=== PATIENT | female | born 1955 | race Two or more races ===

== ENCOUNTER 2017-08-03 23:23 | Inpatient (IN) | payer MEDICAID ==
[~2017-08-03] VITALS: Ht 160 cm; Wt 69.9 kg
[2017-08-04] VITALS (7 sets, daily range): BP systolic 114–167; BP diastolic 72–88
[2017-08-04] MEDS ORDERED: Morphine Sulfate 4mg/ml Inj IVP ONE ×2 (00:15→03:30)
[2017-08-04 00:33] LABS: APPEARANCE,URINE CLEAR; KETONES,URINE 1+ (NEGATIVE); LEUKOCYTE ESTERASE ,URINE 1+ (NEGATIVE); NITRITE,URINE NEGATIVE (NEGATIVE); PH,URINE 7 (4.5-8.0); PROTEIN,URINE 2+ (NEGATIVE); UROBILINOGEN,URINE NORMAL MG/DL (0.0-1.0)
[2017-08-04 00:36] LABS: BASOPHILS % (AUTO) 0.7 % (0.0-2.0); EOSINOPHILS % (AUTO) 0.6 % (0.0-3.0); LYMPHOCYTES % (AUTO) 13.1 % (20.0-45.0); MEAN CORPUSCULAR HEMOGLOBIN 31.8 PG (27.0-31.0); MEAN CORPUSCULAR HGB CONC 33.8 G/DL (32.0-36.0); MEAN CORPUSCULAR VOLUME 94 FL (80-99); MEAN PLATELET VOLUME 8.2 FL (6.5-10.1); MONOCYTES % (AUTO) 3.4 % (1.0-10.0); NEUTROPHILS % (AUTO) 82.3 % (45.0-75.0); PLATELET COUNT 272 K/UL (150-450); RED BLOOD COUNT 4.28 M/UL (4.20-5.40); RED CELL DISTRIBUTION WIDTH 12.6 % (11.6-14.8); WHITE BLOOD COUNT 13.7 K/UL (4.8-10.8)
[2017-08-04 00:49] LABS: ANION GAP 10 mmol/L (5-15); CALCIUM 9.2 MG/DL (8.5-10.1); CARBON DIOXIDE 29 MMOL/L (21-32); CHLORIDE 99 MMOL/L (98-107); CREATININE 1.1 MG/DL (0.55-1.30); GLOMERULAR FILTRATION RATE 50.5 mL/min (>60); POTASSIUM 3.7 MMOL/L (3.5-5.1); SODIUM 138 MMOL/L (136-145)
--- NOTE | 2017-08-04 00:52 | Emergency Room Report ---
History of Present Illness General Chief Complaint: Abdominal Pain Source: Patient, Family Member Present Illness HPI 62-year-old female, history of hypertension and diabetes p/w abdominal pain 2-3 days. Patient states pain started gradually, localized to make lower and left lower quadrant, non radiating, crampy in nature, intermittent. No relieving or exacerbating factors. Severity is 5/10. Pt reports n/v, more than 7 episodes of nbnb vomiting, denies diarrhea, but states that she has had constipation, however did pass Hardened small stool today. Denies fever, chills. No hx of abdominal surgeries. No hx of endoscopies/colonoscopies. Patient was diagnosed with UTI, and has completed 4 days of antibiotics, continues to have dysuria and frequency Allergies: Coded Allergies: No Known Allergies (Unverified , 08/03/17) Patient History Past Medical History: see triage record Past Surgical History: none Pertinent Family History: none Reviewed Nursing Documentation: PMH: Agreed, PSxH: Agreed Nursing Documentation-PMH Hx Hypertension: Yes Hx Diabetes: Yes Review of Systems All Other Systems: negative except mentioned in HPI Physical Exam Vital Signs Date Time Temp Pulse Resp B/P (MAP) Pulse Ox O2 Delivery O2 Flow Rate FiO2 08/03/17 23:27 97.7 85 18 127/76 98 Room Air Sp02 EP Interpretation: reviewed, normal General Appearance: alert, GCS 15, non-toxic, moderate distress Head: normocephalic, atraumatic Eyes: bilateral eye normal inspection, bilateral eye PERRL, bilateral eye EOMI ENT: normal ENT inspection, normal pharynx, normal voice, moist mucus membranes Neck: normal inspection, full range of motion, supple Respiratory: normal inspection, lungs clear, normal breath sounds, no respiratory distress, no retraction, no wheezing, speaking full sentences, chest symmetrical Cardiovascular #1: normal inspection, regular rate, rhythm, normal capillary refill Cardiovascular #2: 2+ radial (R), 2+ radial (L) Gastrointestinal: other - Normal bowel sounds, abdomen is soft, has left lower quadrant and mid abdominal tenderness, mild voluntary guarding, no rebound, no CVA tenderness bilaterally Musculoskeletal: normal inspection, back normal, normal range of motion, non- tender Neurologic: normal inspection, alert, oriented x3, responsive, motor strength/ tone normal, sensory intact, normal gait, speech normal Psychiatric: normal inspection, judgement/insight normal, memory normal Skin: normal inspection, normal color, no rash, warm/dry, well hydrated, normal turgor Medical Decision Making Diagnostic Impression: Primary Impression: Intractable nausea and vomiting Additional Impressions: Hyperglycemia Left nephrolithiasis ER Course 62-year-old female with abdominal pain Differential Diagnosis: Gastritis, gastroenteritis, cholecystitis, appendicitis, diverticulitis, SBO, cardiac, UTI/pyelo Plan: Basic labs, ua, ekg pain control, IVF CTA abdo pelvis ER course: Patient had two more episodes of vomiting in ED required pain meds for abd pain x 2, continues to feel nauseous urine neg, however also has been taking abx, possible failed outpatient tx as patient is still experiencing symptoms. ceftriaxone given CT abdo pelvis shows possible L sided kidney stone which passed will admit for intractable abd pain Disposition: Patient is to be admitted to med-surg D.W hospitalist Dr Guo Please note that this Emergency Department Report was dictated using [employer] teacher technology software, occasionally this can lead to erroneous entry secondary to interpretation by the dictation equipment EKG Diagnostic Results EP Interpretation: Yes Rate: normal Rhythm: NSR ST Segments: Q waves noted in leads 3 and aVF, T wave inversion noted only in lead 3 ASA given to patient: No Rhythm Strip EP Interpretation: Yes Rate: 90 Rhythm: NSR, no PVCs, no ectopy Laboratory Tests Test 08/03/17 23:59 White Blood Count 13.7 K/UL (4.8-10.8) H Red Blood Count 4.28 M/UL (4.20-5.40) Hemoglobin 13.6 G/DL (12.0-16.0) Hematocrit 40.4 % (37.0-47.0) Mean Corpuscular Volume 94 FL (80-99) Mean Corpuscular Hemoglobin 31.8 PG (27.0-31.0) H Mean Corpuscular Hemoglobin Concent 33.8 G/DL (32.0-36.0) Red Cell Distribution Width 12.6 % (11.6-14.8) Platelet Count 272 K/UL (150-450) Mean Platelet Volume 8.2 FL (6.5-10.1) Neutrophils (%) (Auto) 82.3 % (45.0-75.0) H Lymphocytes (%) (Auto) 13.1 % (20.0-45.0) L Monocytes (%) (Auto) 3.4 % (1.0-10.0) Eosinophils (%) (Auto) 0.6 % (0.0-3.0) Basophils (%) (Auto) 0.7 % (0.0-2.0) Urine Color Pale yellow Urine Appearance Clear Urine pH 7 (4.5-8.0) Urine Specific [place] 1.005 (1.005-1.035) Urine Protein 2+ (NEGATIVE) H Urine Glucose (UA) 4+ (NEGATIVE) H Urine Ketones 1+ (NEGATIVE) H Urine Occult Blood Negative (NEGATIVE) Urine Nitrite Negative (NEGATIVE) Urine Bilirubin Negative (NEGATIVE) Urine Urobilinogen Normal MG/DL (0.0-1.0) Urine Leukocyte Esterase 1+ (NEGATIVE) H Urine RBC 0 /HPF (0 - 2) Urine WBC 0-2 /HPF (0 - 2) Urine Squamous Epithelial Cells Few /LPF (NONE/OCC) Urine Bacteria None /HPF (NONE) Sodium Level 138 MMOL/L (136-145) Potassium Level 3.7 MMOL/L (3.5-5.1) Chloride Level 99 MMOL/L (98-107) Carbon Dioxide Level 29 MMOL/L (21-32) Anion Gap 10 mmol/L (5-15) Blood Urea Nitrogen 27 mg/dL (7-18) H Creatinine 1.1 MG/DL (0.55-1.30) Estimate Glomerular Filtration Rate 50.5 mL/min (>60) Glucose Level 354 MG/DL (74-106) H Lactic Acid Level 1.50 mmol/L (0.66-2.22) Calcium Level 9.2 MG/DL (8.5-10.1) Total Bilirubin 0.4 MG/DL (0.2-1.0) Aspartate Amino Transferase (AST) 20 U/L (15-37) Alanine Aminotransferase (ALT) 29 U/L (12-78) Alkaline Phosphatase 111 U/L (46-116) Total Protein 8.7 G/DL (6.4-8.2) H Albumin 4.2 G/DL (3.4-5.0) Globulin 4.5 g/dL Albumin/Globulin Ratio 0.9 (1.0-2.7) L Lipase 209 U/L (73-393) Serum Alcohol < 3 mg/dL Acetone Level Pending CT/MRI/US Diagnostic Results CT/MRI/US Diagnostic Results : Imaging Test Ordered: CT abdo pelvis with IV and PO contrast Impression Mild to moderate left-sided hydro-nephrosis with perinephric fluid and fat stranding. No obstructing calculus is identified within the distal left ureter. Findings most likely represent a recently passed left renal stone or presence of a non-radiodense calculus in the distal left ureter. An pricila ending left UTI with pyelonephritis is less likely. Right kidney within normal limits Normal appendix. No bowel obstruction or wall thickening No adnexal lesions per [facility] Last Vital Signs Date Time Temp Pulse Resp B/P (MAP) Pulse Ox O2 Delivery O2 Flow Rate FiO2 08/04/17 00:29 97.7 82 18 127/76 98 Room Air Disposition: ADMITTED INPATIENT Condition: Serious Referrals: [facility] (PCP) Sepideh Clark M.D. Aug 04, 2017 00:52
[2017-08-04 01:00] LABS: RBC,URINE 0 /HPF (0 - 2); SQUAMOUS EPITHELIAL CELL,UR FEW /LPF (NONE/OCC); WBC,URINE 0-2 /HPF (0 - 2)
[2017-08-04 01:07] LABS: ALANINE AMINOTRANSFERASE 29 U/L (12-78); ALBUMIN/GLOBULIN RATIO 0.9 (1.0-2.7); ASPARTATE AMINO TRANSFERASE 20 U/L (15-37); LIPASE 209 U/L (73-393); TOTAL PROTEIN 8.7 G/DL (6.4-8.2)
[2017-08-04] MEDS ORDERED: SIMVASTATIN20 MG ORAL (01:32)
[2017-08-04] MEDS ORDERED: DOCUSATE SODIU100 MG ORAL (01:32)
[2017-08-04] MEDS ORDERED: LISINOPRIL20 MG ORAL (01:32)
[2017-08-04] MEDS ORDERED: LORATADINE10 M3 PO (01:32)
[2017-08-04] MEDS ORDERED: METFORMIN HCL1000 M1 ORAL (01:32)
[2017-08-04] MEDS ORDERED: CIPROFLOXACIN750 MG ORAL (01:32)
[2017-08-04] MEDS ORDERED: GLIPIZIDE5 MG ORAL (01:32)
[2017-08-04] MEDS ORDERED: PANTOPRAZOLE SO40 MG ORAL (01:32)
[2017-08-04] MEDS ORDERED: JANUVIA25 MG ORAL (01:32)
[2017-08-04] MEDS ORDERED: cefTRIAXone 1 GM in D5W 55 ML IVPB ONE (04:00)
[2017-08-04] MEDS ORDERED: Mylanta II UD 30ml ORAL PRN (07:00)
[2017-08-04] MEDS ORDERED: Nitroglycerin Subl 0.4mg tab SL PRN (07:00)
[2017-08-04] MEDS ORDERED: Ketorolac 30mg Inj IV PRN (07:00)
[2017-08-04] MEDS ORDERED: Morphine Sulfate 2mg/ml Inj IVP PRN (07:00)
[2017-08-04] MEDS ORDERED: Miralax 17gm pkt ORAL PRN (07:00)
[2017-08-04] MEDS: Heparin 5000 units/ml inj SUBQ SCH ×2 (10:10→22:13)
[2017-08-04] MEDS: sitaGLIPtin 50mg tab ORAL SCH (10:10)
[2017-08-04] MEDS: Lisinopril 20mg tab ORAL SCH (10:11)
[2017-08-04] MEDS: NovoLOG Insulin Flexpen SUBQ SCH ×3 (11:30→22:12)
--- NOTE | 2017-08-04 12:19 | GI Initial Consult Note ---
History of Present Illness General Date patient seen: Aug 04, 2017 Time patient seen: 11:00 Reason for Hospitalization: Abdominal Pain Referring physician: DIANE SMITH Reason for Consultation: ABDOMINAL PAIN Present Illness HPI 62-year-old female, history of hypertension and diabetes p/w abdominal pain 2-3 days. Patient states pain started gradually, localized to make lower and left lower quadrant, non radiating, crampy in nature, intermittent. No relieving or exacerbating factors. Severity is 5/10. Pt reports n/v, more than 7 episodes of nbnb vomiting, denies diarrhea, but states that she has had constipation, however did pass Hardened small stool today. Denies fever, chills. No hx of abdominal surgeries. No hx of endoscopies/colonoscopies. Patient was diagnosed with UTI, and has completed 4 days of antibiotics, continues to have dysuria and frequency GI consulted for abdominal pain. HPI as noted above. Pt seen on floor, awake A&Ox4 NAD with no active s/sx of N/V/D. C/o of abdominal pain directed to the epigastric/LLQ area. Tender to touch. Per daughter, patient has non compliancy to her diabetes. Had episodes of emesis with no hematemesis or coffee grounds. Preliminary CT AP shows mild to moderate left-sided hydro- nephrosis with perinephric fluid and fat stranding. No obstructing calculus is identified within the distal left ureter. Findings most likely represent a recently passed left renal stone or presence of a non-radiodense calculus in the distal left ureter, see full report. Presents today with leukocytosis. Last colonoscopy one year ago per patient. Home Meds Reported Medications Sitagliptin* (JANUVIA*) 25 Mg Tablet, 50 MG ORAL DAILY, TAB 08/04/17 Glipizide* (GLIPIZIDE*) 5 Mg Tablet, 10 MG ORAL BID, TAB 08/04/17 Lisinopril (LISINOPRIL*) 20 Mg Tablet, 20 MG ORAL DAILY, TAB 08/04/17 Simvastatin (ZOCOR) 20 Mg Tablet, 20 MG ORAL BEDTIME, TAB 08/04/17 Metformin Hcl* (METFORMIN HCL*) 1,000 Mg Tablet, 1000 MG ORAL BID, TAB 08/04/17 Docusate Sodium* (DOCUSATE SODIUM*) 100 Mg Capsule, 100 MG ORAL BID, CAP 08/04/17 Ciprofloxacin Hcl (CIPROFLOXACIN HCL*) 750 Mg Tablet, 500 MG ORAL BID, #5 TAB 0 Refills 08/04/17 Loratadine (LORATADINE) 10 Mg Capsule, 10 MG PO DAILY, CAP 08/04/17 Pantoprazole* (PANTOPRAZOLE*) 40 Mg Tablet.dr, 40 MG ORAL DAILY, TAB 08/04/17 Med list reviewed/reconciled: Yes Allergies: Coded Allergies: No Known Allergies (Unverified , 08/03/17) Patient History Limited by: medical condition History Provided By: Patient, Friend PMH Narrative Past Medical History: see triage record Past Surgical History: none Pertinent Family History: none Reviewed Nursing Documentation: PMH: Agreed, PSxH: Agreed Nursing Documentation-PMH Hx Hypertension: Yes Hx Diabetes: Yes Review of Systems All Other Systems: negative except mentioned in HPI Physical Exam Vital Signs Date Time Temp Pulse Resp B/P (MAP) Pulse Ox O2 Delivery O2 Flow Rate FiO2 08/03/17 23:27 97.7 85 18 127/76 98 Room Air Sp02 EP Interpretation: reviewed, normal Labs Laboratory Tests Test 08/03/17 23:59 White Blood Count 13.7 K/UL (4.8-10.8) H Red Blood Count 4.28 M/UL (4.20-5.40) Hemoglobin 13.6 G/DL (12.0-16.0) Hematocrit 40.4 % (37.0-47.0) Mean Corpuscular Volume 94 FL (80-99) Mean Corpuscular Hemoglobin 31.8 PG (27.0-31.0) H Mean Corpuscular Hemoglobin Concent 33.8 G/DL (32.0-36.0) Red Cell Distribution Width 12.6 % (11.6-14.8) Platelet Count 272 K/UL (150-450) Mean Platelet Volume 8.2 FL (6.5-10.1) Neutrophils (%) (Auto) 82.3 % (45.0-75.0) H Lymphocytes (%) (Auto) 13.1 % (20.0-45.0) L Monocytes (%) (Auto) 3.4 % (1.0-10.0) Eosinophils (%) (Auto) 0.6 % (0.0-3.0) Basophils (%) (Auto) 0.7 % (0.0-2.0) Urine Color Pale yellow Urine Appearance Clear Urine pH 7 (4.5-8.0) Urine Specific [place] 1.005 (1.005-1.035) Urine Protein 2+ (NEGATIVE) H Urine Glucose (UA) 4+ (NEGATIVE) H Urine Ketones 1+ (NEGATIVE) H Urine Occult Blood Negative (NEGATIVE) Urine Nitrite Negative (NEGATIVE) Urine Bilirubin Negative (NEGATIVE) Urine Urobilinogen Normal MG/DL (0.0-1.0) Urine Leukocyte Esterase 1+ (NEGATIVE) H Urine RBC 0 /HPF (0 - 2) Urine WBC 0-2 /HPF (0 - 2) Urine Squamous Epithelial Cells Few /LPF (NONE/OCC) Urine Bacteria None /HPF (NONE) Sodium Level 138 MMOL/L (136-145) Potassium Level 3.7 MMOL/L (3.5-5.1) Chloride Level 99 MMOL/L (98-107) Carbon Dioxide Level 29 MMOL/L (21-32) Anion Gap 10 mmol/L (5-15) Blood Urea Nitrogen 27 mg/dL (7-18) H Creatinine 1.1 MG/DL (0.55-1.30) Estimat Glomerular Filtration Rate 50.5 mL/min (>60) Glucose Level 354 MG/DL (74-106) H Lactic Acid Level 1.50 mmol/L (0.66-2.22) Calcium Level 9.2 MG/DL (8.5-10.1) Total Bilirubin 0.4 MG/DL (0.2-1.0) Aspartate Amino Transf (AST/SGOT) 20 U/L (15-37) Alanine Aminotransferase (ALT/SGPT) 29 U/L (12-78) Alkaline Phosphatase 111 U/L (46-116) Total Protein 8.7 G/DL (6.4-8.2) H Albumin 4.2 G/DL (3.4-5.0) Globulin 4.5 g/dL Albumin/Globulin Ratio 0.9 (1.0-2.7) L Lipase 209 U/L (73-393) Serum Alcohol < 3 mg/dL Acetone Level Pending General Appearance: well appearing, no apparent distress, alert, other - overweight Head: normocephalic EENT: PERRL/EOMI, normal ENT inspection Neck: supple Respiratory: normal breath sounds, no respiratory distress Cardiovascular: normal rate Gastrointestinal: normal inspection, non tender, soft, normal bowel sounds, non -distended Rectal: deferred Genitourinary: no CVA tenderness Musculoskeletal: normal inspection, back normal Neurologic: normal inspection, alert, oriented x3, responsive Psychiatric: normal inspection, judgement/insight normal, memory normal Skin: normal inspection, normal color, no rash, warm/dry, palpation normal, well hydrated Lymphatic: normal inspection, no adenopathy Current Medications Current Medications Medications (Trade) Dose Ordered Sig/Silas Route PRN Reason Start Time Stop Time Status Last Admin Dose Admin Acetaminophen (Tylenol) 650 mg Q4H PRN ORAL fever (temp>100.5F) 08/04/17 07:00 09/03/17 06:59 Al Hydroxide/Mg Hydroxide (Mylanta II) 30 ml Q6H PRN ORAL dyspepsia 08/04/17 07:00 09/03/17 06:59 Dextrose (Dextrose 50%) STAT PRN IV Hypoglycemia 08/04/17 07:00 09/03/17 06:59 Diphenhydramine HCl (Benadryl) 25 mg Q6H PRN ORAL Itching/Pruritis 08/04/17 07:00 09/03/17 06:59 Heparin Sodium (Porcine) (Heparin 5000 units/ml) 5,000 units EVERY 12 HOURS SUBQ 08/04/17 09:00 09/03/17 08:59 08/04/17 10:10 Insulin Aspart (NovoLOG) BEFORE MEALS AND HS SUBQ 08/04/17 11:30 09/03/17 11:29 Ketorolac Tromethamine (Toradol 30mg) 30 mg Q6H PRN IV moderate pian 4-6 08/04/17 07:00 08/09/17 06:59 Lisinopril (Prinivil) 20 mg DAILY ORAL 08/04/17 09:00 09/03/17 08:59 08/04/17 10:11 Morphine Sulfate (Morphine Sulfate) 2 mg Q4H PRN IVP severe Pain (Pain Scale 7-10) 08/04/17 07:00 08/11/17 06:59 Nitroglycerin (Ntg) 0.4 mg Q5M X 3 DOSES PRN SL Prn Chest Pain 08/04/17 07:00 09/03/17 06:59 Ondansetron HCl (Zofran) 4 mg Q6H PRN IVP Nausea & Vomiting 08/04/17 07:00 09/03/17 06:59 Pantoprazole (Protonix) 40 mg DAILY ORAL 08/04/17 09:00 09/03/17 08:59 08/04/17 10:07 Polyethylene Glycol (Miralax) 17 gm HSPRN PRN ORAL Constipation 08/04/17 07:00 09/03/17 06:59 Sitagliptin Phosphate (Januvia) 50 mg DAILY ORAL 08/04/17 09:00 09/03/17 08:59 08/04/17 10:10 Sodium Chloride 1,000 ml @ 50 mls/hr Q20H IV 08/04/17 08:00 09/03/17 07:59 08/04/17 10:07 Temazepam (Restoril) 15 mg HSPRN PRN ORAL Insomnia 08/04/17 07:00 08/11/17 06:59 GI: Plan Problems: (1) Abdominal pain (2) Gastroparesis due to DM (3) Intractable nausea and vomiting Plan supportive measures okay for CLD after abdominal U/S, adv to ADA diet as tolerated IV/PO hydration and electrolyte correction DM mgmt, fu HgA1c zofran prn, reglan for persistent N/V abx ppi fu labs Discussed with Dr. Brothers. Thank you for this patient referral, we will follow. Patti Lan N.P. Aug 04, 2017 12:19
[2017-08-04] MEDS ORDERED: Metoclopramide 10mg/2ml Inj IVP PRN (12:45)
--- NOTE | 2017-08-04 14:34 | Diagnostic Imaging Report ---
Clinical Indication: Left lower quadrant pain x2 days Technique: Patient given oral contrast. IV administration nonionic contrast. Venous phase spiral acquisition obtained through the abdomen and pelvis. Multiplanar reconstructions were generated. Total dose length product 895 mGycm. CTDIvol(s) 14, 17 mGy. Dose reduction achieved using automated exposure control Comparison: None Findings: There is mild left hydronephrosis, moderate left hydroureter, and considerable perinephric and periureteral fat stranding. No ureteral calculus demonstrated. However, there does appear to be a 13 x 8 mm focus of soft tissue attenuation at the left ureteral orifice. No intrarenal calculi are demonstrated. No right renal or ureteral calculi. There is a prominent right extrarenal pelvis. The bladder is distended. No definite renal mass or cyst demonstrated. The liver is mildly hypoattenuating, consistent with fatty change. A sub-5 mm low-attenuation lesion is seen in segment 8. A parenchymal calcification is also seen in segment 8. The gallbladder, bile ducts, pancreas, spleen, adrenals are unremarkable. No retroperitoneal or mesenteric mass or adenopathy. No pelvic mass or adenopathy. The appendix is normal. No evidence of diverticulosis or diverticulitis. No small bowel distention. No free or loculated intraperitoneal air or fluid. Distal esophagus, stomach, duodenum are unremarkable. The included lung bases demonstrate some atelectasis on the right. There are degenerative changes of the lumbar spine. Impression: Left hydronephrosis, hydroureter, perinephric and periureteral fat stranding, consistent with obstructive uropathy at the level of the ureteral orifice. No calculi demonstrated. This could represent recent stone passage or a radiolucent stone. However, there there is questionably 13 x 8 mm focus of soft tissue attenuation at the distal ureter. This may represent a urothelial mass. Further evaluation with cystoscopy should be considered if clinically indicated Mild hepatic steatosis Right basilar atelectatic changes Findings essentially agree with the [facility] preliminary report, with mild discrepancy that was discussed with Dr. Guo at the time of interpretation The CT scanner at [facility] is accredited by the [employer] and the scans are performed using protocols designed to limit radiation exposure to as low as reasonably achievable to attain images of sufficient resolution adequate for diagnostic evaluation.
[2017-08-04] MEDS: Docusate 100mg cap ORAL SCH (18:00)
[2017-08-04] MEDS ORDERED: NS 500ML ONE (18:04)
--- NOTE | 2017-08-04 18:42 | History and Physical ---
History of Present Illness General Date patient seen: Aug 04, 2017 Reason for Hospitalization: Abdominal Pain Present Illness HPI 62-year-old female, history of hypertension and diabetes p/w abdominal pain 2-3 days. Patient was diagnosed with UTI, and has completed 4 days of antibiotics, continues to have dysuria and frequency. Her CT showed Left hydronephrosis, hydroureter, perinephric and periureteral fat stranding, consistent with obstructive uropathy at the level of the ureteral orifice. She is admitted for further management. Allergies: Coded Allergies: No Known Allergies (Unverified , 08/03/17) Medication History Scheduled Ciprofloxacin Hcl (Ciprofloxacin Hcl*), 500 MG ORAL BID, (Reported) Docusate Sodium* (Docusate Sodium*), 100 MG ORAL BID, (Reported) Glipizide* (Glipizide*), 10 MG ORAL BID, (Reported) Lisinopril (Lisinopril*), 20 MG ORAL DAILY, (Reported) Loratadine (Loratadine), 10 MG PO DAILY, (Reported) Metformin Hcl* (Metformin Hcl*), 1,000 MG ORAL BID, (Reported) Pantoprazole* (Pantoprazole*), 40 MG ORAL DAILY, (Reported) Simvastatin (Zocor), 20 MG ORAL BEDTIME, (Reported) Sitagliptin* (Januvia*), 50 MG ORAL DAILY, (Reported) Patient History Healthcare decision maker Resuscitation status Full Code Advanced Directive on File No Past Medical/Surgical History Past Medical/Surgical History: (1) Gastroparesis due to DM Review of Systems All Other Systems: negative except mentioned in HPI Physical Exam General Appearance: WD/WN Lines, tubes and drains: peripheral HEENT: normocephalic, atraumatic Neck: non-tender, normal alignment Respiratory/Chest: chest wall non-tender, lungs clear Breasts: no masses Cardiovascular/Chest: normal peripheral pulses Abdomen: normal bowel sounds Genitourinary/Rectal: normal genital exam Extremities: normal range of motion, non-pitting Skin Exam: normal pigmentation 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 Last 24 Hour Vital Signs Date Time Temp Pulse Resp B/P (MAP) Pulse Ox O2 Delivery O2 Flow Rate FiO2 08/04/17 16:00 98.6 95 18 133/78 97 08/04/17 12:00 98.3 97 20 139/84 96 08/04/17 10:11 114/88 08/04/17 08:00 98.1 108 20 114/88 95 08/04/17 04:41 97.5 100 16 167/72 97 Room Air 08/04/17 04:14 97.5 100 16 167/72 97 Room Air 08/04/17 04:02 97.5 08/04/17 02:00 97.7 87 18 159/79 94 Room Air 08/04/17 00:48 97.7 08/04/17 00:29 97.7 82 18 127/76 98 Room Air 08/03/17 23:27 97.7 85 18 127/76 98 Room Air Laboratory Tests Test 08/03/17 23:59 White Blood Count 13.7 K/UL (4.8-10.8) H Red Blood Count 4.28 M/UL (4.20-5.40) Hemoglobin 13.6 G/DL (12.0-16.0) Hematocrit 40.4 % (37.0-47.0) Mean Corpuscular Volume 94 FL (80-99) Mean Corpuscular Hemoglobin 31.8 PG (27.0-31.0) H Mean Corpuscular Hemoglobin Concent 33.8 G/DL (32.0-36.0) Red Cell Distribution Width 12.6 % (11.6-14.8) Platelet Count 272 K/UL (150-450) Mean Platelet Volume 8.2 FL (6.5-10.1) Neutrophils (%) (Auto) 82.3 % (45.0-75.0) H Lymphocytes (%) (Auto) 13.1 % (20.0-45.0) L Monocytes (%) (Auto) 3.4 % (1.0-10.0) Eosinophils (%) (Auto) 0.6 % (0.0-3.0) Basophils (%) (Auto) 0.7 % (0.0-2.0) Urine Color Pale yellow Urine Appearance Clear Urine pH 7 (4.5-8.0) Urine Specific [place] 1.005 (1.005-1.035) Urine Protein 2+ (NEGATIVE) H Urine Glucose (UA) 4+ (NEGATIVE) H Urine Ketones 1+ (NEGATIVE) H Urine Occult Blood Negative (NEGATIVE) Urine Nitrite Negative (NEGATIVE) Urine Bilirubin Negative (NEGATIVE) Urine Urobilinogen Normal MG/DL (0.0-1.0) Urine Leukocyte Esterase 1+ (NEGATIVE) H Urine RBC 0 /HPF (0 - 2) Urine WBC 0-2 /HPF (0 - 2) Urine Squamous Epithelial Cells Few /LPF (NONE/OCC) Urine Bacteria None /HPF (NONE) Sodium Level 138 MMOL/L (136-145) Potassium Level 3.7 MMOL/L (3.5-5.1) Chloride Level 99 MMOL/L (98-107) Carbon Dioxide Level 29 MMOL/L (21-32) Anion Gap 10 mmol/L (5-15) Blood Urea Nitrogen 27 mg/dL (7-18) H Creatinine 1.1 MG/DL (0.55-1.30) Estimat Glomerular Filtration Rate 50.5 mL/min (>60) Glucose Level 354 MG/DL (74-106) H Lactic Acid Level 1.50 mmol/L (0.66-2.22) Calcium Level 9.2 MG/DL (8.5-10.1) Total Bilirubin 0.4 MG/DL (0.2-1.0) Aspartate Amino Transf (AST/SGOT) 20 U/L (15-37) Alanine Aminotransferase (ALT/SGPT) 29 U/L (12-78) Alkaline Phosphatase 111 U/L (46-116) Total Protein 8.7 G/DL (6.4-8.2) H Albumin 4.2 G/DL (3.4-5.0) Globulin 4.5 g/dL Albumin/Globulin Ratio 0.9 (1.0-2.7) L Lipase 209 U/L (73-393) Serum Alcohol < 3 mg/dL Acetone Level Pending Height (Feet): 5 Height (Inches): 3.00 Weight (Pounds): 154 Medications Current Medications Medications (Trade) Dose Ordered Sig/Silas Route PRN Reason Start Time Stop Time Status Last Admin Dose Admin Acetaminophen (Tylenol) 650 mg Q4H PRN ORAL fever (temp>100.5F) 08/04/17 07:00 09/03/17 06:59 Al Hydroxide/Mg Hydroxide (Mylanta II) 30 ml Q6H PRN ORAL dyspepsia 08/04/17 07:00 09/03/17 06:59 Dextrose (Dextrose 50%) STAT PRN IV Hypoglycemia 08/04/17 07:00 09/03/17 06:59 Diphenhydramine HCl (Benadryl) 25 mg Q6H PRN ORAL Itching/Pruritis 08/04/17 07:00 09/03/17 06:59 Docusate Sodium (Colace) 100 mg TWICE A DAY ORAL 08/04/17 18:00 09/03/17 17:59 Heparin Sodium (Porcine) (Heparin 5000 units/ml) 5,000 units EVERY 12 HOURS SUBQ 08/04/17 09:00 09/03/17 08:59 08/04/17 10:10 Insulin Aspart (NovoLOG) BEFORE MEALS AND HS SUBQ 08/04/17 11:30 09/03/17 11:29 08/04/17 16:40 Ketorolac Tromethamine (Toradol 30mg) 30 mg Q6H PRN IV moderate pian 4-6 08/04/17 07:00 08/09/17 06:59 Lisinopril (Prinivil) 20 mg DAILY ORAL 08/04/17 09:00 09/03/17 08:59 08/04/17 10:11 Metoclopramide HCl (Reglan) 10 mg Q8H PRN IVP Nausea & Vomiting 08/04/17 12:45 09/03/17 12:44 Morphine Sulfate (Morphine Sulfate) 2 mg Q4H PRN IVP severe Pain (Pain Scale 7-10) 08/04/17 07:00 08/11/17 06:59 08/04/17 12:26 Nitroglycerin (Ntg) 0.4 mg Q5M X 3 DOSES PRN SL Prn Chest Pain 08/04/17 07:00 09/03/17 06:59 Ondansetron HCl (Zofran) 4 mg Q6H PRN IVP Nausea & Vomiting 08/04/17 07:00 09/03/17 06:59 08/04/17 12:26 Pantoprazole (Protonix) 40 mg DAILY ORAL 08/04/17 09:00 09/03/17 08:59 08/04/17 10:07 Polyethylene Glycol (Miralax) 17 gm HSPRN PRN ORAL Constipation 08/04/17 07:00 09/03/17 06:59 Sitagliptin Phosphate (Januvia) 50 mg DAILY ORAL 08/04/17 09:00 09/03/17 08:59 08/04/17 10:10 Sodium Chloride 1,000 ml @ 50 mls/hr Q20H IV 08/04/17 08:00 09/03/17 07:59 08/04/17 10:07 Temazepam (Restoril) 15 mg HSPRN PRN ORAL Insomnia 08/04/17 07:00 08/11/17 06:59 Assessment/Plan Problem List: (1) Hydronephrosis ICD Codes: N13.30 - Unspecified hydronephrosis SNOMED: 21449835 (2) Intractable nausea and vomiting ICD Codes: R11.2 - Nausea with vomiting, unspecified SNOMED: 332503785, [id number] Assessment/Plan npo iv fluids Urolgoy evaluation DIANE EDUARDO Aug 04, 2017 18:42
[2017-08-05] VITALS: BP 134/74
[2017-08-05 04:05] VITALS: BP 111/58
[2017-08-05] MEDS: NovoLOG Insulin Flexpen SUBQ SCH ×4 (06:00→20:51)
[2017-08-05 07:24] LABS: BASOPHILS % (AUTO) 0.8 % (0.0-2.0); EOSINOPHILS % (AUTO) 1.9 % (0.0-3.0); LYMPHOCYTES % (AUTO) 19.9 % (20.0-45.0); MEAN CORPUSCULAR HEMOGLOBIN 30.9 PG (27.0-31.0); MEAN CORPUSCULAR HGB CONC 33.3 G/DL (32.0-36.0); MEAN CORPUSCULAR VOLUME 93 FL (80-99); MEAN PLATELET VOLUME 8.3 FL (6.5-10.1); MONOCYTES % (AUTO) 8.5 % (1.0-10.0); PLATELET COUNT 229 K/UL (150-450); RED BLOOD COUNT 3.65 M/UL (4.20-5.40); RED CELL DISTRIBUTION WIDTH 12.2 % (11.6-14.8)
[2017-08-05 07:37] LABS: HEMOGLOBIN A1C 9.2 % (4.3-6.0)
[2017-08-05 07:51] LABS: ALANINE AMINOTRANSFERASE 21 U/L (12-78); ALBUMIN/GLOBULIN RATIO 0.8 (1.0-2.7); AMYLASE 44 U/L (25-115); ANION GAP 7 mmol/L (5-15); ASPARTATE AMINO TRANSFERASE 15 U/L (15-37); CARBON DIOXIDE 29 MMOL/L (21-32); CHLORIDE 103 MMOL/L (98-107); CREATININE 1.1 MG/DL (0.55-1.30); GLOMERULAR FILTRATION RATE 50.5 mL/min (>60); LIPASE 173 U/L (73-393); POTASSIUM 3.2 MMOL/L (3.5-5.1); SODIUM 138 MMOL/L (136-145); THYROID STIMULATING HORMONE 1.745 uiU/mL (0.358-3.740); TOTAL PROTEIN 6.5 G/DL (6.4-8.2)
[2017-08-05 08:00] VITALS: BP 111/60
[2017-08-05] MEDS: sitaGLIPtin 50mg tab ORAL SCH (08:27)
[2017-08-05] MEDS: Lisinopril 20mg tab ORAL SCH (08:28)
[2017-08-05] MEDS: Docusate 100mg cap ORAL SCH ×3 (08:28→17:52)
[2017-08-05] MEDS: Heparin 5000 units/ml inj SUBQ SCH ×2 (08:29→20:50)
--- NOTE | 2017-08-05 10:04 | Diagnostic Imaging Report ---
Indication: Abdominal pain TECHNIQUE: Multiplanar grayscale and color Doppler imaging of the abdomen. COMPARISON: Elevation made to concurrent CT of the abdomen and pelvis 08/03/2017. FINDINGS: Imaged portions of the pancreatic head are unremarkable in appearance. The body and tail are not seen. There is increased hepatic echogenicity most . No discrete liver lesion is appreciated. The liver contour is smooth. Liver is within the upper limits of normal size. The gallbladder is unremarkable in appearance. No cholelithiasis is identified. No gallbladder wall thickening or pericholecystic fluid. Sonographic Tipton sign was reported as negative. There is no intrahepatic biliary duct dilatation. Common bile duct measures 5 mm in diameter. Right kidney measures 12.2 cm in length. It demonstrates normal cortical thickness and echogenicity. There is no hydronephrosis or sonographically appreciable renal stone on the right. Left kidney measures 12.2 cm in length. There is mild left-sided hydronephrosis. No sonographically appreciable stone is noted on the left. Parenchymal thickness and echogenicity is within normal limits. Spleen is normal in size. Thickening of the bladder wall is likely related to underdistention. Imaged portions of the abdominal aorta and IVC are normal in caliber. There is no ascites. IMPRESSION: * Mild left-sided hydronephrosis, consistent with findings of prior CT. No sonographically appreciable renal stone on the left. No right-sided hydronephrosis. * Diffusely increased hepatic echogenicity most commonly reflective of hepatic steatosis. Additional hepatocellular disease should be excluded clinically. * Apparent thickening of the bladder wall likely related to underdistention. Correlate with urinalysis to exclude cystitis.
--- NOTE | 2017-08-05 10:50 | GI Progress Note ---
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 Brothers. Assessment/Plan CT AP reviewed >> - Left hydronephrosis, hydroureter, perinephric and periureteral fat stranding, consistent with obstructive uropathy at the level of the ureteral orifice. - questionably 13 x 8 mm focus of soft tissue attenuation at the distal ureter. This may represent a urothelial mass. adv to cardiac soft diet, add probiotics bowel regime >> colace + miralax IV/PO hydration and electrolyte correction DM mgmt zofran prn, reglan for persistent N/V abx ppi fu abdominal US fu labs Subjective Subjective abdominal bloating LLQ pain denies vomiting Objective Last 24 Hour Vital Signs Date Time Temp Pulse Resp B/P (MAP) Pulse Ox O2 Delivery O2 Flow Rate FiO2 08/05/17 08:28 111/58 08/05/17 08:00 97.7 84 18 111/60 98 08/05/17 04:05 97.3 79 18 111/58 96 08/05/17 00:00 97.6 74 18 134/74 94 08/04/17 20:00 97.8 76 18 138/78 94 08/04/17 20:00 Nasal Cannula 1.0 08/04/17 16:00 98.6 95 18 133/78 97 08/04/17 12:00 98.3 97 20 139/84 96 Laboratory Tests Test 08/05/17 05:10 White Blood Count 9.0 K/UL (4.8-10.8) Red Blood Count 3.65 M/UL (4.20-5.40) L Hemoglobin 11.3 G/DL (12.0-16.0) L Hematocrit 33.8 % (37.0-47.0) L Mean Corpuscular Volume 93 FL (80-99) Mean Corpuscular Hemoglobin 30.9 PG (27.0-31.0) Mean Corpuscular Hemoglobin Concent 33.3 G/DL (32.0-36.0) Red Cell Distribution Width 12.2 % (11.6-14.8) Platelet Count 229 K/UL (150-450) Mean Platelet Volume 8.3 FL (6.5-10.1) Neutrophils (%) (Auto) 69.0 % (45.0-75.0) Lymphocytes (%) (Auto) 19.9 % (20.0-45.0) L Monocytes (%) (Auto) 8.5 % (1.0-10.0) Eosinophils (%) (Auto) 1.9 % (0.0-3.0) Basophils (%) (Auto) 0.8 % (0.0-2.0) Prothrombin Time 10.0 SEC (9.30-11.50) Prothromb Time International Ratio 1.0 (0.9-1.1) Activated Partial Thromboplast Time 27 SEC (23-33) Sodium Level 138 MMOL/L (136-145) Potassium Level 3.2 MMOL/L (3.5-5.1) L Chloride Level 103 MMOL/L (98-107) Carbon Dioxide Level 29 MMOL/L (21-32) Anion Gap 7 mmol/L (5-15) Blood Urea Nitrogen 30 mg/dL (7-18) H Creatinine 1.1 MG/DL (0.55-1.30) Estimat Glomerular Filtration Rate 50.5 mL/min (>60) Glucose Level 172 MG/DL (74-106) #H Hemoglobin A1c 9.2 % (4.3-6.0) H Calcium Level 8.0 MG/DL (8.5-10.1) L Total Bilirubin 0.7 MG/DL (0.2-1.0) Aspartate Amino Transf (AST/SGOT) 15 U/L (15-37) Alanine Aminotransferase (ALT/SGPT) 21 U/L (12-78) Alkaline Phosphatase 72 U/L (46-116) Total Protein 6.5 G/DL (6.4-8.2) Albumin 2.9 G/DL (3.4-5.0) L Globulin 3.6 g/dL Albumin/Globulin Ratio 0.8 (1.0-2.7) L Amylase Level 44 U/L (25-115) Lipase 173 U/L (73-393) Thyroid Stimulating Hormone (TSH) 1.745 uiU/mL (0.358-3.740) Height (Feet): 5 Height (Inches): 3.00 Weight (Pounds): 154 General Appearance: WD/WN, no apparent distress, alert, overweight Cardiovascular: normal rate Respiratory/Chest: normal breath sounds, no respiratory distress Abdominal Exam: normal bowel sounds, non tender, soft Extremities: normal range of motion, non-tender Patti Lan N.P. Aug 05, 2017 10:50
--- NOTE | 2017-08-05 11:00 | Cardiology Report ---
APPROVED REPORT EKG Measurement Heart [id number] IL 154P40 [id number] Normal sinus rhythm Possible Inferior infarct, age undetermined Abnormal ECG
[2017-08-05 12:00] VITALS: BP 124/68
[2017-08-05] MEDS: Lactobacillus-GG tablet ORAL SCH ×2 (15:15→17:52)
[2017-08-05] MEDS ORDERED: NS 500ML ONE (15:16)
[2017-08-05 16:00] VITALS: BP 123/68
--- NOTE | 2017-08-05 18:31 | Pulmonology Progress Note ---
Assessment/Plan Problems: (1) Hydronephrosis (2) Intractable nausea and vomiting Assessment/Plan feeling better symptomatic treatment needs urology evaluation at a contracted facility Subjective ROS Limited/Unobtainable: No Interval Events: started diet Allergies: Coded Allergies: No Known Allergies (Unverified , 08/03/17) Objective Last 24 Hour Vital Signs Date Time Temp Pulse Resp B/P (MAP) Pulse Ox O2 Delivery O2 Flow Rate FiO2 08/05/17 16:00 98.4 93 18 123/68 95 08/05/17 12:00 96.6 88 18 124/68 97 08/05/17 08:28 111/58 08/05/17 08:00 97.7 84 18 111/60 98 08/05/17 04:05 97.3 79 18 111/58 96 08/05/17 00:00 97.6 74 18 134/74 94 08/04/17 20:00 97.8 76 18 138/78 94 08/04/17 20:00 Nasal Cannula 1.0 Intake and Output 08/05/17 08/06/17 19:00 07:00 Intake Total 240 ml Balance 240 ml Intake Oral 240 ml # Voids 4 General Appearance: WD/WN HEENT: normocephalic, atraumatic Respiratory/Chest: chest wall non-tender, lungs clear Breasts: no masses Cardiovascular: normal rate Abdomen: normal bowel sounds, soft, non tender Genitourinary: normal external genitalia Extremities: no clubbing 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 Laboratory Tests 08/05/17 05:10: White Blood Count 9.0, Red Blood Count 3.65L, Hemoglobin 11.3L, Hematocrit 33.8L , Mean Corpuscular Volume 93, Mean Corpuscular Hemoglobin 30.9, Mean Corpuscular Hemoglobin Concent 33.3, Red Cell Distribution Width 12.2, Platelet Count 229, Mean Platelet Volume 8.3, Neutrophils (%) (Auto) 69.0, Lymphocytes (% ) (Auto) 19.9L, Monocytes (%) (Auto) 8.5, Eosinophils (%) (Auto) 1.9, Basophils (%) (Auto) 0.8, Prothrombin Time 10.0, Prothromb Time International Ratio 1.0, Activated Partial Thromboplast Time 27, Sodium Level 138, Potassium Level 3.2L, Chloride Level 103, Carbon Dioxide Level 29, Anion Gap 7, Blood Urea Nitrogen 30H, Creatinine 1.1, Estimat Glomerular Filtration Rate 50.5, Glucose Level 172# H, Hemoglobin A1c 9.2H, Calcium Level 8.0L, Total Bilirubin 0.7, Aspartate Amino Transf (AST/SGOT) 15, Alanine Aminotransferase (ALT/SGPT) 21, Alkaline Phosphatase 72, Total Protein 6.5, Albumin 2.9L, Globulin 3.6, Albumin/Globulin Ratio 0.8L, Amylase Level 44, Lipase 173, Thyroid Stimulating Hormone (TSH) 1.745 Current Medications Medications (Trade) Dose Ordered Sig/Silas Route PRN Reason Start Time Stop Time Status Last Admin Dose Admin Acetaminophen (Tylenol) 650 mg Q4H PRN ORAL fever (temp>100.5F) 08/04/17 07:00 09/03/17 06:59 Al Hydroxide/Mg Hydroxide (Mylanta II) 30 ml Q6H PRN ORAL dyspepsia 08/04/17 07:00 09/03/17 06:59 Dextrose (Dextrose 50%) STAT PRN IV Hypoglycemia 08/04/17 07:00 09/03/17 06:59 Diphenhydramine HCl (Benadryl) 25 mg Q6H PRN ORAL Itching/Pruritis 08/04/17 07:00 09/03/17 06:59 Docusate Sodium (Colace) 100 mg THREE TIMES A DAY ORAL 08/05/17 13:00 09/04/17 12:59 08/05/17 17:52 Heparin Sodium (Porcine) (Heparin 5000 units/ml) 5,000 units EVERY 12 HOURS SUBQ 08/04/17 09:00 09/03/17 08:59 08/05/17 08:29 Insulin Aspart (NovoLOG) BEFORE MEALS AND HS SUBQ 08/04/17 11:30 09/03/17 11:29 08/05/17 17:53 Ketorolac Tromethamine (Toradol 30mg) 30 mg Q6H PRN IV moderate pian 4-6 08/04/17 07:00 08/09/17 06:59 Lactobacillus Acidophilus (Culturelle) 1 tab THREE TIMES A DAY ORAL 08/05/17 13:00 09/04/17 12:59 08/05/17 17:52 Lisinopril (Prinivil) 20 mg DAILY ORAL 08/04/17 09:00 09/03/17 08:59 08/05/17 08:28 Metoclopramide HCl (Reglan) 10 mg Q8H PRN IVP Nausea & Vomiting 08/04/17 12:45 09/03/17 12:44 Morphine Sulfate (Morphine Sulfate) 2 mg Q4H PRN IVP severe Pain (Pain Scale 7-10) 08/04/17 07:00 08/11/17 06:59 08/04/17 12:26 Nitroglycerin (Ntg) 0.4 mg Q5M X 3 DOSES PRN SL Prn Chest Pain 08/04/17 07:00 09/03/17 06:59 Ondansetron HCl (Zofran) 4 mg Q6H PRN IVP Nausea & Vomiting 08/04/17 07:00 09/03/17 06:59 08/04/17 12:26 Pantoprazole (Protonix) 40 mg DAILY ORAL 08/04/17 09:00 09/03/17 08:59 08/05/17 08:29 Polyethylene Glycol (Miralax) 17 gm BEDTIME ORAL 08/05/17 21:00 09/04/17 20:59 Polyethylene Glycol (Miralax) 17 gm HSPRN PRN ORAL Constipation 08/04/17 07:00 09/03/17 06:59 Sitagliptin Phosphate (Januvia) 50 mg DAILY ORAL 08/04/17 09:00 09/03/17 08:59 08/05/17 08:27 Sodium Chloride 1,000 ml @ 50 mls/hr Q20H IV 08/04/17 08:00 09/03/17 07:59 08/05/17 06:01 Temazepam (Restoril) 15 mg HSPRN PRN ORAL Insomnia 08/04/17 07:00 08/11/17 06:59 DIANE EDUARDO Aug 05, 2017 18:31
--- NOTE | 2017-08-05 19:31 | Consultation ---
Consult Note Consult Note ID DIC # [id number] SHAWNA FLOWERS M.D. Aug 05, 2017 19:31
[2017-08-05 20:00] VITALS: BP 131/79
[2017-08-05] MEDS ORDERED: Miralax 17gm pkt ORAL SCH (21:00)
[2017-08-06] VITALS: BP 115/67
[2017-08-06 04:00] VITALS: BP 126/76
[2017-08-06] MEDS ORDERED: TYLENOL325 MG ORAL (04:50)
--- NOTE | 2017-08-06 05:00 | Consultation ---
DATE OF CONSULTATION: 08/05/2017 REASON FOR CONSULTATION: Findings on the CT urogram showing left ureteral mass. HISTORY OF PRESENT ILLNESS: The patient is a 62-year-old female. I was asked by Dr. Guo to see her with suspicious urothelial cancer, history of hypertension, and diabetes, diagnosed with UTI, was on antibiotics and then admitted to the hospital where the CT scan was done showing hydroureter peripheral, perinephric fat stranding, and system with obstructive uropathy and tumor in the left ureteral orifice. Medical history is significant for hypertension and diabetes. MEDICATIONS: Cipro, docusate sodium, glipizide, lisinopril, loratadine, metformin, and pantoprazole. PAST MEDICAL HISTORY: As above. Resuscitation status, Full Code. REVIEW OF SYMPTOMS: She has mild left CVA tenderness, otherwise negative. PHYSICAL EXAMINATION: VITAL SIGNS: Afebrile. Vital signs stable. Neurologically intact. LUNGS: Clear to auscultation. CARDIOVASCULAR: Regular rate and rhythm. ABDOMEN: Soft and nontender. Positive CVA on the left. LABORATORY DATA: Labs was reviewed, white cell count is 13 and hematocrit is 40.4. Chemistry, creatinine is 1.1. CT was reviewed showing a left ureteral orifice mass with left hydronephrosis. 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 I will put her NPO after Wednesday midnight and she will be scheduled for transurethral resection of bladder tumor and ureteroscopy and possible stent placement. Thank you for the consult. Jesús Wesley M.D. DR: ISIDORO JOB#: [id number] CC:
--- NOTE | 2017-08-06 05:30 | Consultation ---
DATE OF CONSULTATION: 08/05/2017 ADDENDUM PHYSICAL EXAMINATION: VITAL SIGNS: Temperature 98.4 degrees, pulse 86, and respiratory rate 18. HEENT: No pale conjunctivae. No icterus. NECK: No lymphadenopathy. CHEST: Clear. HEART: S1 and S2. ABDOMEN: Soft. The patient has epigastric tenderness. No flank tenderness. EXTREMITIES: No cyanosis at this time. NEUROLOGIC: Awake and alert. LABORATORY AND DIAGNOSTIC DATA: White blood cells at the time of admission 13 and today 9, hemoglobin 11.3, and platelets 229. UA unremarkable, 0-2 white blood cells. BUN 30 and creatinine 1.3. Liver function tests are unremarkable. CT of the abdomen showed left hydronephrosis and hydroureter fat stranding consistent with obstructive uropathy, mild hepatic steatosis. ASSESSMENT: 1. The patient is a 62-year-old female with abdominal pain (epigastric pain). The patient's CT scan showed evidence of hydronephrosis, however, the patient does not have dysuria or urinary symptoms. The patient's UA is unremarkable. 2. Status post leukocytosis (due to acute stress). PLAN: 1. We will monitor patient clinically. 2. Off of antibiotics. 3. Monitor CBC. 4. Monitor BMP. 5. Monitor blood culture. 6. Based on the patient's clinical course and labs, we will do further recommendation. Thank you, Dr. Guo, for allowing me to participate in the care of this patient. I will follow the patient with you during this hospitalization. Magan Martin M.D. DR: FRANCOISE JOB#: [id number] CC:
--- NOTE | 2017-08-06 06:00 | Consultation ---
DATE OF CONSULTATION: NOTE: INCOMPLETE DICTATION INFECTIOUS DISEASES CONSULTATION CONSULTING PHYSICIAN: Magan Martin M.D. REFERRING PHYSICIAN: David Guo M.D. REASON FOR CONSULTATION: Evaluation of the patient for possible urinary tract infection and antibiotic management. HISTORY OF PRESENT ILLNESS: The patient is a 62-year-old female with multiple medical problems, was admitted to this medical center due to abdominal pain. The CT scan showed evidence of hydronephrosis. Infectious Disease consultation has been requested for evaluation of the patient for possible requirement of antibiotics for possible urinary tract infection. PAST MEDICAL HISTORY: 1. Hypertension. 2. Hyperlipidemia. 3. Diabetes. ALLERGIES: No known drug allergies. SOCIAL HISTORY: Negative for alcohol, drug abuse, or smoking. FAMILY HISTORY: Noncontributory. MEDICATIONS: Off of antibiotics. REVIEW OF SYSTEMS: HEENT: No recent change in vision or hearing. PULMONARY: No cough or shortness of breath. CARDIOVASCULAR: No chest pain or palpitations. GASTROINTESTINAL: Abdomen, as mentioned. GENITOURINARY: No dysuria. PHYSICAL EXAMINATION: VITAL SIGNS: Temperature 98.4, blood pressure 123/68, pulse 86, and respiratory rate 18. HEENT: No pale conjunctivae. No icterus. NECK: No lymphadenopathy. CHEST: Clear. HEART: S1 and S2. ABDOMEN: Soft. Mild epigastric tenderness. No flank tenderness. Magan Martin M.D. DR: SREEKANTH JOB#: [id number] CC:
[2017-08-06] MEDS: NovoLOG Insulin Flexpen SUBQ SCH (06:25)
[2017-08-06 07:30] LABS: ALANINE AMINOTRANSFERASE 21 U/L (12-78); ALBUMIN/GLOBULIN RATIO 0.7 (1.0-2.7); ANION GAP 6 mmol/L (5-15); ASPARTATE AMINO TRANSFERASE 17 U/L (15-37); BASOPHILS % (AUTO) 0.8 % (0.0-2.0); CALCIUM 8.1 MG/DL (8.5-10.1); CARBON DIOXIDE 28 MMOL/L (21-32); CHLORIDE 107 MMOL/L (98-107); CREATININE 0.8 MG/DL (0.55-1.30); EOSINOPHILS % (AUTO) 3.9 % (0.0-3.0); GLOMERULAR FILTRATION RATE > 60 mL/min (>60); LYMPHOCYTES % (AUTO) 34.7 % (20.0-45.0); MAGNESIUM 1.8 MG/DL (1.8-2.4); MEAN CORPUSCULAR HEMOGLOBIN 31.2 PG (27.0-31.0); MEAN CORPUSCULAR HGB CONC 33.3 G/DL (32.0-36.0); MEAN CORPUSCULAR VOLUME 94 FL (80-99); MONOCYTES % (AUTO) 8.7 % (1.0-10.0); NEUTROPHILS % (AUTO) 51.9 % (45.0-75.0); PLATELET COUNT 220 K/UL (150-450); POTASSIUM 4.1 MMOL/L (3.5-5.1); RED BLOOD COUNT 3.62 M/UL (4.20-5.40); RED CELL DISTRIBUTION WIDTH 12.1 % (11.6-14.8); SODIUM 141 MMOL/L (136-145); TOTAL PROTEIN 6.8 G/DL (6.4-8.2); WHITE BLOOD COUNT 6.6 K/UL (4.8-10.8)
[2017-08-06 08:00] VITALS: BP 132/69
--- NOTE | 2017-08-06 08:16 | Pulmonology Progress Note ---
Assessment/Plan Assessment/Plan ASSESSMENT Abdominal pain intractable n/v Left nephrolithiasis with probable recent stone passage Lt hydronephrosis with hydroureter Obstructive uropathy urothelial mass, likely has transitional cell carcinoma of the left distal ureter or bladder. Hyperglycemia DOOC HTN PLAN OF CARE [facility] floor IVF a/emetic prn CT A/P noted Urology consult appreciated patient to be scheduled electively for TURP with ureteroscopy and possible stent placement. abdominal US GI follows Venous Duplex BLE negative pain management DVT GI prophylaxis BS management with Januvia and SS of insulin [id number],2 not at goal needs vlose monitoring anf adjustment of anti-glycemic regimen as outpatient K replaced BP management with ROOPA and optimize as needed case discussed and evaluated by supervising physician Subjective Allergies: Coded Allergies: No Known Allergies (Unverified , 08/03/17) Subjective denies abdominal pain, nausea tolerated diet Objective Last 24 Hour Vital Signs Date Time Temp Pulse Resp B/P (MAP) Pulse Ox O2 Delivery O2 Flow Rate FiO2 08/06/17 04:00 97.9 94 18 126/76 95 08/06/17 00:00 98.2 89 18 115/67 94 08/06/17 00:00 Nasal Cannula 1.0 08/05/17 20:00 Nasal Cannula 1.0 08/05/17 20:00 98.2 96 18 131/79 92 08/05/17 16:00 98.4 93 18 123/68 95 08/05/17 12:00 96.6 88 18 124/68 97 08/05/17 08:28 111/58 General Appearance: no acute distress HEENT: normocephalic, atraumatic, anicteric, mucous membranes moist Respiratory/Chest: lungs clear, no respiratory distress, no accessory muscle use Cardiovascular: normal peripheral pulses, normal rate, no JVD Abdomen: normal bowel sounds, soft, non tender, non distended Extremities: no edema, pedal pulses normal Neurologic/Psychiatric: no motor/sensory deficits, alert, responsive Musculoskeletal: normal muscle bulk Microbiology Date/Time Source Procedure Growth Status 08/03/17 23:59 Blood Blood Culture - Preliminary NO GROWTH AFTER 24 HOURS Resulted 08/03/17 23:55 Blood Blood Culture - Preliminary NO GROWTH AFTER 24 HOURS Resulted Laboratory Tests 08/06/17 05:35: White Blood Count 6.6, Red Blood Count 3.62L, Hemoglobin 11.3L, Hematocrit 34.0L , Mean Corpuscular Volume 94, Mean Corpuscular Hemoglobin 31.2H, Mean Corpuscular Hemoglobin Concent 33.3, Red Cell Distribution Width 12.1, Platelet Count 220, Mean Platelet Volume 8.0, Neutrophils (%) (Auto) 51.9, Lymphocytes (% ) (Auto) 34.7, Monocytes (%) (Auto) 8.7, Eosinophils (%) (Auto) 3.9H, Basophils (%) (Auto) 0.8, Sodium Level 141, Potassium Level 4.1, Chloride Level 107, Carbon Dioxide Level 28, Anion Gap 6, Blood Urea Nitrogen 19H, Creatinine 0.8, Estimat Glomerular Filtration Rate > 60, Glucose Level 201H, Calcium Level 8.1L , Phosphorus Level 3.0, Magnesium Level 1.8, Total Bilirubin 0.5, Aspartate Amino Transf (AST/SGOT) 17, Alanine Aminotransferase (ALT/SGPT) 21, Alkaline Phosphatase 78, Total Protein 6.8, Albumin 2.9L, Globulin 3.9, Albumin/Globulin Ratio 0.7L Current Medications Medications (Trade) Dose Ordered Sig/Silas Route PRN Reason Start Time Stop Time Status Last Admin Dose Admin Acetaminophen (Tylenol) 650 mg Q4H PRN ORAL fever (temp>100.5F) 08/04/17 07:00 09/03/17 06:59 Al Hydroxide/Mg Hydroxide (Mylanta II) 30 ml Q6H PRN ORAL dyspepsia 08/04/17 07:00 09/03/17 06:59 Dextrose (Dextrose 50%) STAT PRN IV Hypoglycemia 08/04/17 07:00 09/03/17 06:59 Diphenhydramine HCl (Benadryl) 25 mg Q6H PRN ORAL Itching/Pruritis 08/04/17 07:00 09/03/17 06:59 Docusate Sodium (Colace) 100 mg THREE TIMES A DAY ORAL 08/05/17 13:00 09/04/17 12:59 08/05/17 17:52 Heparin Sodium (Porcine) (Heparin 5000 units/ml) 5,000 units EVERY 12 HOURS SUBQ 08/04/17 09:00 09/03/17 08:59 08/05/17 20:50 Insulin Aspart (NovoLOG) BEFORE MEALS AND HS SUBQ 08/04/17 11:30 1/12/18 11:29 08/06/17 06:25 Ketorolac Tromethamine (Toradol 30mg) 30 mg Q6H PRN IV moderate pian 4-6 08/04/17 07:00 08/09/17 06:59 Lactobacillus Acidophilus (Culturelle) 1 tab THREE TIMES A DAY ORAL 08/05/17 13:00 09/04/17 12:59 08/05/17 17:52 Lisinopril (Prinivil) 20 mg DAILY ORAL 08/04/17 09:00 09/03/17 08:59 08/05/17 08:28 Metoclopramide HCl (Reglan) 10 mg Q8H PRN IVP Nausea & Vomiting 08/04/17 12:45 09/03/17 12:44 Morphine Sulfate (Morphine Sulfate) 2 mg Q4H PRN IVP severe Pain (Pain Scale 7-10) 08/04/17 07:00 08/11/17 06:59 08/04/17 12:26 Nitroglycerin (Ntg) 0.4 mg Q5M X 3 DOSES PRN SL Prn Chest Pain 08/04/17 07:00 09/03/17 06:59 Ondansetron HCl (Zofran) 4 mg Q6H PRN IVP Nausea & Vomiting 08/04/17 07:00 09/03/17 06:59 08/04/17 12:26 Pantoprazole (Protonix) 40 mg DAILY ORAL 08/04/17 09:00 09/03/17 08:59 08/05/17 08:29 Polyethylene Glycol (Miralax) 17 gm BEDTIME ORAL 08/05/17 21:00 09/04/17 20:59 08/05/17 20:49 Polyethylene Glycol (Miralax) 17 gm HSPRN PRN ORAL Constipation 08/04/17 07:00 09/03/17 06:59 Sitagliptin Phosphate (Januvia) 50 mg DAILY ORAL 08/04/17 09:00 09/03/17 08:59 08/05/17 08:27 Sodium Chloride 1,000 ml @ 50 mls/hr Q20H IV 08/04/17 08:00 09/03/17 07:59 08/06/17 01:35 Temazepam (Restoril) 15 mg HSPRN PRN ORAL Insomnia 08/04/17 07:00 08/11/17 06:59 08/05/17 21:15 [place] ([facility])Ethel NP Aug 06, 2017 08:16
[2017-08-06] MEDS: sitaGLIPtin 50mg tab ORAL SCH (09:16)
[2017-08-06 09:17] VITALS: BP 126/76
[2017-08-06] MEDS: Lisinopril 20mg tab ORAL SCH (09:17)
[2017-08-06] MEDS: Lactobacillus-GG tablet ORAL SCH (09:17)
[2017-08-06] MEDS: Docusate 100mg cap ORAL SCH (09:17)
[2017-08-06] MEDS: Heparin 5000 units/ml inj SUBQ SCH (09:20)
--- NOTE | 2017-08-06 10:35 | GI Progress Note ---
Assessment/Plan Problems: (1) Gastroparesis due to DM ICD Codes: E11.43 - Type 2 diabetes mellitus with diabetic autonomic (poly) neuropathy; K31.84 - Gastroparesis SNOMED: 31071690, 177514578 (2) Abdominal pain ICD Codes: R10.9 - Unspecified abdominal pain SNOMED: 11830959 (3) Intractable nausea and vomiting ICD Codes: R11.2 - Nausea with vomiting, unspecified SNOMED: 764065611, 270075917 (4) Left nephrolithiasis ICD Codes: N20.0 - Calculus of kidney SNOMED: 06876703 Status: stable Status Narrative Discussed with Dr. Brothers. Assessment/Plan CT AP reviewed >> - Left hydronephrosis, hydroureter, perinephric and periureteral fat stranding, consistent with obstructive uropathy at the level of the ureteral orifice. - questionably 13 x 8 mm focus of soft tissue attenuation at the distal ureter. This may represent a urothelial mass. fu nephro >> outpatient transurethral resection of bladder tumor and ureteroscopy and possible stent placement. adv to cardiac soft diet, add probiotics bowel regime >> colace + miralax IV/PO hydration and electrolyte correction DM mgmt zofran prn, reglan for persistent N/V abx ppi fu abdominal US fu labs Subjective Subjective abdominal bloating LLQ pain denies vomiting Objective Last 24 Hour Vital Signs Date Time Temp Pulse Resp B/P (MAP) Pulse Ox O2 Delivery O2 Flow Rate FiO2 08/06/17 09:17 126/76 08/06/17 08:00 98.4 94 17 132/69 96 08/06/17 04:00 97.9 94 18 126/76 95 08/06/17 00:00 98.2 89 18 115/67 94 08/06/17 00:00 Nasal Cannula 1.0 08/05/17 20:00 Nasal Cannula 1.0 08/05/17 20:00 98.2 96 18 131/79 92 08/05/17 16:00 98.4 93 18 123/68 95 08/05/17 12:00 96.6 88 18 124/68 97 Intake and Output 08/06/17 08/07/17 19:00 07:00 Intake Total 100 ml Balance 100 ml IV Total 100 ml # Bowel Movements 1 Laboratory Tests Test 08/06/17 05:35 White Blood Count 6.6 K/UL (4.8-10.8) Red Blood Count 3.62 M/UL (4.20-5.40) L Hemoglobin 11.3 G/DL (12.0-16.0) L Hematocrit 34.0 % (37.0-47.0) L Mean Corpuscular Volume 94 FL (80-99) Mean Corpuscular Hemoglobin 31.2 PG (27.0-31.0) H Mean Corpuscular Hemoglobin Concent 33.3 G/DL (32.0-36.0) Red Cell Distribution Width 12.1 % (11.6-14.8) Platelet Count 220 K/UL (150-450) Mean Platelet Volume 8.0 FL (6.5-10.1) Neutrophils (%) (Auto) 51.9 % (45.0-75.0) Lymphocytes (%) (Auto) 34.7 % (20.0-45.0) Monocytes (%) (Auto) 8.7 % (1.0-10.0) Eosinophils (%) (Auto) 3.9 % (0.0-3.0) H Basophils (%) (Auto) 0.8 % (0.0-2.0) Sodium Level 141 MMOL/L (136-145) Potassium Level 4.1 MMOL/L (3.5-5.1) Chloride Level 107 MMOL/L (98-107) Carbon Dioxide Level 28 MMOL/L (21-32) Anion Gap 6 mmol/L (5-15) Blood Urea Nitrogen 19 mg/dL (7-18) H Creatinine 0.8 MG/DL (0.55-1.30) Estimat Glomerular Filtration Rate > 60 mL/min (>60) Glucose Level 201 MG/DL (74-106) H Calcium Level 8.1 MG/DL (8.5-10.1) L Phosphorus Level 3.0 MG/DL (2.5-4.9) Magnesium Level 1.8 MG/DL (1.8-2.4) Total Bilirubin 0.5 MG/DL (0.2-1.0) Aspartate Amino Transf (AST/SGOT) 17 U/L (15-37) Alanine Aminotransferase (ALT/SGPT) 21 U/L (12-78) Alkaline Phosphatase 78 U/L (46-116) Total Protein 6.8 G/DL (6.4-8.2) Albumin 2.9 G/DL (3.4-5.0) L Globulin 3.9 g/dL Albumin/Globulin Ratio 0.7 (1.0-2.7) L Height (Feet): 5 Height (Inches): 3.00 Weight (Pounds): 154 General Appearance: WD/WN, no apparent distress, alert Cardiovascular: normal rate Respiratory/Chest: normal breath sounds, no respiratory distress Abdominal Exam: normal bowel sounds, non tender, soft Extremities: normal range of motion, non-tender Patti Lan N.P. Aug 06, 2017 10:35
[2017-08-06] MEDS ORDERED: NS 500ML ONE (11:04)
--- NOTE | 2017-08-09 08:30 | Discharge Summary ---
Discharge Summary Hospital Course Date of Admission Aug 04, 2017 at 03:00 Date of Discharge Aug 06, 2017 at 11:05 Admitting Diagnosis intractable, nausea and vomiting HPI Santa Hirsch is a 62 year old female who was admitted on Aug 04, 2017 at 03:00 for Intractable Nausea And Vomiting Hospital Course dc summary #[id number] Discharge Medications Continued Medications: Acetaminophen (Tylenol) 325 Mg Tablet 650 MG ORAL Q6H PRN for Prn Pain/Headache/Temp > 101, #30 TAB 0 Refills Discharge Discharge Disposition Patient was discharged to Home (01) Discharge Diagnoses: Elver (Elviradarryn)Ethel NP Aug 09, 2017 08:30
--- NOTE | 2017-08-09 22:15 | Discharge Summary 2 SIG ---
DATE OF ADMISSION: 08/04/2017 DATE OF DISCHARGE: 08/06/2017 REASON FOR ADMISSION: 62 years old female with a history of hypertension and diabetes, presented with intractable nausea, vomiting, and abdominal pain for two to three days. The pain localized to the left lower quadrant and overall lower abdomen, nonradiating, crampy, and intermittent. The patient also reported nausea and vomiting, non-biliary and nonbloody emesis, but no diarrhea. Workup in the emergency room revealed mild leukocytosis,- 13.7. Vital signs were stable. Blood sugar was 354. Urinalysis was negative for evidence of UTI. EKG revealed normal sinus rhythm, no ischemic changes. CT of the abdomen and pelvis revealed left hydronephrosis, hydroureter, perinephric and periureteral fat stranding, consistent with obstructive uropathy at the level of ureteral orifice. No calculi were demonstrated, likely recent stone passage or radiolucent stone. However, there was a question about 13 x 8 mm focus of soft tissue at the distal ureter, which may represent urothelial mass. The patient was admitted with intractable abdominal pain, left nephrolithiasis, and hyperglycemia. HOSPITAL COURSE: The patient admitted. The patient started on the IV fluids. GI , Urology and Infectious Diseases consults were requested. Antiemetic provided with Zofran intermittently and Reglan [id number]. Nausea subsided, patient was able to tolerate diet. Per GI, the patient likely had gastroparesis secondary to diabetes. Blood sugar initially was not controlled. Blood sugar was managed with Januvia and sliding scale of insulin. Hemoglobin A1c -9.2, not at goal. The patient will need further optimization of antiglycemic regimen as outpatient. 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 Per Urology, the patient will be scheduled for elective TURP with ureteroscopy and possible stent placement next week. UA negative, blood culture negative, leukocytosis was liekly reactive due to acute stress and resolved. Per ID recommendations - monitor off antibiotics. Venous duplex of bilateral lower extremities was negative. Pain management was addressed and controlled. DVT and GI prophylaxis provided. Potassium was replaced. Electrolytes and renal parameters were closely monitored, remained stable. Initially BUN -27, but with IV fluids, down to normal. Blood pressure was stable with ROOPA inhibitor. The patient was able to tolerate diet. The patient was cleared for discharge. Follow up with elective procedure. FINAL DIAGNOSES: 1. Left nephrolithiasis with probable recent stone passage. 2. Gastroparesis, secondary to diabetes mellitus, 3. Left hydronephrosis with hydroureter, 4. Obstructive uropathy 5. Urothelial mass. 6. 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 7. Diabetes out of control with hyperglycemia, improved. 8. Hypertension. 9. Intractable nausea and vomiting, resolved. DISCHARGE MEDICATIONS: See medication reconciliation list. DISCHARGE INSTRUCTIONS: The patient was discharged home. Follow up with the surgeon for elective surgery. David Guo M.D. [facility] N.PJey DR: Marvin JOB#: [id number] CC: ANAT
--- NOTE | 2017-08-19 00:16 | Diagnostic Imaging Report ---
APPROVED REPORT CPT Code: 53007 Present Symptoms Shortness of breath BILATERAL: Imaging reveals a patent deep venous system bilaterally. There is no evidence of thrombus within the femoral, popliteal or tibial segments. The greater saphenous veins are also within normal limits. Doppler indicates normal spontaneous flow within these segments.
== END 2017-08-06 11:05 | disposition home or self-care (01) | DRG 48 ==
LOC: EMR 23:43 → 4E 08-04 03:00 → EDBEDREQ 08-04 03:31
DX: E11.43 Type 2 diabetes mellitus with diabetic autonomic (poly)neuropathy (principal); C67.6 Malignant neoplasm of ureteric orifice; E11.65 Type 2 diabetes mellitus with hyperglycemia; I10 Essential (primary) hypertension; K31.84 Gastroparesis; Z79.84 Long term (current) use of oral hypoglycemic drugs; N13.2 Hydronephrosis with renal and ureteral calculous obstruction
CPT/HCPCS: 36415; 74177; 76700; 80053; 80329; 81003; 82009; 82150; 82962; 83036; 83605; 83690; 83735; 84100; 84443; 85025; 85610; 85730; 87040; 93005; 93970; 99285; J1815; J2405; J8499

== ENCOUNTER 2017-08-09 07:25 | Emergency (ER) | payer MEDICAID ==
[~2017-08-09] VITALS: Ht 157.5 cm; Wt 69.9 kg
[~2017-08-09 07:25] MED LIST: CIPROFLOXACIN750 MG ORAL; DOCUSATE SODIU100 MG ORAL; GLIPIZIDE5 MG ORAL; JANUVIA25 MG ORAL; LISINOPRIL20 MG ORAL; LORATADINE10 M3 PO; METFORMIN HCL1000 M1 ORAL; PANTOPRAZOLE SO40 MG ORAL; SIMVASTATIN20 MG ORAL; TYLENOL325 MG ORAL
[2017-08-09 07:40] VITALS: BP 133/75
[2017-08-09 08:17] LABS: EOSINOPHILS % (AUTO) 6.2 % (0.0-3.0); LYMPHOCYTES % (AUTO) 25.7 % (20.0-45.0); MEAN CORPUSCULAR HGB CONC 32.1 G/DL (32.0-36.0); MEAN CORPUSCULAR VOLUME 94 FL (80-99); MEAN PLATELET VOLUME 7.9 FL (6.5-10.1); MONOCYTES % (AUTO) 8.4 % (1.0-10.0); NEUTROPHILS % (AUTO) 58.7 % (45.0-75.0); PLATELET COUNT 313 K/UL (150-450); RED BLOOD COUNT 4.15 M/UL (4.20-5.40); RED CELL DISTRIBUTION WIDTH 12.7 % (11.6-14.8); WHITE BLOOD COUNT 6.9 K/UL (4.8-10.8)
[2017-08-09 08:18] VITALS: BP 133/75
[2017-08-09 08:20] LABS: APPEARANCE,URINE CLEAR; KETONES,URINE NEGATIVE (NEGATIVE); LEUKOCYTE ESTERASE ,URINE 2+ (NEGATIVE); NITRITE,URINE NEGATIVE (NEGATIVE); PH,URINE 6 (4.5-8.0); PROTEIN,URINE 1+ (NEGATIVE); UROBILINOGEN,URINE NORMAL MG/DL (0.0-1.0)
[2017-08-09 08:30] LABS: ANION GAP 7 mmol/L (5-15); BACTERIA,URINE FEW /HPF; CALCIUM 8.9 MG/DL (8.5-10.1); CARBON DIOXIDE 31 MMOL/L (21-32); CHLORIDE 103 MMOL/L (98-107); CREATININE 0.9 MG/DL (0.55-1.30); GLOMERULAR FILTRATION RATE > 60 mL/min (>60); INR 0.9 (0.9-1.1); POTASSIUM 3.9 MMOL/L (3.5-5.1); PROTHROMBIN TIME 9.3 SEC (9.30-11.50); RBC,URINE 0-2 /HPF (0 - 2); SODIUM 140 MMOL/L (136-145); SQUAMOUS EPITHELIAL CELL,UR FEW /LPF (NONE/OCC)
[2017-08-09 08:31] LABS: MUCUS,URINE FEW /LPF (NONE/OCC)
[2017-08-09 08:35] LABS: ALANINE AMINOTRANSFERASE 26 U/L (12-78); ALBUMIN/GLOBULIN RATIO 0.8 (1.0-2.7); ASPARTATE AMINO TRANSFERASE 18 U/L (15-37); LIPASE 257 U/L (73-393); TOTAL PROTEIN 7.8 G/DL (6.4-8.2)
--- NOTE | 2017-08-09 11:20 | Emergency Room Report ---
History of Present Illness General Chief Complaint: General Complaint Source: Patient, Medical Record Present Illness HPI 62-year-old female presents ED for evaluation. Daughter at bedside states that patient is here to have surgery. Was discharged on Wednesday from [facility] and was told to come back to the hospital for surgery. Daughter only knows that she spoke to have "kidney surgery" with Dr. Wesley. Patient denies any pain. Denies any fevers or chills. Denies nausea or vomiting. No other aggravating or relieving factors. Denies any other associated symptoms Allergies: Coded Allergies: No Known Allergies (Unverified , 08/03/17) Patient History Past Medical History: DM, HTN Past Surgical History: none Pertinent Family History: none Social History: Denies: smoking, alcohol use, drug use Last Menstrual Period: 3 years ago Now: No Immunizations: UTD Reviewed Nursing Documentation: PMH: Agreed, PSxH: Agreed Nursing Documentation-PMH Past Medical History: No History, Except For Hx Hypertension: Yes Hx Diabetes: Yes Review of Systems All Other Systems: negative except mentioned in HPI Physical Exam Vital Signs Date Time Temp Pulse Resp B/P (MAP) Pulse Ox O2 Delivery O2 Flow Rate FiO2 08/09/17 07:31 98.2 88 16 146/68 95 Room Air Sp02 EP Interpretation: reviewed, normal General Appearance: no apparent distress, alert, GCS 15, non-toxic Head: normocephalic, atraumatic Eyes: bilateral eye normal inspection, bilateral eye PERRL ENT: hearing grossly normal, normal pharynx, no angioedema, normal voice Neck: full range of motion, supple/symm/no masses Respiratory: chest non-tender, lungs clear, normal breath sounds, speaking full sentences Cardiovascular #1: regular rate, rhythm, no edema Cardiovascular #2: 2+ carotid (R), 2+ carotid (L), 2+ radial (R), 2+ radial (L) , 2+ dorsalis pedis (R), 2+ dorsalis pedis (L) Gastrointestinal: normal bowel sounds, non tender, soft, non-distended, no guarding, no rebound Rectal: deferred Genitourinary: normal inspection, no CVA tenderness Musculoskeletal: back normal, gait/station normal, normal range of motion, non- tender Neurologic: alert, oriented x3, responsive, motor strength/tone normal, sensory intact, speech normal Psychiatric: judgement/insight normal, memory normal, mood/affect normal, no suicidal/homicidal ideation Reflexes: 3+ bicep (R), 3+ bicep (L), 3+ tricep (R), 3+ tricep (L), 3+ knee (R) , 3+ knee (L) Skin: normal color, no rash, warm/dry, well hydrated Lymphatic: no adenopathy Medical Decision Making Diagnostic Impression: Primary Impression: Hydronephrosis Qualified Codes: N13.30 - Unspecified hydronephrosis ER Course Hospital Course 62-year-old female presents to ED for surgery. Discharge from [facility] [place] Differential diagnosis includes- kidney stone, ueteral stent, pyelonephritis Clinical course Patient placed on stretcher. After initial history and physical I ordered labs I reviewed EMR. Patient was admitted here for intractable pain and vomiting. Urology consultation dictation show patient has a ureteral obstruction but no evidence of stone. Possible mass or tumor I spoke to Dr. Wesley; he discussed the option of surgery with the patient during her hospital course. Patient declined at the time. Patient was then subsequently discharged. He states that patient needs to followup with her insurance company to get authorization to followup with urology as outpatient once she follows up with urology as outpatient she can schedule surgery on elective basis Discussed this plan with the patient and daughter. They agreed to plan and states they were unclear as to the proper protocol Diagnosis - hydronephrosis Stable and discharged to home. Followup with PMD/urology. Return to ED if symptoms recur or worsen Last Vital Signs Date Time Temp Pulse Resp B/P (MAP) Pulse Ox O2 Delivery O2 Flow Rate FiO2 08/09/17 08:18 98.2 94 18 133/75 98 Room Air Status: improved Disposition: HOME, SELF-CARE Condition: Stable Referrals: [facility] (PCP) Jesús Wesley MD Patient Instructions: Hydronephrosis MELECIO BOWLES M.D. Aug 09, 2017 11:20
== END 2017-08-09 09:40 | disposition home or self-care (01) ==
LOC: EMR 08:00
DX: N13.30 Unspecified hydronephrosis (principal); I10 Essential (primary) hypertension; E11.9 Type 2 diabetes mellitus without complications
CPT/HCPCS: 36415; 80053; 81003; 83690; 85025; 85610; 85730; 99283

== ENCOUNTER 2017-08-23 02:13 | Emergency (ER) | payer MEDICAID ==
[~2017-08-23] VITALS: Ht 160 cm; Wt 69.4 kg
[2017-08-23] MEDS ORDERED: METRONIDAZOLE500 MG ORAL (02:31)
[2017-08-23] MEDS ORDERED: OMEPRAZOLE20 M2 ORAL (02:31)
[2017-08-23] MEDS ORDERED: GEMFIBROZIL600 MG ORAL (02:31)
[2017-08-23] MEDS ORDERED: KEFLEX500 MG ORAL (02:31)
[2017-08-23] MEDS ORDERED: TYLENOL EXTRA500 MG ORAL (02:45)
[2017-08-23] MEDS ORDERED: TAMIFLU75 MG ORAL (02:45)
[2017-08-23 02:50] VITALS: BP 94/58
--- NOTE | 2017-08-23 05:00 | Emergency Room Report ---
History of Present Illness General Chief Complaint: Flu Like Symptoms Source: Patient Present Illness HPI 62-year-old female presents ED complaining of cough and flulike symptoms for the last 2 days. Notes bodyaches and chills. Notes productive cough. Pain is 8/10, throbbing, nonradiating. Patient did not receive a flu vaccination this year. Denies sore throat or earache. Denies sick contacts or recent travel. No other aggravating relieving factors. Denies any other associated symptoms Allergies: Coded Allergies: No Known Allergies (Unverified , 08/03/17) Patient History Past Medical History: DM, HTN Past Surgical History: none Pertinent Family History: none Social History: Denies: smoking, alcohol use, drug use Last Menstrual Period: n/a Now: No Immunizations: UTD Reviewed Nursing Documentation: PMH: Agreed, PSxH: Agreed Nursing Documentation-PMH Hx Hypertension: Yes Hx Diabetes: Yes Review of Systems All Other Systems: negative except mentioned in HPI Physical Exam Vital Signs Date Time Temp Pulse Resp B/P (MAP) Pulse Ox O2 Delivery O2 Flow Rate FiO2 08/23/17 02:23 100.0 93 16 94/58 96 Room Air Sp02 EP Interpretation: reviewed, normal General Appearance: no apparent distress, alert, GCS 15, non-toxic Head: normocephalic, atraumatic Eyes: bilateral eye normal inspection, bilateral eye PERRL ENT: hearing grossly normal, normal pharynx, no angioedema, normal voice Neck: full range of motion, supple/symm/no masses Respiratory: chest non-tender, lungs clear, normal breath sounds, speaking full sentences Cardiovascular #1: regular rate, rhythm, no edema Cardiovascular #2: 2+ carotid (R), 2+ carotid (L), 2+ radial (R), 2+ radial (L) , 2+ dorsalis pedis (R), 2+ dorsalis pedis (L) Gastrointestinal: normal bowel sounds, non tender, soft, non-distended, no guarding, no rebound Rectal: deferred Genitourinary: normal inspection, no CVA tenderness Musculoskeletal: back normal, gait/station normal, normal range of motion, non- tender Neurologic: alert, oriented x3, responsive, motor strength/tone normal, sensory intact, speech normal Psychiatric: judgement/insight normal, memory normal, mood/affect normal, no suicidal/homicidal ideation Reflexes: 3+ bicep (R), 3+ bicep (L), 3+ tricep (R), 3+ tricep (L), 3+ knee (R) , 3+ knee (L) Skin: normal color, no rash, warm/dry, well hydrated Lymphatic: no adenopathy Medical Decision Making Diagnostic Impression: Primary Impression: Influenza-like symptoms ER Course Hospital Course 62-year-old F presents to ED complaining of fever + bodyaches + cough Differential diagnoses include: URI, pharyngitis, otitis media, influenza Clinical course Patient placed on stretcher. After initial history physical exam reveals a young female in no acute distress. Bilateral TM unremarkable, no pharyngeal erythema. Lungs clear. No CVA tenderness. Clinical findings consistent with influenza. Given that I will treat her with Tamiflu Diagnosis - influenza-like symptoms Stable and discharged home with prescriptions for tamiflu, tylenol. drink plenty of fluids. Instructed to followup with PMD. Return to ED if symptoms recur or worsen Last Vital Signs Date Time Temp Pulse Resp B/P (MAP) Pulse Ox O2 Delivery O2 Flow Rate FiO2 08/23/17 02:50 100.0 16 94/58 96 Room Air 08/23/17 02:38 93 Status: improved Disposition: HOME, SELF-CARE Condition: Stable Scripts Acetaminophen* (TYLENOL EXTRA STRENGTH*) 500 Mg Tablet 500 MG ORAL Q8H Y for Prn Headache/Temp > 101, #30 TAB 0 Refills Prov: MELECIO BOWLES M.D. 08/23/17 Oseltamivir Phosphate (Tamiflu) 75 Mg Capsule 75 MG ORAL TWICE A DAY for 5 Days, CAP Prov: MELECIO BOWLES M.D. 08/23/17 Referrals: [facility] (PCP) Patient Instructions: Influenza, Adult, [id number] MELECIO BOWLES M.D. Aug 23, 2017 05:00
== END 2017-08-23 02:50 | disposition home or self-care (01) ==
LOC: EMR 02:35
DX: J11.1 Influenza due to unidentified influenza virus with other respiratory manifestations (principal); R05 Cough; E11.9 Type 2 diabetes mellitus without complications; I10 Essential (primary) hypertension
CPT/HCPCS: 99283

== ENCOUNTER 2017-12-15 21:19 | Emergency (ER) | payer MEDICAID ==
[~2017-12-15] VITALS: Ht 160 cm; Wt 68.0 kg
[~2017-12-15 21:19] MED LIST changes: +GEMFIBROZIL600 MG ORAL; +KEFLEX500 MG ORAL; +METRONIDAZOLE500 MG ORAL; +OMEPRAZOLE20 M2 ORAL; +TAMIFLU75 MG ORAL; +TYLENOL EXTRA500 MG ORAL
[2017-12-15] MEDS ORDERED: Ketorolac 30mg Inj IV ONE (21:45)
--- NOTE | 2017-12-15 21:46 | Emergency Room Report ---
History of Present Illness General Chief Complaint: Abdominal Pain Source: Patient, Family Member Present Illness HPI This is a 62-year-old female with history of hypertension and diabetes. She presents with chief complaint abdominal cramps a protracted diarrhea for the last 4 days. Diarrhea is watery and profuse in nature. No blood. No nausea vomiting. No recent antibiotics in the last 3 months. No recent travel. No camping. Nothing made it better. Nothing made it worse. Allergies: Coded Allergies: No Known Allergies (Unverified , 08/03/17) Patient History Past Medical History: see triage record, old chart reviewed, DM, HTN Past Surgical History: none Pertinent Family History: none Social History: Denies: smoking Last Menstrual Period: NA Now: No Immunizations: other Reviewed Nursing Documentation: PMH: Agreed; PSxH: Agreed Nursing Documentation-PMH Hx Hypertension: Yes Hx Diabetes: Yes Review of Systems Eye: Denies: eye pain, blurred vision ENT: Denies: ear pain, nose congestion, throat swelling Respiratory: Denies: cough, shortness of breath Cardiovascular: Denies: chest pain, palpitations Gastrointestinal: Reports: abdominal pain, diarrhea; Denies: nausea, vomiting Musculoskeletal: Denies: back pain, joint pain Skin: Denies: rash Neurological: Denies: headache, numbness Endocrine: Denies: increased thirst, increased urine Hematologic/Lymphatic: Denies: easy bruising All Other Systems: negative except mentioned in HPI Physical Exam Vital Signs Date Time Temp Pulse Resp B/P (MAP) Pulse Ox O2 Delivery O2 Flow Rate FiO2 12/15/17 21:31 98.5 87 18 93/53 98 Room Air 98.4 vitals with mild hypotension Sp02 EP Interpretation: reviewed, normal General Appearance: well appearing, no apparent distress, alert Head: normocephalic, atraumatic Eyes: bilateral eye PERRL, bilateral eye EOMI ENT: hearing grossly normal, normal pharynx Neck: full range of motion, supple, no meningismus Respiratory: chest non-tender, lungs clear, normal breath sounds Cardiovascular #1: regular rate, rhythm, no murmur Gastrointestinal: non tender, no mass, no organomegaly, no bruit, non-distended , abnormal bowel sounds - hyperactive Musculoskeletal: back normal, gait/station normal, normal range of motion Psychiatric: mood/affect normal Skin: warm/dry Medical Decision Making Diagnostic Impression: Primary Impression: Diarrhea Qualified Codes: R19.7 - Diarrhea, unspecified Additional Impression: UTI (urinary tract infection) Qualified Codes: N30.00 - Acute cystitis without hematuria ER Course Patient with protracted diarrhea. No evidence of acute abdomen or obstruction. We'll discharge home. Patient felt better now. Lab Results Impression labs unremarkable Last Vital Signs Date Time Temp Pulse Resp B/P (MAP) Pulse Ox O2 Delivery O2 Flow Rate FiO2 12/15/17 21:31 98.5 87 18 93/53 98 Room Air 98.4 Status: improved Disposition: HOME, SELF-CARE Condition: Stable Scripts Diphenoxylate Hcl/Atropine (LOMOTIL TABLET) 1 Each Tablet 1 TAB ORAL BID, #14 TAB 0 Refills Prov: RADHA PETER M.D. 12/15/17 Metronidazole* (FLAGYL*) 500 Mg Tablet 500 MG ORAL BID, #14 TAB Prov: RADHA PETER M.D. 12/15/17 Ciprofloxacin Hcl* (CIPROFLOXACIN HCL*) 500 Mg Tablet 500 MG ORAL Q12H, #14 TAB 0 Refills Prov: RADHA PETER M.D. 12/15/17 Additional Instructions: Follow-up with your Dr. in 2-3 days. Increase fluid. Avoid dairy products. Return of worse. RADHA PETER M.D. Dec 15, 2017 21:46
[2017-12-15 22:20] LABS: APPEARANCE,URINE SLIGHTLY CLOUDY; BILIRUBIN, URINE NEGATIVE (NEGATIVE); GLUCOSE, URINE (UA) 1+ (NEGATIVE); KETONES,URINE NEGATIVE (NEGATIVE); LEUKOCYTE ESTERASE ,URINE 2+ (NEGATIVE); NITRITE,URINE POSITIVE (NEGATIVE); PH,URINE 5 (4.5-8.0); PROTEIN,URINE 1+ (NEGATIVE); UROBILINOGEN,URINE NORMAL MG/DL (0.0-1.0)
[2017-12-15 22:20] LABS: BASOPHILS % (AUTO) 0.8 % (0.0-2.0); EOSINOPHILS % (AUTO) 2.4 % (0.0-3.0); HEMATOCRIT 34.8 % (37.0-47.0); HEMOGLOBIN 11.5 G/DL (12.0-16.0); LYMPHOCYTES % (AUTO) 21.1 % (20.0-45.0); MEAN CORPUSCULAR VOLUME 91 FL (80-99); MONOCYTES % (AUTO) 10.6 % (1.0-10.0); NEUTROPHILS % (AUTO) 65.1 % (45.0-75.0); PLATELET COUNT 250 K/UL (150-450); RED BLOOD COUNT 3.83 M/UL (4.20-5.40); RED CELL DISTRIBUTION WIDTH 12.6 % (11.6-14.8); WHITE BLOOD COUNT 6.8 K/UL (4.8-10.8)
[2017-12-15 22:22] LABS: COLOR,URINE YELLOW
[2017-12-15 22:26] LABS: ANION GAP 11 mmol/L (5-15); BLOOD UREA NITROGEN 22 mg/dL (7-18); CALCIUM 8.3 MG/DL (8.5-10.1); CARBON DIOXIDE 23 MMOL/L (21-32); CHLORIDE 103 MMOL/L (98-107); POTASSIUM 4.4 MMOL/L (3.5-5.1); SODIUM 137 MMOL/L (136-145)
[2017-12-15 22:32] LABS: ALANINE AMINOTRANSFERASE 44 U/L (12-78); ALBUMIN 3.8 G/DL (3.4-5.0); ALBUMIN/GLOBULIN RATIO 0.9 (1.0-2.7); ALKALINE PHOSPHATASE 92 U/L (46-116); ASPARTATE AMINO TRANSFERASE 37 U/L (15-37); BILIRUBIN,TOTAL 0.3 MG/DL (0.2-1.0)
[2017-12-15] MEDS ORDERED: LOMOTIL TABLET1 EACH ORAL (23:12)
[2017-12-15] MEDS ORDERED: METRONIDAZOLE500 MG ORAL (23:12)
[2017-12-15] MEDS ORDERED: CIPROFLOXACIN500 M2 ORAL (23:12)
[2017-12-15 23:13] VITALS: BP 93/53
[2017-12-18] MEDS ORDERED: NITROFURANTOIN100 M2 ORAL (14:07)
== END 2017-12-15 23:21 | disposition home or self-care (01) ==
LOC: EMR 21:40
DX: R19.7 Diarrhea, unspecified (principal); N39.0 Urinary tract infection, site not specified; I10 Essential (primary) hypertension; E11.9 Type 2 diabetes mellitus without complications
CPT/HCPCS: 36415; 80053; 81003; 83690; 85025; 87086; 87181; 96374; 96375; 99284; J1885

== ENCOUNTER 2018-01-11 18:50 | Emergency (ER) | payer MEDICAID ==
[~2018-01-11] VITALS: Ht 152.4 cm; Wt 69.9 kg
[~2018-01-11 18:50] MED LIST changes: +CIPROFLOXACIN500 M2 ORAL; +LOMOTIL TABLET1 EACH ORAL; +NITROFURANTOIN100 M2 ORAL
[2018-01-11] MEDS ORDERED: ASPIR 8181 MG ORAL (19:08)
[2018-01-11] MEDS ORDERED: DOCUSATE SODIU100 MG ORAL (19:08)
[2018-01-11] MEDS ORDERED: OMEPRAZOLE20 M2 ORAL (19:08)
[2018-01-11] MEDS ORDERED: LORATADINE10 M2 PO (19:08)
[2018-01-11] MEDS ORDERED: GLUCOTROL10 MG ORAL (19:08)
--- NOTE | 2018-01-11 19:27 | Emergency Room Report ---
History of Present Illness General Chief Complaint: General Complaint Source: Patient Present Illness HPI 62-year-old female patient Faroese-speaking brought in by daughter presents the ER complaining of pain with urination and constipation for the past few days. Patient reports dysuria, denies hematuria or vaginal discharge. Denies recent sexual activity. Reports last menstrual period was while ago. Also complains of constipation during this time. Denies fever, chest pain, shortness breath, abdominal pain. Reports no other complaints at this time. Reports history of kidney cyst. reports that Tylenol for pain, last dose at noon. Allergies: Coded Allergies: No Known Allergies (Unverified , 08/03/17) Patient History Past Medical History: see triage record Reviewed Nursing Documentation: PMH: Agreed; PSxH: Agreed Nursing Documentation-PMH Hx Hypertension: Yes Hx Diabetes: Yes Review of Systems All Other Systems: negative except mentioned in HPI Physical Exam Vital Signs Date Time Temp Pulse Resp B/P (MAP) Pulse Ox O2 Delivery O2 Flow Rate FiO2 01/11/18 19:03 98.3 94 17 137/71 92 Room Air 98.2 Sp02 EP Interpretation: reviewed, normal General Appearance: well appearing, no apparent distress, alert, GCS 15, non- toxic Head: normocephalic, atraumatic ENT: hearing grossly normal, normal pharynx, no angioedema, normal voice, TMs + canals normal, uvula midline, moist mucus membranes Neck: full range of motion Respiratory: lungs clear, normal breath sounds, no rhonchi, no respiratory distress, no accessory muscle use, no wheezing, speaking full sentences Cardiovascular #1: regular rate, rhythm, no edema Gastrointestinal: soft, no mass, non-distended, no guarding, no rebound, tenderness - epigastric, other - negative Rovsing, negative [place], negative obturator Genitourinary: no CVA tenderness Musculoskeletal: back normal, digits/nails normal, gait/station normal, normal range of motion, non-tender, other - no bony step-off, no tenderness to palpation of spine Neurologic: alert, oriented x3, responsive, motor strength/tone normal, sensory intact Psychiatric: mood/affect normal Skin: no rash Medical Decision Making PA Attestation Dr. Rey is my supervising Physician whom patient management has been discussed with. Diagnostic Impression: Primary Impression: Constipation Additional Impression: Urinary tract infection ER Course Pt presents to ED c/o urinary symptoms. DDX considered but are not limited to cystitis, pyelonephritis, constipation. Low suspicion for appendicitis, no TTP at McBurney's point, negative Rovsing sign. patient resting comfortably, in no acute distress, low suspicion for SBO, not believe patient requires labs at this time. VITAL SIGNS are WNL, patient is afebrile. Ordered UA, imaging and pain medication. ER COURSE Provide patient with pain medication. UA results show positive leukocyte esterase, 20-30 WBCs, bacteria present few epithelial cells, indicate UTI, will treat with abx. Reports history of UTIs, checked patient follow up PCP and discuss referral to urology due to recurrence of symptoms. May require further outpatient management and treatment. Reports understanding and agreement. KUB shows nonspecific bowel gas pattern, stool present. Will provide patient treatment for constipation symptoms, drink plenty of fluids , increase fiber intake. Return to ER if symptoms worsen. informed patient back pain likely related to UTI and constipation symptoms. Patient able to ambulate without difficulty. patient denies ear pain at this time, TMs normal, no erythema, light reflex intact, no effusion present bilaterally. Patient is resting comfortably in chair, nontoxic appearing, in no acute distress. Patient states they feel better and is ready to go home. DISCHARGE -Rx provided for Colace -Rx provided for Macrobid Patient is stable for discharge. Patient resting comfortably, in no acute distress, nontoxic appearing, talking without difficulty, smiling. Will provide with patient care instructions and any necessary prescriptions. Patient understands and agrees to treatment plan. Patient encouraged to drink plenty of fluids. Patient to take medication as instructed. Care plan and follow-up instructions provided. Patient questions asked and answered. Reports understanding and agreement to treatment plan. Patient instructed to follow-up with primary care provider in 3 - 5 days. ER precautions given. Patient instructed to return to ER immediately for any new or worsening of symptoms. Including but not limited to fever, abdominal pain , intractable vomiting. - Please note that this Emergency Department Report was dictated using [employer] piler technology software, occasionally this can lead to erroneous entry secondary to interpretation by the dictation equipment. Labs Test 01/11/18 19:22 Urine Color Pale yellow Urine Appearance Slightly cloudy Urine pH 5 (4.5-8.0) Urine Specific [place] 1.015 (1.005-1.035) Urine Protein 2+ (NEGATIVE) Urine Glucose (UA) 3+ (NEGATIVE) Urine Ketones Negative (NEGATIVE) Urine Occult Blood 2+ (NEGATIVE) Urine Nitrite Negative (NEGATIVE) Urine Bilirubin Negative (NEGATIVE) Urine Urobilinogen Normal MG/DL (0.0-1.0) Urine Leukocyte Esterase 3+ (NEGATIVE) Urine RBC 2-4 /HPF (0 - 2) Urine WBC 20-30 /HPF (0 - 2) Urine Squamous Epithelial Cells Few /LPF (NONE/OCC) Urine Bacteria Moderate /HPF (NONE) Other X-Ray Diagnostic Results Other X-Ray Diagnostic Results : X-Ray ordered: KUB # of Views/Limited Vs Complete: 3 View Indication: Pain EP Interpretation: Yes PA Xray: Interpretation reviewed, by supervising MD, and agrees with findings. Interpretation: no dislocation, no soft tissue swelling, no fractures, nonspecific bowel gas Impression: No acute disease PA Scribe Text Lawrence Mccarthy PA-C Last Vital Signs Date Time Temp Pulse Resp B/P (MAP) Pulse Ox O2 Delivery O2 Flow Rate FiO2 01/11/18 19:03 98.3 94 17 137/71 92 Room Air 98.2 Disposition: HOME, SELF-CARE Condition: Stable Scripts Docusate Sodium* (COLACE*) 100 Mg Capsule 100 MG ORAL THREE TIMES A DAY, #15 CAP Prov: Jesús Mccarthy 01/11/18 Cephalexin* (KEFLEX*) 500 Mg Capsule 500 MG ORAL EVERY 12 HOURS, #14 CAP 0 Refills Prov: Jesús Mccarthy 01/11/18 Patient Instructions: Constipation, Adult, [id number], Urinary Tract Infection, [id number] Additional Instructions: Followup with primary care provider and followup with and/or OBGYN. Drink plenty of fluids. Take medications as directed. Patient questions asked and answered. ER precautions given, patient instructed to return to ER immediately for any new or worsening of symptoms. Jesús Mccarthy January 11, 2018 19:27
[2018-01-11] MEDS ORDERED: Acetaminophen 500mg (ES) tab ORAL ONE (19:30)
[2018-01-11 19:48] LABS: APPEARANCE,URINE SLIGHTLY CLOUDY; BILIRUBIN, URINE NEGATIVE (NEGATIVE); COLOR,URINE PALE YELLOW; GLUCOSE, URINE (UA) 3+ (NEGATIVE); KETONES,URINE NEGATIVE (NEGATIVE); LEUKOCYTE ESTERASE ,URINE 3+ (NEGATIVE); NITRITE,URINE NEGATIVE (NEGATIVE); PH,URINE 5 (4.5-8.0); PROTEIN,URINE 2+ (NEGATIVE); UROBILINOGEN,URINE NORMAL MG/DL (0.0-1.0)
[2018-01-11] MEDS ORDERED: COLACE100 MG ORAL (20:07)
[2018-01-11] MEDS ORDERED: CEPHALEXIN500 MG ORAL (20:07)
[2018-01-11 21:14] VITALS: BP 130/77
--- NOTE | 2018-01-12 11:31 | Diagnostic Imaging Report ---
Indication: Abdominal pain Comparison: None Single view of the abdomen obtained Findings: Bowel gas pattern is nonspecific. No mass, ectopic calcifications, or abnormal gas collections are identified. The bones are osteopenic. Impression: No acute findings
== END 2018-01-11 19:50 | disposition home or self-care (01) ==
LOC: EMR 19:40
DX: K59.00 Constipation, unspecified (principal); N39.0 Urinary tract infection, site not specified; I10 Essential (primary) hypertension; E11.9 Type 2 diabetes mellitus without complications
CPT/HCPCS: 74018; 81003; 87086; 87181; 99284

== ENCOUNTER 2018-05-17 21:35 | Inpatient (IN) | payer MEDICAID ==
[~2018-05-17] VITALS: Ht 157.5 cm; Wt 72.7 kg
[~2018-05-17 21:35] MED LIST changes: +ASPIR 8181 MG ORAL; +CEPHALEXIN500 MG ORAL; +COLACE100 MG ORAL; +GLUCOTROL10 MG ORAL; +LORATADINE10 M2 PO
[2018-05-17 22:06] VITALS: BP 166/64
[2018-05-17 22:17] LABS: APPEARANCE,URINE TURBID; BILIRUBIN, URINE NEGATIVE (NEGATIVE); COLOR,URINE PALE YELLOW; GLUCOSE, URINE (UA) 4+ (NEGATIVE); KETONES,URINE NEGATIVE (NEGATIVE); LEUKOCYTE ESTERASE ,URINE 3+ (NEGATIVE); NITRITE,URINE NEGATIVE (NEGATIVE); PH,URINE 5 (4.5-8.0); PROTEIN,URINE 3+ (NEGATIVE); UROBILINOGEN,URINE NORMAL MG/DL (0.0-1.0)
[2018-05-17 22:22] LABS: EOSINOPHILS % (AUTO) 0.8 % (0.0-3.0); HEMATOCRIT 34.3 % (37.0-47.0); HEMOGLOBIN 11.4 G/DL (12.0-16.0); LYMPHOCYTES % (AUTO) 16.7 % (20.0-45.0); MEAN CORPUSCULAR VOLUME 93 FL (80-99); MONOCYTES % (AUTO) 7.3 % (1.0-10.0); NEUTROPHILS % (AUTO) 74.2 % (45.0-75.0); PLATELET COUNT 343 K/UL (150-450); RED CELL DISTRIBUTION WIDTH 12.7 % (11.6-14.8); WHITE BLOOD COUNT 13.7 K/UL (4.8-10.8)
[2018-05-17 22:29] LABS: ANION GAP 11 mmol/L (5-15); BLOOD UREA NITROGEN 30 mg/dL (7-18); CALCIUM 9.4 MG/DL (8.5-10.1); CARBON DIOXIDE 27 MMOL/L (21-32); CHLORIDE 99 MMOL/L (98-107); CREATININE 0.9 MG/DL (0.55-1.30); POTASSIUM 3.8 MMOL/L (3.5-5.1); SODIUM 137 MMOL/L (136-145)
[2018-05-17 22:41] LABS: ALANINE AMINOTRANSFERASE 22 U/L (12-78); ALBUMIN/GLOBULIN RATIO 0.8 (1.0-2.7); ALKALINE PHOSPHATASE 136 U/L (46-116); ASPARTATE AMINO TRANSFERASE 12 U/L (15-37); BILIRUBIN,TOTAL 0.5 MG/DL (0.2-1.0); CKMB < 0.5 NG/ML (0.0-3.6); CREATINE KINASE 60 U/L (26-308)
[2018-05-17] MEDS ORDERED: cefTRIAXone 1 GM in NS 55 ML IVPB ONE (22:45)
--- NOTE | 2018-05-17 22:48 | Emergency Room Report ---
History of Present Illness General Chief Complaint: Abdominal Pain Source: Patient Present Illness HPI Patient presents with complaints of pain to the right flank area dysuria frequency fevers and chills Pain is 6 out of 10 Denies any chest pain or short of breath Denies any back or flank pain denies any diarrhea however she has had increased nausea and vomiting Denies any recent travel Denies any rash Allergies: Coded Allergies: No Known Allergies (Unverified , 08/03/17) Patient History Past Medical History: see triage record Pertinent Family History: none Now: No Reviewed Nursing Documentation: PMH: Agreed; PSxH: Agreed Nursing Documentation-PMH Hx Hypertension: Yes Hx Diabetes: Yes Review of Systems All Other Systems: negative except mentioned in HPI Physical Exam Vital Signs Date Time Temp Pulse Resp B/P (MAP) Pulse Ox O2 Delivery O2 Flow Rate FiO2 05/17/18 21:38 98.8 105 22 189/78 92 98.8 Sp02 EP Interpretation: reviewed, normal General Appearance: well appearing, no apparent distress Head: normocephalic, atraumatic Eyes: bilateral eye PERRL, bilateral eye EOMI ENT: hearing grossly normal, TMs + canals normal, uvula midline, dry mucus membranes Neck: full range of motion, supple, no meningismus, no bony tend Respiratory: lungs clear, normal breath sounds, no rhonchi, no respiratory distress, no retraction, no accessory muscle use Cardiovascular #1: normal peripheral pulses, no edema, no gallop, no JVD, no murmur, tachycardia Gastrointestinal: normal bowel sounds, non tender, soft, no mass, no organomegaly, non-distended, no guarding, no hernia, no pulsatile mass, no rebound Genitourinary: CVA tenderness (R) Musculoskeletal: normal inspection Neurologic: oriented x3, 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, 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, motor strength/ tone normal, sensory intact Psychiatric: mood/affect normal Skin: normal color, no rash, warm/dry, palpation normal Lymphatic: normal inspection, no adenopathy Medical Decision Making Diagnostic Impression: Primary Impression: Abdominal pain Additional Impressions: UTI (urinary tract infection) Pyelonephritis Sepsis ER Course Multiple differential considered patient has extensive blood work and imaging obtained Urine sample does show significant infectious pathology patient's white blood cell count is also mildly elevated Given the flank pain and the patient's urine sample CT imaging was obtained as well does not show any obvious acute pathology patient receiving IV hydration and antibiotics and requires admission Labs Test 05/17/18 21:50 05/18/18 07:20 White Blood Count 13.7 K/UL (4.8-10.8) 10.5 K/UL (4.8-10.8) Red Blood Count 3.70 M/UL (4.20-5.40) 3.47 M/UL (4.20-5.40) Hemoglobin 11.4 G/DL (12.0-16.0) 10.2 G/DL (12.0-16.0) Hematocrit 34.3 % (37.0-47.0) 31.4 % (37.0-47.0) Mean Corpuscular Volume 93 FL (80-99) 91 FL (80-99) Mean Corpuscular Hemoglobin 30.7 PG (27.0-31.0) 29.5 PG (27.0-31.0) Mean Corpuscular Hemoglobin Concent 33.2 G/DL (32.0-36.0) 32.5 G/DL (32.0-36.0) Red Cell Distribution Width 12.7 % (11.6-14.8) 13.2 % (11.6-14.8) Platelet Count 343 K/UL (150-450) 290 K/UL (150-450) Mean Platelet Volume 7.5 FL (6.5-10.1) 7.4 FL (6.5-10.1) Neutrophils (%) (Auto) 74.2 % (45.0-75.0) 80.1 % (45.0-75.0) Lymphocytes (%) (Auto) 16.7 % (20.0-45.0) 11.6 % (20.0-45.0) Monocytes (%) (Auto) 7.3 % (1.0-10.0) 7.2 % (1.0-10.0) Eosinophils (%) (Auto) 0.8 % (0.0-3.0) 0.2 % (0.0-3.0) Basophils (%) (Auto) 1.0 % (0.0-2.0) 0.8 % (0.0-2.0) Urine Color Pale yellow Urine Appearance Turbid Urine pH 5 (4.5-8.0) Urine Specific [place] 1.010 (1.005-1.035) Urine Protein 3+ (NEGATIVE) Urine Glucose (UA) 4+ (NEGATIVE) Urine Ketones Negative (NEGATIVE) Urine Blood 5+ (NEGATIVE) Urine Nitrite Negative (NEGATIVE) Urine Bilirubin Negative (NEGATIVE) Urine Urobilinogen Normal MG/DL (0.0-1.0) Urine Leukocyte Esterase 3+ (NEGATIVE) Urine RBC 15-20 /HPF (0 - 2) Urine WBC Tntc /HPF (0 - 2) Urine Squamous Epithelial Cells Moderate /LPF (NONE/OCC) Urine Bacteria Many /HPF (NONE) Sodium Level 137 MMOL/L (136-145) 139 MMOL/L (136-145) Potassium Level 3.8 MMOL/L (3.5-5.1) 3.7 MMOL/L (3.5-5.1) Chloride Level 99 MMOL/L (98-107) 105 MMOL/L (98-107) Carbon Dioxide Level 27 MMOL/L (21-32) 25 MMOL/L (21-32) Anion Gap 11 mmol/L (5-15) 9 mmol/L (5-15) Blood Urea Nitrogen 30 mg/dL (7-18) 25 mg/dL (7-18) Creatinine 0.9 MG/DL (0.55-1.30) 0.8 MG/DL (0.55-1.30) Estimat Glomerular Filtration Rate > 60 mL/min (>60) > 60 mL/min (>60) Glucose Level 260 MG/DL (74-106) 200 MG/DL (74-106) Calcium Level 9.4 MG/DL (8.5-10.1) 8.6 MG/DL (8.5-10.1) Total Bilirubin 0.5 MG/DL (0.2-1.0) 0.4 MG/DL (0.2-1.0) Aspartate Amino Transf (AST/SGOT) 12 U/L (15-37) 10 U/L (15-37) Alanine Aminotransferase (ALT/SGPT) 22 U/L (12-78) 19 U/L (12-78) Alkaline Phosphatase 136 U/L (46-116) 95 U/L (46-116) Total Creatine Kinase 60 U/L (26-308) Creatine Kinase MB < 0.5 NG/ML (0.0-3.6) Creatine Kinase MB Relative Index 0.8 Troponin I 0.000 ng/mL (0.000-0.056) Total Protein 9.0 G/DL (6.4-8.2) 7.7 G/DL (6.4-8.2) Albumin 4.0 G/DL (3.4-5.0) 3.3 G/DL (3.4-5.0) Globulin 5.0 g/dL Albumin/Globulin Ratio 0.8 (1.0-2.7) Lipase 191 U/L (73-393) Urine Opiates Screen Negative (NEGATIVE) Urine Barbiturates Screen Negative (NEGATIVE) Phencyclidine (PCP) Screen Negative (NEGATIVE) Urine Amphetamines Screen Negative (NEGATIVE) Urine Benzodiazepines Screen Negative (NEGATIVE) Urine Cocaine Screen Negative (NEGATIVE) Urine Marijuana (THC) Screen Negative (NEGATIVE) Hemoglobin A1c 8.6 % (4.3-6.0) Uric Acid 4.7 MG/DL (2.6-7.2) Phosphorus Level 3.2 MG/DL (2.5-4.9) Magnesium Level 1.7 MG/DL (1.8-2.4) Direct Bilirubin < 0.1 MG/DL (0.0-0.3) Thyroid Stimulating Hormone (TSH) 1.020 uiU/mL (0.358-3.740) Rhythm Strip Diag. Results EP Interpretation: yes Rate: 67 Rhythm: NSR, no PVC's, no ectopy CT/MRI/US Diagnostic Results CT/MRI/US Diagnostic Results : Impression CT abdomen pelvisImpression: No definite acute process. Mildly prominent right extra renal pelvis and ureterectasis is probably baseline for this patient, as no downstream obstructive lesion is demonstrated and findings are similar to the previous exam Mild nonspecific bilateral perinephric fat stranding, could indicate pyelitis or nephritis there is more likely chronic. Correlate with clinical findings Note interim resolution of previously demonstrated left renal changes Bilateral basilar pulmonary parenchymal atelectatic changes Other findings as noted, including right hepatic lobe calcification, accessory splenule, degenerative spondylosis Last Vital Signs Date Time Temp Pulse Resp B/P (MAP) Pulse Ox O2 Delivery O2 Flow Rate FiO2 05/17/18 22:06 97.9 96 20 166/64 97 97.9 Status: improved Disposition: ADMITTED INPATIENT Condition: Serious Referrals: [facility],REFBradley (PCP) Laya Rey DO May 17, 2018 22:48
[2018-05-18] VITALS (7 sets, daily range): BP systolic 127–144; BP diastolic 51–70
[2018-05-18 07:49] LABS: BASOPHILS % (AUTO) 0.8 % (0.0-2.0); EOSINOPHILS % (AUTO) 0.2 % (0.0-3.0); HEMATOCRIT 31.4 % (37.0-47.0); HEMOGLOBIN 10.2 G/DL (12.0-16.0); LYMPHOCYTES % (AUTO) 11.6 % (20.0-45.0); MEAN CORPUSCULAR VOLUME 91 FL (80-99); MONOCYTES % (AUTO) 7.2 % (1.0-10.0); NEUTROPHILS % (AUTO) 80.1 % (45.0-75.0); PLATELET COUNT 290 K/UL (150-450); RED BLOOD COUNT 3.47 M/UL (4.20-5.40); RED CELL DISTRIBUTION WIDTH 13.2 % (11.6-14.8); WHITE BLOOD COUNT 10.5 K/UL (4.8-10.8)
[2018-05-18 08:05] LABS: ANION GAP 9 mmol/L (5-15); BLOOD UREA NITROGEN 25 mg/dL (7-18); CALCIUM 8.6 MG/DL (8.5-10.1); CARBON DIOXIDE 25 MMOL/L (21-32); CHLORIDE 105 MMOL/L (98-107); CREATININE 0.8 MG/DL (0.55-1.30); POTASSIUM 3.7 MMOL/L (3.5-5.1); SODIUM 139 MMOL/L (136-145)
--- NOTE | 2018-05-18 09:54 | Diagnostic Imaging Report ---
Indication: Right flank pain and dysuria Technique: Spiral acquisitions obtained through the abdomen and pelvis. No oral or IV contrast utilized, per urinary stone protocol. Multiplanar reconstructions were generated. Total dose length product 934.26 mGycm. CTDIvol(s) 17.05 mGy. Dose reduction achieved using automated exposure control Comparison: 08/04/2017 Findings: The right renal pelvis is dilated as is the proximal right ureter. However, there is only minimal calyceal distention, the distal right ureter is nondilated, and no ureteral calculi are demonstrated. No intrarenal calculi are demonstrated. There is minimal perinephric fat stranding bilaterally. No left renal or ureteral calculi, hydronephrosis, hydroureter. Lack of IV contrast limits assessment of the renal parenchyma. No gross renal parenchymal mass or cyst demonstrated. The bladder is unremarkable. Lack of IV contrast limits assessment of the other solid organs. The liver demonstrates a peripheral calcification in segment 8. The gallbladder, bile ducts, pancreas, spleen, adrenals are unremarkable. There is an accessory splenule noted. No pelvic mass or adenopathy. Uterus and adnexal structures are unremarkable. The lung bases demonstrate atelectatic changes bilaterally, particularly on the right. There are degenerative changes of the lumbar spine. No evidence of diverticulosis or diverticulitis. The appendix is not definitely visualized, but no findings to suggest acute appendicitis are evident. No small bowel distention. No free or loculated intraperitoneal gas or fluid. The distal esophagus, stomach, duodenum are unremarkable. When compared to the prior exam, previously demonstrated left hydronephrosis, hydroureter, and perinephric edema are no longer evident. Ureterectasis and mild pelviectasis on the right is similar to the previous study although somewhat more striking. Impression: No definite acute process. Mildly prominent right extra renal pelvis and ureterectasis is probably baseline for this patient, as no downstream obstructive lesion is demonstrated and findings are similar to the previous exam Mild nonspecific bilateral perinephric fat stranding, could indicate pyelitis or nephritis there is more likely chronic. Correlate with clinical findings Note interim resolution of previously demonstrated left renal changes Bilateral basilar pulmonary parenchymal atelectatic changes Other findings as noted, including right hepatic lobe calcification, accessory splenule, degenerative spondylosis This agrees with the preliminary interpretation provided overnight by [employer] teleradiology service. The CT scanner at [facility] is accredited by the [employer] and the scans are performed using protocols designed to limit radiation exposure to as low as reasonably achievable to attain images of sufficient resolution adequate for diagnostic evaluation.
--- NOTE | 2018-05-18 10:33 | Consultation ---
Consult Note Consult Note Patient presents with complaints of pain to the right flank area dysuria frequency fevers and chills Pain is 6 out of 10 Denies any chest pain or short of breath Denies any back or flank pain denies any diarrhea however she has had increased nausea and vomiting Denies any recent travel Denies any rash No Known Allergies (Unverified , 08/03/17) Hx Hypertension: Yes Hx Diabetes: Yes Assessment/Plan UTI Anemia DM Obesity HTN Rocephin medium cho diet anemia hastings zestril for bp per orders Hang Hsu MD May 18, 2018 10:33
[2018-05-18] MEDS ORDERED: Lisinopril 10mg tab ORAL SCH (10:39)
[2018-05-18] MEDS: Acetaminophen 500mg (ES) tab ORAL PRN ×3 (10:57→22:13)
[2018-05-18 11:17] LABS: ALANINE AMINOTRANSFERASE 19 U/L (12-78); ALBUMIN 3.3 G/DL (3.4-5.0); ALKALINE PHOSPHATASE 95 U/L (46-116); ASPARTATE AMINO TRANSFERASE 10 U/L (15-37); BILIRUBIN,DIRECT < 0.1 MG/DL (0.0-0.3); BILIRUBIN,TOTAL 0.4 MG/DL (0.2-1.0); PHOSPHORUS 3.2 MG/DL (2.5-4.9)
[2018-05-18] MEDS ORDERED: Docusate 100mg cap ORAL SCH ×2 (13:00→18:00)
[2018-05-18] MEDS: GlipiZIDE 5mg tab ORAL SCH (15:50)
[2018-05-18] MEDS: metFORMIN 500mg tab ORAL SCH (15:50)
[2018-05-18] MEDS ORDERED: GlipiZIDE 5mg tab ORAL SCH (16:30)
[2018-05-18] MEDS: NovoLOG Insulin Flexpen SUBQ SCH ×2 (16:47→21:49)
--- NOTE | 2018-05-18 17:07 | Diagnostic Imaging Report ---
Indication: Cough Technique: One view of the chest Comparison: none Findings: Exam is somewhat limited by patient body habitus. There are atelectatic changes at the right lung base. The heart is borderline enlarged. Patient is rotated to the right. No definite acute infiltrates or effusions. Impression: Right basilar atelectasis. No definite acute process otherwise Borderline cardiomegaly
[2018-05-18] MEDS: cefTRIAXone 1 GM in D5W 55 ML IVPB SCH (21:49)
--- NOTE | 2018-05-18 22:45 | Consultation ---
DATE OF CONSULTATION: 05/18/2018 INFECTIOUS DISEASE CONSULTATION CONSULTING PHYSICIAN: Tio aLy M.D. PRIMARY ATTENDING PHYSICIAN: Laya Kat M.D. REASON FOR CONSULT: Urinary tract infection. HISTORY OF PRESENT ILLNESS: This is a 62-year-old female, admitted last night complaining of right flank pain, dysuria, frequency, nausea, vomiting, and coughing. The patient has had leukocytosis of 13.7 in the hospital and developed fever up to 101.5 today. The patient is a [place]ian-speaking. 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 PAST MEDICAL HISTORY: Diabetes mellitus, hypertension, anemia, and dyslipidemia. Has history of pneumonia before. Has history of urinary tract infection and likely pyelonephritis before. MEDICATIONS: Lisinopril, aspirin, loratadine, Januvia, ceftriaxone, metformin, glipizide, insulin, and Tylenol. ALLERGIES: No known drug allergies. SOCIAL HISTORY: Lives at home. . Has 5 children. No history of alcohol, drug abuse, or smoking. Originally from [facility]. FAMILY HISTORY: One of the children has diabetes mellitus. REVIEW OF SYSTEMS: Fever and coughing that is dry. have epigastric pain with eating cold or hot food and dysuria. PHYSICAL EXAM: VITAL SIGNS: Temperature 101.5, blood pressure 144/68, and pulse is 93. GENERAL APPEARANCE: No acute distress. HEAD AND NECK: [place] conjunctiva. HEART: Normal rate. LUNGS: Clear bilaterally. Some kyphosis. ABDOMEN: Soft. There is CVA tenderness in the right side. EXTREMITY: Has no edema. NEUROLOGIC: Awake, alert, and oriented x3. Ambulatory. LABORATORY DATA: WBC today is 10.5 coming down from 13.7, hemoglobin 10.2, hematocrit 31.4, and platelets 290,000. Sodium 139, potassium 3.7, chloride 105, bicarb 25, BUN 25, and creatinine 0.8. Glucose 200. Hemoglobin A1c 8.6. Urine toxicology test was negative. The patient had a CT scan of the abdomen and pelvis without contrast. No definite acute process. Bilateral pulmonary atelectatic changes and mild nonspecific bilateral perinephric fat stranding may indicate pyelitis or nephritis. IMPRESSION: Sepsis with fever and leukocytosis. Source of infection seems to be urinary. The patient has pyuria and hematuria and there are many bacteria in UA. May have pyelonephritis especially at the right side. Has coughing, we will to rule out pneumonia. Has uncontrolled diabetes mellitus, anemia, hypertension, and dyslipidemia. RECOMMENDATION: We will continue with Rocephin. We will order blood cultures. We will order chest x-ray to rule out pneumonia. At the end of my exam, I thank Dr. Kat for involving me in the care of this patient. Tio Lay M.D. DR: PAUL JOB#: [id number] CC: ANAT
[2018-05-19] VITALS: BP 119/61
--- NOTE | 2018-05-19 02:45 | History and Physical Report ---
DATE OF ADMISSION: 05/17/2018 HISTORY OF PRESENT ILLNESS: The patient basically is being admitted for urinary tract infection, rule out sepsis. The patient has been having low back pain, dysuria, suprapubic tenderness, vomiting, and fever and chills for approximately one week. It has been getting worse in the past couple of days. The patient has also diabetes and hypertension now. Denied shortness of breath. Denies cough. Denies orthopnea. Does have chills. Denies hematuria. PAST MEDICAL HISTORY: Significant for constipation, hyperlipidemia, NIDDM, hypertension, allergic rhinitis and GERD. PAST SURGICAL HISTORY: None. MEDICATIONS: The patient takes gemfibrozil, Colace, glipizide, lisinopril, loratadine, metformin, omeprazole, simvastatin and Januvia. SOCIAL HISTORY: Denies history of smoking, alcohol, or illicit drug use. FAMILY HISTORY: Does have history of diabetes. REVIEW OF SYSTEMS: HEENT: Denies headaches. RESPIRATORY: Denies shortness of breath. Denies cough. CARDIOVASCULAR: Denies chest pain. Denies orthopnea. GASTROINTESTINAL: Reports suprapubic tenderness, vomiting, fever, and chills for one week. Denies diarrhea. EXTREMITIES: Denies lower extremity pain. Does have chronic back pain. CENTRAL NERVOUS SYSTEM: No change in vision or speech pattern. PHYSICAL EXAMINATION: VITAL SIGNS: The patient also basically has temperature of 101.5, blood pressure 132/70, and pulse 78. HEENT: PERRLA. NECK: Supple. No lymphadenopathy. CHEST: Clear to auscultation. CARDIOVASCULAR: Regular rate and rhythm. No murmurs or extra sounds. GASTROINTESTINAL: Soft, nontender, and nondistended. The patient has mild suprapubic tenderness. No rebound. No organomegaly. EXTREMITIES: No edema. Reflexes on both sides. LABORATORY DATA: Basically, WBC of 13.7, hemoglobin 11.4 and platelets 343. Sodium 137, potassium 3.8, BUN of 30, creatinine 0.9 and glucose of 260. ASSESSMENT AND PLAN: Sepsis, UTI, leukocytosis and elevated blood sugar. I have asked Dr. Kinsey Dr. Hsu to see the patient for the above-mentioned diagnoses and treatment. Laya Kat M.D. DR: MISSY JOB#: [id number] CC:
[2018-05-19 04:00] VITALS: BP 151/70
[2018-05-19] MEDS: Acetaminophen 500mg (ES) tab ORAL PRN ×3 (04:11→21:34)
[2018-05-19] MEDS: NovoLOG Insulin Flexpen SUBQ SCH ×4 (06:19→21:41)
[2018-05-19] MEDS: metFORMIN 500mg tab ORAL SCH ×2 (06:21→17:35)
[2018-05-19] MEDS: GlipiZIDE 5mg tab ORAL SCH ×2 (06:21→17:36)
--- NOTE | 2018-05-19 07:36 | Consultation ---
Consult Note Consult Note Hematology Consult REQ MD: Laya Kat RFC: Anemia eval DOS: 05/19/2018 ID [id number] female Patient presents with complaints of pain to the right flank area dysuria frequency fevers and chills Pain is 6 out of 10 Denies any chest pain or short of breath Denies any back or flank pain denies any diarrhea however she has had increased nausea and vomiting Started on abx Noted to have anemia and hematology was consulted Denies any recent travel Denies any rash Allergies: Coded Allergies: No Known Allergies (Unverified , 08/03/17) Past Medical History: see triage record Pertinent Family History: none Now: No Reviewed Nursing Documentation: PMH: Agreed; PSxH: Agreed Hx Hypertension: Yes Hx Diabetes: Yes ER ROS - General Review of Systems All Other Systems: negative except mentioned in HPI Negative 12 point ROS except as noted above ER Physical Exam - General Physical Exam Last 24 Hour Vital Signs Date Time Temp Pulse Resp B/P (MAP) Pulse Ox O2 Delivery O2 Flow Rate FiO2 05/19/18 04:41 99.1 05/19/18 04:11 100.8 05/19/18 04:00 100.8 17 151/70 (97) 91 100.8 05/19/18 00:00 100.0 85 16 119/61 (80) 88 100.0 05/18/18 21:00 Room Air 05/18/18 20:00 98.8 95 19 142/66 (91) 90 98.8 05/18/18 16:00 101.5 102 20 132/51 (78) 92 101.5 05/18/18 15:50 101.5 05/18/18 12:00 99.0 96 20 144/68 (93) 95 99.0 05/18/18 10:57 101.5 05/18/18 10:56 144/68 05/18/18 10:55 101.5 144/68 (93) 98 101.5 05/18/18 09:00 Room Air 05/18/18 08:00 100.0 93 20 134/59 (84) 90 100.0 Sp02 EP Interpretation: reviewed, normal General Appearance: well appearing, no apparent distress Head: normocephalic, atraumatic Eyes: bilateral eye PERRL, bilateral eye EOMI ENT: hearing grossly normal Neck: full range of motion, supple Respiratory: lungs clear, normal breath sounds Cardiovascular #1: normal peripheral pulses Gastrointestinal: normal bowel sounds, non tender, soft, Genitourinary: CVA tenderness (R) Musculoskeletal: normal inspection Neurologic: oriented x3, 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, 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 Staff, greatly appreciate consultation. Domenico Haas MD May 19, 2018 07:36
[2018-05-19 08:00] VITALS: BP 115/55
[2018-05-19] MEDS: Aspirin EC 81mg tab ORAL SCH (08:41)
[2018-05-19] MEDS: sitaGLIPtin 25mg tab ORAL SCH (08:41)
[2018-05-19] MEDS ORDERED: Lisinopril 10mg tab ORAL SCH (09:00)
[2018-05-19] MEDS ORDERED: Lisinopril 20mg tab ORAL SCH (09:00)
[2018-05-19 09:09] LABS: FERRITIN 93 NG/ML (8-388)
[2018-05-19 09:25] LABS: HEMATOCRIT 30.9 % (37.0-47.0); HEMOGLOBIN 10.1 G/DL (12.0-16.0); MEAN CORPUSCULAR VOLUME 89 FL (80-99); RED BLOOD COUNT 3.46 M/UL (4.20-5.40); WHITE BLOOD COUNT 11.1 K/UL (4.8-10.8)
[2018-05-19 09:26] LABS: PLATELET COUNT 266 K/UL (150-450); RED CELL DISTRIBUTION WIDTH 12.9 % (11.6-14.8)
[2018-05-19 09:27] LABS: BASOPHILS % (AUTO) 0.7 % (0.0-2.0); EOSINOPHILS % (AUTO) 1.1 % (0.0-3.0); MONOCYTES % (AUTO) 8.1 % (1.0-10.0); NEUTROPHILS % (AUTO) 75.2 % (45.0-75.0)
[2018-05-19 09:34] LABS: % IRON SATURATION 6 % (15-50); IRON 21 ug/dL (50-175); TOTAL IRON BINDING CAPACITY 338 ug/dL (250-450)
[2018-05-19 12:00] VITALS: BP 114/94
[2018-05-19] MEDS ORDERED: Milk of Magnesia 30ml Ud ORAL PRN (12:00)
[2018-05-19] MEDS ORDERED: Docusate 100mg cap ORAL PRN (12:00)
--- NOTE | 2018-05-19 12:00 | Nephrology Progress Note ---
Assessment/Plan Problem List: (1) UTI (urinary tract infection) (2) Pyelonephritis (3) Diabetes mellitus out of control Assessment UTI Anemia DM Obesity HTN Plan Rocephin medium cho diet anemia hastings zestril for bp Lyrica for nerve pain per orders Objective Objective Last 24 Hour Vital Signs Date Time Temp Pulse Resp B/P (MAP) Pulse Ox O2 Delivery O2 Flow Rate FiO2 05/19/18 09:00 Room Air 05/19/18 08:41 155/55 05/19/18 08:00 97.7 90 18 115/55 (75) 93 97.7 05/19/18 04:41 99.1 05/19/18 04:11 100.8 05/19/18 04:00 100.8 17 151/70 (97) 91 100.8 05/19/18 00:00 100.0 85 16 119/61 (80) 88 100.0 05/18/18 21:00 Room Air 05/18/18 20:00 98.8 95 19 142/66 (91) 90 98.8 05/18/18 16:00 101.5 102 20 132/51 (78) 92 101.5 05/18/18 15:50 101.5 05/18/18 12:00 99.0 96 20 144/68 (93) 95 99.0 Intake and Output 05/18/18 05/19/18 19:00 07:00 Intake Total 720 ml Balance 720 ml Intake Oral 720 ml # Voids 3 3 Laboratory Tests 05/19/18 08:20: White Blood Count 11.1H, Red Blood Count 3.46L, Hemoglobin 10.1L, Hematocrit 30.9L, Mean Corpuscular Volume 89, Mean Corpuscular Hemoglobin 29.1, Mean Corpuscular Hemoglobin Concent 32.6, Red Cell Distribution Width 12.9, Platelet Count 266, Mean Platelet Volume 7.1, Neutrophils (%) (Auto) 75.2H, Lymphocytes ( %) (Auto) 15.0L, Monocytes (%) (Auto) 8.1, Eosinophils (%) (Auto) 1.1, Basophils (%) (Auto) 0.7, Differential Total Cells Counted 100, Neutrophils % ( Manual) 80H, Lymphocytes % (Manual) 12L, Monocytes % (Manual) 8, Eosinophils % ( Manual) 0, Basophils % (Manual) 0, Band Neutrophils 0, Platelet Estimate Adequate, Platelet Morphology Normal, Red Blood Cell Morphology Normal, Hemoglobin A [Pending], Hemoglobin A2 [Pending], Hemoglobin C [Pending], Hemoglobin F () [Pending], Hemoglobin S [Pending], Variant Hemoglobin [ Pending], Hemoglobin Electrophoresis Interp [Pending], Hemoglobin Interpretation [Pending], Hemoglobin Solubility [Pending], Iron Level 21L, Total Iron Binding Capacity 338, Percent Iron Saturation 6L, Unsaturated Iron Binding 317, Ferritin 93, Carcinoembryonic Antigen [Pending], Vitamin B12 Level 522, Folate 43.9 Height (Feet): 5 Height (Inches): 2.00 Weight (Pounds): 160 Hang Hsu MD May 19, 2018 12:00
[2018-05-19] MEDS ORDERED: Iron Sucrose 200 MG in NS 110 ML IV ONE (13:00)
--- NOTE | 2018-05-19 14:50 | Infectious Diseases Prog Note ---
Assessment/Plan Assessment/Plan A; Sepsis Bacteremia UTI Anemia Uncontrolled DM P; Continue Rocephin Add IV Vancomycin Will f/u cultures Subjective ROS Limited/Unobtainable: Yes Constitutional: Reports: fever Allergies: Coded Allergies: No Known Allergies (Unverified , 08/03/17) Objective Vital Signs Last 24 Hour Vital Signs Date Time Temp Pulse Resp B/P (MAP) Pulse Ox O2 Delivery O2 Flow Rate FiO2 05/19/18 12:49 98.4 05/19/18 12:19 100.5 05/19/18 12:00 98.5 101 20 114/94 (101) 94 98.5 05/19/18 09:00 Room Air 05/19/18 08:41 155/55 05/19/18 08:00 97.7 90 18 115/55 (75) 93 97.7 05/19/18 04:11 100.8 05/19/18 04:00 100.8 17 151/70 (97) 91 100.8 05/19/18 00:00 100.0 85 16 119/61 (80) 88 100.0 05/18/18 21:00 Room Air 05/18/18 20:00 98.8 95 19 142/66 (91) 90 98.8 05/18/18 16:00 101.5 102 20 132/51 (78) 92 101.5 05/18/18 15:50 101.5 Height (Feet): 5 Height (Inches): 2.00 Weight (Pounds): 160 General Appearance: no acute distress HEENT: mucous membranes moist Respiratory/Chest: lungs clear Cardiovascular: normal rate Abdomen: soft, non tender Extremities: no edema Neurologic/Psychiatric: other - sleeping Microbiology Date/Time Source Procedure Growth Status 05/18/18 16:45 Blood Blood Culture - Preliminary Resulted 05/18/18 16:15 Blood Blood Culture - Preliminary Resulted 05/17/18 21:50 Urine,Clean Catch Urine Culture - Preliminary Gram Negative Bacillus 1 Resulted Laboratory Tests Test 05/19/18 08:20 White Blood Count 11.1 K/UL (4.8-10.8) H Red Blood Count 3.46 M/UL (4.20-5.40) L Hemoglobin 10.1 G/DL (12.0-16.0) L Hematocrit 30.9 % (37.0-47.0) L Mean Corpuscular Volume 89 FL (80-99) Mean Corpuscular Hemoglobin 29.1 PG (27.0-31.0) Mean Corpuscular Hemoglobin Concent 32.6 G/DL (32.0-36.0) Red Cell Distribution Width 12.9 % (11.6-14.8) Platelet Count 266 K/UL (150-450) Mean Platelet Volume 7.1 FL (6.5-10.1) Neutrophils (%) (Auto) 75.2 % (45.0-75.0) H Lymphocytes (%) (Auto) 15.0 % (20.0-45.0) L Monocytes (%) (Auto) 8.1 % (1.0-10.0) Eosinophils (%) (Auto) 1.1 % (0.0-3.0) Basophils (%) (Auto) 0.7 % (0.0-2.0) Differential Total Cells Counted 100 Neutrophils % (Manual) 80 % (45-75) H Lymphocytes % (Manual) 12 % (20-45) L Monocytes % (Manual) 8 % (1-10) Eosinophils % (Manual) 0 % (0-3) Basophils % (Manual) 0 % (0-2) Band Neutrophils 0 % (0-8) Other Cell Type Pathologist comment Platelet Estimate Adequate Platelet Morphology Normal Red Blood Cell Morphology Normal Hemoglobin A Pending Hemoglobin A2 Pending Hemoglobin C Pending Hemoglobin F () Pending Hemoglobin S Pending Variant Hemoglobin Pending Hemoglobin Electrophoresis Interp Pending Hemoglobin Interpretation Pending Hemoglobin Solubility Pending Iron Level 21 ug/dL (50-175) L Total Iron Binding Capacity 338 ug/dL (250-450) Percent Iron Saturation 6 % (15-50) L Unsaturated Iron Binding 317 ug/dL (112-346) Ferritin 93 NG/ML (8-388) Carcinoembryonic Antigen Pending Vitamin B12 Level 522 PG/ML (193-986) Folate 43.9 NG/ML (8.6-58.9) Current Medications Medications (Trade) Dose Ordered Sig/Silas Route PRN Reason Start Time Stop Time Status Last Admin Dose Admin Acetaminophen (Tylenol) 500 mg Q4H PRN ORAL Mild Pain/Temp > 100.5 05/18/18 00:00 06/17/18 00:00 05/19/18 12:19 Aspirin (Ecotrin) 81 mg DAILY ORAL 05/19/18 09:00 06/18/18 08:59 05/19/18 08:41 Ceftriaxone Sodium 1 gm/ Dextrose 55 ml @ 110 mls/hr Q24H IVPB 05/18/18 21:00 05/25/18 20:59 05/18/18 21:49 Dextrose (Dextrose 50%) 25 ml Q30M PRN IV Hypoglycemia 05/18/18 14:00 06/17/18 13:59 Dextrose (Dextrose 50%) 50 ml Q30M PRN IV Hypoglycemia 05/18/18 13:45 06/17/18 13:29 Docusate Sodium (Colace) 100 mg BID PRN ORAL Constipation 05/19/18 12:00 06/18/18 11:59 Famotidine (Pepcid) 20 mg BID ORAL 05/18/18 10:40 06/17/18 10:39 05/19/18 08:49 Glipizide (Glucotrol) 5 mg BIAC ORAL 05/18/18 16:30 06/17/18 16:29 05/19/18 06:21 Insulin Aspart (NovoLOG) BEFORE MEALS AND HS SUBQ 05/18/18 16:30 06/17/18 16:29 05/19/18 06:19 Iron Sucrose 100 mg/Sodium Chloride 60 ml @ 240 mls/hr BEDTIME IV 05/20/18 21:00 05/24/18 21:14 Lisinopril (Zestril) 10 mg BID ORAL 05/19/18 18:00 06/18/18 08:59 Loratadine (Claritin 10mg) 10 mg DAILY ORAL 05/19/18 09:00 06/18/18 08:59 Magnesium Hydroxide (Mom) 30 ml DAILYPRN PRN ORAL Constipation 05/19/18 12:00 06/18/18 11:59 Metformin HCl (Glucophage) 1,000 mg BIAC ORAL 05/18/18 16:30 06/17/18 16:29 05/19/18 06:21 Pregabalin (Lyrica) 50 mg BEDTIME ORAL 05/19/18 21:00 06/18/18 20:59 Sitagliptin Phosphate (Januvia) 50 mg DAILY ORAL 05/19/18 09:00 06/18/18 08:59 05/19/18 08:41 Vancomycin HCl (Vanco rx to dose) 1 ea DAILY PRN MISC Per rx protocol 05/19/18 14:45 06/18/18 14:44 Vancomycin HCl 500 mg/Dextrose 110 ml @ 110 mls/hr Q12H IVPB 05/19/18 17:00 05/24/18 16:59 Tio Lay MD May 19, 2018 14:50
[2018-05-19 15:58] VITALS: BP 119/58
[2018-05-19] MEDS: Lisinopril 10mg tab ORAL SCH (17:35)
[2018-05-19] MEDS: Vancomycin 500mg/D5W 110ml IVPB SCH ×2 (17:39)
[2018-05-19 20:00] VITALS: BP 133/66
[2018-05-19] MEDS: cefTRIAXone 1 GM in D5W 55 ML IVPB SCH (21:31)
[2018-05-19] MEDS: Docusate 100mg cap ORAL SCH (21:31)
[2018-05-19] MEDS: Lyrica 50mg cap ORAL SCH (21:32)
--- NOTE | 2018-05-19 21:45 | General Progress Note ---
Assessment/Plan Problem List: (1) Sepsis ICD Codes: A41.9 - Sepsis, unspecified organism SNOMED: 33477286 (2) UTI (urinary tract infection) ICD Codes: N39.0 - Urinary tract infection, site not specified SNOMED: 72796090 (3) Abdominal pain ICD Codes: R10.9 - Unspecified abdominal pain SNOMED: 53714850 Status: progressing Assessment/Plan uti and sepsis abx per id afebrile decrease in abdominal pain improving Subjective ROS Limited/Unobtainable: Yes Allergies: Coded Allergies: No Known Allergies (Unverified , 08/03/17) Objective Last 24 Hour Vital Signs Date Time Temp Pulse Resp B/P (MAP) Pulse Ox O2 Delivery O2 Flow Rate FiO2 05/19/18 21:34 102.7 05/19/18 20:00 102.7 109 18 133/66 (88) 90 102.7 05/19/18 17:35 119/58 05/19/18 15:58 98.4 83 19 119/58 (78) 92 98.4 05/19/18 12:49 98.4 05/19/18 12:19 100.5 05/19/18 12:00 98.5 101 20 114/94 (101) 94 98.5 05/19/18 09:00 Room Air 05/19/18 08:41 155/55 05/19/18 08:00 97.7 90 18 115/55 (75) 93 97.7 05/19/18 04:11 100.8 05/19/18 04:00 100.8 17 151/70 (97) 91 100.8 05/19/18 00:00 100.0 85 16 119/61 (80) 88 100.0 Intake and Output 05/18/18 05/19/18 19:00 07:00 Intake Total 720 ml Balance 720 ml Intake Oral 720 ml # Voids 3 3 Laboratory Tests 05/19/18 08:20: White Blood Count 11.1H, Red Blood Count 3.46L, Hemoglobin 10.1L, Hematocrit 30.9L, Mean Corpuscular Volume 89, Mean Corpuscular Hemoglobin 29.1, Mean Corpuscular Hemoglobin Concent 32.6, Red Cell Distribution Width 12.9, Platelet Count 266, Mean Platelet Volume 7.1, Neutrophils (%) (Auto) 75.2H, Lymphocytes ( %) (Auto) 15.0L, Monocytes (%) (Auto) 8.1, Eosinophils (%) (Auto) 1.1, Basophils (%) (Auto) 0.7, Differential Total Cells Counted 100, Neutrophils % ( Manual) 80H, Lymphocytes % (Manual) 12L, Monocytes % (Manual) 8, Eosinophils % ( Manual) 0, Basophils % (Manual) 0, Band Neutrophils 0, Other Cell Type Pathologist comment, Platelet Estimate Adequate, Platelet Morphology Normal, Red Blood Cell Morphology Normal, Hemoglobin A [Pending], Hemoglobin A2 [Pending ], Hemoglobin C [Pending], Hemoglobin F () [Pending], Hemoglobin S [Pending ], Variant Hemoglobin [Pending], Hemoglobin Electrophoresis Interp [Pending], Hemoglobin Interpretation [Pending], Hemoglobin Solubility [Pending], Iron Level 21L, Total Iron Binding Capacity 338, Percent Iron Saturation 6L, Unsaturated Iron Binding 317, Ferritin 93, Carcinoembryonic Antigen [Pending], Vitamin B12 Level 522, Folate 43.9 Height (Feet): 5 Height (Inches): 2.00 Weight (Pounds): 160 Cardiovascular: normal rate Respiratory/Chest: lungs clear Laya Kat MD May 19, 2018 21:45
[2018-05-20] VITALS: BP 105/62
[2018-05-20 04:00] VITALS: BP 116/59
[2018-05-20] MEDS: Vancomycin 500mg/D5W 110ml IVPB SCH ×2 (04:23)
[2018-05-20 05:29] LABS: EOSINOPHILS % (AUTO) 1.8 % (0.0-3.0); HEMATOCRIT 29.4 % (37.0-47.0); HEMOGLOBIN 9.9 G/DL (12.0-16.0); MEAN CORPUSCULAR VOLUME 89 FL (80-99); MONOCYTES % (AUTO) 8.8 % (1.0-10.0); NEUTROPHILS % (AUTO) 74.4 % (45.0-75.0); PLATELET COUNT 254 K/UL (150-450); RED BLOOD COUNT 3.29 M/UL (4.20-5.40); RED CELL DISTRIBUTION WIDTH 12.5 % (11.6-14.8); WHITE BLOOD COUNT 8.3 K/UL (4.8-10.8)
[2018-05-20 05:39] LABS: ALANINE AMINOTRANSFERASE 23 U/L (12-78); ALBUMIN/GLOBULIN RATIO 0.6 (1.0-2.7); ALKALINE PHOSPHATASE 85 U/L (46-116); ANION GAP 8 mmol/L (5-15); ASPARTATE AMINO TRANSFERASE 19 U/L (15-37); BILIRUBIN,TOTAL 0.4 MG/DL (0.2-1.0); BLOOD UREA NITROGEN 20 mg/dL (7-18); CALCIUM 8.8 MG/DL (8.5-10.1); CARBON DIOXIDE 28 MMOL/L (21-32); CHLORIDE 100 MMOL/L (98-107); CREATININE 0.9 MG/DL (0.55-1.30); PHOSPHORUS 3.6 MG/DL (2.5-4.9); POTASSIUM 3.6 MMOL/L (3.5-5.1); SODIUM 136 MMOL/L (136-145)
[2018-05-20] MEDS: GlipiZIDE 5mg tab ORAL SCH ×2 (06:17→17:12)
[2018-05-20] MEDS: metFORMIN 500mg tab ORAL SCH ×2 (06:17→17:12)
[2018-05-20] MEDS: NovoLOG Insulin Flexpen SUBQ SCH ×4 (06:19→20:36)
--- NOTE | 2018-05-20 06:51 | General Progress Note ---
Assessment/Plan Assessment/Plan # Anemia of iron deficiency -- panel has been reviewed and ferritin is low, tibc is high, other labs reviewed as well --> Anemia hgb goal >7 --> iv iron x 5 days iv has been given --> no hemolysis noted on peripheral smear # Leukocytosis with pna and Abdominal pain on abx --> imaging as per ID, appreciate their recs # UTI (urinary tract infection) on abx # Pyelonephritis/uti with sepsis --> has been reviewed, on abx # Uncontrolled diabetes mellitus # Hypertension # Dyslipidemia. Staff, greatly appreciate consultation. Subjective HEENT: Denies: no symptoms, eye pain, blurred vision, tearing, double vision, ear pain, ear discharge, nose pain, nose congestion, throat pain, throat swelling, mouth pain, mouth swelling, other Cardiovascular: Denies: no symptoms, chest pain, edema, irregular heart rate, lightheadedness, palpitations, syncope, other Respiratory: Denies: no symptoms, cough, orthopnea, shortness of breath, SOB with excertion, SOB at rest, sputum, stridor, wheezing, other Gastrointestinal/Abdominal: Denies: no symptoms, abdomen distended, abdominal pain, black stools, tarry stools, blood in stool, constipated, diarrhea, difficulty swallowing, nausea, poor appetite, poor fluid intake, rectal bleeding , vomiting, other Genitourinary: Denies: no symptoms, burning, discharge, frequency, flank pain, hematuria, incontinence, pain, urgency, other Neurologic/Psychiatric: Denies: no symptoms, anxiety, depressed, emotional problems, headache, numbness, paresthesia, pre-existing deficit, seizure, tingling, tremors, weakness, other Endocrine: Denies: no symptoms, excessive sweating, flushing, intolerance to cold, intolerance to heat, increased hunger, increased thirst, increased urine, unexplained weight gain, unexplained weight loss, other Hematologic/Lymphatic: Denies: no symptoms, anemia, easy bleeding, easy bruising, other Allergies: Coded Allergies: No Known Allergies (Unverified , 08/03/17) Subjective on abx for pna Objective Last 24 Hour Vital Signs Date Time Temp Pulse Resp B/P (MAP) Pulse Ox O2 Delivery O2 Flow Rate FiO2 05/20/18 04:00 99.1 89 18 116/59 (78) 95 99.1 05/20/18 00:00 99.4 92 20 105/62 (76) 93 99.4 05/19/18 22:04 99.4 05/19/18 21:34 102.7 05/19/18 21:00 Room Air 05/19/18 20:00 102.7 109 18 133/66 (88) 90 102.7 05/19/18 17:35 119/58 05/19/18 15:58 98.4 83 19 119/58 (78) 92 98.4 05/19/18 12:19 100.5 05/19/18 12:00 98.5 101 20 114/94 (101) 94 98.5 05/19/18 09:00 Room Air 05/19/18 08:41 155/55 05/19/18 08:00 97.7 90 18 115/55 (75) 93 97.7 Intake and Output 05/19/18 05/20/18 19:00 07:00 Intake Total 480 ml 365 ml Balance 480 ml 365 ml Intake Oral 480 ml 200 ml IV Total 165 ml # Voids 3 3 Laboratory Tests 05/19/18 08:20: White Blood Count 11.1H, Red Blood Count 3.46L, Hemoglobin 10.1L, Hematocrit 30.9L, Mean Corpuscular Volume 89, Mean Corpuscular Hemoglobin 29.1, Mean Corpuscular Hemoglobin Concent 32.6, Red Cell Distribution Width 12.9, Platelet Count 266, Mean Platelet Volume 7.1, Neutrophils (%) (Auto) 75.2H, Lymphocytes ( %) (Auto) 15.0L, Monocytes (%) (Auto) 8.1, Eosinophils (%) (Auto) 1.1, Basophils (%) (Auto) 0.7, Differential Total Cells Counted 100, Neutrophils % ( Manual) 80H, Lymphocytes % (Manual) 12L, Monocytes % (Manual) 8, Eosinophils % ( Manual) 0, Basophils % (Manual) 0, Band Neutrophils 0, Other Cell Type Pathologist comment, Platelet Estimate Adequate, Platelet Morphology Normal, Red Blood Cell Morphology Normal, Hemoglobin A [Pending], Hemoglobin A2 [Pending ], Hemoglobin C [Pending], Hemoglobin F () [Pending], Hemoglobin S [Pending ], Variant Hemoglobin [Pending], Hemoglobin Electrophoresis Interp [Pending], Hemoglobin Interpretation [Pending], Hemoglobin Solubility [Pending], Iron Level 21L, Total Iron Binding Capacity 338, Percent Iron Saturation 6L, Unsaturated Iron Binding 317, Ferritin 93, Carcinoembryonic Antigen [Pending], Vitamin B12 Level 522, Folate 43.9 05/20/18 05:00: White Blood Count 8.3, Red Blood Count 3.29L, Hemoglobin 9.9L, Hematocrit 29.4L , Mean Corpuscular Volume 89, Mean Corpuscular Hemoglobin 30.2, Mean Corpuscular Hemoglobin Concent 33.8, Red Cell Distribution Width 12.5, Platelet Count 254, Mean Platelet Volume 7.4, Neutrophils (%) (Auto) 74.4, Lymphocytes (% ) (Auto) 14.0L, Monocytes (%) (Auto) 8.8, Eosinophils (%) (Auto) 1.8, Basophils (%) (Auto) 1.0, Sodium Level 136, Potassium Level 3.6, Chloride Level 100, Carbon Dioxide Level 28, Anion Gap 8, Blood Urea Nitrogen 20H, Creatinine 0.9, Estimat Glomerular Filtration Rate > 60, Glucose Level 113H, Uric Acid 5.6, Calcium Level 8.8, Phosphorus Level 3.6, Magnesium Level 1.6L, Total Bilirubin 0.4, Aspartate Amino Transf (AST/SGOT) 19, Alanine Aminotransferase (ALT/SGPT) 23, Alkaline Phosphatase 85, Total Protein 8.0, Albumin 3.0L, Globulin 5.0, Albumin/Globulin Ratio 0.6L Height (Feet): 5 Height (Inches): 2.00 Weight (Pounds): 160 General Appearance: no apparent distress EENT: TMs normal Neck: normal inspection Cardiovascular: regular rhythm Respiratory/Chest: lungs clear Abdomen: no mass Extremities: non-tender Edema: no edema noted Leg (L), no edema noted Leg (R) Edema: mild edema Neurologic: alert Domenico Haas MD May 20, 2018 06:51
[2018-05-20 08:00] VITALS: BP 133/70
[2018-05-20] MEDS: sitaGLIPtin 25mg tab ORAL SCH (09:24)
[2018-05-20] MEDS: Lisinopril 10mg tab ORAL SCH ×2 (09:25→17:42)
[2018-05-20] MEDS: Docusate 100mg cap ORAL SCH ×2 (09:25→17:40)
[2018-05-20] MEDS: Aspirin EC 81mg tab ORAL SCH (09:26)
--- NOTE | 2018-05-20 11:28 | Nephrology Progress Note ---
Assessment/Plan Problem List: (1) UTI (urinary tract infection) (2) Pyelonephritis (3) Diabetes mellitus out of control (4) Diabetic nephropathy Assessment UTI Anemia DM Obesity HTN Plan Rocephin change to po in am medium cho diet anemia hastings zestril for bp Lyrica for nerve pain PT OT per orders Subjective ROS Limited/Unobtainable: No Constitutional: Reports: weakness Objective Objective Last 24 Hour Vital Signs Date Time Temp Pulse Resp B/P (MAP) Pulse Ox O2 Delivery O2 Flow Rate FiO2 05/20/18 09:25 133/70 05/20/18 09:00 Room Air 05/20/18 08:00 98.2 87 20 133/70 (91) 95 98.2 05/20/18 04:00 99.1 89 18 116/59 (78) 95 99.1 05/20/18 00:00 99.4 92 20 105/62 (76) 93 99.4 05/19/18 22:04 99.4 05/19/18 21:34 102.7 05/19/18 21:00 Room Air 05/19/18 20:00 102.7 109 18 133/66 (88) 90 102.7 05/19/18 17:35 119/58 05/19/18 15:58 98.4 83 19 119/58 (78) 92 98.4 05/19/18 12:19 100.5 05/19/18 12:00 98.5 101 20 114/94 (101) 94 98.5 Intake and Output 05/19/18 05/20/18 19:00 07:00 Intake Total 480 ml 365 ml Balance 480 ml 365 ml Intake Oral 480 ml 200 ml IV Total 165 ml # Voids 3 3 Laboratory Tests 05/20/18 05:00: White Blood Count 8.3, Red Blood Count 3.29L, Hemoglobin 9.9L, Hematocrit 29.4L , Mean Corpuscular Volume 89, Mean Corpuscular Hemoglobin 30.2, Mean Corpuscular Hemoglobin Concent 33.8, Red Cell Distribution Width 12.5, Platelet Count 254, Mean Platelet Volume 7.4, Neutrophils (%) (Auto) 74.4, Lymphocytes (% ) (Auto) 14.0L, Monocytes (%) (Auto) 8.8, Eosinophils (%) (Auto) 1.8, Basophils (%) (Auto) 1.0, Sodium Level 136, Potassium Level 3.6, Chloride Level 100, Carbon Dioxide Level 28, Anion Gap 8, Blood Urea Nitrogen 20H, Creatinine 0.9, Estimat Glomerular Filtration Rate > 60, Glucose Level 113H, Uric Acid 5.6, Calcium Level 8.8, Phosphorus Level 3.6, Magnesium Level 1.6L, Total Bilirubin 0.4, Aspartate Amino Transf (AST/SGOT) 19, Alanine Aminotransferase (ALT/SGPT) 23, Alkaline Phosphatase 85, Total Protein 8.0, Albumin 3.0L, Globulin 5.0, Albumin/Globulin Ratio 0.6L Height (Feet): 5 Height (Inches): 2.00 Weight (Pounds): 160 Hang Hsu MD May 20, 2018 11:28
--- NOTE | 2018-05-20 11:45 | Infectious Diseases Prog Note ---
Assessment/Plan Assessment/Plan A; Gram negative sepsis UTI with E. coli Anemia Uncontrolled DM P; Continue Rocephin Discontinue Vancomycin Will f/u cultures Subjective ROS Limited/Unobtainable: Yes Constitutional: Reports: no symptoms Gastrointestinal/Abdominal: Reports: no symptoms Genitourinary: Reports: no symptoms Allergies: Coded Allergies: No Known Allergies (Unverified , 08/03/17) Objective Vital Signs Last 24 Hour Vital Signs Date Time Temp Pulse Resp B/P (MAP) Pulse Ox O2 Delivery O2 Flow Rate FiO2 05/20/18 09:25 133/70 05/20/18 09:00 Room Air 05/20/18 08:00 98.2 87 20 133/70 (91) 95 98.2 05/20/18 04:00 99.1 89 18 116/59 (78) 95 99.1 05/20/18 00:00 99.4 92 20 105/62 (76) 93 99.4 05/19/18 22:04 99.4 05/19/18 21:34 102.7 05/19/18 21:00 Room Air 05/19/18 20:00 102.7 109 18 133/66 (88) 90 102.7 05/19/18 17:35 119/58 05/19/18 15:58 98.4 83 19 119/58 (78) 92 98.4 05/19/18 12:19 100.5 05/19/18 12:00 98.5 101 20 114/94 (101) 94 98.5 Height (Feet): 5 Height (Inches): 2.00 Weight (Pounds): 160 General Appearance: no acute distress HEENT: mucous membranes moist Respiratory/Chest: lungs clear Cardiovascular: normal rate Abdomen: soft, non tender Extremities: no edema Neurologic/Psychiatric: alert, oriented x 3, responsive Microbiology Date/Time Source Procedure Growth Status 05/18/18 16:45 Blood Blood Culture - Preliminary Gram Negative Bacillus 1 Resulted 05/18/18 16:15 Blood Blood Culture - Preliminary Gram Negative Bacillus 1 Resulted 05/17/18 21:50 Urine,Clean Catch Urine Culture - Final Escherichia Coli Complete Laboratory Tests Test 05/20/18 05:00 White Blood Count 8.3 K/UL (4.8-10.8) Red Blood Count 3.29 M/UL (4.20-5.40) L Hemoglobin 9.9 G/DL (12.0-16.0) L Hematocrit 29.4 % (37.0-47.0) L Mean Corpuscular Volume 89 FL (80-99) Mean Corpuscular Hemoglobin 30.2 PG (27.0-31.0) Mean Corpuscular Hemoglobin Concent 33.8 G/DL (32.0-36.0) Red Cell Distribution Width 12.5 % (11.6-14.8) Platelet Count 254 K/UL (150-450) Mean Platelet Volume 7.4 FL (6.5-10.1) Neutrophils (%) (Auto) 74.4 % (45.0-75.0) Lymphocytes (%) (Auto) 14.0 % (20.0-45.0) L Monocytes (%) (Auto) 8.8 % (1.0-10.0) Eosinophils (%) (Auto) 1.8 % (0.0-3.0) Basophils (%) (Auto) 1.0 % (0.0-2.0) Sodium Level 136 MMOL/L (136-145) Potassium Level 3.6 MMOL/L (3.5-5.1) Chloride Level 100 MMOL/L (98-107) Carbon Dioxide Level 28 MMOL/L (21-32) Anion Gap 8 mmol/L (5-15) Blood Urea Nitrogen 20 mg/dL (7-18) H Creatinine 0.9 MG/DL (0.55-1.30) Estimat Glomerular Filtration Rate > 60 mL/min (>60) Glucose Level 113 MG/DL (74-106) H Uric Acid 5.6 MG/DL (2.6-7.2) Calcium Level 8.8 MG/DL (8.5-10.1) Phosphorus Level 3.6 MG/DL (2.5-4.9) Magnesium Level 1.6 MG/DL (1.8-2.4) L Total Bilirubin 0.4 MG/DL (0.2-1.0) Aspartate Amino Transf (AST/SGOT) 19 U/L (15-37) Alanine Aminotransferase (ALT/SGPT) 23 U/L (12-78) Alkaline Phosphatase 85 U/L (46-116) Total Protein 8.0 G/DL (6.4-8.2) Albumin 3.0 G/DL (3.4-5.0) L Globulin 5.0 g/dL Albumin/Globulin Ratio 0.6 (1.0-2.7) L Current Medications Medications (Trade) Dose Ordered Sig/Silas Route PRN Reason Start Time Stop Time Status Last Admin Dose Admin Acetaminophen (Tylenol) 500 mg Q4H PRN ORAL Mild Pain/Temp > 100.5 05/18/18 00:00 06/17/18 00:00 05/19/18 21:34 Aspirin (Ecotrin) 81 mg DAILY ORAL 05/19/18 09:00 06/18/18 08:59 05/20/18 09:26 Ceftriaxone Sodium 1 gm/ Dextrose 55 ml @ 110 mls/hr Q24H IVPB 05/18/18 21:00 05/21/18 06:00 05/19/18 21:31 Dextrose (Dextrose 50%) 25 ml Q30M PRN IV Hypoglycemia 05/18/18 14:00 06/17/18 13:59 Dextrose (Dextrose 50%) 50 ml Q30M PRN IV Hypoglycemia 05/18/18 13:45 06/17/18 13:29 Docusate Sodium (Colace) 100 mg BID ORAL 05/19/18 19:50 06/18/18 19:49 05/20/18 09:25 Famotidine (Pepcid) 20 mg BID ORAL 05/18/18 10:40 06/17/18 10:39 05/20/18 09:24 Glipizide (Glucotrol) 5 mg BIAC ORAL 05/18/18 16:30 06/17/18 16:29 05/20/18 06:17 Insulin Aspart (NovoLOG) BEFORE MEALS AND HS SUBQ 05/18/18 16:30 06/17/18 16:29 05/20/18 06:19 Iron Sucrose 100 mg/Sodium Chloride 60 ml @ 240 mls/hr BEDTIME IV 05/20/18 21:00 05/24/18 21:14 Levofloxacin (Levaquin) 250 mg DAILY ORAL 05/21/18 09:00 05/28/18 08:59 Lisinopril (Zestril) 10 mg BID ORAL 05/19/18 18:00 06/18/18 08:59 05/20/18 09:25 Loratadine (Claritin 10mg) 10 mg DAILY ORAL 05/19/18 09:00 06/18/18 08:59 05/20/18 09:25 Magnesium Hydroxide (Mom) 30 ml DAILYPRN PRN ORAL Constipation 05/19/18 12:00 06/18/18 11:59 Metformin HCl (Glucophage) 1,000 mg BIAC ORAL 05/18/18 16:30 06/17/18 16:29 05/20/18 06:17 Pregabalin (Lyrica) 50 mg BEDTIME ORAL 05/19/18 21:00 06/18/18 20:59 05/19/18 21:32 Sitagliptin Phosphate (Januvia) 50 mg DAILY ORAL 05/19/18 09:00 06/18/18 08:59 05/20/18 09:24 Tio Lay MD May 20, 2018 11:44
[2018-05-20 12:00] VITALS: BP 133/64
[2018-05-20 16:00] VITALS: BP 140/69
[2018-05-20 20:00] VITALS: BP 137/77
[2018-05-20] MEDS: Iron Sucrose 100 MG in NS 55 ML IV SCH (20:33)
[2018-05-20] MEDS: Acetaminophen 500mg (ES) tab ORAL PRN (20:34)
[2018-05-20] MEDS: cefTRIAXone 1 GM in D5W 55 ML IVPB SCH (21:07)
[2018-05-20] MEDS: Lyrica 50mg cap ORAL SCH (21:09)
--- NOTE | 2018-05-20 21:54 | General Progress Note ---
Assessment/Plan Problem List: (1) Sepsis ICD Codes: A41.9 - Sepsis, unspecified organism SNOMED: 72139120 (2) UTI (urinary tract infection) ICD Codes: N39.0 - Urinary tract infection, site not specified SNOMED: 36545319 (3) Abdominal pain ICD Codes: R10.9 - Unspecified abdominal pain SNOMED: 23950717 Status: progressing Assessment/Plan uti and sepsis abx per id improving dc planning Subjective ROS Limited/Unobtainable: Yes Allergies: Coded Allergies: No Known Allergies (Unverified , 08/03/17) Objective Last 24 Hour Vital Signs Date Time Temp Pulse Resp B/P (MAP) Pulse Ox O2 Delivery O2 Flow Rate FiO2 05/20/18 20:34 102.2 05/20/18 20:00 102.2 104 18 137/77 (97) 93 102.2 05/20/18 17:42 140/69 05/20/18 16:00 97.2 93 20 140/69 (92) 93 97.2 05/20/18 12:00 98.8 86 20 133/64 (87) 94 98.8 05/20/18 09:25 133/70 05/20/18 09:00 Room Air 05/20/18 08:00 98.2 87 20 133/70 (91) 95 98.2 05/20/18 04:00 99.1 89 18 116/59 (78) 95 99.1 05/20/18 00:00 99.4 92 20 105/62 (76) 93 99.4 05/19/18 22:04 99.4 Intake and Output 05/19/18 05/20/18 19:00 07:00 Intake Total 480 ml 365 ml Balance 480 ml 365 ml Intake Oral 480 ml 200 ml IV Total 165 ml # Voids 3 3 Laboratory Tests 05/20/18 05:00: White Blood Count 8.3, Red Blood Count 3.29L, Hemoglobin 9.9L, Hematocrit 29.4L , Mean Corpuscular Volume 89, Mean Corpuscular Hemoglobin 30.2, Mean Corpuscular Hemoglobin Concent 33.8, Red Cell Distribution Width 12.5, Platelet Count 254, Mean Platelet Volume 7.4, Neutrophils (%) (Auto) 74.4, Lymphocytes (% ) (Auto) 14.0L, Monocytes (%) (Auto) 8.8, Eosinophils (%) (Auto) 1.8, Basophils (%) (Auto) 1.0, Sodium Level 136, Potassium Level 3.6, Chloride Level 100, Carbon Dioxide Level 28, Anion Gap 8, Blood Urea Nitrogen 20H, Creatinine 0.9, Estimat Glomerular Filtration Rate > 60, Glucose Level 113H, Uric Acid 5.6, Calcium Level 8.8, Phosphorus Level 3.6, Magnesium Level 1.6L, Total Bilirubin 0.4, Aspartate Amino Transf (AST/SGOT) 19, Alanine Aminotransferase (ALT/SGPT) 23, Alkaline Phosphatase 85, Total Protein 8.0, Albumin 3.0L, Globulin 5.0, Albumin/Globulin Ratio 0.6L Height (Feet): 5 Height (Inches): 2.00 Weight (Pounds): 160 Cardiovascular: normal rate Respiratory/Chest: lungs clear Abdomen: soft Laya Kat MD May 20, 2018 21:54
[2018-05-21] VITALS: BP 139/53
[2018-05-21 04:00] VITALS: BP 109/51
[2018-05-21] MEDS: metFORMIN 500mg tab ORAL SCH ×2 (06:09→17:15)
[2018-05-21] MEDS: GlipiZIDE 5mg tab ORAL SCH ×2 (06:09→17:15)
[2018-05-21] MEDS: NovoLOG Insulin Flexpen SUBQ SCH ×4 (06:10→21:34)
[2018-05-21 08:00] VITALS: BP 102/58
[2018-05-21] MEDS: Lisinopril 10mg tab ORAL SCH (09:00)
[2018-05-21] MEDS: Docusate 100mg cap ORAL SCH ×2 (09:05→17:17)
[2018-05-21] MEDS: Guaifenesin/DM 10ml syrup ORAL PRN ×2 (09:05→21:37)
[2018-05-21] MEDS: Aspirin EC 81mg tab ORAL SCH (09:06)
[2018-05-21] MEDS: sitaGLIPtin 25mg tab ORAL SCH (09:06)
--- NOTE | 2018-05-21 09:06 | Diagnostic Imaging Report ---
EXAM: XR Chest, 1 View CLINICAL HISTORY: COUGH TECHNIQUE: Frontal view of the chest. COMPARISON: Chest x-ray dated 05/18/18 FINDINGS: Lungs: Persistent low lung volumes, which may be related to shallow aspiration. Mild pulmonary vascular congestion, stable. Subsegmental atelectasis versus infiltrate in the right lung base, unchanged. Pleural space: Unremarkable. The costophrenic angles are sharp. No visible pneumothorax. Heart: Unremarkable. No cardiomegaly. Mediastinum: Unremarkable. Bones/joints: Unremarkable. Vasculature: Atherosclerotic calcifications are noted within the aortic arch. IMPRESSION: 1. Persistent low lung volumes, which may be related to shallow aspiration. 2. Mild pulmonary vascular congestion, stable. 3. Subsegmental atelectasis versus infiltrate in the right lung base, unchanged.
--- NOTE | 2018-05-21 10:15 | Nephrology Progress Note ---
Assessment/Plan Problem List: (1) UTI (urinary tract infection) (2) Pyelonephritis (3) Diabetes mellitus out of control (4) Diabetic nephropathy Assessment UTI Anemia DM Obesity HTN Plan Rocephin change to po in am medium cho diet anemia hastings zestril for bp Lyrica for nerve pain PT OT per orders Subjective ROS Limited/Unobtainable: No Objective Objective Last 24 Hour Vital Signs Date Time Temp Pulse Resp B/P (MAP) Pulse Ox O2 Delivery O2 Flow Rate FiO2 05/21/18 09:00 103/58 05/21/18 08:15 Room Air 05/21/18 08:00 98.9 93 18 102/58 (73) 96 98.9 05/21/18 04:00 99.4 90 18 109/51 (70) 95 99.4 05/21/18 00:00 98.8 87 18 139/53 (81) 94 98.8 05/20/18 21:04 99.1 05/20/18 21:00 Room Air 05/20/18 20:34 102.2 05/20/18 20:00 102.2 104 18 137/77 (97) 93 102.2 05/20/18 17:42 140/69 05/20/18 16:00 97.2 93 20 140/69 (92) 93 97.2 05/20/18 12:00 98.8 86 20 133/64 (87) 94 98.8 Intake and Output 05/20/18 05/21/18 19:00 07:00 Intake Total 720 ml 365 ml Output Total 800 ml Balance -80 ml 365 ml Intake Oral 720 ml 250 ml IV Total 115 ml Output Urine Total 800 ml # Voids 2 Current Medications Medications (Trade) Dose Ordered Sig/Silas Route PRN Reason Start Time Stop Time Status Last Admin Dose Admin Acetaminophen (Tylenol) 500 mg Q4H PRN ORAL Mild Pain/Temp > 100.5 05/18/18 00:00 06/17/18 00:00 05/20/18 20:34 Aspirin (Ecotrin) 81 mg DAILY ORAL 05/19/18 09:00 06/18/18 08:59 05/21/18 09:06 Dextrose (Dextrose 50%) 25 ml Q30M PRN IV Hypoglycemia 05/18/18 14:00 06/17/18 13:59 Dextrose (Dextrose 50%) 50 ml Q30M PRN IV Hypoglycemia 05/18/18 13:45 06/17/18 13:29 Docusate Sodium (Colace) 100 mg BID ORAL 05/19/18 19:50 06/18/18 19:49 05/21/18 09:05 Famotidine (Pepcid) 20 mg BID ORAL 05/18/18 10:40 06/17/18 10:39 05/21/18 09:06 Glipizide (Glucotrol) 5 mg BIAC ORAL 05/18/18 16:30 06/17/18 16:29 05/21/18 06:09 Guaifenesin/ Dextromethorphan (Robitussin DM Syrup) 10 ml Q4H PRN ORAL For Cough 05/21/18 08:05 06/20/18 08:04 05/21/18 09:05 Insulin Aspart (NovoLOG) BEFORE MEALS AND HS SUBQ 05/18/18 16:30 06/17/18 16:29 05/21/18 06:10 Iron Sucrose 100 mg/Sodium Chloride 60 ml @ 240 mls/hr BEDTIME IV 05/20/18 21:00 05/24/18 21:14 05/20/18 20:33 Levofloxacin (Levaquin) 250 mg DAILY ORAL 05/21/18 09:00 05/28/18 08:59 05/21/18 09:06 Lisinopril (Zestril) 10 mg BID ORAL 05/19/18 18:00 06/18/18 08:59 05/20/18 17:42 Loratadine (Claritin 10mg) 10 mg DAILY ORAL 05/19/18 09:00 06/18/18 08:59 05/21/18 09:06 Magnesium Hydroxide (Mom) 30 ml DAILYPRN PRN ORAL Constipation 05/19/18 12:00 06/18/18 11:59 Metformin HCl (Glucophage) 1,000 mg BIAC ORAL 05/18/18 16:30 06/17/18 16:29 05/21/18 06:09 Pregabalin (Lyrica) 50 mg BEDTIME ORAL 05/19/18 21:00 06/18/18 20:59 05/20/18 21:09 Sitagliptin Phosphate (Januvia) 50 mg DAILY ORAL 05/19/18 09:00 06/18/18 08:59 05/21/18 09:06 Height (Feet): 5 Height (Inches): 2.00 Weight (Pounds): 160 General Appearance: no apparent distress Objective no change Hang Hsu MD May 21, 2018 10:15
--- NOTE | 2018-05-21 11:20 | Infectious Diseases Prog Note ---
Assessment/Plan Assessment/Plan antibiotics : levoquin A 1. e.coli esbl sepsis 2. e.coli pyelonephritis 3. diabetes mellitus 4. leucocytosis improving P 1. d/c levoquin 2. start meropenem 3. will follow up cultures Subjective Constitutional: Denies: fever, chills Respiratory: Denies: shortness of breath, dry cough Gastrointestinal/Abdominal: Denies: nausea, vomiting, diarrhea Musculoskeletal: Reports: pain - in back Allergies: Coded Allergies: No Known Allergies (Unverified , 08/03/17) Objective Vital Signs Last 24 Hour Vital Signs Date Time Temp Pulse Resp B/P (MAP) Pulse Ox O2 Delivery O2 Flow Rate FiO2 05/21/18 09:00 103/58 05/21/18 08:15 Room Air 05/21/18 08:00 98.9 93 18 102/58 (73) 96 98.9 05/21/18 04:00 99.4 90 18 109/51 (70) 95 99.4 05/21/18 00:00 98.8 87 18 139/53 (81) 94 98.8 05/20/18 21:04 99.1 05/20/18 21:00 Room Air 05/20/18 20:34 102.2 05/20/18 20:00 102.2 104 18 137/77 (97) 93 102.2 05/20/18 17:42 140/69 05/20/18 16:00 97.2 93 20 140/69 (92) 93 97.2 05/20/18 12:00 98.8 86 20 133/64 (87) 94 98.8 Height (Feet): 5 Height (Inches): 2.00 Weight (Pounds): 160 Respiratory/Chest: lungs clear Cardiovascular: normal rate, regular rhythm, no gallop/murmur Abdomen: soft, non tender Extremities: no edema Microbiology Date/Time Source Procedure Growth Status 05/18/18 16:45 Blood Blood Culture - Final Escherichia Coli Complete 05/18/18 16:15 Blood Blood Culture - Final Escherichia Coli - Esbl Complete Current Medications Medications (Trade) Dose Ordered Sig/Silas Route PRN Reason Start Time Stop Time Status Last Admin Dose Admin Acetaminophen (Tylenol) 500 mg Q4H PRN ORAL Mild Pain/Temp > 100.5 05/18/18 00:00 06/17/18 00:00 05/20/18 20:34 Aspirin (Ecotrin) 81 mg DAILY ORAL 05/19/18 09:00 06/18/18 08:59 05/21/18 09:06 Dextrose (Dextrose 50%) 25 ml Q30M PRN IV Hypoglycemia 05/18/18 14:00 06/17/18 13:59 Dextrose (Dextrose 50%) 50 ml Q30M PRN IV Hypoglycemia 05/18/18 13:45 06/17/18 13:29 Docusate Sodium (Colace) 100 mg BID ORAL 05/19/18 19:50 06/18/18 19:49 05/21/18 09:05 Famotidine (Pepcid) 20 mg BID ORAL 05/18/18 10:40 06/17/18 10:39 05/21/18 09:06 Glipizide (Glucotrol) 5 mg BIAC ORAL 05/18/18 16:30 06/17/18 16:29 05/21/18 06:09 Guaifenesin/ Dextromethorphan (Robitussin DM Syrup) 10 ml Q4H PRN ORAL For Cough 05/21/18 08:05 06/20/18 08:04 05/21/18 09:05 Insulin Aspart (NovoLOG) BEFORE MEALS AND HS SUBQ 05/18/18 16:30 06/17/18 16:29 05/21/18 06:10 Iron Sucrose 100 mg/Sodium Chloride 60 ml @ 240 mls/hr BEDTIME IV 05/20/18 21:00 05/24/18 21:14 05/20/18 20:33 Levofloxacin (Levaquin) 250 mg DAILY ORAL 05/21/18 09:00 05/28/18 08:59 05/21/18 09:06 Lisinopril (Zestril) 10 mg DAILY ORAL 05/22/18 09:00 06/18/18 08:59 Loratadine (Claritin 10mg) 10 mg DAILY ORAL 05/19/18 09:00 06/18/18 08:59 05/21/18 09:06 Magnesium Hydroxide (Mom) 30 ml DAILYPRN PRN ORAL Constipation 05/19/18 12:00 06/18/18 11:59 Metformin HCl (Glucophage) 1,000 mg BIAC ORAL 05/18/18 16:30 06/17/18 16:29 05/21/18 06:09 Pregabalin (Lyrica) 50 mg BEDTIME ORAL 05/19/18 21:00 06/18/18 20:59 05/20/18 21:09 Sitagliptin Phosphate (Januvia) 50 mg DAILY ORAL 05/19/18 09:00 06/18/18 08:59 05/21/18 09:06 KEN MULLEN May 21, 2018 11:20
[2018-05-21 12:00] VITALS: BP 142/65
[2018-05-21] MEDS: Meropenem 1 GM in NS 55 ML IVPB SCH ×2 (13:10→20:40)
--- NOTE | 2018-05-21 14:26 | General Progress Note ---
Assessment/Plan Assessment/Plan # Anemia of iron deficiency -- panel has been reviewed and ferritin is low, tibc is high, other labs reviewed as well --> Anemia hgb goal >7 --> iv iron x 5 days iv has been given --> no hemolysis noted on peripheral smear # Leukocytosis with pna and Abdominal pain on abx --> imaging as per ID, appreciate their recs # UTI (urinary tract infection) on abx --> appreciate ID recs # Pyelonephritis/uti with sepsis --> has been reviewed, on abx # Uncontrolled diabetes mellitus # Hypertension # Dyslipidemia. Staff, greatly appreciate consultation. Subjective Constitutional: Reports: no symptoms HEENT: Reports: no symptoms Cardiovascular: Reports: no symptoms Respiratory: Reports: no symptoms Gastrointestinal/Abdominal: Reports: vomiting Genitourinary: Reports: no symptoms Neurologic/Psychiatric: Reports: no symptoms Endocrine: Reports: no symptoms Hematologic/Lymphatic: Reports: anemia Allergies: Coded Allergies: No Known Allergies (Unverified , 08/03/17) Subjective on abx for uti, merop Objective Last 24 Hour Vital Signs Date Time Temp Pulse Resp B/P (MAP) Pulse Ox O2 Delivery O2 Flow Rate FiO2 05/21/18 12:00 98.1 89 18 142/65 (90) 96 98.1 05/21/18 09:00 103/58 05/21/18 08:15 Room Air 05/21/18 08:00 98.9 93 18 102/58 (73) 96 98.9 05/21/18 04:00 99.4 90 18 109/51 (70) 95 99.4 05/21/18 00:00 98.8 87 18 139/53 (81) 94 98.8 05/20/18 21:04 99.1 05/20/18 21:00 Room Air 05/20/18 20:34 102.2 05/20/18 20:00 102.2 104 18 137/77 (97) 93 102.2 05/20/18 17:42 140/69 05/20/18 16:00 97.2 93 20 140/69 (92) 93 97.2 Intake and Output 05/20/18 05/21/18 19:00 07:00 Intake Total 720 ml 365 ml Output Total 800 ml Balance -80 ml 365 ml Intake Oral 720 ml 250 ml IV Total 115 ml Output Urine Total 800 ml # Voids 2 Height (Feet): 5 Height (Inches): 2.00 Weight (Pounds): 160 General Appearance: lethargic EENT: TMs normal Neck: supple Cardiovascular: regular rhythm Respiratory/Chest: chest wall non-tender Abdomen: non tender Extremities: non-tender Edema: 1+ Leg (L), 1+ Leg (R) Edema: mild edema Domenico Haas MD May 21, 2018 14:26
--- NOTE | 2018-05-21 15:21 | General Progress Note ---
Assessment/Plan Problem List: (1) Sepsis ICD Codes: A41.9 - Sepsis, unspecified organism SNOMED: 41776690 (2) UTI (urinary tract infection) ICD Codes: N39.0 - Urinary tract infection, site not specified SNOMED: 36664836 (3) Abdominal pain ICD Codes: R10.9 - Unspecified abdominal pain SNOMED: 58199606 Status: progressing Assessment/Plan uti and sepsis abx per id no pylo afebrile no acute events improving Subjective ROS Limited/Unobtainable: Yes Allergies: Coded Allergies: No Known Allergies (Unverified , 08/03/17) Objective Last 24 Hour Vital Signs Date Time Temp Pulse Resp B/P (MAP) Pulse Ox O2 Delivery O2 Flow Rate FiO2 05/21/18 12:00 98.1 89 18 142/65 (90) 96 98.1 05/21/18 09:00 103/58 05/21/18 08:15 Room Air 05/21/18 08:00 98.9 93 18 102/58 (73) 96 98.9 05/21/18 04:00 99.4 90 18 109/51 (70) 95 99.4 05/21/18 00:00 98.8 87 18 139/53 (81) 94 98.8 05/20/18 21:04 99.1 05/20/18 21:00 Room Air 05/20/18 20:34 102.2 05/20/18 20:00 102.2 104 18 137/77 (97) 93 102.2 05/20/18 17:42 140/69 05/20/18 16:00 97.2 93 20 140/69 (92) 93 97.2 Intake and Output 05/20/18 05/21/18 19:00 07:00 Intake Total 720 ml 365 ml Output Total 800 ml Balance -80 ml 365 ml Intake Oral 720 ml 250 ml IV Total 115 ml Output Urine Total 800 ml # Voids 2 Height (Feet): 5 Height (Inches): 2.00 Weight (Pounds): 160 Neck: supple Cardiovascular: normal rate Respiratory/Chest: lungs clear Abdomen: soft Laya Kat MD May 21, 2018 15:21
[2018-05-21 15:57] VITALS: BP 132/68
[2018-05-21 20:00] VITALS: BP 152/72
[2018-05-21] MEDS: Acetaminophen 500mg (ES) tab ORAL PRN (20:41)
[2018-05-21] MEDS: Iron Sucrose 100 MG in NS 55 ML IV SCH (21:23)
[2018-05-21] MEDS: Lyrica 50mg cap ORAL SCH (21:24)
[2018-05-22] VITALS: BP 115/58
[2018-05-22 04:00] VITALS: BP 124/47
[2018-05-22] MEDS: Meropenem 1 GM in NS 55 ML IVPB SCH ×3 (04:37→20:49)
[2018-05-22] MEDS: metFORMIN 500mg tab ORAL SCH ×2 (06:27→17:06)
[2018-05-22] MEDS: GlipiZIDE 5mg tab ORAL SCH ×2 (06:27→17:06)
[2018-05-22] MEDS: NovoLOG Insulin Flexpen SUBQ SCH ×4 (06:29→20:58)
[2018-05-22 08:00] VITALS: BP 111/58
[2018-05-22] MEDS: sitaGLIPtin 25mg tab ORAL SCH (08:10)
[2018-05-22] MEDS: Aspirin EC 81mg tab ORAL SCH (08:11)
[2018-05-22] MEDS: Docusate 100mg cap ORAL SCH ×2 (08:11→17:06)
[2018-05-22] MEDS: Lisinopril 10mg tab ORAL SCH (08:11)
[2018-05-22] MEDS: Acetaminophen 500mg (ES) tab ORAL PRN (08:12)
[2018-05-22] MEDS ORDERED: Tubing IV Secondary IV ONE (08:15)
[2018-05-22] MEDS: Guaifenesin/DM 10ml syrup ORAL PRN ×2 (08:45→20:54)
--- NOTE | 2018-05-22 10:34 | Nephrology Progress Note ---
Assessment/Plan Problem List: (1) UTI (urinary tract infection) (2) Pyelonephritis (3) Diabetes mellitus out of control (4) Diabetic nephropathy Assessment UTI Anemia DM Obesity HTN Plan now on meropenem for esbl medium cho diet anemia hastings zestril for bp Lyrica for nerve pain PT OT per orders Subjective ROS Limited/Unobtainable: No Objective Objective Last 24 Hour Vital Signs Date Time Temp Pulse Resp B/P (MAP) Pulse Ox O2 Delivery O2 Flow Rate FiO2 05/22/18 08:11 124/47 05/22/18 08:00 98.7 88 18 111/58 (75) 95 98.7 05/22/18 07:44 Room Air 05/22/18 04:00 98.5 88 18 124/47 (72) 93 98.5 05/22/18 00:00 98.8 85 18 115/58 (77) 93 98.8 05/21/18 21:00 Room Air 05/21/18 20:00 99.4 95 19 152/72 (98) 92 99.4 05/21/18 15:57 98.9 91 18 132/68 (89) 97 98.9 05/21/18 12:00 98.1 89 18 142/65 (90) 96 98.1 Intake and Output 05/21/18 05/22/18 19:00 07:00 Intake Total 590 ml 410 ml Balance 590 ml 410 ml Intake Oral 480 ml 240 ml IV Total 110 ml 170 ml # Voids 4 2 Height (Feet): 5 Height (Inches): 2.00 Weight (Pounds): 160 General Appearance: no apparent distress Objective no change Hang Hsu MD May 22, 2018 10:34
--- NOTE | 2018-05-22 11:39 | Infectious Diseases Prog Note ---
Assessment/Plan Assessment/Plan A; E. coli ESBL sepsis UTI with E. coli Anemia Uncontrolled DM Constipation P; Continue Meropenem in hospital Switch to Po Bactrim @ time of discharge Subjective ROS Limited/Unobtainable: No Constitutional: Reports: no symptoms Gastrointestinal/Abdominal: Reports: constipation Allergies: Coded Allergies: No Known Allergies (Unverified , 08/03/17) Objective Vital Signs Last 24 Hour Vital Signs Date Time Temp Pulse Resp B/P (MAP) Pulse Ox O2 Delivery O2 Flow Rate FiO2 05/22/18 08:11 124/47 05/22/18 08:00 98.7 88 18 111/58 (75) 95 98.7 05/22/18 07:44 Room Air 05/22/18 04:00 98.5 88 18 124/47 (72) 93 98.5 05/22/18 00:00 98.8 85 18 115/58 (77) 93 98.8 05/21/18 21:00 Room Air 05/21/18 20:00 99.4 95 19 152/72 (98) 92 99.4 05/21/18 15:57 98.9 91 18 132/68 (89) 97 98.9 05/21/18 12:00 98.1 89 18 142/65 (90) 96 98.1 Height (Feet): 5 Height (Inches): 2.00 Weight (Pounds): 160 General Appearance: no acute distress HEENT: mucous membranes moist Respiratory/Chest: lungs clear Cardiovascular: normal rate Abdomen: soft, non tender Neurologic/Psychiatric: alert, oriented x 3, responsive Musculoskeletal: other - kyphosis Current Medications Medications (Trade) Dose Ordered Sig/Silas Route PRN Reason Start Time Stop Time Status Last Admin Dose Admin Acetaminophen (Tylenol) 500 mg Q4H PRN ORAL Mild Pain/Temp > 100.5 05/18/18 00:00 06/17/18 00:00 05/22/18 08:12 Aspirin (Ecotrin) 81 mg DAILY ORAL 05/19/18 09:00 06/18/18 08:59 05/22/18 08:11 Dextrose (Dextrose 50%) 25 ml Q30M PRN IV Hypoglycemia 05/18/18 14:00 06/17/18 13:59 Dextrose (Dextrose 50%) 50 ml Q30M PRN IV Hypoglycemia 05/18/18 13:45 06/17/18 13:29 Docusate Sodium (Colace) 100 mg BID ORAL 05/19/18 19:50 06/18/18 19:49 05/22/18 08:11 Famotidine (Pepcid) 20 mg BID ORAL 05/18/18 10:40 06/17/18 10:39 05/22/18 08:10 Glipizide (Glucotrol) 5 mg BIAC ORAL 05/18/18 16:30 06/17/18 16:29 05/22/18 06:27 Guaifenesin/ Dextromethorphan (Robitussin DM Syrup) 10 ml Q4H PRN ORAL For Cough 05/21/18 08:05 06/20/18 08:04 05/22/18 08:45 Insulin Aspart (NovoLOG) BEFORE MEALS AND HS SUBQ 05/18/18 16:30 06/17/18 16:29 05/21/18 21:34 Iron Sucrose 100 mg/Sodium Chloride 60 ml @ 240 mls/hr BEDTIME IV 05/20/18 21:00 05/24/18 21:14 05/21/18 21:23 Lisinopril (Zestril) 10 mg DAILY ORAL 05/22/18 09:00 06/18/18 08:59 05/22/18 08:11 Loratadine (Claritin 10mg) 10 mg DAILY ORAL 05/19/18 09:00 06/18/18 08:59 05/22/18 08:10 Magnesium Hydroxide (Mom) 30 ml DAILYPRN PRN ORAL Constipation 05/19/18 12:00 06/18/18 11:59 Meropenem 1 gm/ Sodium Chloride 55 ml @ 110 mls/hr Q8H IVPB 05/21/18 12:30 05/26/18 12:29 05/22/18 04:37 Metformin HCl (Glucophage) 1,000 mg BIAC ORAL 05/18/18 16:30 06/17/18 16:29 05/22/18 06:27 Pregabalin (Lyrica) 50 mg BEDTIME ORAL 05/19/18 21:00 06/18/18 20:59 05/21/18 21:24 Sitagliptin Phosphate (Januvia) 50 mg DAILY ORAL 05/19/18 09:00 06/18/18 08:59 05/22/18 08:10 Tio Lay MD May 22, 2018 11:39
[2018-05-22 12:00] VITALS: BP 115/61
--- NOTE | 2018-05-22 14:53 | General Progress Note ---
Assessment/Plan Assessment/Plan # Anemia of iron deficiency -- panel has been reviewed and ferritin is low, tibc is high, other labs reviewed as well --> Anemia hgb goal >7 --> iv iron x 5 days iv has been given --> no hemolysis noted on peripheral smear # Leukocytosis with pna and Abdominal pain on abx --> imaging as per ID, appreciate their recs # UTI (urinary tract infection) on abx --> appreciate ID recs --> symptoms are better # Uncontrolled diabetes mellitus # Hypertension # Dyslipidemia. Staff, greatly appreciate consultation. Subjective Constitutional: Denies: no symptoms, chills, diaphoresis, fever, malaise, weakness, other HEENT: Denies: no symptoms, eye pain, blurred vision, tearing, double vision, ear pain, ear discharge, nose pain, nose congestion, throat pain, throat swelling, mouth pain, mouth swelling, other Cardiovascular: Denies: no symptoms, chest pain, edema, irregular heart rate, lightheadedness, palpitations, syncope, other Respiratory: Denies: no symptoms, cough, orthopnea, shortness of breath, SOB with excertion, SOB at rest, sputum, stridor, wheezing, other Gastrointestinal/Abdominal: Denies: no symptoms, abdomen distended, abdominal pain, black stools, tarry stools, blood in stool, constipated, diarrhea, difficulty swallowing, nausea, poor appetite, poor fluid intake, rectal bleeding , vomiting, other Neurologic/Psychiatric: Denies: no symptoms, anxiety, depressed, emotional problems, headache, numbness, paresthesia, pre-existing deficit, seizure, tingling, tremors, weakness, other Endocrine: Denies: no symptoms, excessive sweating, flushing, intolerance to cold, intolerance to heat, increased hunger, increased thirst, increased urine, unexplained weight gain, unexplained weight loss, other Hematologic/Lymphatic: Denies: no symptoms, anemia, easy bleeding, easy bruising, other Allergies: Coded Allergies: No Known Allergies (Unverified , 08/03/17) Subjective on abx for uti, merop as per id Objective Last 24 Hour Vital Signs Date Time Temp Pulse Resp B/P (MAP) Pulse Ox O2 Delivery O2 Flow Rate FiO2 05/22/18 12:00 98.0 76 18 115/61 (79) 93 98.0 05/22/18 08:11 124/47 05/22/18 08:00 98.7 88 18 111/58 (75) 95 98.7 05/22/18 07:44 Room Air 05/22/18 04:00 98.5 88 18 124/47 (72) 93 98.5 05/22/18 00:00 98.8 85 18 115/58 (77) 93 98.8 05/21/18 21:00 Room Air 05/21/18 20:00 99.4 95 19 152/72 (98) 92 99.4 05/21/18 15:57 98.9 91 18 132/68 (89) 97 98.9 Intake and Output 05/21/18 05/22/18 19:00 07:00 Intake Total 590 ml 410 ml Balance 590 ml 410 ml Intake Oral 480 ml 240 ml IV Total 110 ml 170 ml # Voids 4 2 Height (Feet): 5 Height (Inches): 2.00 Weight (Pounds): 160 General Appearance: alert EENT: TMs normal Neck: supple Cardiovascular: regular rhythm Respiratory/Chest: lungs clear Abdomen: no organomegaly Extremities: normal range of motion Edema: 1+ Leg (L), 1+ Leg (R) Edema: mild edema Neurologic: oriented x 3 Skin: normal pigmentation Domenico Haas MD May 22, 2018 14:53
[2018-05-22 16:00] VITALS: BP 124/58
[2018-05-22 20:00] VITALS: BP 121/52
[2018-05-22] MEDS: Lyrica 50mg cap ORAL SCH ×2 (20:48→21:18)
[2018-05-22] MEDS: Iron Sucrose 100 MG in NS 55 ML IV SCH (21:36)
--- NOTE | 2018-05-22 21:36 | General Progress Note ---
Assessment/Plan Problem List: (1) Sepsis ICD Codes: A41.9 - Sepsis, unspecified organism SNOMED: 01498555 (2) UTI (urinary tract infection) ICD Codes: N39.0 - Urinary tract infection, site not specified SNOMED: 56313194 (3) Abdominal pain ICD Codes: R10.9 - Unspecified abdominal pain SNOMED: 63629735 Status: progressing Assessment/Plan uti and sepsis abx per id dc in am no acute events improving Subjective ROS Limited/Unobtainable: Yes Constitutional: Reports: no symptoms Allergies: Coded Allergies: No Known Allergies (Unverified , 08/03/17) Objective Last 24 Hour Vital Signs Date Time Temp Pulse Resp B/P (MAP) Pulse Ox O2 Delivery O2 Flow Rate FiO2 05/22/18 16:00 98.1 84 18 124/58 (80) 98 98.1 05/22/18 12:00 98.0 76 18 115/61 (79) 93 98.0 05/22/18 08:11 124/47 05/22/18 08:00 98.7 88 18 111/58 (75) 95 98.7 05/22/18 07:44 Room Air 05/22/18 04:00 98.5 88 18 124/47 (72) 93 98.5 05/22/18 00:00 98.8 85 18 115/58 (77) 93 98.8 Intake and Output 05/21/18 05/22/18 19:00 07:00 Intake Total 590 ml 410 ml Balance 590 ml 410 ml Intake Oral 480 ml 240 ml IV Total 110 ml 170 ml # Voids 4 2 Height (Feet): 5 Height (Inches): 2.00 Weight (Pounds): 160 Cardiovascular: normal rate Respiratory/Chest: lungs clear Abdomen: soft Laya Kat MD May 22, 2018 21:36
[2018-05-23] VITALS: BP 148/75
[2018-05-23] MEDS: Meropenem 1 GM in NS 55 ML IVPB SCH ×2 (03:51→13:51)
[2018-05-23] MEDS: Acetaminophen 500mg (ES) tab ORAL PRN ×2 (03:51→09:54)
[2018-05-23 04:00] VITALS: BP 143/71
[2018-05-23] MEDS: GlipiZIDE 5mg tab ORAL SCH (05:56)
[2018-05-23] MEDS: metFORMIN 500mg tab ORAL SCH (05:56)
[2018-05-23] MEDS: NovoLOG Insulin Flexpen SUBQ SCH ×2 (05:58→11:30)
[2018-05-23 06:03] LABS: ALANINE AMINOTRANSFERASE 30 U/L (12-78); ALBUMIN 2.7 G/DL (3.4-5.0); ALBUMIN/GLOBULIN RATIO 0.6 (1.0-2.7); ALKALINE PHOSPHATASE 108 U/L (46-116); ANION GAP 7 mmol/L (5-15); ASPARTATE AMINO TRANSFERASE 18 U/L (15-37); BILIRUBIN,TOTAL 0.2 MG/DL (0.2-1.0); BLOOD UREA NITROGEN 19 mg/dL (7-18); CALCIUM 8.8 MG/DL (8.5-10.1); CARBON DIOXIDE 29 MMOL/L (21-32); CHLORIDE 103 MMOL/L (98-107); CREATININE 0.7 MG/DL (0.55-1.30); PHOSPHORUS 3.7 MG/DL (2.5-4.9); SODIUM 139 MMOL/L (136-145)
[2018-05-23 06:08] LABS: BASOPHILS % (AUTO) 1.1 % (0.0-2.0); EOSINOPHILS % (AUTO) 3.1 % (0.0-3.0); HEMATOCRIT 27.2 % (37.0-47.0); HEMOGLOBIN 9.1 G/DL (12.0-16.0); MEAN CORPUSCULAR VOLUME 89 FL (80-99); MONOCYTES % (AUTO) 12.5 % (1.0-10.0); NEUTROPHILS % (AUTO) 62.3 % (45.0-75.0); PLATELET COUNT 345 K/UL (150-450); RED BLOOD COUNT 3.06 M/UL (4.20-5.40); RED CELL DISTRIBUTION WIDTH 12.4 % (11.6-14.8); WHITE BLOOD COUNT 8.4 K/UL (4.8-10.8)
--- NOTE | 2018-05-23 07:19 | General Progress Note ---
Assessment/Plan Assessment/Plan # Anemia of iron deficiency -- panel has been reviewed and ferritin is low, tibc is high, other labs reviewed as well --> Anemia hgb goal >7 --> iv iron x 5 days iv has been given --> no hemolysis has been noted on peripheral smear --> ok for dc today per heme # Leukocytosis with pna and Abdominal pain on abx --> imaging as per ID, appreciate their recs # UTI (urinary tract infection) on abx --> appreciate ID recs --> symptoms are better # Uncontrolled diabetes mellitus # Hypertension # Dyslipidemia. Staff, greatly appreciate consultation. Subjective Constitutional: Denies: no symptoms, chills, diaphoresis, fever, malaise, weakness, other HEENT: Denies: no symptoms, eye pain, blurred vision, tearing, double vision, ear pain, ear discharge, nose pain, nose congestion, throat pain, throat swelling, mouth pain, mouth swelling, other Cardiovascular: Denies: no symptoms, chest pain, edema, irregular heart rate, lightheadedness, palpitations, syncope, other Respiratory: Denies: no symptoms, cough, orthopnea, shortness of breath, SOB with excertion, SOB at rest, sputum, stridor, wheezing, other Gastrointestinal/Abdominal: Denies: no symptoms, abdomen distended, abdominal pain, black stools, tarry stools, blood in stool, constipated, diarrhea, difficulty swallowing, nausea, poor appetite, poor fluid intake, rectal bleeding , vomiting, other Genitourinary: Denies: no symptoms, burning, discharge, frequency, flank pain, hematuria, incontinence, pain, urgency, other Neurologic/Psychiatric: Denies: no symptoms, anxiety, depressed, emotional problems, headache, numbness, paresthesia, pre-existing deficit, seizure, tingling, tremors, weakness, other Endocrine: Denies: no symptoms, excessive sweating, flushing, intolerance to cold, intolerance to heat, increased hunger, increased thirst, increased urine, unexplained weight gain, unexplained weight loss, other Allergies: Coded Allergies: No Known Allergies (Unverified , 08/03/17) Subjective on abx for uti, merop as per id, doing better Objective Last 24 Hour Vital Signs Date Time Temp Pulse Resp B/P (MAP) Pulse Ox O2 Delivery O2 Flow Rate FiO2 05/23/18 04:00 99.7 82 18 143/71 (95) 93 99.7 05/23/18 00:00 98.1 87 18 148/75 (99) 94 98.1 05/22/18 21:00 Room Air 05/22/18 20:00 98.6 85 18 121/52 (75) 94 98.6 05/22/18 16:00 98.1 84 18 124/58 (80) 98 98.1 05/22/18 12:00 98.0 76 18 115/61 (79) 93 98.0 05/22/18 08:11 124/47 05/22/18 08:00 98.7 88 18 111/58 (75) 95 98.7 05/22/18 07:44 Room Air Intake and Output 05/22/18 05/23/18 19:00 07:00 Intake Total 2055 ml 480 ml Balance 2055 ml 480 ml Intake Oral 480 ml IV Total 55 ml Other 2000 ml # Voids 4 3 Laboratory Tests 05/23/18 04:50: White Blood Count 8.4, Red Blood Count 3.06L, Hemoglobin 9.1L, Hematocrit 27.2L , Mean Corpuscular Volume 89, Mean Corpuscular Hemoglobin 29.8, Mean Corpuscular Hemoglobin Concent 33.6, Red Cell Distribution Width 12.4, Platelet Count 345, Mean Platelet Volume 7.1, Neutrophils (%) (Auto) 62.3, Lymphocytes (% ) (Auto) 21.0, Monocytes (%) (Auto) 12.5H, Eosinophils (%) (Auto) 3.1H, Basophils (%) (Auto) 1.1, Sodium Level 139, Potassium Level 4.0, Chloride Level 103, Carbon Dioxide Level 29, Anion Gap 7, Blood Urea Nitrogen 19H, Creatinine 0.7, Estimat Glomerular Filtration Rate > 60, Glucose Level 116H, Calcium Level 8.8, Phosphorus Level 3.7, Magnesium Level 1.7L, Total Bilirubin 0.2, Aspartate Amino Transf (AST/SGOT) 18, Alanine Aminotransferase (ALT/SGPT) 30, Alkaline Phosphatase 108, C-Reactive Protein, Quantitative 14.3H, Pro-B-Type Natriuretic Peptide 81, Total Protein 7.6, Albumin 2.7L, Globulin 4.9, Albumin/Globulin Ratio 0.6L Height (Feet): 5 Height (Inches): 2.00 Weight (Pounds): 160 General Appearance: no apparent distress EENT: TMs normal Neck: normal alignment Cardiovascular: regular rhythm Respiratory/Chest: no respiratory distress Abdomen: non tender Extremities: non-tender Edema: mild edema Neurologic: alert Skin: warm/dry Domenico Haas MD May 23, 2018 07:19
[2018-05-23 08:00] VITALS: BP 134/64
[2018-05-23] MEDS: Aspirin EC 81mg tab ORAL SCH (09:52)
[2018-05-23] MEDS: Docusate 100mg cap ORAL SCH (09:53)
[2018-05-23] MEDS: sitaGLIPtin 25mg tab ORAL SCH (09:53)
[2018-05-23] MEDS: Lisinopril 10mg tab ORAL SCH (09:55)
--- NOTE | 2018-05-23 11:46 | Nephrology Progress Note ---
Assessment/Plan Problem List: (1) UTI (urinary tract infection) (2) Pyelonephritis (3) Diabetes mellitus out of control (4) Diabetic nephropathy Assessment UTI Anemia DM Obesity HTN Plan recheck Blood and urine cultures NOW now on meropenem for esbl medium cho diet anemia hastings zestril for bp Lyrica for nerve pain PT OT per orders Subjective ROS Limited/Unobtainable: No Constitutional: Reports: weakness Objective Objective Last 24 Hour Vital Signs Date Time Temp Pulse Resp B/P (MAP) Pulse Ox O2 Delivery O2 Flow Rate FiO2 05/23/18 09:55 134/64 05/23/18 09:00 Room Air 05/23/18 08:00 98.7 84 17 134/64 (87) 95 98.7 05/23/18 04:00 99.7 82 18 143/71 (95) 93 99.7 05/23/18 00:00 98.1 87 18 148/75 (99) 94 98.1 05/22/18 21:00 Room Air 05/22/18 20:00 98.6 85 18 121/52 (75) 94 98.6 05/22/18 16:00 98.1 84 18 124/58 (80) 98 98.1 05/22/18 12:00 98.0 76 18 115/61 (79) 93 98.0 Intake and Output 05/22/18 05/23/18 19:00 07:00 Intake Total 2055 ml 480 ml Balance 2055 ml 480 ml Intake Oral 480 ml IV Total 55 ml Other 2000 ml # Voids 4 3 Laboratory Tests 05/23/18 04:50: White Blood Count 8.4, Red Blood Count 3.06L, Hemoglobin 9.1L, Hematocrit 27.2L , Mean Corpuscular Volume 89, Mean Corpuscular Hemoglobin 29.8, Mean Corpuscular Hemoglobin Concent 33.6, Red Cell Distribution Width 12.4, Platelet Count 345, Mean Platelet Volume 7.1, Neutrophils (%) (Auto) 62.3, Lymphocytes (% ) (Auto) 21.0, Monocytes (%) (Auto) 12.5H, Eosinophils (%) (Auto) 3.1H, Basophils (%) (Auto) 1.1, Sodium Level 139, Potassium Level 4.0, Chloride Level 103, Carbon Dioxide Level 29, Anion Gap 7, Blood Urea Nitrogen 19H, Creatinine 0.7, Estimat Glomerular Filtration Rate > 60, Glucose Level 116H, Calcium Level 8.8, Phosphorus Level 3.7, Magnesium Level 1.7L, Total Bilirubin 0.2, Aspartate Amino Transf (AST/SGOT) 18, Alanine Aminotransferase (ALT/SGPT) 30, Alkaline Phosphatase 108, C-Reactive Protein, Quantitative 14.3H, Pro-B-Type Natriuretic Peptide 81, Total Protein 7.6, Albumin 2.7L, Globulin 4.9, Albumin/Globulin Ratio 0.6L Height (Feet): 5 Height (Inches): 2.00 Weight (Pounds): 160 General Appearance: no apparent distress Respiratory/Chest: lungs clear Abdomen: soft Objective no change Hang Hsu MD May 23, 2018 11:46
[2018-05-23 12:00] VITALS: BP 155/76
--- NOTE | 2018-05-23 13:28 | Infectious Diseases Prog Note ---
Assessment/Plan Assessment/Plan A; E. coli ESBL sepsis UTI with E. coli Anemia Uncontrolled DM Constipation P; Continue Meropenem in hospital Agree with discharge with Po Bactrim X 10 days Subjective ROS Limited/Unobtainable: No Respiratory: Reports: no symptoms Cardiovascular: Reports: no symptoms Gastrointestinal/Abdominal: Reports: no symptoms Genitourinary: Reports: no symptoms Allergies: Coded Allergies: No Known Allergies (Unverified , 08/03/17) Objective Vital Signs Last 24 Hour Vital Signs Date Time Temp Pulse Resp B/P (MAP) Pulse Ox O2 Delivery O2 Flow Rate FiO2 05/23/18 09:55 134/64 05/23/18 09:00 Room Air 05/23/18 08:00 98.7 84 17 134/64 (87) 95 98.7 05/23/18 04:00 99.7 82 18 143/71 (95) 93 99.7 05/23/18 00:00 98.1 87 18 148/75 (99) 94 98.1 05/22/18 21:00 Room Air 05/22/18 20:00 98.6 85 18 121/52 (75) 94 98.6 05/22/18 16:00 98.1 84 18 124/58 (80) 98 98.1 Height (Feet): 5 Height (Inches): 2.00 Weight (Pounds): 160 General Appearance: no acute distress HEENT: mucous membranes moist Respiratory/Chest: lungs clear Cardiovascular: normal rate Abdomen: soft, non tender Extremities: no edema Neurologic/Psychiatric: alert, oriented x 3, responsive Laboratory Tests Test 05/23/18 04:50 White Blood Count 8.4 K/UL (4.8-10.8) Red Blood Count 3.06 M/UL (4.20-5.40) L Hemoglobin 9.1 G/DL (12.0-16.0) L Hematocrit 27.2 % (37.0-47.0) L Mean Corpuscular Volume 89 FL (80-99) Mean Corpuscular Hemoglobin 29.8 PG (27.0-31.0) Mean Corpuscular Hemoglobin Concent 33.6 G/DL (32.0-36.0) Red Cell Distribution Width 12.4 % (11.6-14.8) Platelet Count 345 K/UL (150-450) Mean Platelet Volume 7.1 FL (6.5-10.1) Neutrophils (%) (Auto) 62.3 % (45.0-75.0) Lymphocytes (%) (Auto) 21.0 % (20.0-45.0) Monocytes (%) (Auto) 12.5 % (1.0-10.0) H Eosinophils (%) (Auto) 3.1 % (0.0-3.0) H Basophils (%) (Auto) 1.1 % (0.0-2.0) Sodium Level 139 MMOL/L (136-145) Potassium Level 4.0 MMOL/L (3.5-5.1) Chloride Level 103 MMOL/L (98-107) Carbon Dioxide Level 29 MMOL/L (21-32) Anion Gap 7 mmol/L (5-15) Blood Urea Nitrogen 19 mg/dL (7-18) H Creatinine 0.7 MG/DL (0.55-1.30) Estimat Glomerular Filtration Rate > 60 mL/min (>60) Glucose Level 116 MG/DL (74-106) H Calcium Level 8.8 MG/DL (8.5-10.1) Phosphorus Level 3.7 MG/DL (2.5-4.9) Magnesium Level 1.7 MG/DL (1.8-2.4) L Total Bilirubin 0.2 MG/DL (0.2-1.0) Aspartate Amino Transf (AST/SGOT) 18 U/L (15-37) Alanine Aminotransferase (ALT/SGPT) 30 U/L (12-78) Alkaline Phosphatase 108 U/L (46-116) C-Reactive Protein, Quantitative 14.3 mg/dL (0.00-0.90) H Pro-B-Type Natriuretic Peptide 81 pg/mL (0-125) Total Protein 7.6 G/DL (6.4-8.2) Albumin 2.7 G/DL (3.4-5.0) L Globulin 4.9 g/dL Albumin/Globulin Ratio 0.6 (1.0-2.7) L Current Medications Medications (Trade) Dose Ordered Sig/Silas Route PRN Reason Start Time Stop Time Status Last Admin Dose Admin Acetaminophen (Tylenol) 500 mg Q4H PRN ORAL Mild Pain/Temp > 100.5 05/18/18 00:00 06/17/18 00:00 05/23/18 09:54 Aspirin (Ecotrin) 81 mg DAILY ORAL 05/19/18 09:00 06/18/18 08:59 05/23/18 09:52 Dextrose (Dextrose 50%) 25 ml Q30M PRN IV Hypoglycemia 05/18/18 14:00 06/17/18 13:59 Dextrose (Dextrose 50%) 50 ml Q30M PRN IV Hypoglycemia 05/18/18 13:45 06/17/18 13:29 Docusate Sodium (Colace) 100 mg BID ORAL 05/19/18 19:50 06/18/18 19:49 05/23/18 09:53 Famotidine (Pepcid) 20 mg BID ORAL 05/18/18 10:40 06/17/18 10:39 05/23/18 09:52 Glipizide (Glucotrol) 5 mg BIAC ORAL 05/18/18 16:30 06/17/18 16:29 05/23/18 05:56 Guaifenesin/ Dextromethorphan (Robitussin DM Syrup) 10 ml Q4H PRN ORAL For Cough 05/21/18 08:05 06/20/18 08:04 05/22/18 20:54 Insulin Aspart (NovoLOG) BEFORE MEALS AND HS SUBQ 05/18/18 16:30 06/17/18 16:29 05/23/18 05:58 Iron Sucrose 100 mg/Sodium Chloride 60 ml @ 240 mls/hr BEDTIME IV 05/20/18 21:00 05/24/18 21:14 05/22/18 21:36 Lisinopril (Zestril) 10 mg DAILY ORAL 05/22/18 09:00 06/18/18 08:59 05/23/18 09:55 Loratadine (Claritin 10mg) 10 mg DAILY ORAL 05/19/18 09:00 06/18/18 08:59 05/23/18 09:52 Magnesium Hydroxide (Mom) 30 ml DAILYPRN PRN ORAL Constipation 05/19/18 12:00 06/18/18 11:59 Meropenem 1 gm/ Sodium Chloride 55 ml @ 110 mls/hr Q8H IVPB 05/21/18 12:30 05/26/18 12:29 05/23/18 03:51 Metformin HCl (Glucophage) 1,000 mg BIAC ORAL 05/18/18 16:30 06/17/18 16:29 05/23/18 05:56 Pregabalin (Lyrica) 50 mg BEDTIME ORAL 05/19/18 21:00 06/18/18 20:59 05/22/18 21:18 Sitagliptin Phosphate (Januvia) 50 mg DAILY ORAL 05/19/18 09:00 06/18/18 08:59 05/23/18 09:53 Tio Lay MD May 23, 2018 13:28
[2018-05-23] MEDS ORDERED: BACTRIM-DS1 EA ORAL (14:02)
--- NOTE | 2018-05-23 15:12 | Diagnostic Imaging Report ---
APPROVED REPORT CPT Code: 84500 Present Symptoms Comments: Screening BILATERAL: Imaging reveals a patent deep venous system bilaterally. There is no evidence of thrombus within the femoral, popliteal or tibial segments. The greater saphenous veins are also within normal limits. Doppler indicates normal spontaneous flow within these segments.
--- NOTE | 2018-05-24 13:36 | Discharge Summary ---
Discharge Summary Discharge Summary _ DATE OF ADMISSION: 05/17/2018 DATE OF DISCHARGE: 05/23/2018 REASON FOR ADMISSION: 62 years old female with history of hypertension and diabetes, presented to emergency department with complaint of right flank pain, dysuria , frequency, fever and chills. She denied chest pain or shortness of breath. She denied back pain. She denied diarrhea but reported nausea and vomiting. Upon evaluation patient was febrile with temperature 102.7. Urinalysis showed evidence of UTI. Laboratory workup revealed leukocytosis WBC 13.7. Troponin was negative. LFT and lipase stable. Urine toxicology screen was negative. Blood glucose 260. CT of the abdomen and pelvis revealed no acute intra-abdominal pathology. It demonstrated mild nonspecific bilateral perinephric fat stranding indicative of myelitis or nephritis would be more likely chronic. Patient admitted with diagnosis of sepsis, urinary tract infection , pyelonephritis ,hyperglycemia. CONSULTANTS: ID specialist Dr. Sarah Lay v belt curer Dr. Hsu measuring machine operator/oncologist Dr. Haas HOSPITAL COURSE: Patient admitted and started on IV fluids and empiric antibiotics. Infectious disease specialist closely followed. Urine culture revealed Escherichia coli, blood culture revealed Escherichia coli and Escherichia coli ESBL. Leukocytosis and fevers resolved f. While in the hospital , patient received IV meropenem. Patient was discharged on oral Bactrim to be continued for additional 10 days to complete the course as recommended by ID specialist. Blood sugar was managed with multiply regimen of oral anti-glycemic and sliding scale of insulin as needed. Hemoglobin A1c -8.6, clearly not at goal. Urinalysis revealed +3 protein. Patient had diabetic nephropathy. Patient will need optimization of anti-glycemic regimen as outpatient.. Blood pressure was managed with current antihypertensive regimen and remained stable. Antiplatelet therapy with aspirin was continued. GI prophylaxis provided. Patient was working with physical and occupational therapists. Fall precautions were maintained. Pain management was addressed. Lyrica was added to analgesic regimen for neuropathic pain. Electric Knife Operator closely followed. Anemia workup was consistent with anemia of iron deficiency. Hemoglobin and hematocrit were closely monitored with goal to keep hemoglobin above 7. Patient started on IV Venofer. No evidence of bleeding. Patient stabilized and was ready for discharge. FINAL DIAGNOSES: Sepsis with Escherichia coli bacteremia UTI with Escherichia coli Pyelonephritis Diabetes mellitus out of control Diabetic nephropathy Anemia of iron deficiency Hypertension DISCHARGE MEDICATIONS: See Medication Reconciliation list. DISCHARGE INSTRUCTIONS: Patient was discharged home . Follow up with primary care provider in one week. I have been assigned to dictate discharge summary for this account. I was not involved in the patient's management. Ethel Raya NP May 24, 2018 13:36
--- NOTE | 2018-05-25 13:40 | Cardiology Report ---
APPROVED REPORT EKG Measurement Heart [id number] Sinus rhythm with fusion complexes Cannot rule out Inferior infarct, age undetermined Abnormal ECG
== END 2018-05-23 14:35 | disposition home or self-care (01) | DRG 720 ==
LOC: EMR 22:32 → 4E 23:15 → EDBEDREQ 23:28
DX: A41.51 Sepsis due to Escherichia coli [E. coli] (principal); E11.21 Type 2 diabetes mellitus with diabetic nephropathy; N39.0 Urinary tract infection, site not specified; N12 Tubulo-interstitial nephritis, not specified as acute or chronic; E11.65 Type 2 diabetes mellitus with hyperglycemia; Z79.84 Long term (current) use of oral hypoglycemic drugs; D50.9 Iron deficiency anemia, unspecified; I10 Essential (primary) hypertension; E78.5 Hyperlipidemia, unspecified; K21.9 Gastro-esophageal reflux disease without esophagitis; Z79.82 Long term (current) use of aspirin; E66.9 Obesity, unspecified; Z79.4 Long term (current) use of insulin; K59.00 Constipation, unspecified
CPT/HCPCS: 36415; 71045; 74176; 80048; 80053; 80076; 80307; 81003; 82270; 82378; 82550; 82553; 82607; 82728; 82746; 82962; 83020; 83036; 83540; 83550; 83690; 83735; 83880; 84100; 84443; 84484; 84550; 85007; 85025; 85060; 86140; 87040; 87086; 87181; 93005; 93970; 96361; 96365; 96375; 99284; J1815; J2405

== ENCOUNTER 2019-09-09 20:41 | Inpatient (IN) | payer MEDICAID ==
[~2019-09-09] VITALS: Ht 160 cm; Wt 70.8 kg
[~2019-09-09 20:41] MED LIST changes: +BACTRIM-DS1 EA ORAL
--- NOTE | 2019-09-09 21:04 | Emergency Room Report ---
History of Present Illness General Chief Complaint: Abdominal Pain Source: Patient, Family Member Present Illness HPI This a 64-year-old female with history of high blood pressure and diabetes. She has 2 main complaints. First complaint is fever and chills. This has been ongoing for last 3 days. Also with body aches and pain. No nausea no vomiting. Nothing made it better. Exertion made it worse. Her second complaint is abdominal pain. Pain is ongoing for months. She is waiting for authorization for specialist. Pain is diffuse in nature. No nausea no vomiting. Pain is 8 out of 10. Nothing made it better. Nothing made it worse. Allergies: Coded Allergies: No Known Allergies (Unverified , 08/03/17) Patient History Past Medical History: see triage record, old chart reviewed, DM, HTN Past Surgical History: other Pertinent Family History: none Social History: Denies: smoking Now: No Immunizations: other Reviewed Nursing Documentation: PMH: Agreed; PSxH: Agreed Nursing Documentation-PMH Hx Cardiac Problems: Yes Hx Hypertension: Yes - high chloestrol Hx Diabetes: Yes Hx Cancer: No Hx Gastrointestinal Problems: No Hx Neurological Problems: No Review of Systems Constitutional: Reports: fever, malaise Eye: Denies: eye pain, blurred vision ENT: Denies: ear pain, nose congestion, throat swelling Respiratory: Denies: cough, shortness of breath Cardiovascular: Denies: chest pain, palpitations Gastrointestinal: Reports: abdominal pain; Denies: diarrhea, nausea, vomiting Musculoskeletal: Denies: back pain, joint pain Skin: Denies: rash Neurological: Denies: headache, numbness Endocrine: Denies: increased thirst, increased urine Hematologic/Lymphatic: Denies: easy bruising All Other Systems: negative except mentioned in HPI Physical Exam Vital Signs Date Time Temp Pulse Resp B/P (MAP) Pulse Ox O2 Delivery O2 Flow Rate FiO2 09/09/19 20:47 101.1 108 16 105/55 (72) 90 Room Air Vitals with fever and hypoxia. Repeat Pox 93% on RA Sp02 EP Interpretation: reviewed, abnormal General Appearance: well appearing, no apparent distress, alert Head: normocephalic, atraumatic Eyes: bilateral eye PERRL, bilateral eye EOMI ENT: hearing grossly normal, normal pharynx Neck: full range of motion, supple, no meningismus Respiratory: chest non-tender, lungs clear, normal breath sounds Cardiovascular #1: regular rate, rhythm, no murmur Gastrointestinal: normal bowel sounds, no mass, no organomegaly, no bruit, non- distended, tenderness - Diffuse Musculoskeletal: back normal, normal range of motion, gait/station normal Neurologic: alert, oriented, grossly normal Psychiatric: mood/affect normal Medical Decision Making Diagnostic Impression: Primary Impression: Sepsis Qualified Codes: A41.9 - Sepsis, unspecified organism Additional Impressions: Community acquired bacterial pneumonia UTI (urinary tract infection) Qualified Codes: N30.00 - Acute cystitis without hematuria Abdominal pain Qualified Codes: R10.84 - Generalized abdominal pain Anemia, unspecified Qualified Codes: D64.9 - Anemia, unspecified Hyperglycemia due to type 2 diabetes mellitus Qualified Codes: E11.65 - Type 2 diabetes mellitus with hyperglycemia ER Course Patient presents with fever and mild hypoxia. X-ray showed a left lower lobe infiltrate. She has chronic abdominal pain. CT scan is unremarkable. She does have a urinary tract infection. Antibiotics given here. IV fluid given here. She felt better now. Will admit for IV hydration and IV antibiotics. I discussed the case with Dr. Erwin who will admit for Dr. White. Rhythm Strip Diag. Results EP Interpretation: yes Rate: 82 Rhythm: NSR, no PVC's, no ectopy Chest X-Ray Diagnostic Results Chest X-Ray Diagnostic Results : Chest X-Ray Ordered: Yes # of Views/Limited/Complete: 1 View Indication: Shortness of Breath EP Interpretation: Yes Interpretation: no effusion, no pneumothorax, other - LLL infiltrate Impression: Other - LLL infiltrate Electronically Signed by: Rick Lan MD Last Vital Signs Date Time Temp Pulse Resp B/P (MAP) Pulse Ox O2 Delivery O2 Flow Rate FiO2 09/09/19 20:47 101.1 108 16 105/55 (72) 90 Room Air Status: improved Disposition: ADMITTED INPATIENT Condition: Serious Rick Lan MD Sep 09, 2019 21:04
--- NOTE | 2019-09-09 21:10 | NUR ---
ED Nurse Note: Patient walked into ED from home accompanied by daughter d/t abdominal pain 10/10 intermittent for over a year. Patient aao x 4 and ambulatory with assistance due to weakness from pain. Patient placed in gown and deaf/hard of hearing specialist. No acute distress noted upon assessment. Addendum: 09/09/19 at 2140 by IOROPEL ED Nurse Note: Patient walked into ED from home accompanied by daughter d/t abdominal pain 10/10 intermittent for over a year. Patient aao x 4 and ambulatory with assistance due to weakness from pain. Patient placed in gown and deaf/hard of hearing specialist. No acute distress noted upon assessment. ERMD at bedside.
[2019-09-09 21:13] VITALS: BP 160/65
[2019-09-09] MEDS ORDERED: Ketorolac 30mg Inj IV ONE (21:15)
[2019-09-09] MEDS ORDERED: Acetaminophen 500mg (ES) tab ORAL ONE (21:15)
--- NOTE | 2019-09-09 21:20 | NUR ---
ED Nurse Note: Patient taken to CT in stable condition.
--- NOTE | 2019-09-09 21:30 | NUR ---
ED Nurse Note: Patient returned from CT in stable condition.
--- NOTE | 2019-09-09 21:39 | Diagnostic Imaging Report ---
EXAM: XR Chest, 1 View CLINICAL HISTORY: SOB TECHNIQUE: Frontal view of the chest. COMPARISON: 05/21/2018 IMPRESSION: Cardiomegaly. Increased opacities in the left lung, possibly edema or infection. Trace right pleural effusion.
[2019-09-09] MEDS ORDERED: GEMFIBROZIL600 MG ORAL (21:40)
[2019-09-09 21:42] LABS: BASOPHILS % (AUTO) 0.7 % (0.0-2.0); EOSINOPHILS % (AUTO) 0.2 % (0.0-3.0); HEMATOCRIT 32.9 % (37.0-47.0); HEMOGLOBIN 11.1 G/DL (12.0-16.0); LYMPHOCYTES % (AUTO) 8.2 % (20.0-45.0); MEAN CORPUSCULAR VOLUME 88 FL (80-99); MONOCYTES % (AUTO) 6.5 % (1.0-10.0); NEUTROPHILS % (AUTO) 84.3 % (45.0-75.0); PLATELET COUNT 322 K/UL (150-450); RED BLOOD COUNT 3.73 M/UL (4.20-5.40); RED CELL DISTRIBUTION WIDTH 11.8 % (11.6-14.8); WHITE BLOOD COUNT 17.4 K/UL (4.8-10.8)
[2019-09-09 21:46] LABS: APPEARANCE,URINE SLIGHTLY CLOUDY; BILIRUBIN, URINE NEGATIVE (NEGATIVE); COLOR,URINE PALE YELLOW; GLUCOSE, URINE (UA) 2+ (NEGATIVE); KETONES,URINE NEGATIVE (NEGATIVE); LEUKOCYTE ESTERASE ,URINE 2+ (NEGATIVE); NITRITE,URINE NEGATIVE (NEGATIVE); PH,URINE 5 (4.5-8.0); PROTEIN,URINE 3+ (NEGATIVE); UROBILINOGEN,URINE NORMAL MG/DL (0.0-1.0)
--- NOTE | 2019-09-09 21:47 | Diagnostic Imaging Report ---
EXAM: CT Abdomen and Pelvis Without Intravenous Contrast CLINICAL HISTORY: ABD PAIN TECHNIQUE: Axial computed tomography images of the abdomen and pelvis without intravenous contrast. CTDI is 25 mGy and DLP is 1440 mGy-cm. One or more of the following dose reduction techniques were used: automated exposure control, adjustment of the mA and/or kV according to patient size, use of iterative reconstruction technique. COMPARISON: 08.04.17 FINDINGS: Lung bases: No mass. No consolidation. ABDOMEN: Liver: Enlarged. Gallbladder and bile ducts: Unremarkable. Pancreas: No ductal dilation. Spleen: Unremarkable. Adrenals: Unremarkable. Kidneys and ureters: No obstructing stones. Mild right hydroureteronephrosis with no stones identified in the ureter. Stomach and bowel: No bowel obstruction. No bowel wall thickening. PELVIS: Appendix: No evidence of appendicitis. Bladder: No stones. Air-fluid level in the bladder. Reproductive: Unremarkable. ABDOMEN and PELVIS: Intraperitoneal space: Unremarkable. Bones/joints: No acute fractures. Soft tissues: Unremarkable. Vasculature: No abdominal aortic aneurysm. Lymph nodes: No enlarged lymph nodes. IMPRESSION: 1. Mild right hydroureteronephrosis with no stones identified in the ureter. Correlate with recently passed stone versus ascending infectious process. 2. Bladder contains an air-fluid level. Correlate with recent instrumentation versus infectious process. 3. Hepatomegaly.
[2019-09-09] MEDS ORDERED: cefTRIAXone 1 GM in NS 55 ML IVPB ONE (22:00)
[2019-09-09] MEDS ORDERED: Azithromycin 250mg tab ORAL ONE (22:00)
--- NOTE | 2019-09-09 22:00 | NUR ---
ED Nurse Note: DAYAMID ordered 2L nasal cannula for patient, patient placed on oxygen, tolerated well.
--- NOTE | 2019-09-09 22:07 | NUR ---
ED Nurse Note: ERMD at bedside.
[2019-09-09 22:08] LABS: ANION GAP 11 mmol/L (5-15); BLOOD UREA NITROGEN 44 mg/dL (7-18); CALCIUM 8.8 MG/DL (8.5-10.1); CARBON DIOXIDE 24 MMOL/L (21-32); CHLORIDE 99 MMOL/L (98-107); CREATININE 1.3 MG/DL (0.55-1.30); POTASSIUM 4.4 MMOL/L (3.5-5.1); SODIUM 134 MMOL/L (136-145)
[2019-09-09 22:13] LABS: ALANINE AMINOTRANSFERASE 16 U/L (12-78); ALBUMIN 3.2 G/DL (3.4-5.0); ALBUMIN/GLOBULIN RATIO 0.6 (1.0-2.7); ALKALINE PHOSPHATASE 102 U/L (46-116); ASPARTATE AMINO TRANSFERASE 12 U/L (15-37); BILIRUBIN,TOTAL 0.5 MG/DL (0.2-1.0)
--- NOTE | 2019-09-09 22:28 | NUR ---
ED Nurse Note: Rechecked oral temperature, 99.5 degrees F.
--- NOTE | 2019-09-09 22:46 | NUR ---
ED Nurse Note: Patient ambulating to restroom accompanied by daughter in stable condition. Offered oxygen tank to maintain O2, patient refused.
[2019-09-09 23:04] VITALS: BP 126/54
--- NOTE | 2019-09-10 00:06 | NUR ---
ED Nurse Note: Report given to CAROLA Bhardwaj in med surg.
--- NOTE | 2019-09-10 00:06 | NUR ---
ED Nurse Note: Bed not ready in med surg, charge nurse aware.
--- NOTE | 2019-09-10 00:14 | Emergency Room Report ---
Sepsis Event Note Evaluation Current Stage of Sepsis: Sepsis Possible Source: Pulmonary Focused Exam Allergies: Coded Allergies: No Known Allergies (Unverified , 08/03/17) Date Exam Occurred: Sep 10, 2019 Time Exam Occurred: 00:13 Laboratory Studies Laboratory Tests Test 09/09/19 21:13 09/09/19 22:01 White Blood Count 17.4 K/UL (4.8-10.8) H Red Blood Count 3.73 M/UL (4.20-5.40) L Hemoglobin 11.1 G/DL (12.0-16.0) L Hematocrit 32.9 % (37.0-47.0) L Mean Corpuscular Volume 88 FL (80-99) Mean Corpuscular Hemoglobin 29.8 PG (27.0-31.0) Mean Corpuscular Hemoglobin Concent 33.8 G/DL (32.0-36.0) Red Cell Distribution Width 11.8 % (11.6-14.8) Platelet Count 322 K/UL (150-450) Mean Platelet Volume 7.5 FL (6.5-10.1) Neutrophils (%) (Auto) 84.3 % (45.0-75.0) H Lymphocytes (%) (Auto) 8.2 % (20.0-45.0) L Monocytes (%) (Auto) 6.5 % (1.0-10.0) Eosinophils (%) (Auto) 0.2 % (0.0-3.0) Basophils (%) (Auto) 0.7 % (0.0-2.0) Urine Color Pale yellow Urine Appearance Slightly cloudy Urine pH 5 (4.5-8.0) Urine Specific [place] 1.015 (1.005-1.035) Urine Protein 3+ (NEGATIVE) H Urine Glucose (UA) 2+ (NEGATIVE) H Urine Ketones Negative (NEGATIVE) Urine Blood 2+ (NEGATIVE) H Urine Nitrite Negative (NEGATIVE) Urine Bilirubin Negative (NEGATIVE) Urine Urobilinogen Normal MG/DL (0.0-1.0) Urine Leukocyte Esterase 2+ (NEGATIVE) H Urine RBC 0-2 /HPF (0 - 2) Urine WBC 40-60 /HPF (0 - 2) H Urine Squamous Epithelial Cells Few /LPF (NONE/OCC) Urine Bacteria Many /HPF (NONE) H Sodium Level 134 MMOL/L (136-145) L Potassium Level 4.4 MMOL/L (3.5-5.1) Chloride Level 99 MMOL/L (98-107) Carbon Dioxide Level 24 MMOL/L (21-32) Anion Gap 11 mmol/L (5-15) Blood Urea Nitrogen 44 mg/dL (7-18) H Creatinine 1.3 MG/DL (0.55-1.30) Estimat Glomerular Filtration Rate 41.4 mL/min (>60) Glucose Level 264 MG/DL (74-106) H Calcium Level 8.8 MG/DL (8.5-10.1) Total Bilirubin 0.5 MG/DL (0.2-1.0) Aspartate Amino Transf (AST/SGOT) 12 U/L (15-37) L Alanine Aminotransferase (ALT/SGPT) 16 U/L (12-78) Alkaline Phosphatase 102 U/L (46-116) Total Protein 8.5 G/DL (6.4-8.2) H Albumin 3.2 G/DL (3.4-5.0) L Globulin 5.3 g/dL Albumin/Globulin Ratio 0.6 (1.0-2.7) L Lipase 115 U/L (73-393) Lactic Acid Level Pending Vital Signs Last 24 Hour Vital Signs Date Time Temp Pulse Resp B/P (MAP) Pulse Ox O2 Delivery O2 Flow Rate FiO2 09/09/19 23:04 99.5 90 22 126/54 99 Nasal Cannula 2.0 09/09/19 22:00 99.5 09/09/19 22:00 101.1 09/09/19 21:13 98 15 Room Air 09/09/19 21:13 101.1 98 15 160/65 92 Room Air 09/09/19 20:47 101.1 108 16 105/55 (72) 90 Room Air Respiratory Exam: Crackles Cardiovascular Exam: RRR Capillary Refill: Less Than 2 Seconds Peripheral Pulse: Strong Pulse Location: Radial Skin Exam: Normal Turgor Rick Lan MD Sep 10, 2019 00:14
--- NOTE | 2019-09-10 00:25 | NUR ---
ED Nurse Note: Patient transferred to med surg unit via gurney accompanied by process control tech in stable condition.
--- NOTE | 2019-09-10 00:30 | NUR ---
NURSE NOTES: Pt. report received. Pt. introduced, AAOx4, on room air at this time, oxygen saturation is 95%. Pt. requested to reconnect to oxygen; pt. connected to NC at 2L at this time. No complaints of pain, no shortness of breath, no indications of respiratory distress at this time. Pt. diaphoretic, oral temperature at 97.7; will continue to monitor. VS stable. Belongings checked and pt. signed. Pt. oriented to room, educated to call for assist and pt. verbalized understanding. Bed is low and locked, call light is in reach, side rails x2 up, and bed alarm is active. Dr. White called for admission orders, awaiting return call. Will continue to monitor.
--- NOTE | 2019-09-10 02:30 | NUR ---
NURSE NOTES: Message left for Dr. White, awaiting return call.
[2019-09-10] MEDS ORDERED: HydrALAZINE 25mg tab ORAL PRN (03:00)
[2019-09-10 04:00] VITALS: BP 116/63
[2019-09-10] MEDS: NovoLOG Insulin Flexpen SUBQ SCH ×4 (06:34→21:13)
[2019-09-10 07:50] LABS: HEMATOCRIT 33.7 % (37.0-47.0); HEMOGLOBIN 11.3 G/DL (12.0-16.0); MEAN CORPUSCULAR VOLUME 90 FL (80-99); PLATELET COUNT 308 K/UL (150-450); RED BLOOD COUNT 3.76 M/UL (4.20-5.40); RED CELL DISTRIBUTION WIDTH 12.4 % (11.6-14.8); WHITE BLOOD COUNT 14.8 K/UL (4.8-10.8)
[2019-09-10 08:00] VITALS: BP 153/102
[2019-09-10 08:00] LABS: ANION GAP 10 mmol/L (5-15); BLOOD UREA NITROGEN 42 mg/dL (7-18); CALCIUM 8.6 MG/DL (8.5-10.1); CARBON DIOXIDE 23 MMOL/L (21-32); CHLORIDE 105 MMOL/L (98-107); CREATININE 1.2 MG/DL (0.55-1.30); POTASSIUM 4.5 MMOL/L (3.5-5.1); SODIUM 138 MMOL/L (136-145)
--- NOTE | 2019-09-10 08:06 | NUR ---
HAND-OFF: Report given to CAROLA Little.
--- NOTE | 2019-09-10 08:25 | NUR ---
NURSE NOTES: received patient in bed, no complaint of pain or discomfort. On 2L O2/min, no respiratory distress noted. RAC IV access, saline locked. Turkish speaking only, family at bedside. Bed locked at the lowest position possible, call light within easy reach, siderails up x2. Will continue to monitor patient and follow up with the plan of care.
[2019-09-10] MEDS: Heparin 5000 units/ml inj SUBQ SCH ×2 (08:43→21:12)
--- NOTE | 2019-09-10 11:54 | History and Physical ---
History of Present Illness General Date patient seen: Sep 10, 2019 Reason for Hospitalization: Abdominal Pain Present Illness HPI 64 year old F w/ Hx HTN, DM2, GERD who presented to the ED w/ 7 days of progressively worse dry cough and lower abdominal pain found to have Sepsis w/ underling PNA and UTI. Pt reports 7 days of progressive dry cough, fever, chills , dysuria and lower abdominal pain. In the ED pt was found to be febrile to 101 w/ HR low 100s. Labs were sig for leukocytosis and UA c/w UTI. CXR showed possible infiltrate. CT abd/p showed changes c/w UTI w/ air fluid level in the bladder and Mild right hydroureteronephrosis with no stones identified in the ureter. Pt was started on empiric abx w/ CAP and urine coverage w/ azithro/ ceftriaxone. Blood and urine cx sent and urine growing GNR this am. Pt reports persistent cough and lower abd discomfort this am w/ slight improvement. Allergies: Coded Allergies: No Known Allergies (Unverified , 08/03/17) Medication History Scheduled Aspirin* (Aspir 81*), 81 MG ORAL DAILY, (Reported) Docusate Sodium* (Docusate Sodium*), 100 MG ORAL TWICE A DAY, (Reported) Glipizide* (Glucotrol*), 10 MG ORAL DAILY, (Reported) Lisinopril (Lisinopril*), 20 MG ORAL DAILY, (Reported) Loratadine (Loratadine), 10 MG PO DAILY, (Reported) Metformin Hcl* (Metformin Hcl*), 1,000 MG ORAL BID, (Reported) Omeprazole (Omeprazole), 20 MG ORAL DAILY, (Reported) Sitagliptin* (Januvia*), 50 MG ORAL DAILY, (Reported) Miscellaneous Medications Gemfibrozil (Gemfibrozil*), 600 MG ORAL, (Reported) Discontinued Medications Cephalexin* (Keflex*), 500 MG ORAL EVERY 12 HOURS Discontinued Reason: MD discontinued med Ciprofloxacin Hcl* (Ciprofloxacin Hcl*), 500 MG ORAL Q12H Discontinued Reason: MD discontinued med Diphenoxylate Hcl/Atropine (Lomotil Tablet), 1 TAB ORAL BID Discontinued Reason: MD discontinued med Docusate Sodium* (Colace*), 100 MG ORAL THREE TIMES A DAY Discontinued Reason: Pt stopped taking med Gemfibrozil (Gemfibrozil*), 600 MG ORAL, (Reported) Discontinued Reason: MD discontinued med Glipizide* (Glipizide*), 10 MG ORAL BID, (Reported) Discontinued Reason: MD discontinued med Metronidazole* (Flagyl*), 500 MG ORAL BID Discontinued Reason: MD discontinued med Nitrofurantoin Monohyd/M-Cryst* (Macrobid 100 Mg*), 100 MG ORAL EVERY 12 HOURS Discontinued Reason: MD discontinued med Simvastatin (Zocor), 20 MG ORAL BEDTIME, (Reported) Discontinued Reason: MD discontinued med Trimethoprim/Sulfamethoxazole (Bactrim Ds Tablet), 1 TAB ORAL TWICE A DAY, ( Reported) Discontinued Reason: MD discontinued med Patient History Healthcare decision maker Resuscitation status Full Code Advanced Directive on File Review of Systems Constitutional: Reports: fever, malaise, weakness Eye: Reports: no symptoms ENT: Reports: no symptoms Respiratory: Reports: see HPI Cardiovascular: Reports: no symptoms Gastrointestinal: Reports: see HPI Genitourinary: Reports: see HPI Musculoskeletal: Reports: no symptoms Skin: Reports: no symptoms Neurological: Reports: no symptoms Physical Exam General Appearance: WD/WN, no apparent distress, lethargic, confused HEENT: normocephalic, atraumatic, anicteric, PERRL, EOMI, supple, no JVD Respiratory/Chest: lungs clear, normal breath sounds, no respiratory distress, no accessory muscle use Cardiovascular/Chest: normal peripheral pulses, normal rate, regular rhythm, regularly irregular Abdomen: normal bowel sounds, soft, tender - lower quadrant, no rebound Extremities: no edema, no cyanosis 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: 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 II-XII grossly normal, alert Last 24 Hour Vital Signs Date Time Temp Pulse Resp B/P (MAP) Pulse Ox O2 Delivery O2 Flow Rate FiO2 09/10/19 08:00 99.6 102 22 153/102 (119) 96 09/10/19 04:00 96.9 73 16 116/63 (80) 98 09/10/19 01:11 Nasal Cannula 2.0 09/10/19 00:25 99.2 98 24 115/56 99 Nasal Cannula 2.0 09/09/19 23:04 99.5 90 22 126/54 99 Nasal Cannula 2.0 09/09/19 22:00 99.5 09/09/19 22:00 101.1 09/09/19 21:13 98 15 Room Air 09/09/19 21:13 101.1 98 15 160/65 92 Room Air 09/09/19 20:47 101.1 108 16 105/55 (72) 90 Room Air Intake and Output 09/09/19 09/10/19 19:00 07:00 Intake Total 2055 ml Balance 2055 ml Intake Oral 0 ml IV Total 2055 ml # Voids 2 Laboratory Tests Test 09/09/19 21:13 09/09/19 22:01 09/10/19 07:30 White Blood Count 17.4 K/UL (4.8-10.8) H 14.8 K/UL (4.8-10.8) H Red Blood Count 3.73 M/UL (4.20-5.40) L 3.76 M/UL (4.20-5.40) L Hemoglobin 11.1 G/DL (12.0-16.0) L 11.3 G/DL (12.0-16.0) L Hematocrit 32.9 % (37.0-47.0) L 33.7 % (37.0-47.0) L Mean Corpuscular Volume 88 FL (80-99) 90 FL (80-99) Mean Corpuscular Hemoglobin 29.8 PG (27.0-31.0) 30.2 PG (27.0-31.0) Mean Corpuscular Hemoglobin Concent 33.8 G/DL (32.0-36.0) 33.6 G/DL (32.0-36.0) Red Cell Distribution Width 11.8 % (11.6-14.8) 12.4 % (11.6-14.8) Platelet Count 322 K/UL (150-450) 308 K/UL (150-450) Mean Platelet Volume 7.5 FL (6.5-10.1) 7.6 FL (6.5-10.1) Neutrophils (%) (Auto) 84.3 % (45.0-75.0) H % (45.0-75.0) Lymphocytes (%) (Auto) 8.2 % (20.0-45.0) L % (20.0-45.0) Monocytes (%) (Auto) 6.5 % (1.0-10.0) % (1.0-10.0) Eosinophils (%) (Auto) 0.2 % (0.0-3.0) % (0.0-3.0) Basophils (%) (Auto) 0.7 % (0.0-2.0) % (0.0-2.0) Urine Color Pale yellow Urine Appearance Slightly cloudy Urine pH 5 (4.5-8.0) Urine Specific [place] 1.015 (1.005-1.035) Urine Protein 3+ (NEGATIVE) H Urine Glucose (UA) 2+ (NEGATIVE) H Urine Ketones Negative (NEGATIVE) Urine Blood 2+ (NEGATIVE) H Urine Nitrite Negative (NEGATIVE) Urine Bilirubin Negative (NEGATIVE) Urine Urobilinogen Normal MG/DL (0.0-1.0) Urine Leukocyte Esterase 2+ (NEGATIVE) H Urine RBC 0-2 /HPF (0 - 2) Urine WBC 40-60 /HPF (0 - 2) H Urine Squamous Epithelial Cells Few /LPF (NONE/OCC) Urine Bacteria Many /HPF (NONE) H Sodium Level 134 MMOL/L (136-145) L 138 MMOL/L (136-145) Potassium Level 4.4 MMOL/L (3.5-5.1) 4.5 MMOL/L (3.5-5.1) Chloride Level 99 MMOL/L (98-107) 105 MMOL/L (98-107) Carbon Dioxide Level 24 MMOL/L (21-32) 23 MMOL/L (21-32) Anion Gap 11 mmol/L (5-15) 10 mmol/L (5-15) Blood Urea Nitrogen 44 mg/dL (7-18) H 42 mg/dL (7-18) H Creatinine 1.3 MG/DL (0.55-1.30) 1.2 MG/DL (0.55-1.30) Estimat Glomerular Filtration Rate 41.4 mL/min (>60) 45.3 mL/min (>60) Glucose Level 264 MG/DL (74-106) H 271 MG/DL (74-106) H Calcium Level 8.8 MG/DL (8.5-10.1) 8.6 MG/DL (8.5-10.1) Total Bilirubin 0.5 MG/DL (0.2-1.0) Aspartate Amino Transf (AST/SGOT) 12 U/L (15-37) L Alanine Aminotransferase (ALT/SGPT) 16 U/L (12-78) Alkaline Phosphatase 102 U/L (46-116) Total Protein 8.5 G/DL (6.4-8.2) H Albumin 3.2 G/DL (3.4-5.0) L Globulin 5.3 g/dL Albumin/Globulin Ratio 0.6 (1.0-2.7) L Lipase 115 U/L (73-393) Lactic Acid Level 0.70 mmol/L (0.4-2.0) Differential Total Cells Counted 100 Neutrophils % (Manual) 89 % (45-75) H Lymphocytes % (Manual) 6 % (20-45) L Monocytes % (Manual) 5 % (1-10) Eosinophils % (Manual) 0 % (0-3) Basophils % (Manual) 0 % (0-2) Band Neutrophils 0 % (0-8) Platelet Estimate Adequate Platelet Morphology Normal Red Blood Cell Morphology Normal Microbiology Date/Time Source Procedure Growth Status 09/09/19 22:01 Nasal Nares - Final Complete 09/09/19 22:01 Nasal Nares - Final Complete 09/09/19 21:13 Urine,Clean Catch Urine Culture - Preliminary Gram Negative Benedict Resulted Height (Feet): 5 Height (Inches): 3.00 Weight (Pounds): 153 Medications Current Medications Medications (Trade) Dose Ordered Sig/Silas Route PRN Reason Start Time Stop Time Status Last Admin Dose Admin Azithromycin 500 mg/Dextrose 275 ml @ 275 mls/hr Q24HRS IV 09/10/19 22:00 09/16/19 22:59 Ceftriaxone Sodium 1 gm/ Dextrose 55 ml @ 110 mls/hr Q24H IVPB 09/10/19 22:00 09/17/19 21:59 Dextrose (Dextrose 50%) 25 ml Q30M PRN IV Hypoglycemia 09/10/19 03:00 10/10/19 02:59 Dextrose (Dextrose 50%) 50 ml Q30M PRN IV Hypoglycemia 09/10/19 03:00 10/10/19 02:59 Heparin Sodium (Porcine) (Heparin 5000 units/ml) 5,000 units EVERY 12 HOURS SUBQ 09/10/19 09:00 10/10/19 08:59 09/10/19 08:43 Hydralazine HCl (Apresoline) 25 mg Q6H PRN ORAL Systolic > 160 09/10/19 03:00 10/10/19 02:59 Insulin Aspart (NovoLOG) BEFORE MEALS AND HS SUBQ 09/10/19 06:30 10/10/19 06:29 09/10/19 06:34 Assessment/Plan Problem List: (1) DM2 (diabetes mellitus, type 2) ICD Codes: E11.9 - Type 2 diabetes mellitus without complications SNOMED: 49147204 (2) Sepsis ICD Codes: A41.9 - Sepsis, unspecified organism SNOMED: 65276150, 38710080 Qualifiers: Qualified Codes: A41.9 - Sepsis, unspecified organism (3) UTI (urinary tract infection) ICD Codes: N39.0 - Urinary tract infection, site not specified SNOMED: 22063212, 20213671 Qualifiers: Qualified Codes: N30.00 - Acute cystitis without hematuria (4) Pneumonia ICD Codes: J18.9 - Pneumonia, unspecified organism SNOMED: 572776610 Assessment/Plan: 64 year old F w/ Hx HTN, DM2, GERD who presented to the ED w/ 7 days of progressively worse dry cough and lower abdominal pain found to have Sepsis w/ underling PNA and UTI. #Sepsis due to UTI #PNA #UTI, GNR on Cx - admit to in pt - ID consult - c/w empiric azithro/ceftriaxione for now - follow Cx's/sens #DM2 - insulin sliding scale #HTN - hold home bp med for now - prn hydral for sbp > 160 - pain control - supportive care FEN/PPx - encourage po intake - replace lytes as needed - DM/Cardiac diet - SCDs/HSQ BID, early ambulation FULL CODE The time of this note may not reflect the time of the clinical encounter Robert Erwin MD Sep 10, 2019 11:54
[2019-09-10 12:00] VITALS: BP 105/78
--- NOTE | 2019-09-10 12:00 | NUR ---
NURSE NOTES: T 103.0, rechecked 102.7. Left message to dr. White or covering physician.
--- NOTE | 2019-09-10 12:55 | Infectious Diseases Prog Note ---
Assessment/Plan Assessment/Plan Full consult to follow: A) sepsis uti ? pna fevers, leukocytosis P) zosyn and azithromycin check cultures, labs and chest x-ray thank you Subjective Allergies: Coded Allergies: No Known Allergies (Unverified , 08/03/17) Objective Vital Signs Last 24 Hour Vital Signs Date Time Temp Pulse Resp B/P (MAP) Pulse Ox O2 Delivery O2 Flow Rate FiO2 09/10/19 12:00 102.7 104 22 105/78 (87) 94 09/10/19 08:00 99.6 102 22 153/102 (119) 96 09/10/19 04:00 96.9 73 16 116/63 (80) 98 09/10/19 01:11 Nasal Cannula 2.0 09/10/19 00:25 99.2 98 24 115/56 99 Nasal Cannula 2.0 09/09/19 23:04 99.5 90 22 126/54 99 Nasal Cannula 2.0 09/09/19 22:00 99.5 09/09/19 22:00 101.1 09/09/19 21:13 98 15 Room Air 09/09/19 21:13 101.1 98 15 160/65 92 Room Air 09/09/19 20:47 101.1 108 16 105/55 (72) 90 Room Air Height (Feet): 5 Height (Inches): 3.00 Weight (Pounds): 153 Microbiology Date/Time Source Procedure Growth Status 09/09/19 22:01 Nasal Nares - Final Complete 09/09/19 22:01 Nasal Nares - Final Complete 09/09/19 21:13 Urine,Clean Catch Urine Culture - Preliminary Gram Negative Benedict Resulted Laboratory Tests Test 09/09/19 21:13 09/09/19 22:01 09/10/19 07:30 White Blood Count 17.4 K/UL (4.8-10.8) H 14.8 K/UL (4.8-10.8) H Red Blood Count 3.73 M/UL (4.20-5.40) L 3.76 M/UL (4.20-5.40) L Hemoglobin 11.1 G/DL (12.0-16.0) L 11.3 G/DL (12.0-16.0) L Hematocrit 32.9 % (37.0-47.0) L 33.7 % (37.0-47.0) L Mean Corpuscular Volume 88 FL (80-99) 90 FL (80-99) Mean Corpuscular Hemoglobin 29.8 PG (27.0-31.0) 30.2 PG (27.0-31.0) Mean Corpuscular Hemoglobin Concent 33.8 G/DL (32.0-36.0) 33.6 G/DL (32.0-36.0) Red Cell Distribution Width 11.8 % (11.6-14.8) 12.4 % (11.6-14.8) Platelet Count 322 K/UL (150-450) 308 K/UL (150-450) Mean Platelet Volume 7.5 FL (6.5-10.1) 7.6 FL (6.5-10.1) Neutrophils (%) (Auto) 84.3 % (45.0-75.0) H % (45.0-75.0) Lymphocytes (%) (Auto) 8.2 % (20.0-45.0) L % (20.0-45.0) Monocytes (%) (Auto) 6.5 % (1.0-10.0) % (1.0-10.0) Eosinophils (%) (Auto) 0.2 % (0.0-3.0) % (0.0-3.0) Basophils (%) (Auto) 0.7 % (0.0-2.0) % (0.0-2.0) Urine Color Pale yellow Urine Appearance Slightly cloudy Urine pH 5 (4.5-8.0) Urine Specific [place] 1.015 (1.005-1.035) Urine Protein 3+ (NEGATIVE) H Urine Glucose (UA) 2+ (NEGATIVE) H Urine Ketones Negative (NEGATIVE) Urine Blood 2+ (NEGATIVE) H Urine Nitrite Negative (NEGATIVE) Urine Bilirubin Negative (NEGATIVE) Urine Urobilinogen Normal MG/DL (0.0-1.0) Urine Leukocyte Esterase 2+ (NEGATIVE) H Urine RBC 0-2 /HPF (0 - 2) Urine WBC 40-60 /HPF (0 - 2) H Urine Squamous Epithelial Cells Few /LPF (NONE/OCC) Urine Bacteria Many /HPF (NONE) H Sodium Level 134 MMOL/L (136-145) L 138 MMOL/L (136-145) Potassium Level 4.4 MMOL/L (3.5-5.1) 4.5 MMOL/L (3.5-5.1) Chloride Level 99 MMOL/L (98-107) 105 MMOL/L (98-107) Carbon Dioxide Level 24 MMOL/L (21-32) 23 MMOL/L (21-32) Anion Gap 11 mmol/L (5-15) 10 mmol/L (5-15) Blood Urea Nitrogen 44 mg/dL (7-18) H 42 mg/dL (7-18) H Creatinine 1.3 MG/DL (0.55-1.30) 1.2 MG/DL (0.55-1.30) Estimat Glomerular Filtration Rate 41.4 mL/min (>60) 45.3 mL/min (>60) Glucose Level 264 MG/DL (74-106) H 271 MG/DL (74-106) H Calcium Level 8.8 MG/DL (8.5-10.1) 8.6 MG/DL (8.5-10.1) Total Bilirubin 0.5 MG/DL (0.2-1.0) Aspartate Amino Transf (AST/SGOT) 12 U/L (15-37) L Alanine Aminotransferase (ALT/SGPT) 16 U/L (12-78) Alkaline Phosphatase 102 U/L (46-116) Total Protein 8.5 G/DL (6.4-8.2) H Albumin 3.2 G/DL (3.4-5.0) L Globulin 5.3 g/dL Albumin/Globulin Ratio 0.6 (1.0-2.7) L Lipase 115 U/L (73-393) Lactic Acid Level 0.70 mmol/L (0.4-2.0) Differential Total Cells Counted 100 Neutrophils % (Manual) 89 % (45-75) H Lymphocytes % (Manual) 6 % (20-45) L Monocytes % (Manual) 5 % (1-10) Eosinophils % (Manual) 0 % (0-3) Basophils % (Manual) 0 % (0-2) Band Neutrophils 0 % (0-8) Platelet Estimate Adequate Platelet Morphology Normal Red Blood Cell Morphology Normal Current Medications Medications (Trade) Dose Ordered Sig/Silas Route PRN Reason Start Time Stop Time Status Last Admin Dose Admin Azithromycin 500 mg/Dextrose 275 ml @ 275 mls/hr Q24HRS IV 09/10/19 22:00 09/16/19 22:59 Ceftriaxone Sodium 1 gm/ Dextrose 55 ml @ 110 mls/hr Q24H IVPB 09/10/19 22:00 09/17/19 21:59 Dextrose (Dextrose 50%) 25 ml Q30M PRN IV Hypoglycemia 09/10/19 03:00 10/10/19 02:59 Dextrose (Dextrose 50%) 50 ml Q30M PRN IV Hypoglycemia 09/10/19 03:00 10/10/19 02:59 Heparin Sodium (Porcine) (Heparin 5000 units/ml) 5,000 units EVERY 12 HOURS SUBQ 09/10/19 09:00 10/10/19 08:59 09/10/19 08:43 Hydralazine HCl (Apresoline) 25 mg Q6H PRN ORAL Systolic > 160 09/10/19 03:00 10/10/19 02:59 Insulin Aspart (NovoLOG) BEFORE MEALS AND HS SUBQ 09/10/19 06:30 10/10/19 06:29 09/10/19 06:34 Willie Witt MD Sep 10, 2019 12:55
[2019-09-10 16:00] VITALS: BP 145/69
--- NOTE | 2019-09-10 19:45 | NUR ---
NURSE NOTES: received patient on bed, awake. kyrgyz speaking. no sob. on o2 cannula at 2 lpm. with iv line on the right ac.no pain or discomfort. bed locked and in lowest position.reiterated to call or ask for help or assistance. call light and light button within easy reach.will continue plan of care/
[2019-09-10 20:00] VITALS: BP 145/72
[2019-09-10] MEDS: Acetaminophen 500mg (ES) tab ORAL PRN (21:14)
[2019-09-10] MEDS ORDERED: cefTRIAXone 1 GM in D5W 55 ML IVPB SCH (22:00)
[2019-09-10] MEDS ORDERED: Azithromycin 500 MG in D5W 275 ML IV SCH (22:00)
[2019-09-11] VITALS: BP 110/55
[2019-09-11 04:00] VITALS: BP 128/62
[2019-09-11] MEDS: NovoLOG Insulin Flexpen SUBQ SCH ×4 (05:56→22:16)
[2019-09-11 06:25] LABS: BILIRUBIN, URINE NEGATIVE (NEGATIVE); COLOR,URINE PALE YELLOW; GLUCOSE, URINE (UA) 3+ (NEGATIVE); KETONES,URINE NEGATIVE (NEGATIVE); NITRITE,URINE NEGATIVE (NEGATIVE); PH,URINE 5 (4.5-8.0); PROTEIN,URINE 3+ (NEGATIVE); UROBILINOGEN,URINE NORMAL MG/DL (0.0-1.0)
[2019-09-11 06:37] LABS: APPEARANCE,URINE SLIGHTLY CLOUDY; LEUKOCYTE ESTERASE ,URINE 3+ (NEGATIVE)
--- NOTE | 2019-09-11 07:26 | NUR ---
HAND-OFF: Report given to lokesh galvan .
--- NOTE | 2019-09-11 07:53 | General Progress Note ---
Assessment/Plan Problem List: (1) Sepsis ICD Codes: A41.9 - Sepsis, unspecified organism SNOMED: 16355508, 74633603 Qualifiers: Qualified Codes: A41.9 - Sepsis, unspecified organism (2) UTI (urinary tract infection) ICD Codes: N39.0 - Urinary tract infection, site not specified SNOMED: 43190188, 85484172 Qualifiers: Qualified Codes: N30.00 - Acute cystitis without hematuria (3) Community acquired bacterial pneumonia ICD Codes: J15.9 - Unspecified bacterial pneumonia SNOMED: 880610435, 42459664 (4) Anemia, unspecified ICD Codes: D64.9 - Anemia, unspecified SNOMED: 783240126 Qualifiers: Qualified Codes: D64.9 - Anemia, unspecified (5) Hyperglycemia due to type 2 diabetes mellitus ICD Codes: E11.65 - Type 2 diabetes mellitus with hyperglycemia SNOMED: 532172218575215, 22839702 Qualifiers: Qualified Codes: E11.65 - Type 2 diabetes mellitus with hyperglycemia (6) Influenza-like symptoms ICD Codes: R68.89 - Other general symptoms and signs SNOMED: 712658428 Status: stable Assessment/Plan: 64 year old F w/ Hx HTN, DM2, GERD who presented to the ED w/ 7 days of progressively worse dry cough and lower abdominal pain found to have Sepsis w/ underling ?PNA and UTI. #Sepsis due to UTI #PNA vs fluid overload #UTI/pyelonephritis, ESBL e coli - ID consult - s/p empiric azithro/ceftriaxione, switched to Meropenem. - follow Cx's/sens #YENNI -Monitor renal fx, avoid nephrotoxic medications #DM2- uncontrolled - insulin sliding scale, add basal coverage #HTN - hold home bp med for now - prn hydral for sbp > 160 - pain control - supportive care FEN/PPx - encourage po intake - replace lytes as needed - DM/Cardiac diet - SCDs/HSQ BID, early ambulation FULL CODE The time of this note may not reflect the time of the clinical encounter Subjective Date patient seen: Sep 11, 2019 ROS Limited/Unobtainable: No Constitutional: Reports: fever, malaise, weakness HEENT: Denies: no symptoms, eye pain, blurred vision, tearing, double vision, ear pain, ear discharge, nose pain, nose congestion, throat pain, throat swelling, mouth pain, mouth swelling, other Cardiovascular: Denies: no symptoms, chest pain, edema, irregular heart rate, lightheadedness, palpitations, syncope, other Respiratory: Denies: no symptoms, cough, orthopnea, shortness of breath, SOB with excertion, SOB at rest, sputum, stridor, wheezing, other Gastrointestinal/Abdominal: Denies: no symptoms, abdomen distended, abdominal pain, black stools, tarry stools, blood in stool, constipated, diarrhea, difficulty swallowing, nausea, poor appetite, poor fluid intake, rectal bleeding , vomiting, other Genitourinary: Denies: no symptoms, burning, discharge, frequency, flank pain, hematuria, incontinence, pain, urgency, other Neurologic/Psychiatric: Denies: no symptoms, anxiety, depressed, emotional problems, headache, numbness, paresthesia, pre-existing deficit, seizure, tingling, tremors, weakness, other Endocrine: Denies: no symptoms, excessive sweating, flushing, intolerance to cold, intolerance to heat, increased hunger, increased thirst, increased urine, unexplained weight gain, unexplained weight loss, other Hematologic/Lymphatic: Denies: no symptoms, anemia, easy bleeding, easy bruising, other Allergies: Coded Allergies: No Known Allergies (Unverified , 08/03/17) Subjective following up for sepsis, esbl e.coli uti/pyelonephritis, leukocytosis, fevers.Feeling much better today. vital signs stable Objective Last 24 Hour Vital Signs Date Time Temp Pulse Resp B/P (MAP) Pulse Ox O2 Delivery O2 Flow Rate FiO2 09/11/19 04:00 97.3 79 18 128/62 (84) 98 09/11/19 00:00 98.7 93 18 110/55 (73) 98 09/10/19 21:00 Nasal Cannula 2.0 09/10/19 20:00 100.1 91 19 145/72 (96) 97 09/10/19 16:00 101.4 96 22 145/69 (94) 96 09/10/19 12:00 102.7 104 22 105/78 (87) 94 09/10/19 09:00 Nasal Cannula 2.0 09/10/19 08:00 99.6 102 22 153/102 (119) 96 Intake and Output 09/10/19 09/11/19 19:00 07:00 Intake Total 720 ml 735 ml Balance 720 ml 735 ml Intake Oral 720 ml 360 ml IV Total 375 ml # Voids 3 2 Laboratory Tests 09/11/19 04:40: Urine Color Pale yellow, Urine Appearance Slightly cloudy, Urine pH 5, Urine Specific [place] 1.015, Urine Protein 3+H, Urine Glucose (UA) 3+H, Urine Ketones Negative, Urine Blood 2+H, Urine Nitrite Negative, Urine Bilirubin Negative, Urine Urobilinogen Normal, Urine Leukocyte Esterase 3+H, Urine RBC 2- 4H, Urine WBC TntcH, Urine Squamous Epithelial Cells ModerateH, Urine Bacteria ManyH, Urine Coarse Granular Casts 0-2H Height (Feet): 5 Height (Inches): 3.00 Weight (Pounds): 153 Objective General Appearance: WD/WN, no apparent distress, lethargic, confused HEENT: normocephalic, atraumatic, anicteric, PERRL, EOMI, supple, no JVD Respiratory/Chest: lungs clear, normal breath sounds, no respiratory distress, no accessory muscle use Cardiovascular/Chest: normal peripheral pulses, normal rate, regular rhythm, regularly irregular Abdomen: normal bowel sounds, soft, tender - lower quadrant, no rebound Extremities: no edema, no cyanosis 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 Sep 11, 2019 07:53
[2019-09-11 08:00] VITALS: BP 123/60
[2019-09-11 08:25] LABS: BASOPHILS % (AUTO) 0.7 % (0.0-2.0); EOSINOPHILS % (AUTO) 1.5 % (0.0-3.0); HEMATOCRIT 27.9 % (37.0-47.0); HEMOGLOBIN 9.5 G/DL (12.0-16.0); LYMPHOCYTES % (AUTO) 9.9 % (20.0-45.0); MEAN CORPUSCULAR VOLUME 89 FL (80-99); MONOCYTES % (AUTO) 6.6 % (1.0-10.0); NEUTROPHILS % (AUTO) 81.4 % (45.0-75.0); PLATELET COUNT 260 K/UL (150-450); RED BLOOD COUNT 3.13 M/UL (4.20-5.40); RED CELL DISTRIBUTION WIDTH 12.1 % (11.6-14.8); WHITE BLOOD COUNT 9.9 K/UL (4.8-10.8)
[2019-09-11 08:35] LABS: ANION GAP 11 mmol/L (5-15); BLOOD UREA NITROGEN 35 mg/dL (7-18); CALCIUM 8.1 MG/DL (8.5-10.1); CARBON DIOXIDE 24 MMOL/L (21-32); CHLORIDE 100 MMOL/L (98-107); CREATININE 1.4 MG/DL (0.55-1.30); POTASSIUM 3.9 MMOL/L (3.5-5.1); SODIUM 134 MMOL/L (136-145)
[2019-09-11] MEDS: Heparin 5000 units/ml inj SUBQ SCH ×2 (08:53→22:15)
[2019-09-11] MEDS: Acetaminophen 500mg (ES) tab ORAL PRN ×2 (08:54→23:48)
--- NOTE | 2019-09-11 10:20 | NUR ---
*-* NO INSURANCE INFORMATION IN THE BAR UNABLE TO SEND CLINICALS OR REVIEWS *-*
[2019-09-11 12:00] VITALS: BP 140/71
--- NOTE | 2019-09-11 13:51 | Diagnostic Imaging Report ---
Indication: Dyspnea Comparison: 09/09/2019 A single view chest radiograph was obtained. Findings: Pulmonary vascular congestion demonstrated with cardiomegaly, cephalized pulmonary vessels. Lung volumes are low. IMPRESSION: Mild CHF
[2019-09-11 16:00] VITALS: BP 153/72
--- NOTE | 2019-09-11 17:02 | NUR ---
CASE MANAGEMENT: INITIAL REVIEW 64YR OLD FEMALE FROM HOME CC: ABD PAIN SI: SEPSIS . PNA . ANEMIA . UTI 101.1 108 16 105/55 90% ON 2L WBC 17.4 H/H 11.1/32.9 NA+134 BUN 44 BG 264 IS: IVF NS BOLUS X2 IV ROCEPHIN X1 IV AZITHROMYCIN X1 IV TORADOL X1 TYLENOL PO X1 CT ABD/PEL CHEST X-RAY \: 4E MED SURG UNIT CASE MANAGEMENT: REVIEW 09/10/2019 SI: SEPSIS . PNA . ANEMIA . UTI 102.7 104 22 105/78 94% ON 2L NS WBC 14.8 H/H 11.3/33.7 BUN 42 BG 271 IS: IV ZOSYN Q8HR IV AZITHROMYCIN Q24HR [id number] NOVOLOG SQ AC&HS HEPARIN SQ BID \: 4E MED SURG UNIT CASE MANAGEMENT: REVIEW 09/11/2019 SI: SEPSIS . PNA . ANEMIA . UTI . CHF 99.1 86 20 123/60 97% ON 2L NS NA+ 134 BUN 35 CREAT 1.4 BG 318 H/H 9.5/27.9 IS: NOVOLOG SQ AC&HS HEPARIN SQ BID CHEST XRAY \: 4E MED SURG UNIT
--- NOTE | 2019-09-11 18:25 | Infectious Diseases Prog Note ---
Assessment/Plan Assessment/Plan Full consult to follow: A) sepsis, esbl e.coli uti/pyelonephritis, gram neg bacteremia, gram neg sepsis, sirs, leukocytosis, fevers pmh noted allergies - nkda P) meropenem f/u on cultures d/w pharmacy thank you Subjective Allergies: Coded Allergies: No Known Allergies (Unverified , 08/03/17) Objective Vital Signs Last 24 Hour Vital Signs Date Time Temp Pulse Resp B/P (MAP) Pulse Ox O2 Delivery O2 Flow Rate FiO2 09/11/19 16:00 98.2 83 20 153/72 (99) 98 09/11/19 12:00 97.8 77 20 140/71 (94) 99 09/11/19 09:24 97.3 09/11/19 09:00 Nasal Cannula 2.0 09/11/19 08:00 99.1 86 20 123/60 (81) 97 09/11/19 04:00 97.3 79 18 128/62 (84) 98 09/11/19 00:00 98.7 93 18 110/55 (73) 98 09/10/19 21:00 Nasal Cannula 2.0 09/10/19 20:00 100.1 91 19 145/72 (96) 97 Height (Feet): 5 Height (Inches): 3.00 Weight (Pounds): 153 Microbiology Date/Time Source Procedure Growth Status 09/09/19 22:01 Blood Blood Culture - Preliminary Resulted 09/09/19 21:45 Blood Blood Culture - Preliminary Resulted 09/09/19 22:01 Nasal Nares - Final Complete 09/09/19 22:01 Nasal Nares - Final Complete 09/10/19 13:30 Urine,Clean Catch Urine Culture - Preliminary Gram Negative Bacillus 1 Resulted 09/09/19 21:13 Urine,Clean Catch Urine Culture - Final Escherichia Coli - Esbl Complete Laboratory Tests Test 09/11/19 04:40 09/11/19 07:30 Urine Color Pale yellow Urine Appearance Slightly cloudy Urine pH 5 (4.5-8.0) Urine Specific [place] 1.015 (1.005-1.035) Urine Protein 3+ (NEGATIVE) H Urine Glucose (UA) 3+ (NEGATIVE) H Urine Ketones Negative (NEGATIVE) Urine Blood 2+ (NEGATIVE) H Urine Nitrite Negative (NEGATIVE) Urine Bilirubin Negative (NEGATIVE) Urine Urobilinogen Normal MG/DL (0.0-1.0) Urine Leukocyte Esterase 3+ (NEGATIVE) H Urine RBC 2-4 /HPF (0 - 2) H Urine WBC Tntc /HPF (0 - 2) H Urine Squamous Epithelial Cells Moderate /LPF (NONE/OCC) H Urine Bacteria Many /HPF (NONE) H Urine Coarse Granular Casts 0-2 /LPF (NONE) H White Blood Count 9.9 K/UL (4.8-10.8) Red Blood Count 3.13 M/UL (4.20-5.40) L Hemoglobin 9.5 G/DL (12.0-16.0) L Hematocrit 27.9 % (37.0-47.0) L Mean Corpuscular Volume 89 FL (80-99) Mean Corpuscular Hemoglobin 30.4 PG (27.0-31.0) Mean Corpuscular Hemoglobin Concent 34.1 G/DL (32.0-36.0) Red Cell Distribution Width 12.1 % (11.6-14.8) Platelet Count 260 K/UL (150-450) Mean Platelet Volume 7.2 FL (6.5-10.1) Neutrophils (%) (Auto) 81.4 % (45.0-75.0) H Lymphocytes (%) (Auto) 9.9 % (20.0-45.0) L Monocytes (%) (Auto) 6.6 % (1.0-10.0) Eosinophils (%) (Auto) 1.5 % (0.0-3.0) Basophils (%) (Auto) 0.7 % (0.0-2.0) Sodium Level 134 MMOL/L (136-145) L Potassium Level 3.9 MMOL/L (3.5-5.1) Chloride Level 100 MMOL/L (98-107) Carbon Dioxide Level 24 MMOL/L (21-32) Anion Gap 11 mmol/L (5-15) Blood Urea Nitrogen 35 mg/dL (7-18) H Creatinine 1.4 MG/DL (0.55-1.30) H Estimat Glomerular Filtration Rate 38.0 mL/min (>60) Glucose Level 318 MG/DL (74-106) H Calcium Level 8.1 MG/DL (8.5-10.1) L Current Medications Medications (Trade) Dose Ordered Sig/Silas Route PRN Reason Start Time Stop Time Status Last Admin Dose Admin Acetaminophen (Tylenol) 1,000 mg Q8H PRN ORAL Mild Pain/Temp > 100.5 09/10/19 17:00 10/10/19 16:59 09/11/19 08:54 Dextrose (Dextrose 50%) 25 ml Q30M PRN IV Hypoglycemia 09/10/19 03:00 10/10/19 02:59 Dextrose (Dextrose 50%) 50 ml Q30M PRN IV Hypoglycemia 09/10/19 03:00 10/10/19 02:59 Heparin Sodium (Porcine) (Heparin 5000 units/ml) 5,000 units EVERY 12 HOURS SUBQ 09/10/19 09:00 10/10/19 08:59 09/11/19 08:53 Hydralazine HCl (Apresoline) 25 mg Q6H PRN ORAL Systolic > 160 09/10/19 03:00 10/10/19 02:59 Insulin Aspart (NovoLOG) BEFORE MEALS AND HS SUBQ 09/10/19 06:30 10/10/19 06:29 09/11/19 12:50 Meropenem 1 gm/ Sodium Chloride 55 ml @ 110 mls/hr Q12HR IVPB 09/11/19 21:00 09/16/19 20:59 Willie Witt MD Sep 11, 2019 18:25
--- NOTE | 2019-09-11 19:20 | NUR ---
NURSE NOTES: Received pt from CAROLA Little. SHERRIO x 4, on NC 2L. Latvian speaking. Pt is resting in bed. No acute distress noted at this time. Denies pain. IV intact and patent. Bed locked, lowest position, alarm on, side rails up, call light within reach. Will continue to monitor.
--- NOTE | 2019-09-11 19:51 | NUR ---
HAND-OFF: Report given to CAROLA Rolon.
[2019-09-11 20:00] VITALS: BP 143/80
--- NOTE | 2019-09-11 20:45 | Consultation ---
DATE OF CONSULTATION: 09/11/2019 INFECTIOUS DISEASE CONSULTATION CONSULTING PHYSICIAN: Willie Witt M.D. ATTENDING PHYSICIAN: Carson White M.D. REFERRING PHYSICIAN: Robert Erwin M.D. REASON FOR CONSULTATION: Sepsis, E. coli urinary tract infection, pyelonephritis, gram-negative bacteremia, gram-negative sepsis, fevers, and leukocytosis. CHIEF COMPLAINT: The patient's chief complaint coming in to the hospital is sepsis and possible pneumonia. HISTORY OF PRESENT ILLNESS: This is a very pleasant 64-year-old female who comes in to [facility] with diagnosis of possible pneumonia. However, chest x-ray shows mild congestive heart failure. The patient also had a CT scan of the abdomen and pelvis which showed hydroureteronephrosis. Workup shows the patient to have a significant positive urinalysis that had too many to count white blood cells and many bacteria. The patient was febrile of up to 102.7. In addition, the patient had a white count of 17.4. The patient clearly is septic. She also had gram-negative bacteremia likely from urinary tract infection pyelonephritis secondary to E. coli. She is positive for ESBL in the urine for the E. coli. Infectious Disease consultation is requested. I saw the patient yesterday and the patient was on Zosyn and azithromycin. At this time, I did communicate with pharmacy and placed the patient on meropenem and discontinued other antibiotics. REVIEW OF SYSTEMS: CONSTITUTIONAL: The patient is alert and responsive. In my limited communication, she says she feels better today. She did come in with fevers, but currently does not have any fever or chills. CARDIAC: No chest pain. GASTROINTESTINAL: No nausea, vomiting, or diarrhea. GENITOURINARY: No Faustin. No CVA tenderness. PULMONARY: No congestion or shortness of breath. SKIN: No rash. EXTREMITY: No pain. NEUROLOGIC: No seizures. PAST MEDICAL HISTORY: The patient's past medical history includes the following. The patient has a past medical history of diabetes type 2, history of hypertension, and history of GERD. No history of cancer or cardiac disease, diabetes, hypertension, and gastroesophageal reflux disease. MEDICATIONS: Upon reviewing the MAR, she is on the following medications. She is on meropenem. She is on acetaminophen, heparin, insulin, and hydralazine. Outside medications were noted and reconciliated. ALLERGIES: No known drug allergies. SOCIAL HISTORY: Negative for smoking, alcohol, or drug abuse. FAMILY HISTORY: Noncontributory. PHYSICAL EXAMINATION: Currently temperature 98.2, pulse rate 83, respiratory rate 20, blood pressure 153/72, and saturation 98%. T-max is 102.7. Maximum heart rate was 108 and maximum respiratory rate was 24. GENERAL: Alert, responsive, in no distress. HEAD AND NECK: Oral exam, no thrush. Eye exam, no icterus. Normocephalic. Neck is supple. HEART: No gallop or murmur. ABDOMEN: Soft. Positive bowel sounds. Nontender. LUNGS: Clear bilaterally. No rhonchi or rales. Occasional crackles. SKIN: No rash. MUSCULOSKELETAL: No effusions. Legs without cellulitis. PERIPHERAL VASCULAR: No cyanosis. No CVA tenderness. LINE SITES: Without phlebitis. GENITOURINARY: No Faustin. NEUROLOGIC: Intact. Nonfocal. Alert and oriented. LABORATORY DATA: Creatinine is 1.4. White count 9.9 and hemoglobin 9.5. White count on admission was 17.4. LFTs were noted. CULTURES: Blood cultures gram-negative organisms in multiple bottles and gram-negative rods. Urine culture had ESBL E. coli sensitive to meropenem and intermediate to Zosyn. Urinalysis had too many to count white blood cells and many bacteria. IMAGING: Chest x-ray had mild congestive heart failure. CT scan of the abdomen and pelvis had no evidence of abscess, but did have right hydroureteronephrosis. ASSESSMENT AND PLAN: 1. The patient has gram-negative sepsis. She has sepsis, SIRS criteria. She has E. coli ESBL urinary tract infection with pyelonephritis, complicated urinary tract infection with gram-negative bacteremia and gram-negative sepsis. Continue meropenem for the ESBL E. UTI, pyelonephritis and gram-negative sepsis. Check cultures and laboratories. Chest x-ray with congestive heart failure. Continue meropenem for now. 2. Sepsis, SIRS criteria. 3. Elevated creatinine with acute kidney injury, likely secondary to sepsis. 4. Diabetes. 5. Hypertension. 6. Gastroesophageal reflux disease. 7. Blood sugar and blood pressure treatment primary care team. 8. No known allergies. 9. Social history is negative. 10. Family history is noncontributory. 11. MAR was noted. 12. Case was discussed with RN. 13. Case was discussed with pharmacy. Willie Witt M.D. DR: GUNNER JOB#: [id number] CC:
[2019-09-11] MEDS ORDERED: Meropenem 1gm in NS 55ml IVPB SCH (21:00)
[2019-09-11] MEDS ORDERED: Piperacillin/Tazobactam 3.375 GM in NS 110 ML IVPB SCH (22:00)
[2019-09-11] MEDS ORDERED: Azithromycin 500 MG in NS 275 ML IV SCH (22:00)
[2019-09-11] MEDS: Meropenem 2 GM in NS 110 ML IVPB SCH (22:14)
[2019-09-11] MEDS: Levemir Flexpen SUBQ SCH (22:17)
[2019-09-12] VITALS: BP 122/56
[2019-09-12 04:00] VITALS: BP 128/62
[2019-09-12] MEDS: NovoLOG Insulin Flexpen SUBQ SCH ×4 (05:41→20:21)
[2019-09-12 06:37] LABS: BASOPHILS % (AUTO) 0.7 % (0.0-2.0); EOSINOPHILS % (AUTO) 4.2 % (0.0-3.0); HEMATOCRIT 27.4 % (37.0-47.0); HEMOGLOBIN 9.5 G/DL (12.0-16.0); LYMPHOCYTES % (AUTO) 22.5 % (20.0-45.0); MEAN CORPUSCULAR VOLUME 88 FL (80-99); MONOCYTES % (AUTO) 8.7 % (1.0-10.0); NEUTROPHILS % (AUTO) 63.8 % (45.0-75.0); PLATELET COUNT 293 K/UL (150-450); RED CELL DISTRIBUTION WIDTH 11.5 % (11.6-14.8); WHITE BLOOD COUNT 7.1 K/UL (4.8-10.8)
--- NOTE | 2019-09-12 07:18 | NUR ---
HAND-OFF: Report given to CAROLA Watkins.
[2019-09-12 07:49] LABS: ALANINE AMINOTRANSFERASE 23 U/L (12-78); ALBUMIN 2.5 G/DL (3.4-5.0); ALBUMIN/GLOBULIN RATIO 0.5 (1.0-2.7); ALKALINE PHOSPHATASE 91 U/L (46-116); ANION GAP 11 mmol/L (5-15); ASPARTATE AMINO TRANSFERASE 18 U/L (15-37); BILIRUBIN,TOTAL 0.3 MG/DL (0.2-1.0); BLOOD UREA NITROGEN 27 mg/dL (7-18); CALCIUM 8.8 MG/DL (8.5-10.1); CARBON DIOXIDE 23 MMOL/L (21-32); CHLORIDE 104 MMOL/L (98-107); CREATININE 1.1 MG/DL (0.55-1.30); POTASSIUM 3.9 MMOL/L (3.5-5.1); SODIUM 138 MMOL/L (136-145)
--- NOTE | 2019-09-12 07:52 | NUR ---
NURSE NOTES: Received pt in bed, AAO x 4. Serbian speaking. On NC 2 L/min. IV on RAC 20g intact and patent, with SL. Bed in the lowest and locked. Call light within reach. Will continue to monitor.
[2019-09-12 08:00] VITALS: BP 119/68
[2019-09-12] MEDS: Meropenem 2 GM in NS 110 ML IVPB SCH ×2 (09:26→20:18)
[2019-09-12] MEDS: Heparin 5000 units/ml inj SUBQ SCH ×2 (09:27→20:19)
[2019-09-12] MEDS: Levemir Flexpen SUBQ SCH ×2 (09:28→20:20)
--- NOTE | 2019-09-12 10:57 | General Progress Note ---
Assessment/Plan Problem List: (1) Sepsis ICD Codes: A41.9 - Sepsis, unspecified organism SNOMED: 73010853, 99108566 Qualifiers: Qualified Codes: A41.9 - Sepsis, unspecified organism (2) UTI (urinary tract infection) ICD Codes: N39.0 - Urinary tract infection, site not specified SNOMED: 28793685, 40983396 Qualifiers: Qualified Codes: N30.00 - Acute cystitis without hematuria (3) Community acquired bacterial pneumonia ICD Codes: J15.9 - Unspecified bacterial pneumonia SNOMED: 279363404, 71090625 (4) Anemia, unspecified ICD Codes: D64.9 - Anemia, unspecified SNOMED: 199598671 Qualifiers: Qualified Codes: D64.9 - Anemia, unspecified (5) Hyperglycemia due to type 2 diabetes mellitus ICD Codes: E11.65 - Type 2 diabetes mellitus with hyperglycemia SNOMED: 689478168799801, 30376873 Qualifiers: Qualified Codes: E11.65 - Type 2 diabetes mellitus with hyperglycemia (6) Influenza-like symptoms ICD Codes: R68.89 - Other general symptoms and signs SNOMED: 876844919 Status: stable Assessment/Plan: 64 year old F w/ Hx HTN, DM2, GERD who presented to the ED w/ 7 days of progressively worse dry cough and lower abdominal pain found to have Sepsis w/ underling ?PNA and UTI. #Sepsis due to UTI #PNA vs fluid overload, bnp elevated #UTI/pyelonephritis, ESBL e coli, gram negative bacteremia - ID consult - s/p empiric azithro/ceftriaxione, switched to Meropenem. - follow Cx's/sens -2D echocardiogram #YENNI -Monitor renal fx, avoid nephrotoxic medications #DM2- uncontrolled, HbA1c 11.2 - insulin sliding scale, add basal coverage #HTN - hold home bp med for now - prn hydral for sbp > 160 - pain control - supportive care FEN/PPx - encourage po intake - replace lytes as needed - DM/Cardiac diet - SCDs/HSQ BID, early ambulation FULL CODE The time of this note may not reflect the time of the clinical encounter Subjective Date patient seen: Sep 12, 2019 Allergies: Coded Allergies: No Known Allergies (Unverified , 08/03/17) Subjective following up for sepsis, esbl e.coli uti/pyelonephritis, leukocytosis, fevers, gram negative bacteremia .Feeling much better today. vital signs stable Objective Last 24 Hour Vital Signs Date Time Temp Pulse Resp B/P (MAP) Pulse Ox O2 Delivery O2 Flow Rate FiO2 09/12/19 09:00 Nasal Cannula 2.0 09/12/19 08:00 98.1 79 19 119/68 (85) 97 09/12/19 04:00 98.0 94 17 128/62 (84) 97 09/12/19 00:18 98.9 09/12/19 00:00 100.8 90 18 122/56 (78) 97 09/11/19 21:00 Nasal Cannula 2.0 09/11/19 20:00 99.8 95 19 143/80 (101) 97 09/11/19 16:00 98.2 83 20 153/72 (99) 98 09/11/19 12:00 97.8 77 20 140/71 (94) 99 Intake and Output 09/11/19 09/12/19 19:00 07:00 Intake Total 775 ml 240 ml Balance 775 ml 240 ml Intake Oral 600 ml 240 ml IV Total 175 ml # Voids 3 4 Laboratory Tests 09/12/19 05:00: White Blood Count 7.1, Red Blood Count 3.10L, Hemoglobin 9.5L, Hematocrit 27.4L , Mean Corpuscular Volume 88, Mean Corpuscular Hemoglobin 30.5, Mean Corpuscular Hemoglobin Concent 34.5, Red Cell Distribution Width 11.5L, Platelet Count 293, Mean Platelet Volume 7.5, Neutrophils (%) (Auto) 63.8, Lymphocytes (%) (Auto) 22.5, Monocytes (%) (Auto) 8.7, Eosinophils (%) (Auto) 4.2H, Basophils (%) (Auto) 0.7, Sodium Level 138, Potassium Level 3.9, Chloride Level 104, Carbon Dioxide Level 23, Anion Gap 11, Blood Urea Nitrogen 27H, Creatinine 1.1, Estimat Glomerular Filtration Rate 50.2, Glucose Level 156#H, Hemoglobin A1c 11.2H, Calcium Level 8.8, Total Bilirubin 0.3, Aspartate Amino Transf (AST/SGOT) 18, Alanine Aminotransferase (ALT/SGPT) 23, Alkaline Phosphatase 91, Pro-B-Type Natriuretic Peptide 351H, Total Protein 7.9, Albumin 2.5L, Globulin 5.4, Albumin/Globulin Ratio 0.5L Height (Feet): 5 Height (Inches): 3.00 Weight (Pounds): 153 Objective General Appearance: WD/WN, no apparent distress, lethargic, confused HEENT: normocephalic, atraumatic, anicteric, PERRL, EOMI, supple, no JVD Respiratory/Chest: lungs clear, normal breath sounds, no respiratory distress, no accessory muscle use Cardiovascular/Chest: normal peripheral pulses, normal rate, regular rhythm, regularly irregular Abdomen: normal bowel sounds, soft, tender - lower quadrant, no rebound Extremities: no edema, no cyanosis Neurologic: cartographic engineer II-XII grossly normal, alert Chidi Lai M.D. Sep 12, 2019 10:57
[2019-09-12 12:00] VITALS: BP 120/70
--- NOTE | 2019-09-12 15:55 | NUR ---
CASE MANAGEMENT: REVIEW 09/12/2019 SI: SEPSIS . PNA . ANEMIA . UTI . CHF 100.8 90 18 122/56 97% ON 2L NC BNP 351 BUN 27 BG 156 H/H 9.5/27.4 IS: NOVOLOG SQ AC&HS HEPARIN SQ BID IV MEROPENEM BID \: 4E MED SURG UNIT PLAN: CONTROL FEVERS
[2019-09-12 16:00] VITALS: BP 167/78
--- NOTE | 2019-09-12 16:59 | NUR ---
*-* INSURANCE *-* ALL CLINICALS AND REVIEWS HAVE BEEN FAXED TO: [facility] PH#[phone] FAX#[phone] REVIEWS/CLINICALS [employer] PH#[phone] FAX#[phone] REVIEWS/CLINICALS
--- NOTE | 2019-09-12 19:00 | NUR ---
NURSE NOTES: Received pt from CAROLA Watkins. AAO x 4, on NC 2L. Chinese speaking. Pt is resting in bed. No acute distress noted at this time. Denies pain. IV intact and patent. Bed locked, lowest position, alarm on, side rails up, call light within reach. Will continue to monitor.
--- NOTE | 2019-09-12 19:15 | NUR ---
HAND-OFF: Report given to CAROLA Ramirez.
[2019-09-12 20:00] VITALS: BP 157/83
[2019-09-13] VITALS: BP 156/80
[2019-09-13 04:00] VITALS: BP 160/74
[2019-09-13] MEDS: NovoLOG Insulin Flexpen SUBQ SCH ×4 (05:23→21:45)
--- NOTE | 2019-09-13 07:21 | NUR ---
HAND-OFF: Report given to CAROLA Nguyen.
--- NOTE | 2019-09-13 07:25 | NUR ---
NURSE NOTES: Report received from Ashley SRIVASTAVA. Patient is currently awake and alert x 4 sitting at the edge of the bed eating breakfast. Patient is Tamaz[place] speaking only. Patient noted to have 20 baron IV noted in right ac. No fluids running at this time per MD orders. Bed locked and in lowest position. Call light within reach. Will continue to follow plan of care.
[2019-09-13 08:00] VITALS: BP 129/70
[2019-09-13] MEDS: Levemir Flexpen SUBQ SCH ×2 (08:50→21:50)
[2019-09-13] MEDS: Heparin 5000 units/ml inj SUBQ SCH ×2 (08:51→21:42)
--- NOTE | 2019-09-13 08:51 | NUR ---
NURSE NOTES: Chiara held due to blood glucose level of 85. held due to parameters to hold for blood glucose level of less than 100.
[2019-09-13] MEDS: Meropenem 2 GM in NS 110 ML IVPB SCH (09:47)
--- NOTE | 2019-09-13 10:17 | General Progress Note ---
Assessment/Plan Problem List: (1) Sepsis ICD Codes: A41.9 - Sepsis, unspecified organism SNOMED: 65208863, 13387069 Qualifiers: Qualified Codes: A41.9 - Sepsis, unspecified organism (2) UTI (urinary tract infection) ICD Codes: N39.0 - Urinary tract infection, site not specified SNOMED: 72442874, 01433522 Qualifiers: Qualified Codes: N30.00 - Acute cystitis without hematuria (3) Community acquired bacterial pneumonia ICD Codes: J15.9 - Unspecified bacterial pneumonia SNOMED: 741189118, 05498187 (4) Anemia, unspecified ICD Codes: D64.9 - Anemia, unspecified SNOMED: 013715745 Qualifiers: Qualified Codes: D64.9 - Anemia, unspecified (5) Hyperglycemia due to type 2 diabetes mellitus ICD Codes: E11.65 - Type 2 diabetes mellitus with hyperglycemia SNOMED: 564731708946526, 22463485 Qualifiers: Qualified Codes: E11.65 - Type 2 diabetes mellitus with hyperglycemia (6) Influenza-like symptoms ICD Codes: R68.89 - Other general symptoms and signs SNOMED: 173163307 Status: stable Assessment/Plan: 64 year old F w/ Hx HTN, DM2, GERD who presented to the ED w/ 7 days of progressively worse dry cough and lower abdominal pain found to have Sepsis w/ underling UTI. #Sepsis due to UTI #PNA vs fluid overload, bnp elevated, echo consistent with diastolic dysfunction #UTI/pyelonephritis, ESBL e coli, ESBL bacteremia - ID consult - s/p empiric azithro/ceftriaxione, switched to Meropenem. - follow Cx's/sens -2D echocardiogram--> Diastolic dysfunction #YENNI- resolving -Monitor renal fx, avoid nephrotoxic medications #DM2- uncontrolled, HbA1c 11.2 - insulin sliding scale, add basal coverage. says takes 10 units of insulin at night at home and says she is compliant. may need to increase coverage #HTN - resume home lisinopril - prn hydral for sbp > 160 - pain control - supportive care #constipation Magnesium citrate today FEN/PPx - encourage po intake - replace lytes as needed - DM/Cardiac diet - SCDs/HSQ BID, early ambulation FULL CODE The time of this note may not reflect the time of the clinical encounter Subjective Date patient seen: Sep 13, 2019 ROS Limited/Unobtainable: No Constitutional: Denies: no symptoms, chills, diaphoresis, fever, malaise, weakness, other HEENT: Denies: no symptoms, eye pain, blurred vision, tearing, double vision, ear pain, ear discharge, nose pain, nose congestion, throat pain, throat swelling, mouth pain, mouth swelling, other Cardiovascular: Denies: no symptoms, chest pain, edema, irregular heart rate, lightheadedness, palpitations, syncope, other Respiratory: Denies: no symptoms, cough, orthopnea, shortness of breath, SOB with excertion, SOB at rest, sputum, stridor, wheezing, other Gastrointestinal/Abdominal: Reports: constipated Genitourinary: Denies: no symptoms, burning, discharge, frequency, flank pain, hematuria, incontinence, pain, urgency, other Neurologic/Psychiatric: Denies: no symptoms, anxiety, depressed, emotional problems, headache, numbness, paresthesia, pre-existing deficit, seizure, tingling, tremors, weakness, other Endocrine: Denies: no symptoms, excessive sweating, flushing, intolerance to cold, intolerance to heat, increased hunger, increased thirst, increased urine, unexplained weight gain, unexplained weight loss, other Hematologic/Lymphatic: Denies: no symptoms, anemia, easy bleeding, easy bruising, other Allergies: Coded Allergies: No Known Allergies (Unverified , 08/03/17) Subjective following up for sepsis, esbl e.coli uti/pyelonephritis, Esbl bacteremia, leukocytosis, fevers.Feeling much better today. vital signs stable. glucose controlled. feels constipated. Objective Last 24 Hour Vital Signs Date Time Temp Pulse Resp B/P (MAP) Pulse Ox O2 Delivery O2 Flow Rate FiO2 09/13/19 04:12 160/74 09/13/19 04:00 98.2 82 23 160/74 (102) 98 09/13/19 00:00 98.2 81 23 156/80 (105) 97 09/12/19 20:00 98.2 89 22 157/83 (107) 99 09/12/19 19:47 Nasal Cannula 2.0 09/12/19 16:00 98.3 85 19 167/78 (107) 99 09/12/19 12:00 98.2 78 18 120/70 (87) 98 Intake and Output 09/12/19 09/13/19 19:00 07:00 # Voids 3 1 Height (Feet): 5 Height (Inches): 3.00 Weight (Pounds): 158 Objective General Appearance: WD/WN, no apparent distress, lethargic, confused HEENT: normocephalic, atraumatic, anicteric, PERRL, EOMI, supple, no JVD Respiratory/Chest: lungs clear, normal breath sounds, no respiratory distress, no accessory muscle use Cardiovascular/Chest: normal peripheral pulses, normal rate, regular rhythm, regularly irregular Abdomen: normal bowel sounds, soft, tender - lower quadrant, no rebound Extremities: no edema, no cyanosis Neurologic: photograph enlarger II-XII grossly normal, alert Chidi Lai M.D. Sep 13, 2019 10:17
[2019-09-13] MEDS: Aspirin EC 81mg tab ORAL SCH (10:41)
[2019-09-13] MEDS: Lisinopril 20mg tab ORAL SCH (10:41)
[2019-09-13 12:00] VITALS: BP 125/73
[2019-09-13] MEDS ORDERED: Magnesium Citrate Liq Btl ORAL SCH (14:00)
--- NOTE | 2019-09-13 14:17 | NUR ---
*-* INSURANCE *-* ALL CLINICALS AND REVIEWS HAVE BEEN FAXED TO: [facility] PH#[phone] FAX#[phone] REVIEWS/CLINICALS [employer] PH#[phone] FAX#[phone] REVIEWS/CLINICALS
--- NOTE | 2019-09-13 15:15 | NUR ---
CASE MANAGEMENT: REVIEW 09/13/2019 SI: SEPSIS . PNA . ANEMIA . UTI WITH PYELONEPHRITIS . CHF 98.4 88 18 125/73 98% ON 2L NC IS: IV MEROPENEM BID LOPID PO QD HYDRALAZINE PO Q6HR/PRN NOVOLOG SQ AC&HS HEPARIN SQ BID ASPIRIN PO QD \: 4E MED SURG UNIT PLAN: CONTROL FEVERS- BL CX DRAWN -PENDING UR CX(+) BLOOD CX (+)
[2019-09-13 16:00] VITALS: BP 128/72
--- NOTE | 2019-09-13 16:47 | Infectious Diseases Prog Note ---
Assessment/Plan Assessment/Plan ASSESSMENT AND PLAN: 1. esbl e.coli bacteremia, e.coli uti/pyelonephritis, sepsis, leukocytosis, fevers - meropenem - day # 3/10 abx - check surveillance blood cultures, monitor labs - clinically improved 2. Sepsis, SIRS criteria - fevers and leukocytosis improved, on abx for uti/ bacteremia as above 3. Elevated creatinine with acute kidney injury, likely secondary to sepsis. 4. Diabetes. 5. Hypertension. 6. Gastroesophageal reflux disease. 7. Blood sugar and blood pressure treatment primary care team. 8. No known allergies. 9. Social history is negative. 10. Family history is noncontributory. 11. MAR was noted. 12. Case was discussed with RN. 13. Case was discussed with pharmacy. Subjective Constitutional: Reports: fatigue; Denies: fever HEENT: Denies: congestion Respiratory: Denies: shortness of breath Cardiovascular: Denies: chest pain Gastrointestinal/Abdominal: Denies: nausea, vomiting, diarrhea Genitourinary: Reports: other - no ramirez Neurologic: Denies: headache Psychiatric: Denies: depression Skin: Denies: rash Hematologic: Denies: bleeding Musculoskeletal: Denies: pain Allergies: Coded Allergies: No Known Allergies (Unverified , 08/03/17) Objective Vital Signs Last 24 Hour Vital Signs Date Time Temp Pulse Resp B/P (MAP) Pulse Ox O2 Delivery O2 Flow Rate FiO2 09/13/19 12:00 98.4 88 18 125/73 (90) 98 09/13/19 10:41 129/70 09/13/19 09:00 Nasal Cannula 2.0 09/13/19 08:00 98.0 84 18 129/70 (89) 98 09/13/19 04:12 160/74 09/13/19 04:00 98.2 82 23 160/74 (102) 98 09/13/19 00:00 98.2 81 23 156/80 (105) 97 09/12/19 20:00 98.2 89 22 157/83 (107) 99 09/12/19 19:47 Nasal Cannula 2.0 Height (Feet): 5 Height (Inches): 3.00 Weight (Pounds): 158 General Appearance: no acute distress HEENT: normocephalic, atraumatic, anicteric, mucous membranes moist Respiratory/Chest: lungs clear, normal breath sounds, no respiratory distress, no accessory muscle use Cardiovascular: normal rate, regular rhythm, no gallop/murmur, no JVD Abdomen: normal bowel sounds, soft, non tender, no organomegaly, non distended Genitourinary: other - no ramirez Extremities: no cyanosis Skin: no rash 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 Mild right hydroureteronephrosis with no stones identified in the ureter. Correlate with recently passed stone versus ascending infectious process. 2. Bladder contains an air-fluid level. Correlate with recent instrumentation versus infectious process. 3. Hepatomegaly. Chest x-ray - 09/13/19 Procedure: XRAY Chest 1v Indication: Dyspnea Comparison: 09/09/2019 A single view chest radiograph was obtained. Findings: Pulmonary vascular congestion demonstrated with cardiomegaly, cephalized pulmonary vessels. Lung volumes are low. IMPRESSION: Mild CHF Microbiology Date/Time Source Procedure Growth Status 09/09/19 22:01 Blood Blood Culture - Final Escherichia Coli - Esbl Complete 09/09/19 22:01 Nasal Nares - Final Complete 09/09/19 22:01 Nasal Nares - Final Complete 09/11/19 04:40 Urine,Clean Catch Urine Culture - Final Gram Negative Bacillus 1 Complete Microbiology Date/Time Source Procedure Growth Status 09/11/19 04:40 Urine,Clean Catch Urine Culture - Final Gram Negative Bacillus 1 Complete Labs Test 09/11/19 04:40 09/11/19 07:30 09/12/19 05:00 Urine Color Pale yellow Urine Appearance Slightly cloudy Urine pH 5 (4.5-8.0) Urine Specific [place] 1.015 (1.005-1.035) Urine Protein 3+ (NEGATIVE) Urine Glucose (UA) 3+ (NEGATIVE) Urine Ketones Negative (NEGATIVE) Urine Blood 2+ (NEGATIVE) Urine Nitrite Negative (NEGATIVE) Urine Bilirubin Negative (NEGATIVE) Urine Urobilinogen Normal MG/DL (0.0-1.0) Urine Leukocyte Esterase 3+ (NEGATIVE) Urine RBC 2-4 /HPF (0 - 2) Urine WBC Tntc /HPF (0 - 2) Urine Squamous Epithelial Cells Moderate /LPF (NONE/OCC) Urine Bacteria Many /HPF (NONE) Urine Coarse Granular Casts 0-2 /LPF (NONE) White Blood Count 9.9 K/UL (4.8-10.8) 7.1 K/UL (4.8-10.8) Red Blood Count 3.13 M/UL (4.20-5.40) 3.10 M/UL (4.20-5.40) Hemoglobin 9.5 G/DL (12.0-16.0) 9.5 G/DL (12.0-16.0) Hematocrit 27.9 % (37.0-47.0) 27.4 % (37.0-47.0) Mean Corpuscular Volume 89 FL (80-99) 88 FL (80-99) Mean Corpuscular Hemoglobin 30.4 PG (27.0-31.0) 30.5 PG (27.0-31.0) Mean Corpuscular Hemoglobin Concent 34.1 G/DL (32.0-36.0) 34.5 G/DL (32.0-36.0) Red Cell Distribution Width 12.1 % (11.6-14.8) 11.5 % (11.6-14.8) Platelet Count 260 K/UL (150-450) 293 K/UL (150-450) Mean Platelet Volume 7.2 FL (6.5-10.1) 7.5 FL (6.5-10.1) Neutrophils (%) (Auto) 81.4 % (45.0-75.0) 63.8 % (45.0-75.0) Lymphocytes (%) (Auto) 9.9 % (20.0-45.0) 22.5 % (20.0-45.0) Monocytes (%) (Auto) 6.6 % (1.0-10.0) 8.7 % (1.0-10.0) Eosinophils (%) (Auto) 1.5 % (0.0-3.0) 4.2 % (0.0-3.0) Basophils (%) (Auto) 0.7 % (0.0-2.0) 0.7 % (0.0-2.0) Sodium Level 134 MMOL/L (136-145) 138 MMOL/L (136-145) Potassium Level 3.9 MMOL/L (3.5-5.1) 3.9 MMOL/L (3.5-5.1) Chloride Level 100 MMOL/L (98-107) 104 MMOL/L (98-107) Carbon Dioxide Level 24 MMOL/L (21-32) 23 MMOL/L (21-32) Anion Gap 11 mmol/L (5-15) 11 mmol/L (5-15) Blood Urea Nitrogen 35 mg/dL (7-18) 27 mg/dL (7-18) Creatinine 1.4 MG/DL (0.55-1.30) 1.1 MG/DL (0.55-1.30) Estimat Glomerular Filtration Rate 38.0 mL/min (>60) 50.2 mL/min (>60) Glucose Level 318 MG/DL (74-106) 156 MG/DL (74-106) Calcium Level 8.1 MG/DL (8.5-10.1) 8.8 MG/DL (8.5-10.1) Hemoglobin A1c 11.2 % (4.3-6.0) Total Bilirubin 0.3 MG/DL (0.2-1.0) Aspartate Amino Transf (AST/SGOT) 18 U/L (15-37) Alanine Aminotransferase (ALT/SGPT) 23 U/L (12-78) Alkaline Phosphatase 91 U/L (46-116) Pro-B-Type Natriuretic Peptide 351 pg/mL (0-125) Total Protein 7.9 G/DL (6.4-8.2) Albumin 2.5 G/DL (3.4-5.0) Globulin 5.4 g/dL Albumin/Globulin Ratio 0.5 (1.0-2.7) Current Medications Medications (Trade) Dose Ordered Sig/Silas Route PRN Reason Start Time Stop Time Status Last Admin Dose Admin Acetaminophen (Tylenol) 1,000 mg Q8H PRN ORAL Mild Pain/Temp > 100.5 09/10/19 17:00 10/10/19 16:59 09/11/19 23:48 Aspirin (Ecotrin) 81 mg DAILY ORAL 09/13/19 10:30 10/13/19 10:29 09/13/19 10:41 Dextrose (Dextrose 50%) 25 ml Q30M PRN IV Hypoglycemia 09/10/19 03:00 10/10/19 02:59 Dextrose (Dextrose 50%) 50 ml Q30M PRN IV Hypoglycemia 09/10/19 03:00 10/10/19 02:59 Gemfibrozil (Lopid) 600 mg DAILY ORAL 09/13/19 11:00 10/13/19 10:59 09/13/19 12:57 Heparin Sodium (Porcine) (Heparin 5000 units/ml) 5,000 units EVERY 12 HOURS SUBQ 09/10/19 09:00 10/10/19 08:59 09/13/19 08:51 Hydralazine HCl (Apresoline) 25 mg Q6H PRN ORAL Systolic > 160 09/10/19 03:00 10/10/19 02:59 09/13/19 04:12 Insulin Aspart (NovoLOG) BEFORE MEALS AND HS SUBQ 09/10/19 06:30 10/10/19 06:29 09/13/19 12:58 Insulin Detemir (Levemir) 14 units Q12HR SUBQ 09/11/19 21:00 10/11/19 20:59 09/12/19 20:20 Lisinopril (PriniviL) 20 mg DAILY ORAL 09/13/19 10:30 10/13/19 10:29 09/13/19 10:41 Magnesium Hydroxide (Mom) 30 ml DAILYPRN PRN ORAL Constipation 09/12/19 11:30 10/12/19 11:29 Meropenem 2 gm/ Sodium Chloride 110 ml @ 220 mls/hr Q12HR IVPB 09/11/19 21:00 09/16/19 20:59 09/13/19 09:47 Willie Witt MD Sep 13, 2019 16:47
[2019-09-13] MEDS: Meropenem 1gm in NS 55ml IVPB SCH (18:11)
--- NOTE | 2019-09-13 19:10 | NUR ---
HAND-OFF: Report given to Kiah SRIVASTAVA.
--- NOTE | 2019-09-13 19:25 | NUR ---
NURSE NOTES: Patient is in bed, awake and alert x4. On nasal cannula 2L with no signs of distress. IV intact and patent. Bed locked and in lowest position. Call light within reach. Will continue to follow plan of care.
[2019-09-13 20:00] VITALS: BP 151/72
[2019-09-14] VITALS: BP 135/68
[2019-09-14] MEDS: Meropenem 1gm in NS 55ml IVPB SCH ×3 (02:53→18:15)
[2019-09-14 04:00] VITALS: BP 142/71
[2019-09-14] MEDS: NovoLOG Insulin Flexpen SUBQ SCH ×4 (06:15→21:00)
[2019-09-14 07:47] LABS: BASOPHILS % (AUTO) 1.3 % (0.0-2.0); HEMATOCRIT 29.5 % (37.0-47.0); HEMOGLOBIN 10.2 G/DL (12.0-16.0); LYMPHOCYTES % (AUTO) 27.8 % (20.0-45.0); MEAN CORPUSCULAR VOLUME 87 FL (80-99); MONOCYTES % (AUTO) 11.7 % (1.0-10.0); NEUTROPHILS % (AUTO) 54.2 % (45.0-75.0); PLATELET COUNT 363 K/UL (150-450); RED BLOOD COUNT 3.38 M/UL (4.20-5.40); RED CELL DISTRIBUTION WIDTH 11.6 % (11.6-14.8); WHITE BLOOD COUNT 6.8 K/UL (4.8-10.8)
--- NOTE | 2019-09-14 07:50 | NUR ---
HAND-OFF: Report given to CAROLA Salomon.
[2019-09-14 08:00] VITALS: BP 151/70
[2019-09-14 08:01] LABS: ANION GAP 8 mmol/L (5-15); BLOOD UREA NITROGEN 28 mg/dL (7-18); CALCIUM 9.2 MG/DL (8.5-10.1); CARBON DIOXIDE 29 MMOL/L (21-32); CHLORIDE 104 MMOL/L (98-107); CREATININE 0.9 MG/DL (0.55-1.30); POTASSIUM 4.6 MMOL/L (3.5-5.1); SODIUM 141 MMOL/L (136-145)
[2019-09-14] MEDS: Acetaminophen 500mg (ES) tab ORAL PRN (09:10)
[2019-09-14] MEDS: Levemir Flexpen SUBQ SCH ×2 (09:14→20:53)
[2019-09-14] MEDS: Heparin 5000 units/ml inj SUBQ SCH ×2 (09:15→20:50)
[2019-09-14] MEDS: Aspirin EC 81mg tab ORAL SCH (09:16)
[2019-09-14] MEDS: Lisinopril 20mg tab ORAL SCH (09:16)
--- NOTE | 2019-09-14 10:38 | General Progress Note ---
Assessment/Plan Problem List: (1) Sepsis ICD Codes: A41.9 - Sepsis, unspecified organism SNOMED: 33723737, 20359478 Qualifiers: Qualified Codes: A41.9 - Sepsis, unspecified organism (2) UTI (urinary tract infection) ICD Codes: N39.0 - Urinary tract infection, site not specified SNOMED: 57563765, 01495317 Qualifiers: Qualified Codes: N30.00 - Acute cystitis without hematuria (3) Community acquired bacterial pneumonia ICD Codes: J15.9 - Unspecified bacterial pneumonia SNOMED: 944161892, 69162197 (4) Anemia, unspecified ICD Codes: D64.9 - Anemia, unspecified SNOMED: 148715467 Qualifiers: Qualified Codes: D64.9 - Anemia, unspecified (5) Hyperglycemia due to type 2 diabetes mellitus ICD Codes: E11.65 - Type 2 diabetes mellitus with hyperglycemia SNOMED: 335078437030129, 36564932 Qualifiers: Qualified Codes: E11.65 - Type 2 diabetes mellitus with hyperglycemia (6) Influenza-like symptoms ICD Codes: R68.89 - Other general symptoms and signs SNOMED: 706538850 Status: stable Assessment/Plan: 64 year old F w/ Hx HTN, DM2, GERD who presented to the ED w/ 7 days of progressively worse dry cough and lower abdominal pain found to have Sepsis w/ underling UTI. #Sepsis due to UTI #PNA vs fluid overload, bnp elevated, echo consistent with diastolic dysfunction #UTI/pyelonephritis, ESBL e coli, ESBL bacteremia - ID consult - s/p empiric azithro/ceftriaxione, switched to Meropenem. day /10 - follow Cx's/sens -2D echocardiogram--> Diastolic dysfunction #YENNI- resolving -Monitor renal fx, avoid nephrotoxic medications #DM2- uncontrolled, HbA1c 11.2 - insulin sliding scale, add basal coverage. says takes 10 units of insulin at night at home and says she is compliant. may need to increase coverage #HTN - resume home lisinopril - prn hydral for sbp > 160 - pain control - supportive care #constipation Magnesium citrate prn FEN/PPx - encourage po intake - replace lytes as needed - DM/Cardiac diet - SCDs/HSQ BID, early ambulation FULL CODE The time of this note may not reflect the time of the clinical encounter Subjective Date patient seen: Sep 14, 2019 ROS Limited/Unobtainable: No Constitutional: Denies: no symptoms, chills, diaphoresis, fever, malaise, weakness, other HEENT: Denies: no symptoms, eye pain, blurred vision, tearing, double vision, ear pain, ear discharge, nose pain, nose congestion, throat pain, throat swelling, mouth pain, mouth swelling, other Cardiovascular: Denies: no symptoms, chest pain, edema, irregular heart rate, lightheadedness, palpitations, syncope, other Respiratory: Denies: no symptoms, cough, orthopnea, shortness of breath, SOB with excertion, SOB at rest, sputum, stridor, wheezing, other Gastrointestinal/Abdominal: Denies: no symptoms, abdomen distended, abdominal pain, black stools, tarry stools, blood in stool, constipated, diarrhea, difficulty swallowing, nausea, poor appetite, poor fluid intake, rectal bleeding , vomiting, other Genitourinary: Denies: no symptoms, burning, discharge, frequency, flank pain, hematuria, incontinence, pain, urgency, other Neurologic/Psychiatric: Denies: no symptoms, anxiety, depressed, emotional problems, headache, numbness, paresthesia, pre-existing deficit, seizure, tingling, tremors, weakness, other Endocrine: Denies: no symptoms, excessive sweating, flushing, intolerance to cold, intolerance to heat, increased hunger, increased thirst, increased urine, unexplained weight gain, unexplained weight loss, other Hematologic/Lymphatic: Denies: no symptoms, anemia, easy bleeding, easy bruising, other Allergies: Coded Allergies: No Known Allergies (Unverified , 08/03/17) Subjective following up for sepsis, esbl e.coli uti/pyelonephritis, Esbl bacteremia, leukocytosis, fevers.Feeling much better today. vital signs stable. glucose controlled. Objective Last 24 Hour Vital Signs Date Time Temp Pulse Resp B/P (MAP) Pulse Ox O2 Delivery O2 Flow Rate FiO2 09/14/19 09:40 98.1 09/14/19 09:16 151/70 09/14/19 08:00 98.1 82 18 151/70 (97) 98 09/14/19 04:00 98.0 82 20 142/71 (94) 98 09/14/19 00:00 98.0 80 20 135/68 (90) 94 09/13/19 20:00 99.2 84 18 151/72 (98) 95 09/13/19 18:41 Nasal Cannula 2.0 09/13/19 16:00 98.4 80 19 128/72 (90) 98 09/13/19 12:00 98.4 88 18 125/73 (90) 98 09/13/19 10:41 129/70 Intake and Output 09/13/19 09/14/19 19:00 07:00 Intake Total 220 ml 350 ml Balance 220 ml 350 ml Intake Oral 240 ml IV Total 220 ml 110 ml # Voids 5 5 # Bowel Movements 1 Laboratory Tests 09/14/19 06:46: White Blood Count 6.8, Red Blood Count 3.38L, Hemoglobin 10.2L, Hematocrit 29.5L , Mean Corpuscular Volume 87, Mean Corpuscular Hemoglobin 30.1, Mean Corpuscular Hemoglobin Concent 34.5, Red Cell Distribution Width 11.6, Platelet Count 363, Mean Platelet Volume 6.6, Neutrophils (%) (Auto) 54.2, Lymphocytes (% ) (Auto) 27.8, Monocytes (%) (Auto) 11.7H, Eosinophils (%) (Auto) 5.0H, Basophils (%) (Auto) 1.3, Sodium Level 141, Potassium Level 4.6, Chloride Level 104, Carbon Dioxide Level 29, Anion Gap 8, Blood Urea Nitrogen 28H, Creatinine 0.9, Estimat Glomerular Filtration Rate > 60, Glucose Level 139H, Calcium Level 9.2 Height (Feet): 5 Height (Inches): 3.00 Weight (Pounds): 158 Objective General Appearance: WD/WN, no apparent distress, lethargic, confused HEENT: normocephalic, atraumatic, anicteric, PERRL, EOMI, supple, no JVD Respiratory/Chest: lungs clear, normal breath sounds, no respiratory distress, no accessory muscle use Cardiovascular/Chest: normal peripheral pulses, normal rate, regular rhythm, regularly irregular Abdomen: normal bowel sounds, soft, tender - lower quadrant, no rebound Extremities: no edema, no cyanosis 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 Sep 14, 2019 10:38
[2019-09-14 12:00] VITALS: BP 144/71
--- NOTE | 2019-09-14 13:19 | NUR ---
RD ASSESSMENT & RECOMMENDATIONS SEE CARE ACTIVITY FOR COMPLETE ASSESSMENT DAILY ESTIMATED NEEDS: Needs based on DM, sepsis 57kg abw 25-30 kcals/kg 3897-7132 total kcals 1-2 g protein/kg 57-114 g total protein 25-30 mL/kg 0834-8971 total fluid mLs NUTRITION DIAGNOSIS: Altered nutrition related lab values r/t diabetes as evidenced by A1C 11.2 (increased from 8.6 on 05/18/18), with elev Glu and POC, 3+ Uglu. CURRENT DIET: CCHO MED/ CARDIAC DIET RECOMMENDATIONS: CCHO LOW, LOW NA ADDITIONAL RECOMMENDATIONS: 1) Obtain standing weight as able 2) Diet edu when able 3) High protein/ 1 carb snacks BID in b/w meals .
--- NOTE | 2019-09-14 14:51 | NUR ---
CASE MANAGEMENT:REVIEW SI;SEPSIS. UTI. PNA. 98.0 82 20 151/70 94% ON 2L NC BUN 28 IS;MEROPENEM IV Q8 HRS ASA PO QD HEPARIN SUBQ Q12 HRS MED/SURG STATUS DCP; FROM HOME
[2019-09-14 16:00] VITALS: BP 158/73
[2019-09-14 20:00] VITALS: BP 148/75
--- NOTE | 2019-09-14 20:00 | NUR ---
NURSE NOTES: Received patient ambulating in room, awake and alert x4, dutch speaking. On nasal cannula 2L with no signs of distress. IV intact and patent. Bed locked and in lowest position. Call light within reach. Will monitor blood sugar closely.
--- NOTE | 2019-09-14 20:25 | NUR ---
HAND-OFF: Report given to CAROLA Braswell. Patient sitting up in bed, awake and alert, watching television, IV patent in left hand 22 gauge, IV abx running, no c/o pain, no SOB, Oxygen at 2 liters nasal cannula, bed in lowest position, call light within reach, in no apparent distress.
[2019-09-15] VITALS: BP 137/65
[2019-09-15] MEDS: Meropenem 1gm in NS 55ml IVPB SCH ×3 (01:16→18:54)
[2019-09-15 04:00] VITALS: BP 138/75
[2019-09-15] MEDS: NovoLOG Insulin Flexpen SUBQ SCH ×4 (06:06→21:01)
[2019-09-15 08:00] VITALS: BP 114/52
[2019-09-15] MEDS: Heparin 5000 units/ml inj SUBQ SCH ×2 (09:00→21:11)
[2019-09-15] MEDS: Aspirin EC 81mg tab ORAL SCH (09:18)
[2019-09-15] MEDS: Lisinopril 20mg tab ORAL SCH (09:18)
[2019-09-15] MEDS: Levemir Flexpen SUBQ SCH ×2 (09:19→21:02)
[2019-09-15 12:00] VITALS: BP 143/81
--- NOTE | 2019-09-15 12:18 | General Progress Note ---
Assessment/Plan Problem List: (1) Sepsis ICD Codes: A41.9 - Sepsis, unspecified organism SNOMED: 00293745, 15002423 Qualifiers: Qualified Codes: A41.9 - Sepsis, unspecified organism (2) UTI (urinary tract infection) ICD Codes: N39.0 - Urinary tract infection, site not specified SNOMED: 85472114, 32081422 Qualifiers: Qualified Codes: N30.00 - Acute cystitis without hematuria (3) Community acquired bacterial pneumonia ICD Codes: J15.9 - Unspecified bacterial pneumonia SNOMED: 537974846, 65276397 (4) Anemia, unspecified ICD Codes: D64.9 - Anemia, unspecified SNOMED: 043121384 Qualifiers: Qualified Codes: D64.9 - Anemia, unspecified (5) Hyperglycemia due to type 2 diabetes mellitus ICD Codes: E11.65 - Type 2 diabetes mellitus with hyperglycemia SNOMED: 236534045350394, 21981244 Qualifiers: Qualified Codes: E11.65 - Type 2 diabetes mellitus with hyperglycemia (6) Influenza-like symptoms ICD Codes: R68.89 - Other general symptoms and signs SNOMED: 851805518 Status: stable Assessment/Plan: 64 year old F w/ Hx HTN, DM2, GERD who presented to the ED w/ 7 days of progressively worse dry cough and lower abdominal pain found to have Sepsis w/ underling UTI. #Sepsis due to UTI #PNA vs fluid overload, bnp elevated, echo consistent with diastolic dysfunction #UTI/pyelonephritis, ESBL e coli, ESBL bacteremia - ID consult - s/p empiric azithro/ceftriaxione, switched to Meropenem. day 10 . Has to stay in house to receive Meropenem as ESBL - follow Cx's/sens -2D echocardiogram--> Diastolic dysfunction -Surveillance cultures are negative #YENNI- resolved -Monitor renal fx, avoid nephrotoxic medications #DM2- uncontrolled, HbA1c 11.2 - insulin sliding scale, add basal coverage. says takes 10 units of insulin at night at home and says she is compliant. may need to increase coverage #HTN - resume home lisinopril - prn hydral for sbp > 160 - pain control - supportive care #constipation Magnesium citrate prn FEN/PPx - encourage po intake - replace lytes as needed - DM/Cardiac diet - SCDs/HSQ BID, early ambulation FULL CODE The time of this note may not reflect the time of the clinical encounter Subjective Date patient seen: Sep 15, 2019 ROS Limited/Unobtainable: No Constitutional: Denies: no symptoms, chills, diaphoresis, fever, malaise, weakness, other HEENT: Denies: no symptoms, eye pain, blurred vision, tearing, double vision, ear pain, ear discharge, nose pain, nose congestion, throat pain, throat swelling, mouth pain, mouth swelling, other Cardiovascular: Denies: no symptoms, chest pain, edema, irregular heart rate, lightheadedness, palpitations, syncope, other Respiratory: Denies: no symptoms, cough, orthopnea, shortness of breath, SOB with excertion, SOB at rest, sputum, stridor, wheezing, other Gastrointestinal/Abdominal: Denies: no symptoms, abdomen distended, abdominal pain, black stools, tarry stools, blood in stool, constipated, diarrhea, difficulty swallowing, nausea, poor appetite, poor fluid intake, rectal bleeding , vomiting, other Genitourinary: Denies: no symptoms, burning, discharge, frequency, flank pain, hematuria, incontinence, pain, urgency, other Neurologic/Psychiatric: Denies: no symptoms, anxiety, depressed, emotional problems, headache, numbness, paresthesia, pre-existing deficit, seizure, tingling, tremors, weakness, other Endocrine: Denies: no symptoms, excessive sweating, flushing, intolerance to cold, intolerance to heat, increased hunger, increased thirst, increased urine, unexplained weight gain, unexplained weight loss, other Hematologic/Lymphatic: Denies: no symptoms, anemia, easy bleeding, easy bruising, other Allergies: Coded Allergies: No Known Allergies (Unverified , 08/03/17) Subjective following up for sepsis, esbl e.coli uti/pyelonephritis, Esbl bacteremia, leukocytosis, fevers.Feeling much better today. vital signs stable. glucose controlled. Objective Last 24 Hour Vital Signs Date Time Temp Pulse Resp B/P (MAP) Pulse Ox O2 Delivery O2 Flow Rate FiO2 09/15/19 11:57 Nasal Cannula 2.0 Nasal Cannula 2.0 09/15/19 09:18 138/75 09/15/19 08:00 97.6 82 20 114/52 (72) 99 09/15/19 04:00 98.1 78 16 138/75 (96) 99 09/15/19 00:00 77 16 137/65 (89) 97 09/14/19 21:56 Nasal Cannula 2.0 Nasal Cannula 2.0 09/14/19 20:00 97.8 77 17 148/75 (99) 99 09/14/19 16:00 98.6 73 18 158/73 (101) 99 Intake and Output 09/14/19 09/15/19 19:00 07:00 Intake Total 910 ml Balance 910 ml Intake Oral 800 ml IV Total 110 ml # Voids 5 3 # Bowel Movements 1 1 Height (Feet): 5 Height (Inches): 3.00 Weight (Pounds): 158 Objective General Appearance: WD/WN, no apparent distress, lethargic, confused HEENT: normocephalic, atraumatic, anicteric, PERRL, EOMI, supple, no JVD Respiratory/Chest: lungs clear, normal breath sounds, no respiratory distress, no accessory muscle use Cardiovascular/Chest: normal peripheral pulses, normal rate, regular rhythm, regularly irregular Abdomen: normal bowel sounds, soft, tender - lower quadrant, no rebound Extremities: no edema, no cyanosis 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 Sep 15, 2019 12:18
--- NOTE | 2019-09-15 14:19 | NUR ---
CASE MANAGEMENT:REVIEW SI;SEPSIS. UTI. PNA. 98.1 82 20 143/81 95% ON RA H/H 10.2/29.5 BUN 28 IS;MEROPENEM IV Q8 HRS HEPARIN SUBQ Q12 HRS ASA PO QD MED SURG STATUS DCP; FROM HOME
--- NOTE | 2019-09-15 14:42 | NUR ---
HAND-OFF: Report given to CAROLA Love.
--- NOTE | 2019-09-15 14:54 | NUR ---
NURSE NOTES: Received report from CAROLA Braswell. Patient in bed, resting comfortably. No signs of distress. Will continue to monitor.
--- NOTE | 2019-09-15 15:30 | NUR ---
NURSE NOTES: Patient discharged to [facility] via [facility] unit [facility]. Gave report to RESPIRATORY CARE FACULTY Rhea Cheatham and Rhea Carlson. IV D/C'd and wristband removed.
[2019-09-15 16:00] VITALS: BP 151/74
--- NOTE | 2019-09-15 16:28 | NUR ---
*-* INSURANCE *-* ALL CLINICALS AND REVIEWS HAVE BEEN FAXED TO: [employer] PH#[phone] FAX#[phone] REVIEWS/CLINICALS [employer] PH#[phone] FAX#[phone] REVIEWS/CLINICALS
--- NOTE | 2019-09-15 19:59 | NUR ---
HAND-OFF: Report given to CAROLA Dupont.
[2019-09-15 20:00] VITALS: BP 147/71
--- NOTE | 2019-09-15 20:20 | Infectious Diseases Prog Note ---
Assessment/Plan Assessment/Plan ASSESSMENT AND PLAN: 1. esbl e.coli bacteremia, e.coli uti/pyelonephritis, sepsis, leukocytosis, fevers - meropenem - day # 5/10 abx - check surveillance blood cultures negative, monitor labs - clinically improved - d/w Dr. Lai 2. Sepsis, SIRS criteria - fevers and leukocytosis improved, on abx for uti/ bacteremia as above 3. Elevated creatinine with acute kidney injury, likely secondary to sepsis. 4. Diabetes. 5. Hypertension. 6. Gastroesophageal reflux disease. 7. Blood sugar and blood pressure treatment primary care team. 8. No known allergies. 9. Social history is negative. 10. Family history is noncontributory. 11. MAR was noted. 12. Case was discussed with RN. 13. Case was discussed with pharmacy. Subjective Constitutional: Reports: fatigue; Denies: fever HEENT: Denies: congestion Respiratory: Denies: shortness of breath Cardiovascular: Denies: chest pain Gastrointestinal/Abdominal: Denies: nausea, vomiting, diarrhea Genitourinary: Reports: other - no ramirez Neurologic: Denies: headache Psychiatric: Denies: depression Skin: Denies: rash Hematologic: Denies: bleeding Musculoskeletal: Denies: pain Allergies: Coded Allergies: No Known Allergies (Unverified , 08/03/17) Objective Vital Signs Last 24 Hour Vital Signs Date Time Temp Pulse Resp B/P (MAP) Pulse Ox O2 Delivery O2 Flow Rate FiO2 09/15/19 20:02 Nasal Cannula 2.0 Nasal Cannula 2.0 09/15/19 16:00 97.0 79 20 151/74 (99) 94 09/15/19 12:00 97.5 80 20 143/81 (101) 95 09/15/19 11:57 Nasal Cannula 2.0 Nasal Cannula 2.0 09/15/19 09:18 138/75 09/15/19 08:00 97.6 82 20 114/52 (72) 99 09/15/19 04:00 98.1 78 16 138/75 (96) 99 09/15/19 00:00 77 16 137/65 (89) 97 09/14/19 21:56 Nasal Cannula 2.0 Nasal Cannula 2.0 Height (Feet): 5 Height (Inches): 3.00 Weight (Pounds): 158 General Appearance: no acute distress HEENT: normocephalic, atraumatic, anicteric, mucous membranes moist Respiratory/Chest: lungs clear, normal breath sounds, no respiratory distress, no accessory muscle use Cardiovascular: normal rate, regular rhythm, no gallop/murmur, no JVD Abdomen: normal bowel sounds, soft, non tender, no organomegaly, non distended Genitourinary: other - no ramirez Extremities: no cyanosis Skin: no rash Neurologic/Psychiatric: health counselor II-XII grossly normal, alert, oriented x 3, responsive Lymphatic: no neck adenopathy Musculoskeletal: no effusion Objective CT abdomen and pelvis: IMPRESSION: 1. Mild right hydroureteronephrosis with no stones identified in the ureter. Correlate with recently passed stone versus ascending infectious process. 2. Bladder contains an air-fluid level. Correlate with recent instrumentation versus infectious process. 3. Hepatomegaly. Chest x-ray - 09/13/19 Procedure: XRAY Chest 1v Indication: Dyspnea Comparison: 09/09/2019 A single view chest radiograph was obtained. Findings: Pulmonary vascular congestion demonstrated with cardiomegaly, cephalized pulmonary vessels. Lung volumes are low. IMPRESSION: Mild CHF Microbiology Date/Time Source Procedure Growth Status 09/12/19 05:16 Blood Blood Culture - Preliminary NO GROWTH AFTER 48 HOURS Resulted 09/09/19 22:01 Nasal Nares - Final Complete 09/09/19 22:01 Nasal Nares - Final Complete 09/11/19 04:40 Urine,Clean Catch Urine Culture - Final Gram Negative Bacillus 1 Complete Microbiology Date/Time Source Procedure Growth Status 09/12/19 05:16 Blood Blood Culture - Preliminary NO GROWTH AFTER 48 HOURS Resulted 09/09/19 22:01 Nasal Nares - Final Complete 09/09/19 22:01 Nasal Nares - Final Complete 09/11/19 04:40 Urine,Clean Catch Urine Culture - Final Gram Negative Bacillus 1 Complete Labs Test 09/14/19 06:46 White Blood Count 6.8 K/UL (4.8-10.8) Red Blood Count 3.38 M/UL (4.20-5.40) Hemoglobin 10.2 G/DL (12.0-16.0) Hematocrit 29.5 % (37.0-47.0) Mean Corpuscular Volume 87 FL (80-99) Mean Corpuscular Hemoglobin 30.1 PG (27.0-31.0) Mean Corpuscular Hemoglobin Concent 34.5 G/DL (32.0-36.0) Red Cell Distribution Width 11.6 % (11.6-14.8) Platelet Count 363 K/UL (150-450) Mean Platelet Volume 6.6 FL (6.5-10.1) Neutrophils (%) (Auto) 54.2 % (45.0-75.0) Lymphocytes (%) (Auto) 27.8 % (20.0-45.0) Monocytes (%) (Auto) 11.7 % (1.0-10.0) Eosinophils (%) (Auto) 5.0 % (0.0-3.0) Basophils (%) (Auto) 1.3 % (0.0-2.0) Sodium Level 141 MMOL/L (136-145) Potassium Level 4.6 MMOL/L (3.5-5.1) Chloride Level 104 MMOL/L (98-107) Carbon Dioxide Level 29 MMOL/L (21-32) Anion Gap 8 mmol/L (5-15) Blood Urea Nitrogen 28 mg/dL (7-18) Creatinine 0.9 MG/DL (0.55-1.30) Estimat Glomerular Filtration Rate > 60 mL/min (>60) Glucose Level 139 MG/DL (74-106) Calcium Level 9.2 MG/DL (8.5-10.1) Current Medications Medications (Trade) Dose Ordered Sig/Silas Route PRN Reason Start Time Stop Time Status Last Admin Dose Admin Acetaminophen (Tylenol) 1,000 mg Q8H PRN ORAL Mild Pain/Temp > 100.5 09/10/19 17:00 10/10/19 16:59 09/14/19 09:10 Aspirin (Ecotrin) 81 mg DAILY ORAL 09/13/19 10:30 10/13/19 10:29 09/15/19 09:18 Dextrose (Dextrose 50%) 25 ml Q30M PRN IV Hypoglycemia 09/10/19 03:00 10/10/19 02:59 Dextrose (Dextrose 50%) 50 ml Q30M PRN IV Hypoglycemia 09/10/19 03:00 10/10/19 02:59 Gemfibrozil (Lopid) 600 mg DAILY ORAL 09/13/19 11:00 10/13/19 10:59 09/15/19 09:17 Heparin Sodium (Porcine) (Heparin 5000 units/ml) 5,000 units EVERY 12 HOURS SUBQ 09/10/19 09:00 10/10/19 08:59 09/14/19 09:15 Hydralazine HCl (Apresoline) 25 mg Q6H PRN ORAL Systolic > 160 09/10/19 03:00 10/10/19 02:59 09/13/19 04:12 Insulin Aspart (NovoLOG) BEFORE MEALS AND HS SUBQ 09/10/19 06:30 10/10/19 06:29 09/15/19 11:50 Insulin Detemir (Levemir) 14 units Q12HR SUBQ 09/11/19 21:00 10/11/19 20:59 09/15/19 09:19 Lisinopril (PriniviL) 20 mg DAILY ORAL 09/13/19 10:30 10/13/19 10:29 09/15/19 09:18 Magnesium Hydroxide (Mom) 30 ml DAILYPRN PRN ORAL Constipation 09/12/19 11:30 10/12/19 11:29 Meropenem 1 gm/ Sodium Chloride 55 ml @ 110 mls/hr Q8H IVPB 09/13/19 18:00 09/18/19 17:59 09/15/19 18:54 Willie Witt MD Sep 15, 2019 20:20
[2019-09-15] MEDS: Acetaminophen 500mg (ES) tab ORAL PRN (23:16)
[2019-09-16] VITALS: BP 147/66
[2019-09-16] MEDS: Meropenem 1gm in NS 55ml IVPB SCH ×3 (02:32→18:08)
[2019-09-16 04:00] VITALS: BP 145/70
[2019-09-16] MEDS: NovoLOG Insulin Flexpen SUBQ SCH ×4 (05:41→21:08)
[2019-09-16 06:56] LABS: BASOPHILS % (AUTO) 1.1 % (0.0-2.0); EOSINOPHILS % (AUTO) 5.2 % (0.0-3.0); HEMATOCRIT 28.9 % (37.0-47.0); HEMOGLOBIN 9.9 G/DL (12.0-16.0); MEAN CORPUSCULAR VOLUME 88 FL (80-99); MONOCYTES % (AUTO) 7.2 % (1.0-10.0); NEUTROPHILS % (AUTO) 55.5 % (45.0-75.0); PLATELET COUNT 432 K/UL (150-450); RED CELL DISTRIBUTION WIDTH 11.3 % (11.6-14.8); WHITE BLOOD COUNT 7.5 K/UL (4.8-10.8)
--- NOTE | 2019-09-16 07:15 | NUR ---
NURSE NOTES: Handoff received from CAROLA Dupont. Patient received awake and alert and able to make needs known. No acute signs of distress noted. Bed in the low and locked position with call light within reach, IV site is clean dry and intact, saline locked, will continue to monitor patient.
[2019-09-16 07:22] LABS: ANION GAP 9 mmol/L (5-15); BLOOD UREA NITROGEN 25 mg/dL (7-18); CALCIUM 9.1 MG/DL (8.5-10.1); CARBON DIOXIDE 30 MMOL/L (21-32); CHLORIDE 104 MMOL/L (98-107); CREATININE 0.9 MG/DL (0.55-1.30); POTASSIUM 4.1 MMOL/L (3.5-5.1); SODIUM 143 MMOL/L (136-145)
--- NOTE | 2019-09-16 07:23 | NUR ---
HAND-OFF: Report given to CAROLA Cox.
[2019-09-16 08:00] VITALS: BP 148/70
[2019-09-16] MEDS: Aspirin EC 81mg tab ORAL SCH (09:32)
[2019-09-16] MEDS: Lisinopril 20mg tab ORAL SCH (09:33)
[2019-09-16] MEDS: Heparin 5000 units/ml inj SUBQ SCH ×2 (09:34→21:07)
[2019-09-16] MEDS: Levemir Flexpen SUBQ SCH ×2 (09:34→21:08)
[2019-09-16 12:00] VITALS: BP 150/72
--- NOTE | 2019-09-16 15:26 | NUR ---
CASE MANAGEMENT: REVIEW SI: SEPSIS . UTI . ESBL E.COLI BACTEREMIA T 97.3 HR 71 RR 19 BP 150/72 SAT 97% NC/2L H/H 9.9/28.9 BUN 25 IS: MEROPENEM IV Q8/HR HEPARIN SUBQ Q12/HR ASA 81MG EC PO QD GEMFIBROZIL PO MED/SURG STATUS DCP: PATIENT IS FROM HOME
[2019-09-16 16:00] VITALS: BP 134/66
--- NOTE | 2019-09-16 19:25 | NUR ---
NURSE NOTES: Received pt from CAROLA Cox. AAO x 4, on room air, Eritrean speaking. IV site intact and patent. Denies pain or SOB. No acute distress noted. Bed locked, lowest position, alarm on, call light within reach. Will continue to monitor.
--- NOTE | 2019-09-16 19:28 | NUR ---
HAND-OFF: Report given to CAROLA Bledsoe. Addendum: 09/16/19 at 1936 by Kenny Marin RN Report given to CAROLA Ramirez Rakan
[2019-09-16 20:00] VITALS: BP 141/74
--- NOTE | 2019-09-16 20:43 | General Progress Note ---
Assessment/Plan Status: stable Assessment/Plan: 64 year old F w/ Hx HTN, DM2, GERD who presented to the ED w/ 7 days of progressively worse dry cough and lower abdominal pain found to have Sepsis w/ underling UTI. #Sepsis due to UTI #PNA vs fluid overload, bnp elevated, echo consistent with diastolic dysfunction #UTI/pyelonephritis, ESBL e coli, ESBL bacteremia - ID consult - s/p empiric azithro/ceftriaxione, switched to Meropenem. day 01/30 . Has to stay in house to receive Meropenem as ESBL - follow Cx's/sens -2D echocardiogram--> Diastolic dysfunction -Surveillance cultures are negative #YENNI- resolved -Monitor renal fx, avoid nephrotoxic medications #DM2- uncontrolled, HbA1c 11.2 - insulin sliding scale, add basal coverage. says takes 10 units of insulin at night at home and says she is compliant. may need to increase coverage #HTN - resume home lisinopril - prn hydral for sbp > 160 - pain control - supportive care #constipation Magnesium citrate prn FEN/PPx - encourage po intake - replace lytes as needed - DM/Cardiac diet - SCDs/HSQ BID, early ambulation FULL CODE 36 minutes spent on this case with more than 50% spent on care coordination and counseling The time of this note may not reflect the time of the clinical encounter and extra 40 minutes spent in review of records during hospitalization including labs, imaging, notes, ancillary data. Time of note may not reflect time of encounter Subjective Date patient seen: Sep 16, 2019 Allergies: Coded Allergies: No Known Allergies (Unverified , 08/03/17) Subjective Patient feels well, no nausea, vomiting, dysuria, urgency, frequency Objective Last 24 Hour Vital Signs Date Time Temp Pulse Resp B/P (MAP) Pulse Ox O2 Delivery O2 Flow Rate FiO2 09/16/19 16:00 97.5 76 18 134/66 (88) 98 09/16/19 12:00 98.0 71 19 150/72 (98) 97 09/16/19 09:33 148/70 09/16/19 09:00 Nasal Cannula 2.0 Nasal Cannula 2.0 09/16/19 08:00 98.1 78 20 148/70 (96) 98 09/16/19 04:00 97.3 78 20 145/70 (95) 98 09/16/19 00:00 98.0 74 20 147/66 (93) 95 Intake and Output 09/15/19 09/16/19 19:00 07:00 Intake Total 840 ml 600 ml Balance 840 ml 600 ml Intake Oral 840 ml 600 ml # Voids 3 3 # Bowel Movements 1 1 Laboratory Tests 09/16/19 06:10: White Blood Count 7.5, Red Blood Count 3.30L, Hemoglobin 9.9L, Hematocrit 28.9L , Mean Corpuscular Volume 88, Mean Corpuscular Hemoglobin 30.0, Mean Corpuscular Hemoglobin Concent 34.2, Red Cell Distribution Width 11.3L, Platelet Count 432, Mean Platelet Volume 6.3L, Neutrophils (%) (Auto) 55.5, Lymphocytes (%) (Auto) 31.0, Monocytes (%) (Auto) 7.2, Eosinophils (%) (Auto) 5.2H, Basophils (%) (Auto) 1.1, Sodium Level 143, Potassium Level 4.1, Chloride Level 104, Carbon Dioxide Level 30, Anion Gap 9, Blood Urea Nitrogen 25H, Creatinine 0.9, Estimat Glomerular Filtration Rate > 60, Glucose Level 101, Calcium Level 9.1 Height (Feet): 5 Height (Inches): 3.00 Weight (Pounds): 158 Objective GENERAL: No acute distress, appears comfortable, alert HEENT: NCAT, non-icteric eyes, pupils PERRLA Neck: No cervical lymphadenopathy, trachea midline CV: Regular rate and rhythm, no murmurs rubs or gallops RESP: Clear to auscultation bilaterally, no wheezes/rhonchi/crackles ABD: soft, non-distended, no TTP EXT: Normal muscle tone, +5/5 muscle strength NEURO: No obvious deficits, alert and oriented x3 Philly Mullins DO Sep 16, 2019 20:43
[2019-09-17] VITALS: BP 138/70
[2019-09-17] MEDS: Meropenem 1gm in NS 55ml IVPB SCH ×3 (01:05→17:36)
[2019-09-17 04:00] VITALS: BP 135/73
[2019-09-17] MEDS: NovoLOG Insulin Flexpen SUBQ SCH ×4 (05:54→20:59)
--- NOTE | 2019-09-17 07:35 | NUR ---
NURSE NOTES: Received report from CAROLA Ramirez. Patient A&Ox4, mostly Pashto speaking. On nasal cannula. No signs of distress or labored breathing. IV intact, patent, and saline locked. Bed in lowest position with call light in reach. Will continue with plan of care.
--- NOTE | 2019-09-17 07:40 | NUR ---
HAND-OFF: Report given to CAROLA Love.
[2019-09-17 08:00] VITALS: BP 130/68
[2019-09-17] MEDS: Levemir Flexpen SUBQ SCH ×2 (09:28→20:58)
[2019-09-17] MEDS: Aspirin EC 81mg tab ORAL SCH (09:32)
[2019-09-17] MEDS: Lisinopril 20mg tab ORAL SCH (09:33)
[2019-09-17] MEDS: Heparin 5000 units/ml inj SUBQ SCH ×2 (09:35→21:00)
[2019-09-17 12:00] VITALS: BP 140/74
--- NOTE | 2019-09-17 14:34 | Infectious Diseases Prog Note ---
Assessment/Plan Assessment/Plan ASSESSMENT AND PLAN: 1. esbl e.coli bacteremia, e.coli uti/pyelonephritis, sepsis, leukocytosis, fevers - meropenem - day # 7/10 abx - check surveillance blood cultures negative, monitor labs - clinically improved 2. Sepsis, SIRS criteria - fevers and leukocytosis improved, on abx for uti/ bacteremia as above 3. Elevated creatinine with acute kidney injury, likely secondary to sepsis. 4. Diabetes. 5. Hypertension. 6. Gastroesophageal reflux disease. 7. Blood sugar and blood pressure treatment primary care team. 8. No known allergies. 9. Social history is negative. 10. Family history is noncontributory. 11. MAR was noted. 12. Case was discussed with RN. 13. Case was discussed with pharmacy. Subjective Constitutional: Denies: fever HEENT: Denies: congestion Respiratory: Denies: shortness of breath Cardiovascular: Denies: chest pain Gastrointestinal/Abdominal: Denies: nausea, vomiting, diarrhea Genitourinary: Reports: other Neurologic: Denies: headache Skin: Denies: rash Hematologic: Denies: bleeding Musculoskeletal: Denies: pain Allergies: Coded Allergies: No Known Allergies (Unverified , 08/03/17) Objective Vital Signs Last 24 Hour Vital Signs Date Time Temp Pulse Resp B/P (MAP) Pulse Ox O2 Delivery O2 Flow Rate FiO2 09/17/19 12:00 98.1 77 20 140/74 (96) 98 09/17/19 09:33 130/68 09/17/19 09:00 Nasal Cannula 2.0 Nasal Cannula 2.0 09/17/19 08:00 97.9 77 18 130/68 (88) 95 09/17/19 04:00 97.9 74 20 135/73 (93) 97 09/17/19 00:00 98.0 79 20 138/70 (92) 98 09/16/19 21:00 Nasal Cannula 2.0 Nasal Cannula 2.0 09/16/19 20:00 98.1 74 18 141/74 (96) 92 09/16/19 16:00 97.5 76 18 134/66 (88) 98 Height (Feet): 5 Height (Inches): 3.00 Weight (Pounds): 158 General Appearance: no acute distress HEENT: normocephalic, atraumatic, anicteric, mucous membranes moist Respiratory/Chest: lungs clear, normal breath sounds, no respiratory distress, no accessory muscle use Cardiovascular: normal rate, regular rhythm, no gallop/murmur, no JVD Abdomen: normal bowel sounds, soft, non tender, no organomegaly, non distended Genitourinary: other - no ramirez Extremities: no cyanosis Skin: no rash Neurologic/Psychiatric: transmission mechanic II-XII grossly normal, alert, oriented x 3, responsive Lymphatic: no neck adenopathy Musculoskeletal: no effusion Objective CT abdomen and pelvis: IMPRESSION: 1. Mild right hydroureteronephrosis with no stones identified in the ureter. Correlate with recently passed stone versus ascending infectious process. 2. Bladder contains an air-fluid level. Correlate with recent instrumentation versus infectious process. 3. Hepatomegaly. Chest x-ray - 09/13/19 Procedure: XRAY Chest 1v Indication: Dyspnea Comparison: 09/09/2019 A single view chest radiograph was obtained. Findings: Pulmonary vascular congestion demonstrated with cardiomegaly, cephalized pulmonary vessels. Lung volumes are low. IMPRESSION: Mild CHF Microbiology Date/Time Source Procedure Growth Status 09/12/19 05:16 Blood Blood Culture - Final NO GROWTH AFTER 5 DAYS Complete 09/09/19 22:01 Nasal Nares - Final Complete 09/09/19 22:01 Nasal Nares - Final Complete 09/11/19 04:40 Urine,Clean Catch Urine Culture - Final Gram Negative Bacillus 1 Complete Labs Test 09/16/19 06:10 White Blood Count 7.5 K/UL (4.8-10.8) Red Blood Count 3.30 M/UL (4.20-5.40) Hemoglobin 9.9 G/DL (12.0-16.0) Hematocrit 28.9 % (37.0-47.0) Mean Corpuscular Volume 88 FL (80-99) Mean Corpuscular Hemoglobin 30.0 PG (27.0-31.0) Mean Corpuscular Hemoglobin Concent 34.2 G/DL (32.0-36.0) Red Cell Distribution Width 11.3 % (11.6-14.8) Platelet Count 432 K/UL (150-450) Mean Platelet Volume 6.3 FL (6.5-10.1) Neutrophils (%) (Auto) 55.5 % (45.0-75.0) Lymphocytes (%) (Auto) 31.0 % (20.0-45.0) Monocytes (%) (Auto) 7.2 % (1.0-10.0) Eosinophils (%) (Auto) 5.2 % (0.0-3.0) Basophils (%) (Auto) 1.1 % (0.0-2.0) Sodium Level 143 MMOL/L (136-145) Potassium Level 4.1 MMOL/L (3.5-5.1) Chloride Level 104 MMOL/L (98-107) Carbon Dioxide Level 30 MMOL/L (21-32) Anion Gap 9 mmol/L (5-15) Blood Urea Nitrogen 25 mg/dL (7-18) Creatinine 0.9 MG/DL (0.55-1.30) Estimat Glomerular Filtration Rate > 60 mL/min (>60) Glucose Level 101 MG/DL (74-106) Calcium Level 9.1 MG/DL (8.5-10.1) Current Medications Medications (Trade) Dose Ordered Sig/Silas Route PRN Reason Start Time Stop Time Status Last Admin Dose Admin Acetaminophen (Tylenol) 1,000 mg Q8H PRN ORAL Mild Pain/Temp > 100.5 09/10/19 17:00 10/10/19 16:59 09/15/19 23:16 Aspirin (Ecotrin) 81 mg DAILY ORAL 09/13/19 10:30 10/13/19 10:29 09/17/19 09:32 Dextrose (Dextrose 50%) 25 ml Q30M PRN IV Hypoglycemia 09/10/19 03:00 10/10/19 02:59 Dextrose (Dextrose 50%) 50 ml Q30M PRN IV Hypoglycemia 09/10/19 03:00 10/10/19 02:59 Gemfibrozil (Lopid) 600 mg DAILY ORAL 09/13/19 11:00 10/13/19 10:59 09/17/19 09:33 Heparin Sodium (Porcine) (Heparin 5000 units/ml) 5,000 units EVERY 12 HOURS SUBQ 09/10/19 09:00 10/10/19 08:59 09/17/19 09:35 Hydralazine HCl (Apresoline) 25 mg Q6H PRN ORAL Systolic > 160 09/10/19 03:00 10/10/19 02:59 09/13/19 04:12 Insulin Aspart (NovoLOG) BEFORE MEALS AND HS SUBQ 09/10/19 06:30 10/10/19 06:29 09/16/19 21:08 Insulin Detemir (Levemir) 14 units Q12HR SUBQ 09/11/19 21:00 10/11/19 20:59 09/17/19 09:28 Lisinopril (PriniviL) 20 mg DAILY ORAL 09/13/19 10:30 10/13/19 10:29 09/17/19 09:33 Magnesium Hydroxide (Mom) 30 ml DAILYPRN PRN ORAL Constipation 09/12/19 11:30 10/12/19 11:29 Meropenem 1 gm/ Sodium Chloride 55 ml @ 110 mls/hr Q8H IVPB 09/13/19 18:00 09/20/19 10:59 09/17/19 09:35 Willie Witt MD Sep 17, 2019 14:34
[2019-09-17 16:00] VITALS: BP 159/70
--- NOTE | 2019-09-17 19:20 | NUR ---
HAND-OFF: Report given to CAROLA Crocker.
--- NOTE | 2019-09-17 19:30 | NUR ---
NURSE NOTES: Patient awake sitting on chair, watching TV, alert and oriented x4, complained of being constipated. Will medicate as ordered. Instructed to use call light for assistance. Bed in lowest and lock engaged. Will continue to monitor.
[2019-09-17 20:00] VITALS: BP 129/59
[2019-09-17] MEDS: Milk of Magnesia 30ml Ud ORAL PRN (21:02)
[2019-09-17] MEDS ORDERED: Lactulose 10gm/15ml UDC ORAL PRN (23:00)
[2019-09-17] MEDS ORDERED: Fleet's Mineral Oil Enema RECTAL PRN (23:00)
--- NOTE | 2019-09-17 23:00 | General Progress Note ---
Assessment/Plan Status: stable Assessment/Plan: 64 year old F w/ Hx HTN, DM2, GERD who presented to the ED w/ 7 days of progressively worse dry cough and lower abdominal pain found to have Sepsis w/ underling UTI. #Sepsis due to UTI #PNA vs fluid overload, bnp elevated, echo consistent with diastolic dysfunction #UTI/pyelonephritis, ESBL e coli, ESBL bacteremia - ID consult - s/p empiric azithro/ceftriaxione, switched to Meropenem. day 01/30 . Has to stay in house to receive Meropenem as ESBL - follow Cx's/sens -2D echocardiogram--> Diastolic dysfunction -Surveillance cultures are negative #YENNI- resolved -Monitor renal fx, avoid nephrotoxic medications #DM2- uncontrolled, HbA1c 11.2 - insulin sliding scale, add basal coverage. says takes 10 units of insulin at night at home and says she is compliant. may need to increase coverage #HTN - resume home lisinopril - prn hydral for sbp > 160 - pain control - supportive care #constipation Magnesium citrate prn FEN/PPx - encourage po intake - replace lytes as needed - DM/Cardiac diet - SCDs/HSQ BID, early ambulation FULL CODE 36 minutes spent on this case with more than 50% spent on care coordination and counseling The time of this note may not reflect the time of the clinical encounter and extra 40 minutes spent in review of records during hospitalization including labs, imaging, notes, ancillary data. Time of note may not reflect time of encounter Subjective Date patient seen: Sep 17, 2019 Allergies: Coded Allergies: No Known Allergies (Unverified , 08/03/17) Subjective Patient feels well, no nausea, vomiting, dysuria, urgency, frequency c/o constipation, denies n/v/f/c Objective Last 24 Hour Vital Signs Date Time Temp Pulse Resp B/P (MAP) Pulse Ox O2 Delivery O2 Flow Rate FiO2 09/17/19 20:00 98.2 77 17 129/59 (82) 97 09/17/19 16:00 99.0 81 18 159/70 (99) 96 09/17/19 12:00 98.1 77 20 140/74 (96) 98 09/17/19 09:33 130/68 09/17/19 09:00 Nasal Cannula 2.0 Nasal Cannula 2.0 09/17/19 08:00 97.9 77 18 130/68 (88) 95 09/17/19 04:00 97.9 74 20 135/73 (93) 97 09/17/19 00:00 98.0 79 20 138/70 (92) 98 Intake and Output 09/16/19 09/17/19 19:00 07:00 # Voids 5 4 Height (Feet): 5 Height (Inches): 3.00 Weight (Pounds): 158 Objective GENERAL: No acute distress, appears comfortable, alert HEENT: NCAT, non-icteric eyes, pupils PERRLA Neck: No cervical lymphadenopathy, trachea midline CV: Regular rate and rhythm, no murmurs rubs or gallops RESP: Clear to auscultation bilaterally, no wheezes/rhonchi/crackles ABD: soft, non-distended, no TTP EXT: Normal muscle tone, +5/5 muscle strength NEURO: No obvious deficits, alert and oriented x3 Philly Mullins DO Sep 17, 2019 23:00
[2019-09-17] MEDS: Docusate 250mg cap ORAL SCH (23:33)
--- NOTE | 2019-09-17 23:40 | NUR ---
NURSE NOTES: Offered fleet enema as ordered but patient refused it at this time.
[2019-09-18] VITALS: BP 130/60
[2019-09-18] MEDS: Meropenem 1gm in NS 55ml IVPB SCH ×3 (01:17→17:27)
[2019-09-18 04:00] VITALS: BP 129/70
[2019-09-18] MEDS: NovoLOG Insulin Flexpen SUBQ SCH ×4 (06:04→21:46)
--- NOTE | 2019-09-18 07:39 | NUR ---
HAND-OFF: Report given to CAROLA Mackenzie.
--- NOTE | 2019-09-18 07:57 | NUR ---
NURSE NOTES: Patient alert x4, Faroese speaking; on Nasal Cannula 2 Liters, no sing of distress and shortness of breath; no sing of chest pain; IV Right For-Arm 22G flushes well; side rails up x2, breaks engaged, bed at lowest position; call light within reach; will keep [id number].
[2019-09-18 08:00] VITALS: BP 126/68
[2019-09-18 08:30] LABS: BASOPHILS % (AUTO) 1.6 % (0.0-2.0); EOSINOPHILS % (AUTO) 5.5 % (0.0-3.0); HEMOGLOBIN 10.2 G/DL (12.0-16.0); LYMPHOCYTES % (AUTO) 34.1 % (20.0-45.0); MEAN CORPUSCULAR VOLUME 88 FL (80-99); MONOCYTES % (AUTO) 7.4 % (1.0-10.0); NEUTROPHILS % (AUTO) 51.4 % (45.0-75.0); PLATELET COUNT 486 K/UL (150-450); RED BLOOD COUNT 3.39 M/UL (4.20-5.40); RED CELL DISTRIBUTION WIDTH 11.4 % (11.6-14.8); WHITE BLOOD COUNT 6.9 K/UL (4.8-10.8)
[2019-09-18 09:01] LABS: ALANINE AMINOTRANSFERASE 32 U/L (12-78); ALBUMIN 2.6 G/DL (3.4-5.0); ALBUMIN/GLOBULIN RATIO 0.5 (1.0-2.7); ALKALINE PHOSPHATASE 99 U/L (46-116); ANION GAP 2 mmol/L (5-15); ASPARTATE AMINO TRANSFERASE 24 U/L (15-37); BILIRUBIN,TOTAL 0.2 MG/DL (0.2-1.0); BLOOD UREA NITROGEN 28 mg/dL (7-18); CALCIUM 8.9 MG/DL (8.5-10.1); CARBON DIOXIDE 29 MMOL/L (21-32); CHLORIDE 105 MMOL/L (98-107); CREATININE 0.9 MG/DL (0.55-1.30); POTASSIUM 4.5 MMOL/L (3.5-5.1); SODIUM 136 MMOL/L (136-145)
[2019-09-18] MEDS: Lisinopril 20mg tab ORAL SCH (09:21)
[2019-09-18] MEDS: Sennosides 8.6mg tab ORAL SCH (09:21)
[2019-09-18] MEDS: Docusate 250mg cap ORAL SCH ×2 (09:21→17:26)
[2019-09-18] MEDS: Aspirin EC 81mg tab ORAL SCH (09:21)
[2019-09-18] MEDS: Levemir Flexpen SUBQ SCH ×2 (09:24→21:47)
[2019-09-18] MEDS: Heparin 5000 units/ml inj SUBQ SCH ×2 (09:24→21:45)
[2019-09-18 12:00] VITALS: BP 140/68
--- NOTE | 2019-09-18 15:53 | General Progress Note ---
Assessment/Plan Problem List: (1) Sepsis ICD Codes: A41.9 - Sepsis, unspecified organism SNOMED: 00422517, 71037462 Qualifiers: Qualified Codes: A41.9 - Sepsis, unspecified organism (2) UTI (urinary tract infection) ICD Codes: N39.0 - Urinary tract infection, site not specified SNOMED: 44681436, 29820379 Qualifiers: Qualified Codes: N30.00 - Acute cystitis without hematuria (3) Community acquired bacterial pneumonia ICD Codes: J15.9 - Unspecified bacterial pneumonia SNOMED: 229252505, 55501866 (4) Anemia, unspecified ICD Codes: D64.9 - Anemia, unspecified SNOMED: 814203555 Qualifiers: Qualified Codes: D64.9 - Anemia, unspecified (5) Hyperglycemia due to type 2 diabetes mellitus ICD Codes: E11.65 - Type 2 diabetes mellitus with hyperglycemia SNOMED: 264680981178029, 84644378 Qualifiers: Qualified Codes: E11.65 - Type 2 diabetes mellitus with hyperglycemia (6) Influenza-like symptoms ICD Codes: R68.89 - Other general symptoms and signs SNOMED: 431881579 Status: stable Assessment/Plan: 64 year old F w/ Hx HTN, DM2, GERD who presented to the ED w/ 7 days of progressively worse dry cough and lower abdominal pain found to have Sepsis w/ underling UTI. #Sepsis due to UTI #PNA vs fluid overload, bnp elevated, echo consistent with diastolic dysfunction #UTI/pyelonephritis, ESBL e coli, ESBL bacteremia - ID consult - s/p empiric azithro/ceftriaxione, switched to Meropenem. day 8/10 . Has to stay in house to receive Meropenem as ESBL - follow Cx's/sens -2D echocardiogram--> Diastolic dysfunction -Surveillance cultures are negative #YENNI- resolved -Monitor renal fx, avoid nephrotoxic medications #DM2- uncontrolled, HbA1c 11.2 - insulin sliding scale, add basal coverage. says takes 10 units of insulin at night at home and says she is compliant. may need to increase coverage #HTN - resume home lisinopril - prn hydral for sbp > 160 - pain control - supportive care #constipation Magnesium citrate prn FEN/PPx - encourage po intake - replace lytes as needed - DM/Cardiac diet - SCDs/HSQ BID, early ambulation she has to stay in the hospital to finish 10 days of meropenem , DC 09/20 FULL CODE The time of this note may not reflect the time of the clinical encounter Subjective Date patient seen: Sep 18, 2019 Allergies: Coded Allergies: No Known Allergies (Unverified , 08/03/17) Subjective following up for sepsis, esbl e.coli uti/pyelonephritis, Esbl bacteremia, leukocytosis, fevers.Feeling much better today. vital signs stable. glucose controlled. Objective Last 24 Hour Vital Signs Date Time Temp Pulse Resp B/P (MAP) Pulse Ox O2 Delivery O2 Flow Rate FiO2 09/18/19 12:00 98.0 75 20 140/68 (92) 97 09/18/19 09:21 126/68 09/18/19 09:00 Nasal Cannula 2.0 Nasal Cannula 2.0 09/18/19 08:00 98.1 81 18 126/68 (87) 98 09/18/19 04:00 98.0 80 17 129/70 (89) 99 09/18/19 00:00 98.3 78 17 130/60 (83) 98 09/17/19 21:00 Nasal Cannula 2.0 Nasal Cannula 2.0 09/17/19 21:00 Nasal Cannula 2.0 Nasal Cannula 2.0 09/17/19 20:00 98.2 77 17 129/59 (82) 97 09/17/19 16:00 99.0 81 18 159/70 (99) 96 Intake and Output 09/17/19 09/18/19 19:00 07:00 Intake Total 55 ml Balance 55 ml IV Total 55 ml # Voids 3 Laboratory Tests 09/18/19 08:00: White Blood Count 6.9, Red Blood Count 3.39L, Hemoglobin 10.2L, Hematocrit 30.0L , Mean Corpuscular Volume 88, Mean Corpuscular Hemoglobin 30.1, Mean Corpuscular Hemoglobin Concent 34.0, Red Cell Distribution Width 11.4L, Platelet Count 486H, Mean Platelet Volume 6.1L, Neutrophils (%) (Auto) 51.4, Lymphocytes (%) (Auto) 34.1, Monocytes (%) (Auto) 7.4, Eosinophils (%) (Auto) 5.5H, Basophils (%) (Auto) 1.6, Sodium Level 136, Potassium Level 4.5, Chloride Level 105, Carbon Dioxide Level 29, Anion Gap 2L, Blood Urea Nitrogen 28H, Creatinine 0.9, Estimat Glomerular Filtration Rate > 60, Glucose Level 131H, Calcium Level 8.9, Total Bilirubin 0.2, Aspartate Amino Transf (AST/SGOT) 24, Alanine Aminotransferase (ALT/SGPT) 32, Alkaline Phosphatase 99, Total Protein 8.1, Albumin 2.6L, Globulin 5.5, Albumin/Globulin Ratio 0.5L Height (Feet): 5 Height (Inches): 3.00 Weight (Pounds): 158 Objective General Appearance: WD/WN, no apparent distress, lethargic, confused HEENT: normocephalic, atraumatic, anicteric, PERRL, EOMI, supple, no JVD Respiratory/Chest: lungs clear, normal breath sounds, no respiratory distress, no accessory muscle use Cardiovascular/Chest: normal peripheral pulses, normal rate, regular rhythm, regularly irregular Abdomen: normal bowel sounds, soft, tender - lower quadrant, no rebound Extremities: no edema, no cyanosis Neurologic: global regulatory lead II-XII grossly normal, alert Chidi Lai M.D. Sep 18, 2019 15:53
[2019-09-18 16:00] VITALS: BP 138/79
--- NOTE | 2019-09-18 17:18 | NUR ---
CASE MANAGEMENT: REVIEW 09/17/2019 SI: SEPSIS . UTI . ESBL E.COLI BACTEREMIA 99.0 81 18 159/70 96% NC/2L IS: MEROPENEM IV Q8/HR HEPARIN SUBQ Q12/HR ASA 81MG EC PO QD GEMFIBROZIL PO SENOKOT PO QD MED/SURG STATUS DCP: PATIENT IS FROM HOME CASE MANAGEMENT: REVIEW 09/18/2019 SI: SEPSIS . UTI . ESBL E.COLI BACTEREMIA 98.3 78 18 130/60 98% NC/2L IS: MEROPENEM IV Q8/HR HEPARIN SUBQ Q12/HR ASA 81MG EC PO QD GEMFIBROZIL PO S[place]OT PO QD MED/SURG STATUS DCP: PATIENT IS FROM HOME PLAN: NEEDS IV ABX DC WED
[2019-09-18] MEDS: Acetaminophen 500mg (ES) tab ORAL PRN (17:42)
--- NOTE | 2019-09-18 19:02 | NUR ---
HAND-OFF: Report given to CAROLA Yen.
--- NOTE | 2019-09-18 19:30 | NUR ---
NURSE NOTES: Patient in bed, no SOB noted, still complained of no BM for days. Offered laxatives and enema as ordered. Patient was hesitating but will let RN know if she decides to take them. Call light and needs in reach.
[2019-09-18 20:00] VITALS: BP 128/63
[2019-09-18] MEDS: Milk of Magnesia 30ml Ud ORAL PRN (21:47)
[2019-09-19] VITALS: BP 125/68
[2019-09-19] MEDS: Meropenem 1gm in NS 55ml IVPB SCH ×3 (01:47→17:16)
--- NOTE | 2019-09-19 03:30 | NUR ---
HAND-OFF: Report given to CAROLA FARRIS.
[2019-09-19 04:08] VITALS: BP 130/66
[2019-09-19] MEDS: NovoLOG Insulin Flexpen SUBQ SCH ×4 (05:47→20:30)
--- NOTE | 2019-09-19 07:25 | NUR ---
HAND-OFF: Report given to Avril Trevizo RN.
--- NOTE | 2019-09-19 07:25 | NUR ---
NURSE NOTES: Patient awake, alert x4, Thai speaking; on Nasal Cannula 2 Liters, no sing of distress and shortness of breath; no sing of chest pain; IV Right For-Arm 22G flushes well; side rails up x2, breaks engaged, bed at lowest position; call light within reach; will keep monitoring.
[2019-09-19 08:00] VITALS: BP 140/62
[2019-09-19] MEDS: Sennosides 8.6mg tab ORAL SCH (09:11)
[2019-09-19] MEDS: Docusate 250mg cap ORAL SCH ×2 (09:11→17:16)
[2019-09-19] MEDS: Aspirin EC 81mg tab ORAL SCH (09:11)
[2019-09-19] MEDS: Lisinopril 20mg tab ORAL SCH (09:11)
[2019-09-19] MEDS: Heparin 5000 units/ml inj SUBQ SCH ×2 (09:12→20:29)
[2019-09-19] MEDS: Levemir Flexpen SUBQ SCH ×2 (09:13→20:31)
--- NOTE | 2019-09-19 11:07 | General Progress Note ---
Assessment/Plan Problem List: (1) Sepsis ICD Codes: A41.9 - Sepsis, unspecified organism SNOMED: 04813538, 91384865 Qualifiers: Qualified Codes: A41.9 - Sepsis, unspecified organism (2) UTI (urinary tract infection) ICD Codes: N39.0 - Urinary tract infection, site not specified SNOMED: 33436128, 39597211 Qualifiers: Qualified Codes: N30.00 - Acute cystitis without hematuria (3) Community acquired bacterial pneumonia ICD Codes: J15.9 - Unspecified bacterial pneumonia SNOMED: 687270553, 07904405 (4) Anemia, unspecified ICD Codes: D64.9 - Anemia, unspecified SNOMED: 306705877 Qualifiers: Qualified Codes: D64.9 - Anemia, unspecified (5) Hyperglycemia due to type 2 diabetes mellitus ICD Codes: E11.65 - Type 2 diabetes mellitus with hyperglycemia SNOMED: 907876478211895, 52256841 Qualifiers: Qualified Codes: E11.65 - Type 2 diabetes mellitus with hyperglycemia (6) Influenza-like symptoms ICD Codes: R68.89 - Other general symptoms and signs SNOMED: 417489783 Status: stable Assessment/Plan: 64 year old F w/ Hx HTN, DM2, GERD who presented to the ED w/ 7 days of progressively worse dry cough and lower abdominal pain found to have Sepsis w/ underling UTI. #Sepsis due to UTI #PNA vs fluid overload, bnp elevated, echo consistent with diastolic dysfunction #UTI/pyelonephritis, ESBL e coli, ESBL bacteremia - ID consult - s/p empiric azithro/ceftriaxione, switched to Meropenem. day 9/10 . Has to stay in house to receive Meropenem as ESBL - follow Cx's/sens -2D echocardiogram--> Diastolic dysfunction -Surveillance cultures are negative #YENNI- resolved -Monitor renal fx, avoid nephrotoxic medications #DM2- uncontrolled, HbA1c 11.2 - insulin sliding scale, add basal coverage. says takes 10 units of insulin at night at home and says she is compliant. may need to increase coverage #HTN - resume home lisinopril - prn hydral for sbp > 160 - pain control - supportive care #constipation Magnesium citrate prn FEN/PPx - encourage po intake - replace lytes as needed - DM/Cardiac diet - SCDs/HSQ BID, early ambulation she has to stay in the hospital to finish 10 days of meropenem , DC 09/20 FULL CODE The time of this note may not reflect the time of the clinical encounter Subjective Date patient seen: Sep 19, 2019 ROS Limited/Unobtainable: No Constitutional: Denies: no symptoms, chills, diaphoresis, fever, malaise, weakness, other HEENT: Denies: no symptoms, eye pain, blurred vision, tearing, double vision, ear pain, ear discharge, nose pain, nose congestion, throat pain, throat swelling, mouth pain, mouth swelling, other Cardiovascular: Denies: no symptoms, chest pain, edema, irregular heart rate, lightheadedness, palpitations, syncope, other Respiratory: Denies: no symptoms, cough, orthopnea, shortness of breath, SOB with excertion, SOB at rest, sputum, stridor, wheezing, other Gastrointestinal/Abdominal: Denies: no symptoms, abdomen distended, abdominal pain, black stools, tarry stools, blood in stool, constipated, diarrhea, difficulty swallowing, nausea, poor appetite, poor fluid intake, rectal bleeding , vomiting, other Genitourinary: Denies: no symptoms, burning, discharge, frequency, flank pain, hematuria, incontinence, pain, urgency, other Neurologic/Psychiatric: Denies: no symptoms, anxiety, depressed, emotional problems, headache, numbness, paresthesia, pre-existing deficit, seizure, tingling, tremors, weakness, other Endocrine: Denies: no symptoms, excessive sweating, flushing, intolerance to cold, intolerance to heat, increased hunger, increased thirst, increased urine, unexplained weight gain, unexplained weight loss, other Hematologic/Lymphatic: Denies: no symptoms, anemia, easy bleeding, easy bruising, other Allergies: Coded Allergies: No Known Allergies (Unverified , 08/03/17) Subjective following up for sepsis, esbl e.coli uti/pyelonephritis, Esbl bacteremia, leukocytosis, fevers. vital signs stable. glucose controlled. Objective Last 24 Hour Vital Signs Date Time Temp Pulse Resp B/P (MAP) Pulse Ox O2 Delivery O2 Flow Rate FiO2 09/19/19 09:11 140/62 09/19/19 09:00 Nasal Cannula 2.0 Nasal Cannula 2.0 09/19/19 08:00 97.9 77 18 140/62 (88) 94 09/19/19 04:08 98.4 75 18 130/66 (87) 95 09/19/19 00:00 98.0 69 20 125/68 (87) 95 09/18/19 21:00 Nasal Cannula 2.0 Nasal Cannula 2.0 09/18/19 20:00 98.2 78 19 128/63 (84) 95 09/18/19 18:12 98.5 09/18/19 16:00 98.5 82 20 138/79 (98) 98 09/18/19 12:00 98.0 75 20 140/68 (92) 97 Intake and Output 09/18/19 09/19/19 19:00 07:00 Intake Total 1420 ml 360 ml Balance 1420 ml 360 ml Intake Oral 1200 ml 360 ml IV Total 220 ml # Voids 8 4 # Bowel Movements 1 Height (Feet): 5 Height (Inches): 3.00 Weight (Pounds): 158 Objective General Appearance: WD/WN, no apparent distress, lethargic, confused HEENT: normocephalic, atraumatic, anicteric, PERRL, EOMI, supple, no JVD Respiratory/Chest: lungs clear, normal breath sounds, no respiratory distress, no accessory muscle use Cardiovascular/Chest: normal peripheral pulses, normal rate, regular rhythm, regularly irregular Abdomen: normal bowel sounds, soft, tender - lower quadrant, no rebound Extremities: no edema, no cyanosis 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 Sep 19, 2019 11:07
[2019-09-19 12:00] VITALS: BP 147/70
--- NOTE | 2019-09-19 14:23 | NUR ---
CASE MANAGEMENT:REVIEW SI;SEPSIS. UTI. 98.4 77 20 147/70 94% 2L NC LABS-NONE IS;MEROPENEM IV Q8 HRS HEPARIN SUBQ Q12 HRS ASA PO QD LACTULOSE PO TID MED SURG STATUS DCP; FROM HOME
[2019-09-19 16:00] VITALS: BP 143/73
--- NOTE | 2019-09-19 18:59 | NUR ---
HAND-OFF: Report given to CAROLA Easley.
--- NOTE | 2019-09-19 19:32 | NUR ---
NURSE NOTES: Received patient awake, alert, verbal, ambulatory, no SOB, sitting in a chair, comfortable.
--- NOTE | 2019-09-19 19:37 | Infectious Diseases Prog Note ---
Assessment/Plan Assessment/Plan ASSESSMENT AND PLAN: 1. esbl e.coli bacteremia, e.coli uti/pyelonephritis, sepsis, leukocytosis, fevers - meropenem - day # 9/10 abx - surveillance blood cultures negative, monitor labs - clinically improved 2. Sepsis, SIRS criteria - fevers and leukocytosis improved, on abx for uti/ bacteremia as above 3. Elevated creatinine with acute kidney injury, likely secondary to sepsis. 4. Diabetes. 5. Hypertension. 6. Gastroesophageal reflux disease. 7. Blood sugar and blood pressure treatment primary care team. 8. No known allergies. 9. Social history is negative. 10. Family history is noncontributory. 11. MAR was noted. 12. Case was discussed with RN. 13. Case was discussed with pharmacy. Subjective Constitutional: Denies: fever HEENT: Denies: congestion Respiratory: Denies: shortness of breath Cardiovascular: Denies: chest pain Gastrointestinal/Abdominal: Denies: nausea, vomiting, diarrhea Genitourinary: Reports: other - no ramirez Neurologic: Denies: headache Psychiatric: Denies: depression Skin: Denies: rash Hematologic: Denies: bleeding Musculoskeletal: Denies: pain Allergies: Coded Allergies: No Known Allergies (Unverified , 08/03/17) Objective Vital Signs Last 24 Hour Vital Signs Date Time Temp Pulse Resp B/P (MAP) Pulse Ox O2 Delivery O2 Flow Rate FiO2 09/19/19 16:00 97.7 77 17 143/73 (96) 96 09/19/19 12:00 97.7 75 20 147/70 (95) 96 09/19/19 09:11 140/62 09/19/19 09:00 Nasal Cannula 2.0 Nasal Cannula 2.0 09/19/19 08:00 97.9 77 18 140/62 (88) 94 09/19/19 04:08 98.4 75 18 130/66 (87) 95 09/19/19 00:00 98.0 69 20 125/68 (87) 95 09/18/19 21:00 Nasal Cannula 2.0 Nasal Cannula 2.0 09/18/19 20:00 98.2 78 19 128/63 (84) 95 Height (Feet): 5 Height (Inches): 3.00 Weight (Pounds): 158 General Appearance: no acute distress HEENT: normocephalic, atraumatic, anicteric Respiratory/Chest: lungs clear, normal breath sounds, no respiratory distress, no accessory muscle use Cardiovascular: normal rate, regular rhythm, no gallop/murmur, no JVD Abdomen: normal bowel sounds, soft, non tender, no organomegaly, non distended Genitourinary: other - no ramirez Extremities: no cyanosis Skin: no rash 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 Mild right hydroureteronephrosis with no stones identified in the ureter. Correlate with recently passed stone versus ascending infectious process. 2. Bladder contains an air-fluid level. Correlate with recent instrumentation versus infectious process. 3. Hepatomegaly. Chest x-ray - 09/13/19 Procedure: XRAY Chest 1v Indication: Dyspnea Comparison: 09/09/2019 A single view chest radiograph was obtained. Findings: Pulmonary vascular congestion demonstrated with cardiomegaly, cephalized pulmonary vessels. Lung volumes are low. IMPRESSION: Mild CHF Microbiology Date/Time Source Procedure Growth Status 09/12/19 05:16 Blood Blood Culture - Final NO GROWTH AFTER 5 DAYS Complete 09/09/19 22:01 Nasal Nares - Final Complete 09/09/19 22:01 Nasal Nares - Final Complete 09/11/19 04:40 Urine,Clean Catch Urine Culture - Final Gram Negative Bacillus 1 Complete Labs Test 09/18/19 08:00 White Blood Count 6.9 K/UL (4.8-10.8) Red Blood Count 3.39 M/UL (4.20-5.40) Hemoglobin 10.2 G/DL (12.0-16.0) Hematocrit 30.0 % (37.0-47.0) Mean Corpuscular Volume 88 FL (80-99) Mean Corpuscular Hemoglobin 30.1 PG (27.0-31.0) Mean Corpuscular Hemoglobin Concent 34.0 G/DL (32.0-36.0) Red Cell Distribution Width 11.4 % (11.6-14.8) Platelet Count 486 K/UL (150-450) Mean Platelet Volume 6.1 FL (6.5-10.1) Neutrophils (%) (Auto) 51.4 % (45.0-75.0) Lymphocytes (%) (Auto) 34.1 % (20.0-45.0) Monocytes (%) (Auto) 7.4 % (1.0-10.0) Eosinophils (%) (Auto) 5.5 % (0.0-3.0) Basophils (%) (Auto) 1.6 % (0.0-2.0) Sodium Level 136 MMOL/L (136-145) Potassium Level 4.5 MMOL/L (3.5-5.1) Chloride Level 105 MMOL/L (98-107) Carbon Dioxide Level 29 MMOL/L (21-32) Anion Gap 2 mmol/L (5-15) Blood Urea Nitrogen 28 mg/dL (7-18) Creatinine 0.9 MG/DL (0.55-1.30) Estimat Glomerular Filtration Rate > 60 mL/min (>60) Glucose Level 131 MG/DL (74-106) Calcium Level 8.9 MG/DL (8.5-10.1) Total Bilirubin 0.2 MG/DL (0.2-1.0) Aspartate Amino Transf (AST/SGOT) 24 U/L (15-37) Alanine Aminotransferase (ALT/SGPT) 32 U/L (12-78) Alkaline Phosphatase 99 U/L (46-116) Total Protein 8.1 G/DL (6.4-8.2) Albumin 2.6 G/DL (3.4-5.0) Globulin 5.5 g/dL Albumin/Globulin Ratio 0.5 (1.0-2.7) Current Medications Medications (Trade) Dose Ordered Sig/Silas Route PRN Reason Start Time Stop Time Status Last Admin Dose Admin Acetaminophen (Tylenol) 1,000 mg Q8H PRN ORAL Mild Pain/Temp > 100.5 09/10/19 17:00 10/10/19 16:59 09/18/19 17:42 Aspirin (Ecotrin) 81 mg DAILY ORAL 09/13/19 10:30 10/13/19 10:29 09/19/19 09:11 Dextrose (Dextrose 50%) 25 ml Q30M PRN IV Hypoglycemia 09/10/19 03:00 10/10/19 02:59 Dextrose (Dextrose 50%) 50 ml Q30M PRN IV Hypoglycemia 09/10/19 03:00 10/10/19 02:59 Docusate Sodium (Colace) 250 mg BID ORAL 09/17/19 23:00 10/17/19 22:59 09/19/19 17:16 Gemfibrozil (Lopid) 600 mg DAILY ORAL 09/13/19 11:00 10/13/19 10:59 09/19/19 09:11 Heparin Sodium (Porcine) (Heparin 5000 units/ml) 5,000 units EVERY 12 HOURS SUBQ 09/10/19 09:00 10/10/19 08:59 09/19/19 09:12 Hydralazine HCl (Apresoline) 25 mg Q6H PRN ORAL Systolic > 160 09/10/19 03:00 10/10/19 02:59 09/13/19 04:12 Insulin Aspart (NovoLOG) BEFORE MEALS AND HS SUBQ 09/10/19 06:30 10/10/19 06:29 09/19/19 11:30 Insulin Detemir (Levemir) 14 units Q12HR SUBQ 09/11/19 21:00 10/11/19 20:59 09/19/19 09:13 Lactulose (Cephulac) 10 gm THREE TIMES A DAY PRN ORAL constipation 09/17/19 23:00 10/17/19 22:59 Lisinopril (PriniviL) 20 mg DAILY ORAL 09/13/19 10:30 10/13/19 10:29 09/19/19 09:11 Magnesium Hydroxide (Mom) 30 ml DAILYPRN PRN ORAL Constipation 09/12/19 11:30 10/12/19 11:29 09/18/19 21:47 Meropenem 1 gm/ Sodium Chloride 55 ml @ 110 mls/hr Q8H IVPB 09/13/19 18:00 09/20/19 23:59 09/19/19 17:16 Mineral Oil (Fleet's Mineral Oil Enema) 133 ml DAILY PRN RECTAL constipation 09/17/19 23:00 10/17/19 22:59 Sennosides (Senokot) 8.6 mg DAILY ORAL 09/18/19 09:00 10/18/19 08:59 09/19/19 09:11 Willie Witt MD Sep 19, 2019 19:37
[2019-09-19 20:45] VITALS: BP 137/70
[2019-09-20 00:52] VITALS: BP 138/61
[2019-09-20] MEDS: Meropenem 1gm in NS 55ml IVPB SCH ×2 (01:56→09:00)
[2019-09-20 04:33] VITALS: BP 111/59
[2019-09-20] MEDS: NovoLOG Insulin Flexpen SUBQ SCH ×2 (05:56→12:05)
[2019-09-20 06:40] LABS: BASOPHILS % (AUTO) 1.7 % (0.0-2.0); EOSINOPHILS % (AUTO) 5.5 % (0.0-3.0); HEMOGLOBIN 10.7 G/DL (12.0-16.0); LYMPHOCYTES % (AUTO) 32.7 % (20.0-45.0); MEAN CORPUSCULAR VOLUME 88 FL (80-99); MONOCYTES % (AUTO) 7.3 % (1.0-10.0); NEUTROPHILS % (AUTO) 52.9 % (45.0-75.0); PLATELET COUNT 475 K/UL (150-450); RED BLOOD COUNT 3.62 M/UL (4.20-5.40); RED CELL DISTRIBUTION WIDTH 11.8 % (11.6-14.8); WHITE BLOOD COUNT 6.8 K/UL (4.8-10.8)
[2019-09-20 07:00] LABS: ANION GAP 8 mmol/L (5-15); BLOOD UREA NITROGEN 30 mg/dL (7-18); CARBON DIOXIDE 28 MMOL/L (21-32); CHLORIDE 105 MMOL/L (98-107); CREATININE 0.9 MG/DL (0.55-1.30); POTASSIUM 4.4 MMOL/L (3.5-5.1); SODIUM 141 MMOL/L (136-145)
--- NOTE | 2019-09-20 07:20 | NUR ---
HAND-OFF: Report given to Avril Trevizo RN.
--- NOTE | 2019-09-20 07:22 | NUR ---
NURSE NOTES: Patient awake, alert x4; Lao speaking; on room air, no sing of distress and shortness of breath; IV [id number] 22G flushes well; side rails up x2, breaks engaged, bed at lowest position; call light within reach; will keep monitoring blood sugar; will keep monitoring.
[2019-09-20 08:00] VITALS: BP 165/72
[2019-09-20] MEDS: Sennosides 8.6mg tab ORAL SCH (08:54)
[2019-09-20] MEDS: Lisinopril 20mg tab ORAL SCH (08:54)
[2019-09-20] MEDS: Docusate 250mg cap ORAL SCH (08:54)
[2019-09-20] MEDS: Aspirin EC 81mg tab ORAL SCH (08:54)
[2019-09-20] MEDS: Heparin 5000 units/ml inj SUBQ SCH (08:55)
[2019-09-20] MEDS: Levemir Flexpen SUBQ SCH (08:56)
--- NOTE | 2019-09-20 09:58 | Discharge Summary ---
Discharge Summary Hospital Course Date of Admission Sep 09, 2019 at 23:26 Date of Discharge 09/20/2019 Admitting Diagnosis SEPSIS, PNEUMONIA HPI Santa Hirsch is a 64 year old female who was admitted on Sep 09, 2019 at 23:26 for Sepsis,Pneumonia Consultations ID Hospital Course 64 year old F w/ Hx HTN, DM2, GERD who presented to the ED w/ 7 days of progressively worse dry cough and lower abdominal pain found to have Sepsis w/ underling UTI. #Sepsis due to UTI #PNA vs fluid overload, bnp elevated, echo consistent with diastolic dysfunction #UTI/pyelonephritis, ESBL e coli, ESBL bacteremia - ID consult - s/p empiric azithro/ceftriaxione, switched to Meropenem. day 06/01 . Has to stay in house to receive Meropenem as ESBL - follow Cx's/sens -2D echocardiogram--> Diastolic dysfunction -Surveillance cultures are negative #YENNI- resolved -Monitor renal fx, avoid nephrotoxic medications #DM2- uncontrolled, HbA1c 11.2 - insulin sliding scale, add basal coverage. says takes 10 units of insulin at night at home and says she is compliant. continue qhs insulin, resume home oral antidiabetics as below #HTN - resume home lisinopril - prn hydral for sbp > 160 - pain control - supportive care #constipation Magnesium citrate prn FEN/PPx - encourage po intake - replace lytes as needed - DM/Cardiac diet - SCDs/HSQ BID, early ambulation she has to stay in the hospital to finish 10 days of meropenem , DC 09/20 FULL CODE The time of this note may not reflect the time of the clinical encounter today she is well. alert and oriented x3. so excited for discharge Discharge Medications Continued Medications: Aspirin* (Aspir 81*) 81 Mg Tablet. 81 MG ORAL DAILY, TAB (This prescription has been renewed) Docusate Sodium* (Docusate Sodium*) 100 Mg Capsule 100 MG ORAL TWICE A DAY, CAP (This prescription has been renewed) Gemfibrozil (Gemfibrozil*) 600 Mg Tablet 600 MG ORAL for high cholesterol, TAB 0 Refills (This prescription has been renewed) Glipizide* (Glucotrol*) 10 Mg Tablet 10 MG ORAL DAILY, #10 TAB 0 Refills (This prescription has been renewed) Lisinopril (Lisinopril*) 20 Mg Tablet 20 MG ORAL DAILY, TAB (This prescription has been renewed) Loratadine (Loratadine) 10 Mg Tablet 10 MG PO DAILY, TAB (This prescription has been renewed) Metformin Hcl* (Metformin Hcl*) 1,000 Mg Tablet 1000 MG ORAL BID, TAB (This prescription has been renewed) Omeprazole (Omeprazole) 20 Mg Capsule.dr 20 MG ORAL DAILY, CAP (This prescription has been renewed) Sitagliptin* (Januvia*) 25 Mg Tablet 50 MG ORAL DAILY, TAB (This prescription has been renewed) Discharge Condition Upon Discharge: stable Discharge Disposition Patient was discharged to home Discharge Diagnoses: (1) Sepsis (2) UTI (urinary tract infection) (3) Bacteremia (4) Bacteremia due to Gram-negative bacteria (5) Diabetes mellitus out of control (6) Diabetic nephropathy (7) Diastolic CHF (8) ESBL (extended spectrum beta-lactamase) producing bacteria infection Chidi Lai M.D. Sep 20, 2019 09:58
[2019-09-20 12:00] VITALS: BP 126/70
--- NOTE | 2019-09-20 13:30 | NUR ---
NURSE NOTES: Patient discharged to home; left the floor accompanied by family member ambulating; IV access and name tag removed upon discharge; belonging list singed by discharging nurse and patient; printed package given to patient; patient teaching given regards of the medications patient gonna be taking, the side effects and when to seek for medical help. Patient is stable upon discharge.
--- NOTE | 2019-09-20 16:16 | NUR ---
*-* INSURANCE *-* ALL CLINICALS AND REVIEWS HAVE BEEN FAXED TO: [facility] PH#[phone] FAX#[phone] [facility]VIEWS[facility] [employer] PH#[phone] FAX#[phone] REVIEWS/CLINICALS
--- NOTE | 2019-09-21 16:47 | NUR ---
*-* INSURANCE *-* ALL CLINICALS AND REVIEWS HAVE BEEN FAXED TO: [facility] PH#[phone] FAX#[phone] [employer] [employer] PH#[phone] FAX#[phone] REVIEWS/CLINICALS
== END 2019-09-20 13:23 | disposition home or self-care (01) | DRG 871 ==
LOC: EMR 21:06 → 4E 23:26 → EDBEDREQ 23:55 → 4E 09-19 11:00
DX: A41.9 Sepsis, unspecified organism (principal); J18.9 Pneumonia, unspecified organism; N39.0 Urinary tract infection, site not specified; Z16.12 Extended spectrum beta lactamase (ESBL) resistance; N17.9 Acute kidney failure, unspecified; I50.30 Unspecified diastolic (congestive) heart failure; B96.29 Other Escherichia coli [E. coli] as the cause of diseases classified elsewhere; Z79.84 Long term (current) use of oral hypoglycemic drugs; Z79.82 Long term (current) use of aspirin; K21.9 Gastro-esophageal reflux disease without esophagitis; E11.65 Type 2 diabetes mellitus with hyperglycemia; K59.00 Constipation, unspecified
CPT/HCPCS: 36415; 71045; 74176; 80048; 80053; 81003; 82962; 83036; 83605; 83690; 83880; 85007; 85025; 86710; 87040; 87086; 87181; 93306; 96361; 96374; 99285; J1815; J7030; S5561

== ENCOUNTER 2020-07-07 17:58 | Inpatient (IN) | payer MEDICAID ==
[~2020-07-07] VITALS: Ht 154.9 cm; Wt 72.6 kg
[2020-07-07 18:15] VITALS: BP 186/76
--- NOTE | 2020-07-07 18:20 | Emergency Room Report ---
History of Present Illness General Chief Complaint: Vomiting Source: Patient Present Illness HPI Disclaimer: Please note that this report is being documented using DRAGON technology. This can lead to erroneous entry secondary to incorrect interpretation by the dictating instrument. HPI: 65-year-old female presents for evaluation abdominal pain. Symptoms began this morning. She reports sharp 10/10 nonradiating pain in the right lower quadrant and right lower back. No trauma reported. 3 hours ago she had nausea and vomiting. She also reported some loose stools. Denied hematuria or dysuria. Prior history of UTIs. Unknown history of kidney disease. Denies fever or chills. Reports intermittent cough but cannot say for how long. Denies wheezing. Unknown COVID-19 contacts. No recent testing. PMH: Hypertension, hyperlipidemia, obesity, diabetes PSH: Reviewed Allergies: Reviewed Social Hx: Reviewed Allergies: Coded Allergies: No Known Allergies (Unverified , 08/03/17) COVID-19 Screening Contact w/high risk pt: No Experienced COVID-19 symptoms?: No COVID-19 Testing performed OPHTHALMIC MEDICAL TECHNOLOGIST: No Nursing Documentation-PMH Past Medical History Deferred: No Family Available Past Medical History: No History, Except For Hx Hypertension: Yes Hx Diabetes: Yes Hx Cancer: No Hx Gastrointestinal Problems: No Hx Neurological Problems: No Review of Systems All Other Systems: negative except mentioned in HPI Physical Exam Vital Signs Date Time Temp Pulse Resp B/P (MAP) Pulse Ox O2 Delivery O2 Flow Rate FiO2 07/07/20 18:02 97.3 93 19 186/76 (112) 100 Room Air General: Awake and alert, appears uncomfortable HEENT: NC/AT. EOMI. Cardiovascular: Tachycardic S1 and S2 normal. No murmur appreciated Resp: Normal work of breathing. Intermittent cough Abdomen: Abdomen is soft, nondistended. Tender palpation right lower quadrant with mild guarding. Positive Rovsing sign. Negative rebound. Right-sided flank tenderness. Mild suprapubic tenderness. No tenderness in the upper quadrants. Negative Tipton's. Skin: Intact. No abrasions, laceration or rash over the exposed skin MSK: Normal tone and bulk. Moving all extremities. No obvious deformity. Neuro: Awake and alert. Mentating appropriately. Procedures Critical Care Time Critical Care Time Total critical care time: Approximately 45 minutes Due to a high probability of clinically significant, life threatening deterioration, the patient required the highest level of preparedness to intervene emergently and I personally spent this critical care time directly and personally managing the patient. This critical care time included obtaining a history, examining the patient, pulse oximetry, ordering and reviewing studies, ordering treatments, evaluating response to treatment and updating management plan as needed, frequent reassessment and discussion with other providers as well as arranging for ultimate disposition. This critical to care time was performed to assess and manage the high probability of life-threatening deterioration that could result in multiorgan failure. This critical care time is separate from the separately billable procedures and treating other patients. Medical Decision Making Diagnostic Impression: Primary Impression: Pneumonia Additional Impressions: Hydronephrosis UTI (urinary tract infection) ER Course Is a 65-year-old female presenting for evaluation of abdominal pain. Differential includes was not limited to gastritis, gastroenteritis, pancreatitis, cholecystitis, nephrolithiasis, pneumonia, bronchitis, appendicitis, mesenteric ischemia, bowel obstruction, colon cancer, UTI, ovarian cyst, ovarian torsion, pyelonephritis among others. Chest x-ray concerning for bilateral opacities. Treating for community-acquired pneumonia. COVID-19 rapid swab is negative. Patient is tachycardic and febrile. Tylenol given. Receiving 30 cc/kg sepsis bolus and cultures are sent. Labs show slight elevation in white count. CT also concerning for bilateral pneumonia. CT of the abdomen shows right-sided hydronephrosis without obvious obstructing stone. There is evidence of cystitis and pyelonephritis. Urinalysis concerning for acute urinary tract infection. Patient treated with antibiotics. Patient will be admitted to panel physician, Dr. Kat for further treatment of pneumonia and urinary tract infection. Sepsis reevaluation: I, Dr. Jarred Molina, reevaluated the patient Capillary refill: Less than 2 seconds MAP: 112 Heart rate: 120 Respiratory rate: 30 Initial Lactate: 1.6 Repeat Lactate: [] Pressors: Not indicated No signs of fluid overload Laboratory Tests Test 07/07/20 18:20 07/07/20 20:15 White Blood Count 10.9 K/UL (4.8-10.8) H Red Blood Count 3.61 M/UL (4.20-5.40) L Hemoglobin 11.0 G/DL (12.0-16.0) L Hematocrit 33.5 % (37.0-47.0) L Mean Corpuscular Volume 93 FL (80-99) Mean Corpuscular Hemoglobin 30.5 PG (27.0-31.0) Mean Corpuscular Hemoglobin Concent 32.8 G/DL (32.0-36.0) Red Cell Distribution Width 13.3 % (11.6-14.8) Platelet Count 287 K/UL (150-450) Mean Platelet Volume 8.4 FL (6.5-10.1) Neutrophils (%) (Auto) % (45.0-75.0) Lymphocytes (%) (Auto) % (20.0-45.0) Monocytes (%) (Auto) % (1.0-10.0) Eosinophils (%) (Auto) % (0.0-3.0) Basophils (%) (Auto) % (0.0-2.0) Differential Total Cells Counted 100 Neutrophils % (Manual) 80 % (45-75) H Lymphocytes % (Manual) 8 % (20-45) L Monocytes % (Manual) 2 % (1-10) Eosinophils % (Manual) 1 % (0-3) Basophils % (Manual) 0 % (0-2) Band Neutrophils 9 % (0-8) H Platelet Estimate Adequate Platelet Morphology Normal Red Blood Cell Morphology Normal Prothrombin Time 10.4 SEC (9.30-11.50) Prothrombin Time INR 0.9 (0.9-1.1) Activated Partial Thromboplast Time 24 SEC (23-33) Sodium Level 139 MMOL/L (136-145) Potassium Level 4.2 MMOL/L (3.5-5.1) Chloride Level 103 MMOL/L (98-107) Carbon Dioxide Level 25 MMOL/L (21-32) Anion Gap 11 mmol/L (5-15) Blood Urea Nitrogen 32 mg/dL (7-18) H Creatinine 1.4 MG/DL (0.55-1.30) H Estimated Glomerular Filtration Rate 37.8 mL/min (>60) Glucose Level 201 MG/DL (74-106) H Calcium Level 9.1 MG/DL (8.5-10.1) Total Bilirubin 0.3 MG/DL (0.2-1.0) Aspartate Amino Transferase (AST) 17 U/L (15-37) Alanine Aminotransferase (ALT) 18 U/L (12-78) Alkaline Phosphatase 90 U/L (46-116) Pro-B-Type Natriuretic Peptide 109 pg/mL (0-125) Total Protein 8.4 G/DL (6.4-8.2) H Albumin 4.0 G/DL (3.4-5.0) Globulin 4.4 g/dL Albumin/Globulin Ratio 0.9 (1.0-2.7) L Lipase 222 U/L (73-393) Lactic Acid Level Pending Phosphorus Level Pending Magnesium Level Pending Microbiology Date/Time Source Procedure Growth Status 07/07/20 19:15 Nasopharynx SARS-CoV-2 RdRp Gene Assay - Final Complete EKG Diagnostic Results Troponin ordered: Yes When was troponin ordered?: Jul 07, 2020 EKG Time: 20:07 Rate: tachycardiac Rhythm: NSR ST Segments: no acute changes Other Impression Sinus tachycardia, normal axis, normal intervals, QTC 497 ms, no ST segment elevation Rhythm Strip Diag. Results Rhythm Strip Time: 20:07 EP Interpretation: yes Rate: 121 Rhythm: NSR, no PVC's, no ectopy Chest X-Ray Diagnostic Results Chest X-Ray Diagnostic Results : Chest X-Ray Ordered: Yes # of Views/Limited/Complete: 1 View Indication: Shortness of Breath EP Interpretation: Yes Interpretation: no effusion, no pneumothorax, other - Bilateral airspace consolidation Impression: Other - Bilateral pneumonia Electronically Signed by: Electronically signed by Dr. Jarred Molina MD CT/MRI/US Diagnostic Results CT/MRI/US Diagnostic Results : Impression Final Report EXAM: CT Chest With Intravenous Contrast CLINICAL HISTORY: COUGH TECHNIQUE: Axial computed tomographyimages of the chest with intravenous contrast. CTDI is 63.4 mGyand DLP is 730.90 mGy-cm. One or more of the following dose reduction techniqueswere used: automated exposure control, adjustment of the mAand/or kVaccording to patient size, use of iterative reconstruction technique. COMPARISON: No relevant prior studies available. FINDINGS: Lungs:No pulmonaryembolus. Reticular and ground glass opacities seen on the within the mid to lower lungs concerning for infectious process versus atelectasis and or scarring. Pleural space:Unremarkable. No pneumothorax. No significant effusion. Heart:Calcifications of the aortic valve leaflets and mitral valve annulus. No significant pericardial effusion. Thyroid:Calcified hypodense nodule within the left thyroid gland measuring up to 11 mm. Bones/joints:Unremarkable. No acute fracture. No dislocation. Soft tissues:Unremarkable. Vasculature:No thoracic aortic dissection or aneurysm. Calcifications of the thoracic aorta. Lymph nodes:Unremarkable. IMPRESSION: 1. No pulmonaryembolus. 2. Reticular and ground glass opacities seen on the within the mid to lower lungs concerning for infectious process versus atelectasis and or scarring. EXAM: CT Abdomen and Pelvis With Intravenous Contrast CLINICAL HISTORY: COUGH TECHNIQUE: Axial computed tomographyimages of the abdomen and pelviswith intravenous contr ast. CTDI is 63.4 mGyand DLP is 730.90 mGy-cm. One or more of the following dose reduction techniqueswere used: automated exposure control, adjustment of the mAand/or kVaccording to patient size, use of iterative reconstruction technique. COMPARISON: No relevant prior studies available. FINDINGS: Lung bases:Unremarkable. ABDOMEN: Liver:Decreased attenuation of the liver which maybe phase of IVcontrast versus hepatic steatosis. Gallbladder and bile ducts:Unremarkable. Pancreas:Unremarkable. Spleen:Unremarkable. Adrenals:Unremarkable. Kidneys and ureters: Mild right hydroureteronephrosiswith periureteral/perinephric stranding and delayed nephrogram. Stomach and bowel:Unremarkable. PELVIS: Appendix:Appendix is unremarkable per Bladder:Unremarkable. Reproductive:Unremarkable as visualized. ABDOMEN and PELVIS: Intraperitoneal space:Unremarkable. Bones/joints:No acute fracture. No dislocation. Soft tissues:Unremarkable. Vasculature: Vascular calcifications. Lymph nodes:Unremarkable. Tubes, lines and devices: Probable tubal occlusion device is noted. IMPRESSION: Mild right hydroureteronephrosiswith periureteral/perinephric stranding and david yed nephrogram. Findings mayrepresent a recentlypassed calculus versus an infectious process. Correlate with urinalysis. Radiologist: Ameya Kinney MD Electronically Signed: 07/07/ Vital Signs Date Time Temp Pulse Resp B/P (MAP) Pulse Ox O2 Delivery O2 Flow Rate FiO2 07/07/20 18:02 97.3 93 19 186/76 (112) 100 Room Air Disposition: ADMITTED INPATIENT Condition: Serious Jarred Molina MD Jul 07, 2020 18:20
--- NOTE | 2020-07-07 18:29 | NUR ---
ED Nurse Note:pt. came from home with c/o abdominal and right flank pain, also nausea vomiting, pt. is A/Ox4 ambulatory with steady gait, placed on teletypesetter monitor, given IV and pain meds
[2020-07-07] MEDS ORDERED: Morphine Sulfate 4mg/ml Inj (IV USE ONLY) IVP ONE (18:30)
[2020-07-07 18:54] LABS: CALCIUM 9.1 MG/DL (8.5-10.1); CREATININE 1.4 MG/DL (0.55-1.30); INR 0.9 (0.9-1.1); POTASSIUM 4.2 MMOL/L (3.5-5.1)
[2020-07-07 18:56] LABS: HEMATOCRIT 33.5 % (37.0-47.0); MEAN CORPUSCULAR VOLUME 93 FL (80-99); PLATELET COUNT 287 K/UL (150-450); RED BLOOD COUNT 3.61 M/UL (4.20-5.40); RED CELL DISTRIBUTION WIDTH 13.3 % (11.6-14.8); WHITE BLOOD COUNT 10.9 K/UL (4.8-10.8)
[2020-07-07 18:58] LABS: ALBUMIN/GLOBULIN RATIO 0.9 (1.0-2.7); BILIRUBIN,TOTAL 0.3 MG/DL (0.2-1.0)
--- NOTE | 2020-07-07 19:14 | NUR ---
ED Nurse Note: Rapid covid test sent to lab
[2020-07-07] MEDS ORDERED: Omnipaque-300 100ml vial INJ ONE (19:15)
--- NOTE | 2020-07-07 19:15 | NUR ---
ED Nurse Note: Report received DONAVON SRIVASTAVA
--- NOTE | 2020-07-07 19:31 | Diagnostic Imaging Report ---
EXAM: XR Chest, 1 View CLINICAL HISTORY: SOB TECHNIQUE: Frontal view of the chest. COMPARISON: No relevant prior studies available. FINDINGS: Lungs: Diffuse airspace opacities concerning for an infectious process. Pleural space: Unremarkable. Heart: Unremarkable. Mediastinum: Unremarkable. Bones/joints: Unremarkable. IMPRESSION: Diffuse airspace opacities concerning for an infectious process.
[2020-07-07] MEDS ORDERED: cefTRIAXone 1 GM in NS 55 ML IVPB ONE (19:45)
[2020-07-07] MEDS ORDERED: Azithromycin 250 MG in NS 275 ML IV ONE (19:45)
[2020-07-07 20:00] VITALS: BP 156/84
[2020-07-07] MEDS ORDERED: Acetaminophen 500mg (ES) tab ORAL ONE (20:00)
--- NOTE | 2020-07-07 20:00 | NUR ---
ED Nurse Note: Daughter CHRISTINA - [phone]
--- NOTE | 2020-07-07 20:30 | NUR ---
ED Nurse Note: Lactic and culture sent to lab
--- NOTE | 2020-07-07 20:35 | NUR ---
ED Nurse Note: CT scan done
--- NOTE | 2020-07-07 20:56 | Diagnostic Imaging Report ---
EXAM: CT Chest With Intravenous Contrast CLINICAL HISTORY: COUGH TECHNIQUE: Axial computed tomography images of the chest with intravenous contrast. CTDI is 63.4 mGy and DLP is 730.90 mGy-cm. One or more of the following dose reduction techniques were used: automated exposure control, adjustment of the mA and/or kV according to patient size, use of iterative reconstruction technique. COMPARISON: No relevant prior studies available. FINDINGS: Lungs: No pulmonary embolus. Reticular and ground glass opacities seen on the within the mid to lower lungs concerning for infectious process versus atelectasis and or scarring. Pleural space: Unremarkable. No pneumothorax. No significant effusion. Heart: Calcifications of the aortic valve leaflets and mitral valve annulus. No significant pericardial effusion. Thyroid: Calcified hypodense nodule within the left thyroid gland measuring up to 11 mm. Bones/joints: Unremarkable. No acute fracture. No dislocation. Soft tissues: Unremarkable. Vasculature: No thoracic aortic dissection or aneurysm. Calcifications of the thoracic aorta. Lymph nodes: Unremarkable. IMPRESSION: 1. No pulmonary embolus. 2. Reticular and ground glass opacities seen on the within the mid to lower lungs concerning for infectious process versus atelectasis and or scarring. EXAM: CT Abdomen and Pelvis With Intravenous Contrast CLINICAL HISTORY: COUGH TECHNIQUE: Axial computed tomography images of the abdomen and pelvis with intravenous contrast. CTDI is 63.4 mGy and DLP is 730.90 mGy-cm. One or more of the following dose reduction techniques were used: automated exposure control, adjustment of the mA and/or kV according to patient size, use of iterative reconstruction technique. COMPARISON: No relevant prior studies available. FINDINGS: Lung bases: Unremarkable. ABDOMEN: Liver: Decreased attenuation of the liver which may be phase of IV contrast versus hepatic steatosis. Gallbladder and bile ducts: Unremarkable. Pancreas: Unremarkable. Spleen: Unremarkable. Adrenals: Unremarkable. Kidneys and ureters: Mild right hydroureteronephrosis with periureteral/perinephric stranding and delayed nephrogram. Stomach and bowel: Unremarkable. PELVIS: Appendix: Appendix is unremarkable per Bladder: Unremarkable. Reproductive: Unremarkable as visualized. ABDOMEN and PELVIS: Intraperitoneal space: Unremarkable. Bones/joints: No acute fracture. No dislocation. Soft tissues: Unremarkable. Vasculature: Vascular calcifications. Lymph nodes: Unremarkable. Tubes, lines and devices: Probable tubal occlusion device is noted. IMPRESSION: Mild right hydroureteronephrosis with periureteral/perinephric stranding and delayed nephrogram. Findings may represent a recently passed calculus versus an infectious process. Correlate with urinalysis.
--- NOTE | 2020-07-07 21:01 | NUR ---
ED Nurse Note: Urine sent to lab
[2020-07-07 21:10] VITALS: BP 151/89
[2020-07-07 21:32] LABS: APPEARANCE,URINE CLOUDY; BILIRUBIN, URINE NEGATIVE (NEGATIVE); COLOR,URINE PALE YELLOW; GLUCOSE, URINE (UA) 2+ (NEGATIVE); KETONES,URINE 1+ (NEGATIVE); LEUKOCYTE ESTERASE ,URINE 2+ (NEGATIVE); NITRITE,URINE NEGATIVE (NEGATIVE); PH,URINE 6 (4.5-8.0); PROTEIN,URINE 3+ (NEGATIVE); UROBILINOGEN,URINE NORMAL MG/DL (0.0-1.0)
[2020-07-07] MEDS ORDERED: LANTUS SOL100 UNIT/1 SUBQ (21:49)
[2020-07-07] MEDS ORDERED: GEMFIBROZIL600 MG ORAL (21:51)
[2020-07-07] MEDS ORDERED: DOCUSATE SODIU100 MG ORAL (21:51)
[2020-07-07] MEDS ORDERED: FERROUS SULFAT325 MG ORAL (21:52)
[2020-07-07] MEDS ORDERED: CETIRIZINE HCL10 MG PO (21:53)
[2020-07-07] MEDS ORDERED: ATORVASTATIN CA20 MG ORAL (21:53)
--- NOTE | 2020-07-07 22:15 | NUR ---
ED Nurse Note: Report given to MEEK SRIVASTAVA
--- NOTE | 2020-07-07 22:35 | NUR ---
TRANSFER TO FLOOR: Patient transferred to TELE at rm 209-2 via gurney accompanied by RN with cardiac rehab nurse. Belongings checked and given to RN. Patient transferred safely to bed and endorsed to RN
[2020-07-07 22:45] VITALS: BP 135/66
--- NOTE | 2020-07-07 22:45 | NUR ---
NURSE NOTES: Patient received from Wisam MANRIQUE , RN. Patient came to the floor on 2L NC saturating at 95%. Patient was able to ambulate to be with assistance, but became SOB. No pain reported at this time.Patient is A/O x 4, Jamaican speaking only and is able to make needs known. Patient has left AC 20 gauge patent and flushed. no erythema or bleeding noted. Patient was placed on the 5 lead personnel monitor and is running Sinus Tachycardia 107BPM. Patient was placed on fall precaution. Bed is in the lowest position, side rails up x2 and bed is locked. Patient was educated in how to use the call light; call light within reach. Will continue to monitor.
--- NOTE | 2020-07-07 23:19 | NUR ---
NURSE NOTES: Left message to Dr. Kat regarding admission ordered. Dr Kat placed admission ordered. Noted and placed.
[2020-07-08] VITALS: BP 120/52
[2020-07-08 04:00] VITALS: BP 129/57
[2020-07-08] MEDS: Acetaminophen 500mg (ES) tab ORAL PRN ×3 (05:07→18:29)
[2020-07-08] MEDS: NovoLOG Insulin Flexpen SUBQ SCH ×4 (06:21→22:01)
--- NOTE | 2020-07-08 06:42 | NUR ---
NURSE HAND-OFF REPORT: Important Events on Shift: Patient was admitted to tele for PNA and was indorsed that patient has a UTI by ED nurse. Patient ran a temp of 101.1 at 4am and was given 500mg of Tylenol and temp went down too 99.1. Patient Status: No acute distress Diet: Regular puree Pending Orders: Pending Results/Labs: Pending MD notification: Latest Vital Signs: Temperature 99.1 , Pulse 96 , B/P 129 /57 , Respiratory Rate 20 , O2 SAT 98 , Nasal Cannula, O2 Flow Rate 2.0 . Vital Sign Comment: EKG Rhythm: Sinus Rhythm Rhythm change?: N Notified?: N -Dr. [facility] Response: Latest [place] Fall Score: 30 Fall Risk: Medium Risk Safety Measures: Call light , Bed Alarm Zone 1, Side Rails Side Rails x2, Bed position Low and Locked. Fall Precautions: Yellow Socks Yellow Gown Door Sign Patient Fall Education Report will be given to Niru SRIVASTAVA .
--- NOTE | 2020-07-08 07:38 | NUR ---
NURSE NOTES: Received report from Clair/RN. Pt is in bed, sitting up eating breakfast. Able to make needs known. Pt is on 3L nasal cannula, no distress or SOB noted. Bed in the lowest position and locked. Call light within reach, encouraged to use it when needed. Side rails up X2. Will continue plan of care.
[2020-07-08 07:58] VITALS: BP 130/52
[2020-07-08] MEDS ORDERED: Sorbitol Solution UD 30ml ORAL SCH (11:00)
[2020-07-08] MEDS ORDERED: NovoLOG Insulin Flexpen SUBQ SCH (11:30)
--- NOTE | 2020-07-08 11:30 | Consultation ---
DATE OF CONSULTATION: 07/08/2020 PULMONARY CONSULTATION HISTORY OF PRESENT ILLNESS: This is a 65-year-old female who came to the hospital for abdominal pain. The patient states that this has been going on for about 24 hours, mostly in the right upper quadrant and right back. She also reported nausea and vomiting as well as diarrhea. The patient denies any shortness of breath, fever, or chills. She has had a dry cough. PAST MEDICAL HISTORY: Hypertension, hyperlipidemia, obesity, diabetes mellitus. PAST SURGICAL HISTORY: None reported. MEDICATIONS: List of current medications includes Tylenol, insulin sliding scale. Overnight, she received and Rocephin. ALLERGIES: None reported. PHYSICAL EXAMINATION: GENERAL: Reveals an obese female. VITAL SIGNS: Blood pressure 130/50, heart rate is 91, T-max 101.8, she is currently running a T of 100.3, respirations 18, saturation 98% on room air. HEENT: Unremarkable. CHEST: Clear breath sounds bilaterally. ABDOMEN: Soft. EXTREMITIES: There is no edema. DIAGNOSTIC DATA: She underwent imaging studies including chest, abdomen, pelvis CT which showed mild pneumonitis at lung basis. There is mild right hydroureteronephrosis, suspicious for passed calculus. LABORATORY DATA: Lab testing shows white count 10.9, otherwise normal CBC and BMP. Creatinine 1.4. IMPRESSION: 1. Suspect pyelonephritis. 2. Suspect passed calculus hydronephrosis. 3. Pulmonary atelectasis and pneumonitis. 4. Obesity. 5. Hypertension. 6. Diabetes mellitus. DISCUSSION: We will initiate antibiotics as per yesterday. IV fluids to be given. 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 Vic Mathews M.D. DR: Scot JOB#: [id number] CC:
--- NOTE | 2020-07-08 11:44 | Consultation ---
DATE OF CONSULTATION: 07/08/2020 GASTROENTEROLOGY CONSULTATION CHIEF COMPLAINT: I was asked to see this patient by Dr. Laya Kat for evaluation of abdominal pain. HISTORY OF PRESENT ILLNESS: The patient is a 65-year-old woman who comes to the hospital due to respiratory infection. She also complains of some increased abdominal girth and constipation. She complains of some mild abdominal discomfort but there is no nausea or vomiting. She does have a history of gastroesophageal reflux symptoms, but denies any hematochezia. She takes some type of pill for her bowel regimen but she cannot remember the name. She has had some fever overnight and pneumonia and is being treated with antibiotics. She had a colonoscopy about 8 years ago. PAST MEDICAL HISTORY: History of diabetes, history of hypercholesterolemia, history of anemia. FAMILY HISTORY: Positive for diabetes and cholesterol. SOCIAL HISTORY: The patient is . She has 5 children. She does not smoke or drink alcohol. REVIEW OF SYSTEMS: Otherwise negative. PHYSICAL EXAMINATION: GENERAL: The patient is well developed and well nourished. HEENT: Normocephalic and atraumatic. Sclerae anicteric. Oropharynx clear. NECK: Supple. CHEST: Scattered rhonchi. CARDIOVASCULAR: Regular rate. ABDOMEN: Soft and mildly tender in the lower quadrants without guarding or rebound. No masses. EXTREMITIES: No edema. LABORATORY AND DIAGNOSTIC DATA: Laboratory and CT scan were noted. ASSESSMENT: This patient presents with predominantly an infectious process of the lung and will receive antibiotics for infection. Her abdominal issues appear to be chronic and constipation is predominant. She will need long-term bowel regimen. I will start her on some medications here but her status have to be re-evaluated and adjusted as an outpatient. She should also have colonoscopy as an outpatient for followup. In the meantime, the patient will be observed for respiratory infection and recovery. RECOMMENDATIONS: Per above discussion and per orders in the chart. Thank you for asking me to participate in the care of this patient. Ashwini Garcia M.D. DR: Sherron JOB#: [id number] CC:
[2020-07-08 12:00] VITALS: BP 137/63
--- NOTE | 2020-07-08 12:36 | NUR ---
NURSE NOTES: Called Dr Silverio Lay to let him know about patient's blood culture, 2 bottles came back positive for Gram (-) rods. Waiting for orders.
--- NOTE | 2020-07-08 13:44 | Consultation ---
Consult Note Consult Note I was asked to evaluate the patient at the request of Dr. Humphries for renal failure and fluid and electrolyte management. Chief Complaint: Vomiting HPI: 65-year-old female presents for evaluation abdominal pain. Symptoms began this morning. She reports sharp 10/10 nonradiating pain in the right lower quadrant and right lower back. No trauma reported. 3 hours ago she had nausea and vomiting. She also reported some loose stools. Denied hematuria or dysuria. Prior history of UTIs. Unknown history of kidney disease. Denies fever or chills. Reports intermittent cough but cannot say for how long. Denies wheezing. Unknown COVID-19 contacts. No recent testing. PMH: Hypertension, hyperlipidemia, obesity, diabetes PSH: Reviewed Social Hx: Reviewed Allergies: No Known Allergies (Unverified , 08/03/17) COVID-19 Screening Contact w/high risk pt: No Experienced COVID-19 symptoms?: No COVID-19 Testing performed ELECTRONIC PUBLISHER: No Past Medical History Deferred: No Family Available Past Medical History: No History, Except For Hx Hypertension: Yes Hx Diabetes: Yes Vital Signs in ER: Date Time Temp Pulse Resp B/P (MAP) Pulse Ox O2 Delivery O2 Flow Rate FiO2 07/07/20 18:02 97.3 93 19 186/76 (112) 100 Room Air PHYSICAL EXAMINATION: VITAL SIGNS: Temperature 97.9, pulse 92, blood pressure 137/63. GENERAL APPEARANCE: No acute distress, well developed. HEAD AND NECK: [place] conjunctiva. HEART: Normal rate. LUNGS: Clear. ABDOMEN: Soft and nontender. EXTREMITIES: No edema. NEUROLOGIC: Awake, alert, oriented x3. LABORATORY AND DIAGNOSTIC DATA: WBC 10.9, hemoglobin 11, hematocrit 33.5, platelets 287. Glucose 149, sodium 139, potassium 4.2, chloride 103, bicarb 25, BUN 32, creatinine 1.42,Glucose at the time of admission was 102. Lipase was 222. UA showed rbc's of 30 to 40, wbc's 30 to 40, blood 5+. CT scan of abdomen and pelvis showed mild right hydronephrosis with perinephric stranding and delayed nephrogram finding may represent a recently passed calculus versus infectious disease. CT scan of the chest was negative for pulmonary emboli, but had some reticular and ground glass opacities within the mid to lower lungs, atelectasis or scarring. . Assessment/Plan Elevated creatinine, renal failure, most likely dehydration Possibly diabetic nephropathy Mild anemia UTI Blood sugar under control Mild right hydroureteronephrosis Avoid nephrotoxic's Monitor renal parameters Monitor and adjust blood sugar Adjust blood pressure medication Slow hydration Per consultants Hang Hsu MD Jul 08, 2020 13:43
[2020-07-08] MEDS: sitaGLIPtin 50mg tab ORAL SCH (14:15)
[2020-07-08 16:00] VITALS: BP 134/63
--- NOTE | 2020-07-08 16:45 | Consultation ---
DATE OF CONSULTATION: 07/08/2020 INFECTIOUS DISEASES CONSULTATION CONSULTING PHYSICIAN: Tio Lay MD. PRIMARY ATTENDING PHYSICIAN: Laya Kat MD. REASON FOR CONSULTATION: Gram-negative sepsis, UTI, pneumonia. HISTORY OF PRESENT ILLNESS: This is a 65-year-old female admitted last night from home complaining of abdominal pain in right upper abdomen. She had also neck and back pain, had fever up to 101.8 today and blood culture that is growing gram-negative rods. PAST MEDICAL HISTORY: Significant for diabetes mellitus, hypertension, hyperlipidemia, obesity, anemia. ALLERGIES: No known drug allergies. MEDICATIONS: Levaquin, Protonix, ceftriaxone, sodium chloride, insulin aspart, Tylenol. SOCIAL HISTORY: , has 5 children. No history of alcohol, drug abuse, or smoking. REVIEW OF SYSTEMS: No fever according to the patient. No nausea. No vomiting. Appears to have lot of coughing, has some upper abdominal pain, also has back pain and neck pain. PHYSICAL EXAMINATION: VITAL SIGNS: Temperature 97.9, pulse 92, blood pressure 137/63. GENERAL APPEARANCE: No acute distress, well developed. HEAD AND NECK: [place] conjunctiva. HEART: Normal rate. LUNGS: Clear. ABDOMEN: Soft and nontender. EXTREMITIES: No edema. NEUROLOGIC: Awake, alert, oriented x3. LABORATORY AND DIAGNOSTIC DATA: WBC 10.9, hemoglobin 11, hematocrit 33.5, platelets 287. Glucose 149, sodium 139, potassium 4.2, chloride 103, bicarb 25, BUN 32, creatinine 1.42,Glucose at the time of admission was 102. Lipase was 222. UA showed rbc's of 30 to 40, wbc's 30 to 40, blood 5+. CT scan of abdomen and pelvis showed mild right hydronephrosis with perinephric stranding and delayed nephrogram finding may represent a recently passed calculus versus infectious disease. CT scan of the chest was negative for pulmonary emboli, but had some reticular and ground glass opacities within the mid to lower lungs, atelectasis or scarring. IMPRESSION: Gram-negative sepsis likely secondary to pyelonephritis, UTI. There is a possibility of passing the stone, may have some pneumonia, has right hydronephrosis, diabetes mellitus, hypertension, hyperlipidemia. RECOMMENDATION: We will continue with ceftriaxone and Levaquin. We will follow up the cultures and adjust antibiotics. At the end of my exam, I thank Dr. Kat, for involving me in the care of this patient. Tio Lay M.D. DR: Lj JOB#: [id number] CC: ANAT
[2020-07-08] MEDS: Docusate 100mg cap ORAL SCH (17:36)
--- NOTE | 2020-07-08 19:13 | NUR ---
NURSE HAND-OFF REPORT: Important Events on Shift:Pt had fever of 101.8. Pt started on antibiotics. Patient Status: Stable Diet: Consistent carb Pending Orders: Pending Results/Labs: Pending MD notification: Latest Vital Signs: Temperature 98.2 , Pulse 93 , B/P 134 /63 , Respiratory Rate 18 , O2 SAT 96 , Nasal Cannula, O2 Flow Rate 2.0 . Vital Sign Comment: Stable EKG Rhythm: Sinus Rhythm Rhythm change?: N MD Notified?: N -Dr. North BUI Response: Latest [place] Fall Score: 30 Fall Risk: Medium Risk Safety Measures: Call light , Bed Alarm Zone 1, Side Rails Side Rails x2, Bed position Low and Locked. Fall Precautions: Yellow Socks Yellow Gown Door Sign Patient Fall Education Report given to Andrzej/RN.
--- NOTE | 2020-07-08 19:30 | NUR ---
NURSE NOTES: The patient is alert and x4, appear weak and sleepy.The Resp is even and unlabored and she is room air.The patient was noted with a Right AC 20g that is patent and asymptomatic.Bed in the lowest position and locked. Call light within reach, Side rails up X2. Will continue to monitor as indicated..
[2020-07-08 20:00] VITALS: BP 116/53
[2020-07-08] MEDS ORDERED: cefTRIAXone 1 GM in D5W 55 ML IVPB SCH (21:00)
--- NOTE | 2020-07-08 21:30 | History and Physical Report ---
DATE OF ADMISSION: 07/07/2020 HISTORY OF PRESENT ILLNESS: Patient comes in for abdominal pain of 1 day duration. Patient also had nausea, vomiting for x1 days. Patient appears to have hydronephrosis on the right side. Some perinephric stranding and possibly passed the kidney stone. Patient is also admitted for bilateral pneumonia on the x-ray and COVID negative according to the ER doctor. Patient has been having also some exertional shortness of breath and coughing for about a week. Patient also had a fever on arrival. He is admitted for pneumonia as well and also had mild tachycardia. Saturating well. Transferred to the telemetry. PAST MEDICAL HISTORY: Significant for hyperlipidemia, obesity, diabetes, hypertension, GERD, NIDDM, constipation. PAST SURGICAL HISTORY: None. FAMILY HISTORY: Noncontributory. SOCIAL HISTORY: Denies history of smoking. Denies history of alcohol abuse. Denies history of drug abuse. MEDICATIONS: Docusate, ferrous sulfate, gemfibrozil, insulin, lisinopril, loratadine, metformin, omeprazole. Patient is also on aspirin. ALLERGIES: No known allergies. REVIEW OF SYSTEMS: HEENT: Denies headaches. RESPIRATORY: Reports shortness of breath and cough for about a week. CARDIOVASCULAR: Denies chest pain or orthopnea. GASTROINTESTINAL: Does have nausea, vomiting, abdominal pain for x1 day. Denies constipation. Denies rectal bleeding. EXTREMITIES: Denies pain in lower extremities. CENTRAL NERVOUS SYSTEM: Denies change in speech pattern. Generalized weakness and malaise. PHYSICAL EXAMINATION: VITAL SIGNS: Temperature 100.3, pulse is 83, blood pressure 137/63. HEENT: PERRLA. NECK: Supple. No lymphadenopathy. CHEST: Clear to auscultation. CARDIOVASCULAR: Tachycardic. No murmur. GASTROINTESTINAL: Soft, nontender, nondistended. No organomegaly. EXTREMITIES: No edema. Moves all extremities. Dorsal pedis pulses present. NEUROLOGIC: Has generalized weakness. Reflexes in both sides. LABORATORY DATA: WBC of 10.9, hemoglobin of 11, platelets 287. COVID negative. Chest x-ray, bilateral pneumonia. ASSESSMENT AND PLAN: Community-acquired pneumonia. COVID negative. Has history of diabetes and hypertension. Comes to the hospital with abdominal pain and vomiting and possible hydronephrosis and possible passed kidney stone. I have consulted Dr. Wesley, Dr. Vic Mathews, Dr. Hsu, Dr. Tio Lay, Dr. Garcia to help with the above-mentioned abnormal symptoms, abnormal imaging as well as abnormal laboratories. Antibiotics per Dr. Tio Lay. Laya Kat M.D. DR: MISSY JOB#: [id number] CC:
[2020-07-08] MEDS: Atorvastatin 20mg tab ORAL SCH (21:53)
--- NOTE | 2020-07-08 22:00 | NUR ---
NURSE NOTES: The patient was noted coughing, Dr Lay was notified and a voice message left. Waiting call back
[2020-07-09] VITALS: BP 122/61
[2020-07-09 04:00] VITALS: BP 123/57
[2020-07-09] MEDS: NovoLOG Insulin Flexpen SUBQ SCH ×4 (06:30→20:48)
--- NOTE | 2020-07-09 07:10 | NUR ---
NURSE HAND-OFF REPORT: Important Events on Shift:The patient was able to sleep about 7 hrs last night Patient Status: Diet: Pending Orders: Pending Results/Labs: Pending MD notification: Latest Vital Signs: Temperature 98.1 , Pulse 86 , B/P 123 /57 , Respiratory Rate 18 , O2 SAT 96 , Nasal Cannula, O2 Flow Rate 2.0 . Vital Sign Comment: EKG Rhythm: Sinus Rhythm Rhythm change?: N MD Notified?: N -Dr. [place] BUI Response: Latest [place] Fall Score: 30 Fall Risk: Medium Risk Safety Measures: Call light , Bed Alarm Zone 1, Side Rails Side Rails x2, Bed position Low and Locked. Fall Precautions: Yellow Socks Yellow Gown Door Sign Patient Fall Education Report given to .
[2020-07-09 07:21] LABS: HEMATOCRIT 27.6 % (37.0-47.0); HEMOGLOBIN 8.8 G/DL (12.0-16.0); MEAN CORPUSCULAR VOLUME 96 FL (80-99); PLATELET COUNT 210 K/UL (150-450); RED BLOOD COUNT 2.87 M/UL (4.20-5.40); RED CELL DISTRIBUTION WIDTH 13.4 % (11.6-14.8); WHITE BLOOD COUNT 13.7 K/UL (4.8-10.8)
[2020-07-09 07:49] LABS: ALANINE AMINOTRANSFERASE 13 U/L (12-78); ALBUMIN 2.6 G/DL (3.4-5.0); ALBUMIN/GLOBULIN RATIO 0.6 (1.0-2.7); ALKALINE PHOSPHATASE 58 U/L (46-116); ANION GAP 12 mmol/L (5-15); ASPARTATE AMINO TRANSFERASE 17 U/L (15-37); BILIRUBIN,TOTAL 0.4 MG/DL (0.2-1.0); BLOOD UREA NITROGEN 28 mg/dL (7-18); CALCIUM 7.9 MG/DL (8.5-10.1); CARBON DIOXIDE 22 MMOL/L (21-32); CHLORIDE 101 MMOL/L (98-107); CHOLESTEROL 175 MG/DL (< 200); CREATININE 1.4 MG/DL (0.55-1.30); FERRITIN 117 NG/ML (8-388); HDL CHOLESTEROL 60 MG/DL (40-60); POTASSIUM 3.7 MMOL/L (3.5-5.1); SODIUM 135 MMOL/L (136-145); TRIGLYCERIDES 119 MG/DL (30-150)
[2020-07-09 08:00] VITALS: BP 148/74
--- NOTE | 2020-07-09 08:02 | NUR ---
NURSE NOTES: The patient was sitting in her chair alert and oriented x4. Call light within reach, patient had their nasal cannula on receiving 3L. Handoff notes recieved from CAROLA Donnelly
[2020-07-09] MEDS: Docusate 100mg cap ORAL SCH ×3 (08:32→17:49)
[2020-07-09] MEDS: sitaGLIPtin 50mg tab ORAL SCH (08:33)
[2020-07-09 08:41] LABS: CREATINE KINASE 98 U/L (26-308)
[2020-07-09 08:46] LABS: GAMMA GLUTAMYL TRANSPEPTIDASE 19 U/L (5-85); PHOSPHORUS 3.2 MG/DL (2.5-4.9)
[2020-07-09 09:29] LABS: % IRON SATURATION 6 % (15-50); IRON 14 ug/dL (50-175); TOTAL IRON BINDING CAPACITY 250 ug/dL (250-450)
--- NOTE | 2020-07-09 10:19 | Pulmonology Progress Note ---
Subjective Interval Events: None new Constitutional: Reports: no symptoms HEENT: Repors: no symptoms Respiratory: Reports: no symptoms Cardiovascular: Reports: no symptoms Gastrointestinal/Abdominal: Reports: no symptoms Genitourinary: Reports: no symptoms Neurologic: Reports: no symptoms Allergies: Coded Allergies: No Known Allergies (Unverified , 08/03/17) Objective Last 24 Hour Vital Signs Date Time Temp Pulse Resp B/P (MAP) Pulse Ox O2 Delivery O2 Flow Rate FiO2 07/09/20 08:32 96 148/74 07/09/20 08:00 98.6 96 20 148/74 (98) 96 07/09/20 08:00 95 07/09/20 04:00 86 07/09/20 04:00 98.1 90 18 123/57 (79) 96 07/09/20 02:23 86 07/09/20 00:00 97.6 79 19 122/61 (81) 97 07/08/20 21:00 Nasal Cannula 2.0 07/08/20 20:00 101 07/08/20 20:00 97.8 88 18 116/53 (74) 98 07/08/20 16:00 93 07/08/20 16:00 98.2 94 18 134/63 (86) 96 07/08/20 14:16 92 137/63 07/08/20 12:00 92 07/08/20 12:00 97.9 87 18 137/63 (87) 98 Intake and Output 07/08/20 07/09/20 19:00 07:00 Intake Total 800 ml 780 ml Output Total 600 ml Balance 200 ml 780 ml Intake Oral 700 ml 180 ml IV Total 100 ml 600 ml Output Urine Total 600 ml # Voids 3 General Appearance: no acute distress HEENT: normocephalic Respiratory: chest wall non-tender, lungs clear Cardiovascular: normal peripheral pulses, normal rate Abdomen: normal bowel sounds Microbiology Date/Time Source Procedure Growth Status 07/07/20 21:00 Urine,Clean Catch Urine Culture - Preliminary Escherichia Coli Resulted 07/07/20 20:15 Blood Blood Culture - Preliminary Escherichia Coli - Esbl Resulted 07/07/20 20:00 Blood Blood Culture - Preliminary Escherichia Coli - Esbl Resulted 07/07/20 19:15 Nasopharynx SARS-CoV-2 RdRp Gene Assay - Final Complete Laboratory Tests 07/08/20 11:18: POC Whole Blood Glucose 149H 07/08/20 16:38: POC Whole Blood Glucose 209H 07/08/20 20:52: POC Whole Blood Glucose 199H 07/09/20 05:15: White Blood Count 13.7H, Red Blood Count 2.87L, Hemoglobin 8.8L, Hematocrit 27.6L, Mean Corpuscular Volume 96, Mean Corpuscular Hemoglobin 30.7, Mean Corpuscular Hemoglobin Concent 31.8L, Red Cell Distribution Width 13.4, Platelet Count 210, Mean Platelet Volume 8.4, Neutrophils (%) (Auto) , Lymphocytes (%) (Auto) , Monocytes (%) (Auto) , Eosinophils (%) (Auto) , Basophils (%) (Auto) , Differential Total Cells Counted 100, Neutrophils % (Manual) 84H, Lymphocytes % (Manual) 11L, Monocytes % (Manual) 4, Eosinophils % (Manual) 0, Basophils % (Manual) 1, Band Neutrophils 0, Platelet Estimate Adequate, Platelet Morphology Normal, Hypochromasia 1+, Macrocytosis 1+, Sodium Level 135L, Potassium Level 3.7, Chloride Level 101, Carbon Dioxide Level 22, Anion Gap 12, Blood Urea Nitrogen 28H, Creatinine 1.4H, Estimat Glomerular Filtration Rate 37.8, Glucose Level 174H, Hemoglobin A1c 9.8H, Uric Acid 6.3, Calcium Level 7.9L, Phosphorus Level 3.2, Magnesium Level 1.9, Iron Level 14L, Total Iron Binding Capacity 250, Percent Iron Saturation 6L, Unsaturated Iron Binding 236, Ferritin 117, Total Bilirubin 0.4, Gamma Glutamyl Transpeptidase 19, Aspartate Amino Transf (AST/SGOT) 17, Alanine Aminotransferase (ALT/SGPT) 13, Alkaline Phosphatase 58, Total Creatine Kinase 98, C-Reactive Protein, Quantitative 38.1H, Pro-B-Type Natriuretic Peptide 990H, Total Protein 6.8, Albumin 2.6L, Globulin 4.2, Al bumin/Globulin Ratio 0.6L, Triglycerides Level 119, Cholesterol Level 175, LDL Cholesterol 83, HDL Cholesterol 60, Cholesterol/HDL Ratio 2.9L, Vitamin B12 Level 489, Vitamin D 25-Hydroxy [Pending], 25-Hydroxy Vitamin D2 [Pending], 25- Hydroxy Vitamin D3 [Pending], Folate 35.1, Thyroid Stimulating Hormone (TSH) 1.811 07/09/20 05:34: POC Whole Blood Glucose 187H Current Medications Medications (Trade) Dose Ordered Sig/Silas Route PRN Reason Start Time Stop Time Status Last Admin Dose Admin Acetaminophen (Tylenol) 500 mg Q4H PRN ORAL Fever 07/07/20 23:45 08/06/20 23:44 07/08/20 18:29 Amlodipine Besylate (Norvasc) 2.5 mg DAILY ORAL 07/08/20 14:00 08/07/20 13:59 07/09/20 08:32 Atorvastatin Calcium (Lipitor) 20 mg BEDTIME ORAL 07/08/20 21:00 10/06/20 20:59 07/08/20 21:53 Ceftriaxone Sodium 1 gm/ Dextrose 55 ml @ 110 mls/hr Q24H IVPB 07/08/20 21:00 07/15/20 20:59 07/08/20 21:53 Dextrose (Dextrose 50%) 25 ml Q30M PRN IV Hypoglycemia 07/07/20 23:45 10/05/20 23:44 Dextrose (Dextrose 50%) 50 ml Q30M PRN IV Hypoglycemia 07/07/20 23:45 10/05/20 23:44 Docusate Sodium (Colace) 100 mg THREE TIMES A DAY ORAL 07/08/20 18:00 08/07/20 17:59 07/09/20 08:32 Insulin Aspart (NovoLOG) BEFORE MEALS AND HS SUBQ 07/08/20 06:30 10/06/20 06:29 07/09/20 06:30 Levofloxacin 50 ml @ 50 mls/hr Q24H IVPB 07/09/20 12:00 07/16/20 11:59 Pantoprazole (Protonix) 40 mg EVERY 12 HOURS ORAL 07/08/20 21:00 08/07/20 20:59 07/09/20 08:32 Sitagliptin Phosphate (Januvia) 50 mg DAILY ORAL 07/08/20 14:00 08/07/20 13:59 07/09/20 08:33 Sodium Chloride 1,000 ml @ 100 mls/hr Q10H IV 07/08/20 12:00 08/07/20 11:59 07/09/20 08:00 Assessment/Plan Assessment/Plan IMPRESSION: 1. Suspect pyelonephritis. 2. Suspect passed calculus with hydronephrosis. 3. Pulmonary atelectasis and pneumonitis. 4. Obesity. 5. Hypertension. 6. Diabetes mellitus. 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 Vic Mathews M.D. Vic Mathews MD Jul 09, 2020 10:19
--- NOTE | 2020-07-09 11:45 | Infectious Diseases Prog Note ---
Assessment/Plan Assessment/Plan IMPRESSION: E. coli sepsis Pyelonephritis, UTI. ?passing the stone, Pneumonia, has Right hydronephrosis, Diabetes mellitus, Hypertension, Hyperlipidemia. RECOMMENDATION: Discontinue ceftriaxone and Levaquin. Start on Meropenem Subjective ROS Limited/Unobtainable: Yes Constitutional: Denies: fever Respiratory: Reports: productive cough Allergies: Coded Allergies: No Known Allergies (Unverified , 08/03/17) Objective Last 24 Hour Vital Signs Date Time Temp Pulse Resp B/P (MAP) Pulse Ox O2 Delivery O2 Flow Rate FiO2 07/09/20 09:00 Nasal Cannula 3.0 07/09/20 08:32 96 148/74 07/09/20 08:00 98.6 96 20 148/74 (98) 96 07/09/20 08:00 95 07/09/20 04:00 86 07/09/20 04:00 98.1 90 18 123/57 (79) 96 07/09/20 02:23 86 07/09/20 00:00 97.6 79 19 122/61 (81) 97 07/08/20 21:00 Nasal Cannula 2.0 07/08/20 20:00 101 07/08/20 20:00 97.8 88 18 116/53 (74) 98 07/08/20 16:00 93 07/08/20 16:00 98.2 94 18 134/63 (86) 96 07/08/20 14:16 92 137/63 07/08/20 12:00 92 07/08/20 12:00 97.9 87 18 137/63 (87) 98 Height (Feet): 5 Height (Inches): 1.00 Weight (Pounds): 160 General Appearance: no acute distress HEENT: mucous membranes moist Respiratory/Chest: lungs clear Cardiovascular: normal rate Abdomen: soft, non tender Extremities: no edema Neurologic/Psychiatric: alert, responsive Microbiology Date/Time Source Procedure Growth Status 07/07/20 21:00 Urine,Clean Catch Urine Culture - Preliminary Escherichia Coli Resulted 07/07/20 20:15 Blood Blood Culture - Preliminary Escherichia Coli - Esbl Resulted 07/07/20 20:00 Blood Blood Culture - Preliminary Escherichia Coli - Esbl Resulted 07/07/20 19:15 Nasopharynx SARS-CoV-2 RdRp Gene Assay - Final Complete Laboratory Tests Test 07/08/20 16:38 07/08/20 20:52 07/09/20 05:15 07/09/20 05:34 POC Whole Blood Glucose 209 MG/DL (74-106) H 199 MG/DL (74-106) H 187 MG/DL (74-106) H White Blood Count 13.7 K/UL (4.8-10.8) H Red Blood Count 2.87 M/UL (4.20-5.40) L Hemoglobin 8.8 G/DL (12.0-16.0) L Hematocrit 27.6 % (37.0-47.0) L Mean Corpuscular Volume 96 FL (80-99) Mean Corpuscular Hemoglobin 30.7 PG (27.0-31.0) Mean Corpuscular Hemoglobin Concent 31.8 G/DL (32.0-36.0) L Red Cell Distribution Width 13.4 % (11.6-14.8) Platelet Count 210 K/UL (150-450) Mean Platelet Volume 8.4 FL (6.5-10.1) Neutrophils (%) (Auto) % (45.0-75.0) Lymphocytes (%) (Auto) % (20.0-45.0) Monocytes (%) (Auto) % (1.0-10.0) Eosinophils (%) (Auto) % (0.0-3.0) Basophils (%) (Auto) % (0.0-2.0) Differential Total Cells Counted 100 Neutrophils % (Manual) 84 % (45-75) H Lymphocytes % (Manual) 11 % (20-45) L Monocytes % (Manual) 4 % (1-10) Eosinophils % (Manual) 0 % (0-3) Basophils % (Manual) 1 % (0-2) Band Neutrophils 0 % (0-8) Platelet Estimate Adequate Platelet Morphology Normal Hypochromasia 1+ Macrocytosis 1+ Sodium Level 135 MMOL/L (136-145) L Potassium Level 3.7 MMOL/L (3.5-5.1) Chloride Level 101 MMOL/L (98-107) Carbon Dioxide Level 22 MMOL/L (21-32) Anion Gap 12 mmol/L (5-15) Blood Urea Nitrogen 28 mg/dL (7-18) H Creatinine 1.4 MG/DL (0.55-1.30) H Estimat Glomerular Filtration Rate 37.8 mL/min (>60) Glucose Level 174 MG/DL (74-106) H Hemoglobin A1c 9.8 % (4.3-6.0) H Uric Acid 6.3 MG/DL (2.6-7.2) Calcium Level 7.9 MG/DL (8.5-10.1) L Phosphorus Level 3.2 MG/DL (2.5-4.9) Magnesium Level 1.9 MG/DL (1.8-2.4) Iron Level 14 ug/dL (50-175) L Total Iron Binding Capacity 250 ug/dL (250-450) Percent Iron Saturation 6 % (15-50) L Unsaturated Iron Binding 236 ug/dL (112-346) Ferritin 117 NG/ML (8-388) Total Bilirubin 0.4 MG/DL (0.2-1.0) Gamma Glutamyl Transpeptidase 19 U/L (5-85) Aspartate Amino Transf (AST/SGOT) 17 U/L (15-37) Alanine Aminotransferase (ALT/SGPT) 13 U/L (12-78) Alkaline Phosphatase 58 U/L (46-116) Total Creatine Kinase 98 U/L (26-308) C-Reactive Protein, Quantitative 38.1 mg/dL (0.00-0.90) H Pro-B-Type Natriuretic Peptide 990 pg/mL (0-125) H Total Protein 6.8 G/DL (6.4-8.2) Albumin 2.6 G/DL (3.4-5.0) L Globulin 4.2 g/dL Albumin/Globulin Ratio 0.6 (1.0-2.7) L Triglycerides Level 119 MG/DL (30-150) Cholesterol Level 175 MG/DL (< 200) LDL Cholesterol 83 mg/dL (<100) HDL Cholesterol 60 MG/DL (40-60) Cholesterol/HDL Ratio 2.9 (3.3-4.4) L Vitamin B12 Level 489 PG/ML (193-986) Vitamin D 25-Hydroxy Pending 25-Hydroxy Vitamin D2 Pending 25-Hydroxy Vitamin D3 Pending Folate 35.1 NG/ML (8.6-58.9) Thyroid Stimulating Hormone (TSH) 1.811 uiU/mL (0.358-3.740) Test 07/09/20 11:22 POC Whole Blood Glucose 229 MG/DL (74-106) H Current Medications Medications (Trade) Dose Ordered Sig/Silas Route PRN Reason Start Time Stop Time Status Last Admin Dose Admin Acetaminophen (Tylenol) 500 mg Q4H PRN ORAL Fever 07/07/20 23:45 08/06/20 23:44 07/08/20 18:29 Amlodipine Besylate (Norvasc) 2.5 mg DAILY ORAL 07/08/20 14:00 08/07/20 13:59 07/09/20 08:32 Atorvastatin Calcium (Lipitor) 20 mg BEDTIME ORAL 07/08/20 21:00 10/06/20 20:59 07/08/20 21:53 Dextrose (Dextrose 50%) 25 ml Q30M PRN IV Hypoglycemia 07/07/20 23:45 10/05/20 23:44 Dextrose (Dextrose 50%) 50 ml Q30M PRN IV Hypoglycemia 07/07/20 23:45 10/05/20 23:44 Docusate Sodium (Colace) 100 mg THREE TIMES A DAY ORAL 07/08/20 18:00 08/07/20 17:59 07/09/20 08:32 Insulin Aspart (NovoLOG) BEFORE MEALS AND HS SUBQ 07/08/20 06:30 10/06/20 06:29 07/09/20 06:30 Meropenem 1 gm/ Sodium Chloride 55 ml @ 110 mls/hr Q8HR IVPB 07/09/20 14:00 07/14/20 13:59 UNV Pantoprazole (Protonix) 40 mg EVERY 12 HOURS ORAL 07/08/20 21:00 08/07/20 20:59 07/09/20 08:32 Sitagliptin Phosphate (Januvia) 50 mg DAILY ORAL 07/08/20 14:00 08/07/20 13:59 07/09/20 08:33 Sodium Chloride 1,000 ml @ 100 mls/hr Q10H IV 07/08/20 12:00 08/07/20 11:59 07/09/20 08:00 Tio Lay MD Jul 09, 2020 11:45
[2020-07-09 12:00] VITALS: BP 105/44
[2020-07-09] MEDS: Meropenem 1 GM in NS 55 ML IVPB SCH (12:54)
[2020-07-09] MEDS: Acetaminophen 500mg (ES) tab ORAL PRN (15:23)
--- NOTE | 2020-07-09 15:51 | NUR ---
NURSE NOTES: During 1600 vital signs assessment patient had a slight fever and complaint of headache. Pharmacological intervention was initiated to address patients fever and headache.
--- NOTE | 2020-07-09 15:59 | Nephrology Progress Note ---
Assessment/Plan Problem List: (1) YENNI (acute kidney injury) (2) Anemia Assessment: Low iron (3) UTI (urinary tract infection) (4) Sepsis (5) DM2 (diabetes mellitus, type 2) (6) Diabetic nephropathy Assessment Elevated creatinine, renal failure, most likely dehydration: Serum creatinine 1.4 Possibly diabetic nephropathy Mild anemia low iron panel UTI Blood sugar under control, elevated hemoglobin A1c Mild right hydroureteronephrosis Plan Avoid nephrotoxic's Iron supplement intravenously Monitor renal parameters, change IV fluid to normal saline Monitor and adjust blood sugar Adjust blood pressure medication Slow hydration Per consultants Subjective ROS Limited/Unobtainable: No Constitutional: Reports: malaise Objective Objective Last 24 Hour Vital Signs Date Time Temp Pulse Resp B/P (MAP) Pulse Ox O2 Delivery O2 Flow Rate FiO2 07/09/20 12:00 97.5 84 18 105/44 (64) 100 07/09/20 12:00 88 07/09/20 09:00 Nasal Cannula 3.0 07/09/20 08:32 96 148/74 07/09/20 08:00 98.6 96 20 148/74 (98) 96 07/09/20 08:00 95 07/09/20 04:00 86 07/09/20 04:00 98.1 90 18 123/57 (79) 96 07/09/20 02:23 86 07/09/20 00:00 97.6 79 19 122/61 (81) 97 07/08/20 21:00 Nasal Cannula 2.0 07/08/20 20:00 101 07/08/20 20:00 97.8 88 18 116/53 (74) 98 07/08/20 16:00 93 07/08/20 16:00 98.2 94 18 134/63 (86) 96 l Intake and Output 07/08/20 07/09/20 19:00 07:00 Intake Total 800 ml 780 ml Output Total 600 ml Balance 200 ml 780 ml Intake Oral 700 ml 180 ml IV Total 100 ml 600 ml Output Urine Total 600 ml # Voids 3 Current Medications Medications (Trade) Dose Ordered Sig/Silas Route PRN Reason Start Time Stop Time Status Last Admin Dose Admin Acetaminophen (Tylenol) 500 mg Q4H PRN ORAL Fever 07/07/20 23:45 08/06/20 23:44 07/09/20 15:23 Amlodipine Besylate (Norvasc) 2.5 mg DAILY ORAL 07/08/20 14:00 08/07/20 13:59 07/09/20 08:32 Atorvastatin Calcium (Lipitor) 20 mg BEDTIME ORAL 07/08/20 21:00 10/06/20 20:59 07/08/20 21:53 Dextrose (Dextrose 50%) 25 ml Q30M PRN IV Hypoglycemia 07/07/20 23:45 10/05/20 23:44 Dextrose (Dextrose 50%) 50 ml Q30M PRN IV Hypoglycemia 07/07/20 23:45 10/05/20 23:44 Docusate Sodium (Colace) 100 mg THREE TIMES A DAY ORAL 07/08/20 18:00 08/07/20 17:59 07/09/20 12:56 Insulin Aspart (NovoLOG) BEFORE MEALS AND HS SUBQ 07/08/20 06:30 10/06/20 06:29 07/09/20 12:47 Meropenem 1 gm/ Sodium Chloride 55 ml @ 110 mls/hr Q12HR@0100,1300 IVPB 07/09/20 13:00 07/14/20 12:59 07/09/20 12:54 Pantoprazole (Protonix) 40 mg EVERY 12 HOURS ORAL 07/08/20 21:00 08/07/20 20:59 07/09/20 08:32 Sitagliptin Phosphate (Januvia) 50 mg DAILY ORAL 07/08/20 14:00 08/07/20 13:59 07/09/20 08:33 Sodium Chloride 1,000 ml @ 100 mls/hr Q10H IV 07/08/20 12:00 08/07/20 11:59 07/09/20 08:00 Laboratory Tests 07/08/20 16:38: POC Whole Blood Glucose 209H 07/08/20 20:52: POC Whole Blood Glucose 199H 07/09/20 05:15: White Blood Count 13.7H, Red Blood Count 2.87L, Hemoglobin 8.8L, Hematocrit 27.6L, Mean Corpuscular Volume 96, Mean Corpuscular Hemoglobin 30.7, Mean Corpuscular Hemoglobin Concent 31.8L, Red Cell Distribution Width 13.4, Platelet Count 210, Mean Platelet Volume 8.4, Neutrophils (%) (Auto) , Lymphocytes (%) (Auto) , Monocytes (%) (Auto) , Eosinophils (%) (Auto) , Basophils (%) (Auto) , Differential Total Cells Counted 100, Neutrophils % (Manual) 84H, Lymphocytes % (Manual) 11L, Monocytes % (Manual) 4, Eosinophils % (Manual) 0, Basophils % (Manual) 1, Band Neutrophils 0, Platelet Estimate Adequate, Platelet Morphology Normal, Hypochromasia 1+, Macrocytosis 1+, Sodium Level 135L, Potassium Level 3.7, Chloride Level 101, Carbon Dioxide Level 22, Anion Gap 12, Blood Urea Nitrogen 28H, Creatinine 1.4H, Estimat Glomerular Filtration Rate 37.8, Glucose Level 174H, Hemoglobin A1c 9.8H, Uric Acid 6.3, Calcium Level 7.9L, Phosphorus Level 3.2, Magnesium Level 1.9, Iron Level 14L, Total Iron Binding Capacity 250, Percent Iron Saturation 6L, Unsaturated Iron Binding 236, Ferritin 117, Total Bilirubin 0.4, Gamma Glutamyl Transpeptidase 19, Aspartate Amino Transf (AST/SGOT) 17, Alanine Aminotransferase (ALT/SGPT) 13, Alkaline Phosphatase 58, Total Creatine Kinase 98, C-Reactive Protein, Quantitative 38.1H, Pro-B-Type Natriuretic Peptide 990H, Total Protein 6.8, Albumin 2.6L, Globulin 4.2, Albumin/Globulin Ratio 0.6L, Triglycerides Level 119, Cholesterol Level 175, LDL Cholesterol 83, HDL Cholesterol 60, Cholesterol/HDL Ratio 2.9L, Vitamin B12 Level 489, Vitamin D 25-Hydroxy [Pending], 25-Hydroxy Vitamin D2 [Pending], 25- Hydroxy Vitamin D3 [Pending], Folate 35.1, Thyroid Stimulating Hormone (TSH) 1.811 07/09/20 05:34: POC Whole Blood Glucose 187H 07/09/20 11:22: POC Whole Blood Glucose 229H Height (Feet): 5 Height (Inches): 1.00 Weight (Pounds): 160 General Appearance: no apparent distress Cardiovascular: tachycardia Respiratory/Chest: decreased breath sounds, rhonchi - bilaterally Abdomen: soft Hang Hsu MD Jul 09, 2020 15:59
[2020-07-09 16:00] VITALS: BP 118/52
--- NOTE | 2020-07-09 16:33 | NUR ---
INSURANCE CLINICALS/HP[facility] [phone]
[2020-07-09] MEDS: Nateglinide 60mg tab ORAL SCH (16:58)
[2020-07-09] MEDS ORDERED: Iron Sucrose 200 MG in NS 110 ML IVPB SCH (18:00)
--- NOTE | 2020-07-09 18:24 | NUR ---
CASE MANAGEMENT: REVIEW SI: PNA . PYELONEPHRITIS . UTI . T 99.6 HR 88 RR 18 BP 105/44 SAT 100% NC/3L WBC 13.7 H/H 8.8/27.6 IS: VENOFER IV QHS NS IVF @ 60ML/HR MEROPENEM IV Q12HR CEFTRIAXONE IV Q24HR TELEMETRY UNIT STATUS DCP: PATIENT IS FROM HOME
--- NOTE | 2020-07-09 19:20 | NUR ---
NURSE HAND-OFF REPORT: Important Events on Shift:[Venofer given today] Patient Status: [Stable and Axox4 ] Diet: [CCHO] Pending Orders: [N/A] Pending Results/Labs:[N/A] Pending MD notification:[N/A] Latest Vital Signs: Temperature 99.6 , Pulse 93 , B/P 118 /52 , Respiratory Rate 18 , O2 SAT 100 , Nasal Cannula, O2 Flow Rate 3.0 . Vital Sign Comment: [] EKG Rhythm: Sinus Rhythm Rhythm change?: N MD Notified?: N -Dr. [facility] BUI Response: Latest Marion Fall Score: 30 Fall Risk: Medium Risk Safety Measures: Call light , Bed Alarm Zone 1, Side Rails Side Rails x3, Bed position Low and Locked. Fall Precautions: Yellow Socks Yellow Gown Patient Fall Education Report given to [CAROLA Vázquez].
--- NOTE | 2020-07-09 19:25 | NUR ---
NURSE NOTES: Report received from CAROLA Bledsoe. Patient is awake, alert and oriented x 4. telemetry monitor is in place, shows sinus rhythm with no chest pain reported. On oxygen via nasal cannula @ 3Lpm and no shortness of breath complaints. On CCHO (Medium), instructed and amenable.IV site is on right AC G-20 saline locked that is patent and intact. Safety measures are in place, bed in lowest and locked position, side rails up x 2, call light button and bedside table within reach, instructed to call for any assistance needed. Will continue plan of care.
[2020-07-09 20:00] VITALS: BP 135/65
[2020-07-09] MEDS: Atorvastatin 20mg tab ORAL SCH (20:48)
--- NOTE | 2020-07-09 20:58 | General Progress Note ---
Subjective ROS Limited/Unobtainable: Yes Allergies: Coded Allergies: No Known Allergies (Unverified , 08/03/17) Objective Last 24 Hour Vital Signs Date Time Temp Pulse Resp B/P (MAP) Pulse Ox O2 Delivery O2 Flow Rate FiO2 07/09/20 16:00 93 07/09/20 16:00 99.6 88 18 118/52 (74) 100 07/09/20 15:53 99.3 07/09/20 12:00 97.5 84 18 105/44 (64) 100 07/09/20 12:00 88 07/09/20 09:00 Nasal Cannula 3.0 07/09/20 08:32 96 148/74 07/09/20 08:00 98.6 96 20 148/74 (98) 96 07/09/20 08:00 95 07/09/20 04:00 86 07/09/20 04:00 98.1 90 18 123/57 (79) 96 07/09/20 02:23 86 07/09/20 00:00 97.6 79 19 122/61 (81) 97 07/08/20 21:00 Nasal Cannula 2.0 Intake and Output 07/08/20 07/09/20 19:00 07:00 Intake Total 800 ml 780 ml Output Total 600 ml Balance 200 ml 780 ml Intake Oral 700 ml 180 ml IV Total 100 ml 600 ml Output Urine Total 600 ml # Voids 3 Laboratory Tests 07/09/20 05:15: White Blood Count 13.7H, Red Blood Count 2.87L, Hemoglobin 8.8L, Hematocrit 27.6L, Mean Corpuscular Volume 96, Mean Corpuscular Hemoglobin 30.7, Mean Corpuscular Hemoglobin Concent 31.8L, Red Cell Distribution Width 13.4, Platelet Count 210, Mean Platelet Volume 8.4, Neutrophils (%) (Auto) , Lymphocytes (%) (Auto) , Monocytes (%) (Auto) , Eosinophils (%) (Auto) , Basophils (%) (Auto) , Differential Total Cells Counted 100, Neutrophils % (Manual) 84H, Lymphocytes % (Manual) 11L, Monocytes % (Manual) 4, Eosinophils % (Manual) 0, Basophils % (Manual) 1, Band Neutrophils 0, Platelet Estimate Adequate, Platelet Morphology Normal, Hypochromasia 1+, Macrocytosis 1+, Sodium Level 135L, Potassium Level 3.7, Chloride Level 101, Carbon Dioxide Level 22, Anion Gap 12, Blood Urea Nitrogen 28H, Creatinine 1.4H, Estimat Glomerular Filtration Rate 37.8, Glucose Level 174H, Hemoglobin A1c 9.8H, Uric Acid 6.3, Calcium Level 7.9L, Phosphorus Level 3.2, Magnesium Level 1.9, Iron Level 14L, Total Iron Binding Capacity 250, Percent Iron Saturation 6L, Unsaturated Iron Binding 236, Ferritin 117, Total Bilirubin 0.4, Gamma Glutamyl Transpeptidase 19, Aspartate Amino Transf (AST/SGOT) 17, Alanine Aminotransferase (ALT/SGPT) 13, Alkaline Phosphatase 58, Total Creatine Kinase 98, C-Reactive Protein, Quantitative 38.1H, Pro-B-Type Natriuretic Peptide 990H, Total Protein 6.8, Albumin 2.6L, Globulin 4.2, Albumin/Globulin Ratio 0.6L, Triglycerides Level 119, Cholesterol Level 175, LDL Cholesterol 83, HDL Cholesterol 60, Cholesterol/HDL Ratio 2.9L, Vitamin B12 Level 489, Vitamin D 25-Hydroxy [Pending], 25-Hydroxy Vitamin D2 [Pending], 25- Hydroxy Vitamin D3 [Pending], Folate 35.1, Thyroid Stimulating Hormone (TSH) 1.811 07/09/20 05:34: POC Whole Blood Glucose 187H 07/09/20 11:22: POC Whole Blood Glucose 229H 07/09/20 16:29: POC Whole Blood Glucose 174H 07/09/20 20:26: POC Whole Blood Glucose [Pending] Height (Feet): 5 Height (Inches): 1.00 Weight (Pounds): 160 Assessment/Plan Problem List: (1) Anemia ICD Codes: D64.9 - Anemia, unspecified SNOMED: 423574762 (2) Sepsis ICD Codes: A41.9 - Sepsis, unspecified organism SNOMED: 93047810 (3) Diabetic nephropathy ICD Codes: E11.21 - Type 2 diabetes mellitus with diabetic nephropathy SNOMED: 39975783, 600350431 (4) Hydronephrosis ICD Codes: N13.30 - Unspecified hydronephrosis SNOMED: 24249104 (5) Diabetic nephropathy ICD Codes: E11.21 - Type 2 diabetes mellitus with diabetic nephropathy SNOMED: 14351919, 694958575 (6) Diastolic CHF ICD Codes: I50.30 - Unspecified diastolic (congestive) heart failure SNOMED: 75431245, 887362056 (7) Abdominal pain ICD Codes: R10.9 - Unspecified abdominal pain SNOMED: 60044489 (8) Pneumonia ICD Codes: J18.9 - Pneumonia, unspecified organism SNOMED: 776826040 (9) DM2 (diabetes mellitus, type 2) ICD Codes: E11.9 - Type 2 diabetes mellitus without complications SNOMED: 45083361 Status: progressing Assessment/Plan: afebrile abdominal pain improving abx per id dm reviewed chart and albs sugar improving Laya Kat MD Jul 09, 2020 20:58
[2020-07-09] MEDS ORDERED: Sorbitol Solution UD 30ml ORAL SCH (21:30)
--- NOTE | 2020-07-09 21:31 | General Progress Note ---
Subjective Allergies: Coded Allergies: No Known Allergies (Unverified , 08/03/17) Subjective feels about same some bloating and constipation - both chronic issues for her no BM appetite poor Objective Last 24 Hour Vital Signs Date Time Temp Pulse Resp B/P (MAP) Pulse Ox O2 Delivery O2 Flow Rate FiO2 07/09/20 16:00 93 07/09/20 16:00 99.6 88 18 118/52 (74) 100 07/09/20 15:53 99.3 07/09/20 12:00 97.5 84 18 105/44 (64) 100 07/09/20 12:00 88 07/09/20 09:00 Nasal Cannula 3.0 07/09/20 08:32 96 148/74 07/09/20 08:00 98.6 96 20 148/74 (98) 96 07/09/20 08:00 95 07/09/20 04:00 86 07/09/20 04:00 98.1 90 18 123/57 (79) 96 07/09/20 02:23 86 07/09/20 00:00 97.6 79 19 122/61 (81) 97 Intake and Output 07/08/20 07/09/20 19:00 07:00 Intake Total 800 ml 780 ml Output Total 600 ml Balance 200 ml 780 ml Intake Oral 700 ml 180 ml IV Total 100 ml 600 ml Output Urine Total 600 ml # Voids 3 Laboratory Tests 07/09/20 05:15: White Blood Count 13.7H, Red Blood Count 2.87L, Hemoglobin 8.8L, Hematocrit 27.6L, Mean Corpuscular Volume 96, Mean Corpuscular Hemoglobin 30.7, Mean Corpuscular Hemoglobin Concent 31.8L, Red Cell Distribution Width 13.4, Platelet Count 210, Mean Platelet Volume 8.4, Neutrophils (%) (Auto) , Lymphocytes (%) (Auto) , Monocytes (%) (Auto) , Eosinophils (%) (Auto) , Basophils (%) (Auto) , Differential Total Cells Counted 100, Neutrophils % (Manual) 84H, Lymphocytes % (Manual) 11L, Monocytes % (Manual) 4, Eosinophils % (Manual) 0, Basophils % (Manual) 1, Band Neutrophils 0, Platelet Estimate Adequate, Platelet Morphology Normal, Hypochromasia 1+, Macrocytosis 1+, Sodium Level 135L, Potassium Level 3.7, Chloride Level 101, Carbon Dioxide Level 22, Anion Gap 12, Blood Urea Nitrogen 28H, Creatinine 1.4H, Estimat Glomerular Filtration Rate 37.8, Glucose Level 174H, Hemoglobin A1c 9.8H, Uric Acid 6.3, Calcium Level 7.9L, Phosphorus Level 3.2, Magnesium Level 1.9, Iron Level 14L, Total Iron Binding Capacity 250, Percent Iron Saturation 6L, Unsaturated Iron Binding 236, Ferritin 117, Total Bilirubin 0.4, Gamma Glutamyl Transpeptidase 19, Aspartate Amino Transf (AST/SGOT) 17, Alanine Aminotransferase (ALT/SGPT) 13, Alkaline Phosphatase 58, Total Creatine Kinase 98, C-Reactive Protein, Quantitative 38.1H, Pro-B-Type Natriuretic Peptide 990H, Total Protein 6.8, Albumin 2.6L, Globulin 4.2, Albumin/Globulin Ratio 0.6L, Triglycerides Level 119, Cholesterol Level 175, LDL Cholesterol 83, HDL Cholesterol 60, Cholesterol/HDL Ratio 2.9L, Vitamin B12 Level 489, Vitamin D 25-Hydroxy [Pending], 25-Hydroxy Vitamin D2 [Pending], 25- Hydroxy Vitamin D3 [Pending], Folate 35.1, Thyroid Stimulating Hormone (TSH) 1.811 07/09/20 05:34: POC Whole Blood Glucose 187H 07/09/20 11:22: POC Whole Blood Glucose 229H 07/09/20 16:29: POC Whole Blood Glucose 174H 07/09/20 20:26: POC Whole Blood Glucose [Pending] Height (Feet): 5 Height (Inches): 1.00 Weight (Pounds): 160 Objective WDWN woman NCAT supple RR abd soft, NT, ND, no mass or organomegaly no edema Assessment/Plan Status: progressing Assessment/Plan: Assessment - chronic constipation - chronic bloating - Iron deficiency anemia - pneumonitis - UTI - azotemia Recommendations - abx - laxatives - follow labs - outpatient EGD/Colon, once recovered from pneumonitis and UTI Ashwini Garcia MD Jul 09, 2020 21:31
[2020-07-10] VITALS: BP 147/71
[2020-07-10] MEDS: Meropenem 1 GM in NS 55 ML IVPB SCH ×2 (00:34→12:23)
[2020-07-10 04:00] VITALS: BP 144/59
--- NOTE | 2020-07-10 04:00 | NUR ---
NURSE NOTES: Noted patient is wheezing, but no desaturation, sating 95-98 %. Informed Dr. Kat, awaiting for orders.
[2020-07-10] MEDS: Nateglinide 60mg tab ORAL SCH ×2 (06:20→12:07)
[2020-07-10] MEDS: NovoLOG Insulin Flexpen SUBQ SCH ×2 (06:20→12:11)
--- NOTE | 2020-07-10 07:00 | NUR ---
NURSE NOTES: Dr. Landa replied and stated that he already made Dr. Mathews aware of the breathing treatment, will follow up the order.
--- NOTE | 2020-07-10 07:03 | NUR ---
NURSE HAND-OFF REPORT: Important Events on Shift: Dr. Garcia made rounds and patient states that she hasn't have a bowel movement for 2 days, sirbitol 30 ml was given and has 5times BM, Patient Status: Patient is awake on bed, in stable condition. Plan of care endorsed. Diet: CCHO(Medium) Pending Orders: none Pending Results/Labs:laboratory result that was done this morning Pending MD notification:none Latest Vital Signs: Temperature 99.3 , Pulse 98 , B/P 144 /59 , Respiratory Rate 22 , O2 SAT 95 , Nasal Cannula, O2 Flow Rate 2.0 . Vital Sign Comment: stable EKG Rhythm: Sinus Rhythm Rhythm change?: N Notified?: N -Dr. [place] BUI Response: Latest Marion Fall Score: 30 Fall Risk: Medium Risk Safety Measures: Call light Within Reach, Bed Alarm Zone 1, Side Rails Side Rails x2, Bed position Low and Locked. Fall Precautions: Yellow Socks Yellow Gown Patient Fall Education Report given to CAROLA Bledsoe.
--- NOTE | 2020-07-10 07:33 | NUR ---
NURSE NOTES: Patient seen in bed stable, alert and oriented x4 in semifowlers position. The bed was in the lowest position, locked, bed alarm set to zone1 and side rails up x2.
[2020-07-10 07:50] LABS: BASOPHILS % (AUTO) 0.5 % (0.0-2.0); EOSINOPHILS % (AUTO) 1.2 % (0.0-3.0); HEMATOCRIT 27.9 % (37.0-47.0); HEMOGLOBIN 8.9 G/DL (12.0-16.0); LYMPHOCYTES % (AUTO) 12.3 % (20.0-45.0); MEAN CORPUSCULAR VOLUME 96 FL (80-99); MONOCYTES % (AUTO) 5.9 % (1.0-10.0); NEUTROPHILS % (AUTO) 80.1 % (45.0-75.0); PLATELET COUNT 224 K/UL (150-450); RED BLOOD COUNT 2.89 M/UL (4.20-5.40); RED CELL DISTRIBUTION WIDTH 13.2 % (11.6-14.8); WHITE BLOOD COUNT 11.7 K/UL (4.8-10.8)
[2020-07-10 08:00] VITALS: BP 140/56
[2020-07-10 08:26] LABS: ALBUMIN 2.7 G/DL (3.4-5.0); ALBUMIN/GLOBULIN RATIO 0.6 (1.0-2.7); BILIRUBIN,TOTAL 0.3 MG/DL (0.2-1.0); CALCIUM 8.1 MG/DL (8.5-10.1); CREATININE 1.3 MG/DL (0.55-1.30); PHOSPHORUS 3.2 MG/DL (2.5-4.9); POTASSIUM 3.8 MMOL/L (3.5-5.1)
--- NOTE | 2020-07-10 08:48 | NUR ---
CASE MANAGEMENT:REVIEW 07/10/20 SI: SEPSIS D/T E COLI BACTEREMIA AND UTI PNA. PYELONEPHRITIS. HYDRONEPHROSIS 99.7 95 25 147/71 96% ON 2L/NC WBC+11.7 BUN+29 IS: IV MEROPENEM Q12 IV VENOFER QHS IVF@50/HR STARLIX PO TID PROTONIX PO Q12 NORVASC PO QD JANUVIA PO QD SS INSULIN STARLIX PO TID : TELEMETRY STATUS DCP: FROM HOME PLAN: MONITOR TEMP CONTINUE ANTIBIOTICS
[2020-07-10] MEDS: Docusate 100mg cap ORAL SCH ×2 (09:00→13:00)
[2020-07-10] MEDS: sitaGLIPtin 50mg tab ORAL SCH (09:49)
--- NOTE | 2020-07-10 10:57 | Pulmonology Progress Note ---
Subjective ROS Limited/Unobtainable: Yes Interval Events: None new Constitutional: Denies: fever HEENT: Repors: no symptoms Respiratory: Reports: no symptoms Cardiovascular: Reports: no symptoms Gastrointestinal/Abdominal: Reports: no symptoms Genitourinary: Reports: no symptoms Neurologic: Reports: no symptoms Allergies: Coded Allergies: No Known Allergies (Unverified , 08/03/17) Objective Last 24 Hour Vital Signs Date Time Temp Pulse Resp B/P (MAP) Pulse Ox O2 Delivery O2 Flow Rate FiO2 07/10/20 10:17 Nasal Cannula 2.0 07/10/20 09:49 89 140/56 07/10/20 08:00 97.7 89 20 140/56 (84) 98 07/10/20 08:00 89 07/10/20 04:00 98 07/10/20 04:00 99.3 93 22 144/59 (87) 95 07/10/20 00:00 95 07/10/20 00:00 99.7 95 25 147/71 (96) 96 07/09/20 21:00 Nasal Cannula 2.0 07/09/20 20:00 98.1 87 22 135/65 (88) 100 07/09/20 20:00 91 07/09/20 16:00 93 07/09/20 16:00 99.6 88 18 118/52 (74) 100 07/09/20 15:53 99.3 07/09/20 12:00 97.5 84 18 105/44 (64) 100 07/09/20 12:00 88 Intake and Output 0 07/09/20 07/10/20 18:59 06:59 Intake Total 770 ml 500 ml Output Total 1300 ml Balance -530 ml 500 ml Intake Oral 720 ml 500 ml IV Total 50 ml Output Urine Total 1300 ml # Voids 4 General Appearance: no acute distress HEENT: normocephalic Respiratory: chest wall non-tender, lungs clear Cardiovascular: normal peripheral pulses, normal rate Abdomen: normal bowel sounds Microbiology Date/Time Source Procedure Growth Status 07/07/20 21:00 Urine,Clean Catch Urine Culture - Final Escherichia Coli - Esbl Complete 07/07/20 20:15 Blood Blood Culture - Final Escherichia Coli - Esbl Complete 07/07/20 20:00 Blood Blood Culture - Final Escherichia Coli - Esbl Complete 07/07/20 19:15 Nasopharynx SARS-CoV-2 RdRp Gene Assay - Final Complete Laboratory Tests 07/09/20 11:22: POC Whole Blood Glucose 229H 07/09/20 16:29: POC Whole Blood Glucose 174H 07/09/20 20:26: POC Whole Blood Glucose [Pending] 07/10/20 06:18: POC Whole Blood Glucose 199H 07/10/20 06:30: White Blood Count 11.7H, Red Blood Count 2.89L, Hemoglobin 8.9L, Hematocrit 27.9L, Mean Corpuscular Volume 96, Mean Corpuscular Hemoglobin 30.7, Mean Corpuscular Hemoglobin Concent 31.9L, Red Cell Distribution Width 13.2, Platelet Count 224, Mean Platelet Volume 8.7, Neutrophils (%) (Auto) 80.1H, Lymphocytes (%) (Auto) 12.3L, Monocytes (%) (Auto) 5.9, Eosinophils (%) (Auto) 1.2, Basophils (%) (Auto) 0.5, Sodium Level 137, Potassium Level 3.8, Chloride Level 103, Carbon Dioxide Level 25, Anion Gap 10, Blood Urea Nitrogen 29H, Creatinine 1.3, Estimat Glomerular Filtration Rate 41.3, Glucose Level 190H, Uric Acid 7.5H , Calcium Level 8.1L, Phosphorus Level 3.2, Magnesium Level 2.2, Total Bilirubin 0.3, Gamma Glutamyl Transpeptidase 37, Aspartate Amino Transf (AST/SGOT) 24, Alanine Aminotransferase (ALT/SGPT) 22, Alkaline Phosphatase 87, C-Reactive Protein, Quantitative 37.6H, Pro-B-Type Natriuretic Peptide 403H, Total Protein 7.4, Albumin 2.7L, Globulin 4.7, Albumin/Globulin Ratio 0.6L Current Medications Medications (Trade) Dose Ordered Sig/Silas Route PRN Reason Start Time Stop Time Status Last Admin Dose Admin Acetaminophen (Tylenol) 500 mg Q4H PRN ORAL Fever 07/07/20 23:45 08/06/20 23:44 07/09/20 15:23 Amlodipine Besylate (Norvasc) 2.5 mg DAILY ORAL 07/08/20 14:00 08/07/20 13:59 07/10/20 09:49 Atorvastatin Calcium (Lipitor) 20 mg BEDTIME ORAL 07/08/20 21:00 10/06/20 20:59 07/09/20 20:48 Dextrose (Dextrose 50%) 25 ml Q30M PRN IV Hypoglycemia 07/07/20 23:45 10/05/20 23:44 Dextrose (Dextrose 50%) 50 ml Q30M PRN IV Hypoglycemia 07/07/20 23:45 10/05/20 23:44 Docusate Sodium (Colace) 100 mg THREE TIMES A DAY ORAL 07/08/20 18:00 08/07/20 17:59 07/09/20 17:49 Insulin Aspart (NovoLOG) BEFORE MEALS AND HS SUBQ 07/08/20 06:30 10/06/20 06:29 07/10/20 06:20 Iron Sucrose 100 mg/Sodium Chloride 60 ml @ 240 mls/hr BEDTIME IVPB 07/10/20 21:00 07/14/20 21:14 Meropenem 1 gm/ Sodium Chloride 55 ml @ 110 mls/hr Q12HR@0100,1300 IVPB 07/09/20 13:00 07/14/20 12:59 07/10/20 00:34 Nateglinide (Starlix) 60 mg TIAC ORAL 07/09/20 16:30 08/08/20 16:29 07/10/20 06:20 Pantoprazole (Protonix) 40 mg EVERY 12 HOURS ORAL 07/08/20 21:00 08/07/20 20:59 07/10/20 09:49 Sitagliptin Phosphate (Januvia) 50 mg DAILY ORAL 07/08/20 14:00 08/07/20 13:59 07/10/20 09:49 Sodium Chloride 1,000 ml @ 50 mls/hr Q20H IV 07/09/20 16:01 08/08/20 16:00 07/09/20 16:01 Assessment/Plan Assessment/Plan IMPRESSION: 1. Suspect pyelonephritis. 2. Suspect passed calculus with hydronephrosis. 3. Pulmonary atelectasis and pneumonitis. 4. Obesity. 5. Hypertension. 6. Diabetes mellitus. DISCUSSION: Continue antibiotics IV fluids Saturating well on 2L/min O2 I will follow as internist medical doctor md. Has ESBL E coli UTI May need PICC and IV abx Dariel Espinal Omar Syed MD Jul 10, 2020 10:57
--- NOTE | 2020-07-10 11:10 | Infectious Diseases Prog Note ---
Assessment/Plan Assessment/Plan IMPRESSION: E. coli sepsis Pyelonephritis, E. coli UTI. ?passing the stone, Pneumonia, has Right hydronephrosis, Diabetes mellitus, Hypertension, Hyperlipidemia. RECOMMENDATION: Continue Meropenem Can be discharged to home with IV Ertapenem X 7 days Subjective ROS Limited/Unobtainable: Yes Constitutional: Reports: no symptoms Respiratory: Reports: no symptoms Gastrointestinal/Abdominal: Reports: no symptoms Genitourinary: Reports: other - R flank pain Allergies: Coded Allergies: No Known Allergies (Unverified , 08/03/17) Objective Last 24 Hour Vital Signs Date Time Temp Pulse Resp B/P (MAP) Pulse Ox O2 Delivery O2 Flow Rate FiO2 07/10/20 10:17 Nasal Cannula 2.0 07/10/20 09:49 89 140/56 07/10/20 08:00 97.7 89 20 140/56 (84) 98 07/10/20 08:00 89 07/10/20 04:00 98 07/10/20 04:00 99.3 93 22 144/59 (87) 95 07/10/20 00:00 95 07/10/20 00:00 99.7 95 25 147/71 (96) 96 07/09/20 21:00 Nasal Cannula 2.0 07/09/20 20:00 98.1 87 22 135/65 (88) 100 07/09/20 20:00 91 07/09/20 16:00 93 07/09/20 16:00 99.6 88 18 118/52 (74) 100 07/09/20 15:53 99.3 07/09/20 12:00 97.5 84 18 105/44 (64) 100 07/09/20 12:00 88 Height (Feet): 5 Height (Inches): 1.00 Weight (Pounds): 160 General Appearance: no acute distress HEENT: mucous membranes moist Respiratory/Chest: lungs clear Cardiovascular: normal rate Abdomen: soft, non tender Extremities: no edema Neurologic/Psychiatric: alert, responsive Microbiology Date/Time Source Procedure Growth Status 07/07/20 21:00 Urine,Clean Catch Urine Culture - Final Escherichia Coli - Esbl Complete 07/07/20 20:15 Blood Blood Culture - Final Escherichia Coli - Esbl Complete 07/07/20 20:00 Blood Blood Culture - Final Escherichia Coli - Esbl Complete 07/07/20 19:15 Nasopharynx SARS-CoV-2 RdRp Gene Assay - Final Complete Laboratory Tests Test 07/09/20 11:22 07/09/20 16:29 07/09/20 20:26 07/10/20 06:18 POC Whole Blood Glucose 229 MG/DL (74-106) H 174 MG/DL (74-106) H Pending 199 MG/DL (74-106) H Test 07/10/20 06:30 White Blood Count 11.7 K/UL (4.8-10.8) H Red Blood Count 2.89 M/UL (4.20-5.40) L Hemoglobin 8.9 G/DL (12.0-16.0) L Hematocrit 27.9 % (37.0-47.0) L Mean Corpuscular Volume 96 FL (80-99) Mean Corpuscular Hemoglobin 30.7 PG (27.0-31.0) Mean Corpuscular Hemoglobin Concent 31.9 G/DL (32.0-36.0) L Red Cell Distribution Width 13.2 % (11.6-14.8) Platelet Count 224 K/UL (150-450) Mean Platelet Volume 8.7 FL (6.5-10.1) Neutrophils (%) (Auto) 80.1 % (45.0-75.0) H Lymphocytes (%) (Auto) 12.3 % (20.0-45.0) L Monocytes (%) (Auto) 5.9 % (1.0-10.0) Eosinophils (%) (Auto) 1.2 % (0.0-3.0) Basophils (%) (Auto) 0.5 % (0.0-2.0) Sodium Level 137 MMOL/L (136-145) Potassium Level 3.8 MMOL/L (3.5-5.1) Chloride Level 103 MMOL/L (98-107) Carbon Dioxide Level 25 MMOL/L (21-32) Anion Gap 10 mmol/L (5-15) Blood Urea Nitrogen 29 mg/dL (7-18) H Creatinine 1.3 MG/DL (0.55-1.30) Estimat Glomerular Filtration Rate 41.3 mL/min (>60) Glucose Level 190 MG/DL (74-106) H Uric Acid 7.5 MG/DL (2.6-7.2) H Calcium Level 8.1 MG/DL (8.5-10.1) L Phosphorus Level 3.2 MG/DL (2.5-4.9) Magnesium Level 2.2 MG/DL (1.8-2.4) Total Bilirubin 0.3 MG/DL (0.2-1.0) Gamma Glutamyl Transpeptidase 37 U/L (5-85) Aspartate Amino Transf (AST/SGOT) 24 U/L (15-37) Alanine Aminotransferase (ALT/SGPT) 22 U/L (12-78) Alkaline Phosphatase 87 U/L (46-116) C-Reactive Protein, Quantitative 37.6 mg/dL (0.00-0.90) H Pro-B-Type Natriuretic Peptide 403 pg/mL (0-125) H Total Protein 7.4 G/DL (6.4-8.2) Albumin 2.7 G/DL (3.4-5.0) L Globulin 4.7 g/dL Albumin/Globulin Ratio 0.6 (1.0-2.7) L Current Medications Medications (Trade) Dose Ordered Sig/Silas Route PRN Reason Start Time Stop Time Status Last Admin Dose Admin Acetaminophen (Tylenol) 500 mg Q4H PRN ORAL Fever 07/07/20 23:45 08/06/20 23:44 07/09/20 15:23 Amlodipine Besylate (Norvasc) 2.5 mg DAILY ORAL 07/08/20 14:00 08/07/20 13:59 07/10/20 09:49 Atorvastatin Calcium (Lipitor) 20 mg BEDTIME ORAL 07/08/20 21:00 10/06/20 20:59 07/09/20 20:48 Dextrose (Dextrose 50%) 25 ml Q30M PRN IV Hypoglycemia 07/07/20 23:45 10/05/20 23:44 Dextrose (Dextrose 50%) 50 ml Q30M PRN IV Hypoglycemia 07/07/20 23:45 10/05/20 23:44 Docusate Sodium (Colace) 100 mg THREE TIMES A DAY ORAL 07/08/20 18:00 08/07/20 17:59 07/09/20 17:49 Insulin Aspart (NovoLOG) BEFORE MEALS AND HS SUBQ 07/08/20 06:30 10/06/20 06:29 07/10/20 06:20 Iron Sucrose 100 mg/Sodium Chloride 60 ml @ 240 mls/hr BEDTIME IVPB 07/10/20 21:00 07/14/20 21:14 Meropenem 1 gm/ Sodium Chloride 55 ml @ 110 mls/hr Q12HR@0100,1300 IVPB 07/09/20 13:00 07/14/20 12:59 07/10/20 00:34 Nateglinide (Starlix) 60 mg TIAC ORAL 07/09/20 16:30 08/08/20 16:29 07/10/20 06:20 Pantoprazole (Protonix) 40 mg EVERY 12 HOURS ORAL 07/08/20 21:00 08/07/20 20:59 07/10/20 09:49 Sitagliptin Phosphate (Januvia) 50 mg DAILY ORAL 07/08/20 14:00 08/07/20 13:59 07/10/20 09:49 Sodium Chloride 1,000 ml @ 50 mls/hr Q20H IV 07/09/20 16:01 08/08/20 16:00 07/09/20 16:01 Tio Lay MD Jul 10, 2020 11:10
[2020-07-10 12:00] VITALS: BP 145/62
[2020-07-10] MEDS ORDERED: Lidocaine 1% Plain 30 ml INJ PRN (12:00)
[2020-07-10] MEDS ORDERED: Heparin1,000 units/500ml Premix(Conc:2 units/ml) IV PRN (12:00)
--- NOTE | 2020-07-10 12:16 | NUR ---
NURSE NOTES: Consent form for PICC line placement signed by patient, witnessed by RN.
--- NOTE | 2020-07-10 12:22 | NUR ---
DISCHARGE PLANNING PLAN IS TO DISCHARGE HOME WITH IV ANTIBIOTICS CALLED [facility] AND SPOKE WITH DUDLEY WHO STATED THEY ARE NOT CONTRACTED WITH ANY PARTICULAR PHARMACY. THIS [employer]ISM TE[employer]ER HAS FAXED ORDER TO [facility] T; [phone] F: [phone] IV ERTAPENEM 1 GRAM QD X7 DAYS PICC LINE TO BE PLACED TODAY THIS AUTISM TEACHER IS WORKING ON COORDINATING THIS DISCHARGE PATIENT IS NOT TO LEAVE THE HOSPITAL UNTIL ANTIBIOTICS HAVE BEEN CONFIRMED
--- NOTE | 2020-07-10 13:41 | Nephrology Progress Note ---
Assessment/Plan Problem List: (1) YENNI (acute kidney injury) (2) Anemia Assessment: Low iron (3) UTI (urinary tract infection) (4) Sepsis (5) DM2 (diabetes mellitus, type 2) (6) Diabetic nephropathy Assessment Elevated creatinine, renal failure, most likely dehydration: Serum creatinine 1.4 Possibly diabetic nephropathy Mild anemia low iron panel UTI Blood sugar under control, elevated hemoglobin A1c Mild right hydroureteronephrosis Plan July 10. Patient seen and examined. Occasional cough. Labs and medication list reviewed. Stable from renal standpoint of view. Avoid nephrotoxic's Iron supplement intravenously Monitor renal parameters, change IV fluid to normal saline Monitor and adjust blood sugar Adjust blood pressure medication Slow hydration Per consultants Subjective ROS Limited/Unobtainable: No Constitutional: Reports: malaise Objective Objective Last 24 Hour Vital Signs Date Time Temp Pulse Resp B/P (MAP) Pulse Ox O2 Delivery O2 Flow Rate FiO2 07/10/20 12:00 97.9 84 20 145/62 (89) 98 07/10/20 10:17 Nasal Cannula 2.0 07/10/20 09:49 89 140/56 07/10/20 08:00 97.7 89 20 140/56 (84) 98 07/10/20 08:00 89 07/10/20 04:00 98 07/10/20 04:00 99.3 93 22 144/59 (87) 95 07/10/20 00:00 95 07/10/20 00:00 99.7 95 25 147/71 (96) 96 07/09/20 21:00 Nasal Cannula 2.0 07/09/20 20:00 98.1 87 22 135/65 (88) 100 07/09/20 20:00 91 07/09/20 16:00 93 07/09/20 16:00 99.6 88 18 118/52 (74) 100 07/09/20 15:53 99.3 Intake and Output 07/09/20 07/10/20 19:00 07:00 Intake Total 770 ml 500 ml Output Total 1300 ml Balance -530 ml 500 ml Intake Oral 720 ml 500 ml IV Total 50 ml Output Urine Total 1300 ml # Voids 4 Current Medications Medications (Trade) Dose Ordered Sig/Silas Route PRN Reason Start Time Stop Time Status Last Admin Dose Admin Acetaminophen (Tylenol) 500 mg Q4H PRN ORAL Fever 07/07/20 23:45 08/06/20 23:44 07/09/20 15:23 Amlodipine Besylate (Norvasc) 2.5 mg DAILY ORAL 07/08/20 14:00 08/07/20 13:59 07/10/20 09:49 Atorvastatin Calcium (Lipitor) 20 mg BEDTIME ORAL 07/08/20 21:00 10/06/20 20:59 07/09/20 20:48 Chlorhexidine Gluconate (Adilene-Hex 2%) 1 applic DAILY@2000 TOPIC 07/10/20 20:00 10/08/20 19:59 Dextrose (Dextrose 50%) 25 ml Q30M PRN IV Hypoglycemia 07/07/20 23:45 10/05/20 23:44 Dextrose (Dextrose 50%) 50 ml Q30M PRN IV Hypoglycemia 07/07/20 23:45 10/05/20 23:44 Docusate Sodium (Colace) 100 mg THREE TIMES A DAY ORAL 07/08/20 18:00 08/07/20 17:59 07/09/20 17:49 Heparin Sodium/ Sodium Chloride (Heparin 1000 units/500ml Premix) 1,000 unit ONCE PRN IV PICC PLACEMENT 07/10/20 12:00 07/11/20 23:59 Insulin Aspart (NovoLOG) BEFORE MEALS AND HS SUBQ 07/08/20 06:30 10/06/20 06:29 07/10/20 12:11 Iron Sucrose 100 mg/Sodium Chloride 60 ml @ 240 mls/hr BEDTIME IVPB 07/10/20 21:00 07/14/20 21:14 Lidocaine HCl (Xylocaine 1% 30ml) 30 ml ONCE PRN INJ FOR PICC PLACEMENT 07/10/20 12:00 07/11/20 23:59 Meropenem 1 gm/ Sodium Chloride 55 ml @ 110 mls/hr Q12HR@0100,1300 IVPB 07/09/20 13:00 07/14/20 12:59 07/10/20 12:23 Nateglinide (Starlix) 60 mg TIAC ORAL 07/09/20 16:30 08/08/20 16:29 07/10/20 12:07 Pantoprazole (Protonix) 40 mg EVERY 12 HOURS ORAL 07/08/20 21:00 08/07/20 20:59 07/10/20 09:49 Sitagliptin Phosphate (Januvia) 50 mg DAILY ORAL 07/08/20 14:00 08/07/20 13:59 07/10/20 09:49 Sodium Chloride 1,000 ml @ 50 mls/hr Q20H IV 07/09/20 16:01 08/08/20 16:00 07/10/20 12:08 Laboratory Tests 07/09/20 16:29: POC Whole Blood Glucose 174H 07/09/20 20:26: POC Whole Blood Glucose [Pending] 07/10/20 06:18: POC Whole Blood Glucose 199H 07/10/20 06:30: White Blood Count 11.7H, Red Blood Count 2.89L, Hemoglobin 8.9L, Hematocrit 27.9L, Mean Corpuscular Volume 96, Mean Corpuscular Hemoglobin 30.7, Mean Corpuscular Hemoglobin Concent 31.9L, Red Cell Distribution Width 13.2, Platelet Count 224, Mean Platelet Volume 8.7, Neutrophils (%) (Auto) 80.1H, Lymphocytes (%) (Auto) 12.3L, Monocytes (%) (Auto) 5.9, Eosinophils (%) (Auto) 1.2, Basophils (%) (Auto) 0.5, Sodium Level 137, Potassium Level 3.8, Chloride Level 103, Carbon Dioxide Level 25, Anion Gap 10, Blood Urea Nitrogen 29H, Creatinine 1.3, Estimat Glomerular Filtration Rate 41.3, Glucose Level 190H, Uric Acid 7.5H , Calcium Level 8.1L, Phosphorus Level 3.2, Magnesium Level 2.2, Total Bilirubin 0.3, Gamma Glutamyl Transpeptidase 37, Aspartate Amino Transf (AST/SGOT) 24, Alanine Aminotransferase (ALT/SGPT) 22, Alkaline Phosphatase 87, C-Reactive Protein, Quantitative 37.6H, Pro-B-Type Natriuretic Peptide 403H, Total Protein 7.4, Albumin 2.7L, Globulin 4.7, Albumin/Globulin Ratio 0.6L 07/10/20 11:22: POC Whole Blood Glucose 165H Height (Feet): 5 Height (Inches): 1.00 Weight (Pounds): 160 General Appearance: no apparent distress, lethargic Cardiovascular: normal rate Respiratory/Chest: decreased breath sounds Abdomen: soft Hang Hsu MD Jul 10, 2020 13:41
--- NOTE | 2020-07-10 15:45 | NUR ---
INSURANCE CLINICALS/REVIEW FAXED TO [facility] [phone]
--- NOTE | 2020-07-10 16:12 | NUR ---
DISCHARGE PLANNED PLAN IS FOR PATIENT TO DISCHARGE HOME TODAY WITH IV ANTIBIOTICS SPOKE WITH JORDANA AT [facility]. THEY HAVE SPOKEN TO PATIENT'S DAUGHTER AND WILL BE DELIVERING THE ANTIBIOTICS TO THE HOME THIS EVENING BETWEEN 9:00-10:00 PM IV ERTAPENEM 1 GRAM QD X7 DAYS HOME HEALTH WILL COORDINATE WITH DAUGHTER AND VISIT PATIENT TOMORROW FOR 1ST DOSE OF ABX IV [facility] T: [phone] [facility] T: [phone] (ARRANGED BY MAYE ALTAMIRANO) *DISCUSSED ABOVE WITH BEDSIDE NURSE, JACEK
--- NOTE | 2020-07-10 18:15 | NUR ---
NURSE NOTES: Patient discharged with daughter in private vehicle. IV removed, PICC line in place for continued home medication, patient belongings verified. Patient stable and AxOx4. Patient education on discharge instructions completed.
[2020-07-10] MEDS ORDERED: Dyna-Hex 2% Top Sol 2oz TOPIC SCH (20:00)
--- NOTE | 2020-07-10 20:26 | General Progress Note ---
Subjective Allergies: Coded Allergies: No Known Allergies (Unverified , 08/03/17) Subjective (+) BM with laxative feels better less gas filled d/w daughter Vicki, on a phone call, re patient Iron deficiency anemia daughter stated patient was supposed to get a colonoscopy earlier this year but it got postponed due to COVID daughter advised to reschedule EGD/Colon as outpatient after d/c Objective Last 24 Hour Vital Signs Date Time Temp Pulse Resp B/P (MAP) Pulse Ox O2 Delivery O2 Flow Rate FiO2 07/10/20 12:00 86 07/10/20 12:00 97.9 84 20 145/62 (89) 98 07/10/20 10:17 Nasal Cannula 2.0 07/10/20 09:49 89 140/56 07/10/20 08:00 97.7 89 20 140/56 (84) 98 07/10/20 08:00 89 07/10/20 04:00 98 07/10/20 04:00 99.3 93 22 144/59 (87) 95 07/10/20 00:00 95 07/10/20 00:00 99.7 95 25 147/71 (96) 96 07/09/20 21:00 Nasal Cannula 2.0 l Intake and Output 07/09/20 07/10/20 19:00 07:00 Intake Total 770 ml 500 ml Output Total 1300 ml Balance -530 ml 500 ml Intake Oral 720 ml 500 ml IV Total 50 ml Output Urine Total 1300 ml # Voids 4 Laboratory Tests 07/09/20 20:26: POC Whole Blood Glucose [Pending] 07/10/20 06:18: POC Whole Blood Glucose 199H 07/10/20 06:30: White Blood Count 11.7H, Red Blood Count 2.89L, Hemoglobin 8.9L, Hematocrit 27.9L, Mean Corpuscular Volume 96, Mean Corpuscular Hemoglobin 30.7, Mean Corpuscular Hemoglobin Concent 31.9L, Red Cell Distribution Width 13.2, Platelet Count 224, Mean Platelet Volume 8.7, Neutrophils (%) (Auto) 80.1H, Lymphocytes (%) (Auto) 12.3L, Monocytes (%) (Auto) 5.9, Eosinophils (%) (Auto) 1.2, Basophils (%) (Auto) 0.5, Sodium Level 137, Potassium Level 3.8, Chloride Level 103, Carbon Dioxide Level 25, Anion Gap 10, Blood Urea Nitrogen 29H, Creatinine 1.3, Estimat Glomerular Filtration Rate 41.3, Glucose Level 190H, Uric Acid 7.5H , Calcium Level 8.1L, Phosphorus Level 3.2, Magnesium Level 2.2, Total Bilirubin 0.3, Gamma Glutamyl Transpeptidase 37, Aspartate Amino Transf (AST/SGOT) 24, Alanine Aminotransferase (ALT/SGPT) 22, Alkaline Phosphatase 87, C-Reactive Protein, Quantitative 37.6H, Pro-B-Type Natriuretic Peptide 403H, Total Protein 7.4, Albumin 2.7L, Globulin 4.7, Albumin/Globulin Ratio 0.6L 07/10/20 11:22: POC Whole Blood Glucose 165H Height (Feet): 5 Height (Inches): 1.00 Weight (Pounds): 160 Objective WDWN woman NCAT supple RR abd soft, NT, ND, no mass or organomegaly no edema Assessment/Plan Status: progressing Assessment/Plan: Assessment - chronic constipation - chronic bloating - Iron deficiency anemia - pneumonitis - UTI - azotemia Recommendations - abx - laxatives - follow labs - outpatient EGD/Colon - DTR to arrange Ashwini Garcia MD Jul 10, 2020 20:25
[2020-07-10] MEDS ORDERED: Iron Sucrose 100 MG in NS 55 ML IVPB SCH (21:00)
--- NOTE | 2020-07-11 09:38 | Discharge Summary ---
Discharge Summary Discharge Summary _ DATE OF ADMISSION: 07/07/2020 DATE OF DISCHARGE: 07/10/2020 DISCHARGED BY: Dr Kat REASON FOR ADMISSION: 65 years old female with past medical history for hypertension and diabetes mellitus, presented for abdominal pain. Symptoms started earlier prior to presentation. She reported sharp, nonradiating 10 out of 10 right lower quadrant and right lower back abdominal pain. No reported trauma or injury. Subsequently patient started to have nausea and nonbloody nonbilious vomiting. Patient reported loose stool. No dysuria no hematuria , but admitted to prior history of UTI. No fever or chills. Patient r also reported intermittent cough , but no wheezing. No recent testing for Covid. Upon evaluation rapid COVID-19 was negative. Laboratory work-up revealed WBC 10.9, hemoglobin 11, hematocrit 33.5. Stable coagulation profile. BUN 32, creatinine 1.4. Glucose 201. Pro BNP 109. Urinalysis revealed +3 protein, +2 leukocyte esterase, pyuria and many bacteria. Chest x-ray demonstrated diffuse airspace opacity , concerning for infectious process. CT scan of the chest , abdomen and pelvis revealed no pulmonary emboli. Reticular and ground-glass opacity within the mid to lower lung concerning for infectious process versus atelectasis or scaring. Mild right hydroureteronephrosis with periureteral/perinephric stranding and delayed nephrogram. Findings could represent recently passed calculus versus infectious process. In emergency department patient received analgesic , antiemetic, IV fluids , started on empiric antibiotic and admitted for further management. CONSULTANTS: pulmonary Dr. Mtahews ID specialist Dr. Tio Lay GI specialist Dr. Garcia chief clinical dietitian Dr. Hsu HOSPITAL COURSE: Patient admitted on telemetry floor Patient started on IV fluids and broad-spectrum antibiotic as per ID specialist recommendation. Supplemental oxygen was on board as needed to keep pulse oximetry above 92. Blood culture revealed E. coli ESBL. Urine culture revealed E. coli ESBL Patient was on meropenem while in the hospital and was discharged on IV ertapenem for additional 7 days to complete the course , as per ID specialist recommendation. Renal parameters and electrolytes were closely monitored, electrolytes co rrected as needed, and nephrotoxic's were avoided. Acute kidney injury was most likely due to dehydration. Creatinine down to 1.3 prior to discharge with gentle IV hydration. Hemoglobin and hematocrit were closely monitored with goal to keep hemoglobin above 7. Anemia work-up revealed low iron. Patient was on IV Venofer. Prior to discharge hemoglobin 8.9 , hematocrit 27.9. Blood sugar was managed with Januvia, Starlix and sliding scale of insulin as needed. Diabetic diet provided. Hemoglobin A1c 9.8, clearly not at goal. Diabetic teaching provided. Patient will need to optimize antiglycemic regimen as outpatient to bring blood sugar under control. Blood pressure was managed with calcium channel colin remained stable. GI prophylaxis provided. Bowel regimen instituted. GI specialist recommended outpatient EGD and colonoscopy Patient clinically stabilized and was ready for discharge. FINAL DIAGNOSES: E. coli sepsis E. coli UTI Pyelonephritis Possibly passed stone Acute kidney injury probably due to dehdyartion Mild right hydronephrosis Diabetic nephropathy Pulmonary atelectasis Pneumonitis Hypertension Obesity Diabetes mellitus Mild anemia with iron panel with low iron panel iron deficiency anemia Chronic constipation DISCHARGE MEDICATIONS: See Medication Reconciliation list. DISCHARGE INSTRUCTIONS: Was discharged home. Follow-up with a primary care provider in 1 week. Patient was advised to to have outpatient EGD and colonoscopy. I have been assigned to dictate discharge summary for this account. I was not involved in the patient's management. Ethel Raya NP Jul 11, 2020 09:38
--- NOTE | 2020-07-12 13:46 | Diagnostic Imaging Report ---
Indications: Needs long-term IV access Technique: Ultrasound confirms patent compressible left basilic vein. Total sterile technique, including sterile probe cover and sterile gel, hat, mask,, sterile gown, large sterile drape, and preparation with 2% chlorhexidine utilized. Local anesthesia with 1% lidocaine. Under real-time ultrasound guidance, puncture vein using 21-gauge needle, documented and archived, passage 0.018 guidewire under direct fluoroscopy, which was used to determine appropriate catheter length, exchange for 4.5 Burkin[place] peel-away sheath. 4French dual-lumen power PICC cut to 40 cm. It was inserted through the peel-away sheath. Peel-away sheath and guidewire removed. Catheter fixed to the skin. Both catheter ports aspirated and flushed. Patient tolerated procedure well, without immediate complication. Digital radiograph documents satisfactory catheter tip position, at the cavoatrial junction. Total fluoroscopy time 11.4 seconds. Total fluoroscopy dose 2.28 mGy. Total number of fluoroscopic images obtained: 1 IMPRESSION: Successful placement of left arm PICC under sonographic and fluoroscopic guidance, as described above. Catheter cleared for immediate use.
--- NOTE | 2020-07-12 16:59 | Cardiology Report ---
APPROVED REPORT EKG Measurement Heart [id number] <Conclusion> Sinus tachycardia with premature atrial complexes ST & T wave abnormality, consider inferior ischemia Abnormal ECG
== END 2020-07-10 18:00 | disposition home IV services (08) | DRG 720 ==
LOC: EMR 18:20 → EDBEDREQ 19:30 → 2E 19:48 → EDBEDREQ 21:03
PROC: 02HV33Z Insertion of Infusion Device into Superior Vena Cava, Percutaneous Approach (ICD-10-PCS; principal; 2020-07-10)
DX: A41.51 Sepsis due to Escherichia coli [E. coli] (principal); J18.9 Pneumonia, unspecified organism; E11.21 Type 2 diabetes mellitus with diabetic nephropathy; N13.6 Pyonephrosis; I10 Essential (primary) hypertension; J98.11 Atelectasis; E66.9 Obesity, unspecified; Z68.30 Body mass index [BMI] 30.0-30.9, adult; D64.9 Anemia, unspecified; Z16.12 Extended spectrum beta lactamase (ESBL) resistance; N17.9 Acute kidney failure, unspecified; D50.9 Iron deficiency anemia, unspecified; K59.09 Other constipation; E78.5 Hyperlipidemia, unspecified
CPT/HCPCS: 36415; 36569; 71045; 71260; 74177; 76937; 80053; 80061; 81003; 82306; 82550; 82607; 82728; 82746; 82962; 82977; 83036; 83540; 83550; 83605; 83690; 83735; 83880; 84100; 84443; 84550; 85007; 85025; 85610; 85730; 86140; 87040; 87086; 87181; 93005; 96361; 96365; 96368; 96375; 99291; J1815; J2405; J7030; U0002

== ENCOUNTER 2020-07-22 13:40 | Emergency (ER) | payer MEDICAID ==
[~2020-07-22] VITALS: Ht 160 cm; Wt 72.6 kg
[~2020-07-22 13:40] MED LIST changes: +ATORVASTATIN CA20 MG ORAL; +CETIRIZINE HCL10 MG PO; +FERROUS SULFAT325 MG ORAL; +LANTUS SOL100 UNIT/1 SUBQ
[2020-07-22 14:07] VITALS: BP 122/61
--- NOTE | 2020-07-22 14:25 | Emergency Room Report ---
History of Present Illness General Chief Complaint: General Complaint Source: Patient Present Illness HPI Disclaimer: Please note that this report is being documented using [employer] technology. This can lead to erroneous entry secondary to incorrect interpretation by the dictating instrument. HPI: 65-year-old female presents for PICC line removal. Patient admitted to the hospital several weeks ago for treatment of community-acquired pneumonia. She required outpatient ertapenem through PICC line that was being given by home nurse. Antibiotics finished on 07/17. Patient denies fever, cough, shortness of breath or discomfort. Denies pain, swelling, redness at central line site. Denies numbness or tingling, changes in strength or sensation in the upper extremity. She states the line sometimes itches but otherwise came for removal as the home nurse stated that they were not able to remove the central line for her. She return to this emergency department as this was the hospital she was admitted to for treatment of her pneumonia. PMH: Reviewed PSH: Reviewed Allergies: Reviewed Social Hx: Reviewed Allergies: Coded Allergies: No Known Allergies (Unverified , 08/03/17) COVID-19 Screening Contact w/high risk pt: No Experienced COVID-19 symptoms?: No COVID-19 Testing performed RESERVATIONS AND TICKETING AGENT: No Nursing Documentation-PMH Hx Cardiac Problems: Yes - high cholestrol, Hx Hypertension: Yes Hx Diabetes: Yes Hx Cancer: No Hx Gastrointestinal Problems: No Hx Neurological Problems: No Review of Systems All Other Systems: negative except mentioned in HPI Physical Exam Vital Signs Date Time Temp Pulse Resp B/P (MAP) Pulse Ox O2 Delivery O2 Flow Rate FiO2 07/22/20 13:51 98.6 80 20 122/61 (81) 94 Room Air General: Awake and alert, no acute distress HEENT: NC/AT. EOMI. Resp: Normal work of breathing Skin: Intact. No abrasions, laceration or rash over the exposed skin MSK: Normal tone and bulk. Moving all extremities. No obvious deformity. PICC line in left upper extremity. Bandages intact. No edema, erythema, skin breakdown, leakage. Neuro: Awake and alert. Mentating appropriately Medical Decision Making Diagnostic Impression: Primary Impression: PIC line (peripherally inserted central catheter) removal ER Course Is a 65-year-old female presenting for evaluation of PICC line removal. Antibiotics finished last week. Patient does not show any signs of persistent infection. Otherwise doing well in her usual state of health. No sign of DVT in the left upper extremity, infection. Central line was removed by me at bedside. Catheter was removed intact. Pressure dressing applied. No complications. Patient will follow up with PMD on outpatient basis. Discussed reasons to return to the ER. She understands and agrees to this treatment plan. Last Vital Signs Date Time Temp Pulse Resp B/P (MAP) Pulse Ox O2 Delivery O2 Flow Rate FiO2 07/22/20 14:07 98.6 80 20 122/61 94 Room Air Disposition: HOME, SELF-CARE Condition: Stable Patient Instructions: Central Lines, [id number] Additional Instructions: Please follow-up with your primary care doctor in the next 1 to 3 days to discuss this emergency department visit and for reevaluation. If you have any new or worsening symptoms please return to the emergency department for reevaluation. Please note that this report is being documented using [employer] technology. This can lead to erroneous entry secondary to incorrect interpretation by the dictating instrument. Jarred Molina MD Jul 22, 2020 14:25
[2020-07-22 14:40] VITALS: BP 122/61
== END 2020-07-22 14:40 | disposition home or self-care (01) ==
LOC: EMR 14:18
DX: Z45.2 Encounter for adjustment and management of vascular access device (principal); I10 Essential (primary) hypertension; E11.9 Type 2 diabetes mellitus without complications; E78.00 Pure hypercholesterolemia, unspecified
CPT/HCPCS: 99282